=== PATIENT | female | born 1980 | race Caucasian/White ===

== ENCOUNTER 2019-12-10 16:44 | Outpatient (CLI) | payer OTHER, SELFPAY ==
--- NOTE | ~2019-12-10 | CT_ITS ---
EXAMINATION: CT BRAIN W/O DATE: 12/10/2019 18:11 INDICATION: Cerebral infarction. TECHNIQUE: Computed tomography (CT) of the head was performed without and with 100 cc Omnipaque 350 i ntravenous contrast. The dose-length product was 1362.00 mGy-cm. The mA was adjusted according to pat ient size. Iterative reconstruction technique was employed. COMPARISON: No prior studies for comparison. FINDINGS: Normal brain parenchymal volume for age. Normal tomlinson-white differentiation. No acute intrac ranial hemorrhage, infarction, mass or mass effect. No abnormal contrast enhancement. No ventriculomegaly or midline shift. Midline sagittal images demonstrate a normal corpus callosum, c raniovertebral junction and sella turcica. Basilar cisterns are patent. Paranasal sinuses and mastoids are pneumatized. No depressed skull fractures. IMPRESSION: 1. No acute intracranial abnormality. Reviewed, dictated and finalized at location A. ATORY ANIMAL TRAPPER
--- NOTE | ~2019-12-10 | US_ITS ---
EXAMINATION:US venous doppler LE BI INDICATION:Bilateral leg swelling for 3 days TECHNIQUE: Multiple grayscale, color flow and Doppler images of the lower extremity deep venous syste ms were obtained and reviewed. COMPARISON:No prior studies for comparison. FINDINGS: The common femoral, superficial femoral and popliteal veins demonstrate normal respiratory variation, augmentation and compressibility. Color flow is also seen within the posterior tibial, pe roneal, greater saphenous and profunda veins. IMPRESSION: 1: No lower extremity deep venous thrombosis. Reviewed, dictated and finalized at location A. STAGER
--- NOTE | ~2019-12-10 | US_ITS ---
EXAMINATION: US carotid duplex BI DATE: 12/10/2019 17:44 INDICATION: Cerebral infarction TECHNIQUE: Grayscale, color Doppler, and pulsed Doppler images of the cervical carotid arteries were obtained. The degree of vessel stenosis is placed in one of the following categories: normal, <50%, 5 0-69%, >=70% but less than near-occlusion, near-occlusion, or total occlusion. Note that percent sten osis relative to normal distal artery lumen diameter is indirectly measured from velocity measurement s as described by Brody, et al. Radiology 2003; 229:340-346. Notes: Normal: Peak systolic velocity <125 centimeters/sec and no plaque <50%. Peak systolic velocity <125 ( EDV <40; ICA/CCA PSV ratio <2.0; used these factors only a tandem lesions or low cardiac output or co ntralateral disease) 50-69 %: PSV 125-230 (EDV 40-100; ratio 2-4) >= 70% but less than near occlusion: PSV greater than 230 (EDV > 100; ratio> 4.0) Near Occlusion: PSV that is variable; markedly narrowed lumen Occlusion: Absent flow on color/spectral Doppler and no lumen on tomlinson scale. COMPARISON: None. FINDINGS: RIGHT: The right common carotid artery (CCA) peak systolic velocity (PSV) is 77 cm/s. The right internal car otid artery (ICA) PSV is 93 cm/s. The right ICA end-diastolic velocity (EDV) is 30 cm/s. The right IC A/CCA PSV ratio is 1.2. The external carotid artery (ECA) PSV is 79 cm/s. There is antegrade flow in the right vertebral artery. LEFT: The left CCA PSV is 97 cm/s. The left ICA PSV is 70 cm/s. The left ICA EDV is 22 cm/s. The left ICA/C CA PSV ratio is 0.7. The ECA PSV is 58 cm/s. There is antegrade flow in the left vertebral artery. IMPRESSION: 1. Less than 50% stenosis in the right internal carotid artery by sonographic criteria. 2. Less than 50% stenosis in the left internal carotid artery by sonographic criteria. Reviewed, dictated and finalized at location A. Y GUNNER IMPRESSION: 1. Less than 50% stenosis in the right internal carotid artery by sonographic desean polanco. 2. Less than 50% stenosis in the left internal carotid artery by sonographic venus lou.
[2019-12-10 17:57] LABS: Blood Urea Nitrogen 27 mg/dL (8-26); Estimated Glomerular Filt Rate 33
== END 2019-12-10 16:45 | disposition home or self-care (01) ==
PROVIDERS: PCP Family Medicine; Visit Provider Family Medicine
DX: I63.9 Cerebral infarction, unspecified (principal); I65.23 Occlusion and stenosis of bilateral carotid arteries
CPT/HCPCS: 70470; 93880; 93970; Q9967

== ENCOUNTER 2019-12-15 08:29 | Outpatient (CLI) | payer OTHER, SELFPAY ==
--- NOTE | 2019-12-15 | ECHO_ITS ---
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 Summary 1. Left ventricular chamber dimension is mildly enlarged. 2. Left ventricular systolic function is normal, estimated at 55-60%. 3. There is mildly increased left ventricular wall thickness. 4. Left ventricular septal wall motion is normal. 5. The left ventricular diastolic function is normal. 6. Left atrial chamber dimension is mildly enlarged. 7. There is mild to moderate mitral valve regurgitation. 8. There is mild tricuspid valve regurgitation. Left Ventricle Left ventricular chamber dimension is mildly enlarged. Left ventricular systolic function is normal, estimated at 55-60%. There is mildly increased left ventricular wall thickness. Left ventricular septal wall motion is normal. The left ventricular diastolic function is normal. Right Ventricle Right ventricular chamber dimension is normal. Right ventricular systolic function is normal. Left Atria Left atrial chamber dimension is mildly enlarged. Right Atria Right atrial chamber dimension is normal. Atrial Septum Intact interatrial septum visualized by color flow imaging. This is not a definitive study for analysis of shunting. Aortic Valve The aortic valve is probable trileaflet. There is mild aortic valve sclerosis. There is no aortic valve stenosis. There is trace aortic valve regurgitation. Pulmonic Valve The pulmonic valve is normal. There is no pulmonic valve stenosis. There is trace pulmonic regurgitation. Mitral Valve The mitral valve has normal leaflets. There is no mitral valve stenosis. There is mild to moderate mitral valve regurgitation. Tricuspid Valve No pulmonary hypertension, estimated pulmonary arterial systolic pressure is 24 mmHg. The tricuspid valve leaflets are normal. There is no significant tricuspid valve stenosis. There is mild tricuspid valve regurgitation. No tricuspid valve vegetation visualized. Pericardium/Pleural The pericardium appears normal. There is trivial pericardial effusion. Inferior Vena Cava Dilated inferior vena cava with <50% collapse upon inspiration consistent with elevated right atrial pressure, 10 mmHg. Aorta The aortic root size at the sinus of Valsalva is normal. Left Ventricular Outflow Tract Name Value Normal LVOT 2D LVOT Diameter 2.1 cm LVOT Doppler LVOT Peak Gradient 3 mmHg LVOT Mean Gradient
[2019-12-15 09:05] LABS: Basophils Percent Auto 0.4 % (0.2-1.2); Eosinophils Absolute Auto 0.3 K/mm3 (0-0.3); Eosinophils Percent Auto 3.3 % (0-4.4); Hemoglobin 12.2 g/dL (12.0-15.0); Immature Granulocyte Absolute 0.04 K/mm3 (0.00-0.031); Immature Granulocyte Percent A 0.5 % (0-0.5); Lymphocytes Absolute Auto 2.23 K/mm3 (0.9-3.2); Lymphocytes Percent Auto 29.2 % (18.3-44.2); Mean Corpuscular Hemoglobin 33.1 pg (26-34); Mean Corpuscular Volume 100.3 fl (80-100); Mean Platelet Volume 9.5 fl (7.4-10.4); Monocytes Absolute Auto 0.7 K/mm3 (0.1-0.6); Monocytes Percent Auto 8.5 % (2.6-8.5); Neutrophils Absolute Auto 4.4 K/mm3 (1.3-6.7); Neutrophils Percent Auto 58.1 % (45.5-73.1); Platelet Count Result 157 k/mm3 (150-375); Red Blood Count 3.69 M/mm3 (4.2-5.4); Red Cell Distribution Width 12.7 % (11.5-14.5); White Blood Count 7.6 K/mm3 (4.5-10.0)
[2019-12-15 09:18] LABS: Prothrombin Time 13.2 Seconds (11.1-14.7)
[2019-12-15 09:23] LABS: Alanine Aminotransferase 22 U/L (4-35); Albumin Level 4.2 g/dL (3.5-5.1); Alkaline Phosphatase 76 U/L (38-126); Aspartate Amino Transferase 18 U/L (14-36); Bilirubin,Total 0.4 mg/dL (0.2-1.3); Blood Urea Nitrogen 16 mg/dL (7-17); Calcium 8.9 mg/dL (8.4-10.2); Carbon Dioxide 27 mmol/L (22-30); Chloride 102 mmol/L (98-107); Cholesterol 118 mg/dL (0-200); Estimated Glomerular Filt Rate 50; Glucose 153 mg/dL (65-105); HDL Direct 32 mg/dL; Potassium 4.2 mmol/L (3.4-5.0); Sodium 139 mmol/L (137-145); Triglycerides 178 mg/dL (<150)
[2019-12-15 09:34] LABS: LDL Cholesterol Direct 63 mg/dL
[2019-12-15 09:36] LABS: Creatinine Urine 77.7 mg/dL
[2019-12-15 11:29] LABS: MALB Creatinine Ratio < 7.7 mg/g (0-30); Microalbumin Urine Random < 6.0 mg/L (0-16.7)
== END 2019-12-15 08:30 | disposition home or self-care (01) ==
PROVIDERS: PCP Family Medicine; Visit Provider Family Medicine
DX: I63.9 Cerebral infarction, unspecified (principal); E11.649 Type 2 diabetes mellitus with hypoglycemia without coma; I95.1 Orthostatic hypotension
CPT/HCPCS: 36415; 80053; 80061; 82043; 83036; 85025; 85610; 93306

== ENCOUNTER 2020-02-02 15:40 | Emergency (ER) | payer MEDICAID, SELFPAY ==
[2020-02-02 15:57] VITALS: BP 124/92; PULSE 75; RESP 16; TEMP 36.8; O2SAT 98
--- NOTE | 2020-02-02 16:03 | ED.URI ---
HPI - URI/Sore Throat General Chief Complaint: Upper Respiratory Infection Stated Complaint: Fever/cough/Congestion History of Present Illness HPI Narrative: This is a 39-year-old female comes in complaining of cough congestion nasal drainage slight headache some shortness of breath. Patient states she is been having a fever that will not stop she been alternating Tylenol Related Data Home Medications Medication Instructions Recorded Confirmed atorvastatin 10 mg PO DAILY 02/02/20 02/02/20 baclofen 20 mg PO QID 02/02/20 02/02/20 bupropion HCl [Wellbutrin XL] 150 mg PO QAM 02/02/20 02/02/20 clonazepam 1 mg PO DAILY 02/02/20 02/02/20 ertugliflozin [Steglatro] 15 mg PO QAM 02/02/20 02/02/20 fluoxetine 40 mg PO DAILY 02/02/20 02/02/20 furosemide 40 mg PO DAILY 02/02/20 02/02/20 gabapentin 800 mg PO TID 02/02/20 02/02/20 hydrocodone-acetaminophen 10 - 325 tablet PO Q4-6H 02/02/20 02/02/20 insulin glargine [Basaglar KwikPen 20 unit SUBCUT DAILY 02/02/20 02/02/20 U-100 Insulin] levetiracetam 500 mg PO BID 02/02/20 02/02/20 meloxicam 15 mg PO DAILY 02/02/20 02/02/20 metformin 500 mg PO DAILY 02/02/20 02/02/20 polyethylene glycol 3350 [Miralax] 17 g PO BID 02/02/20 02/02/20 ranitidine HCl [Heartburn Relief 150 mg PO DAILY 02/02/20 02/02/20 (ranitidine)] spironolactone 25 mg PO DAILY 02/02/20 02/02/20 trazodone 100 mg PO BID 02/02/20 02/02/20 Allergies Allergy/AdvReac Type Severity Reaction Status Date / Time morphine Allergy Intermediate RASH,FEVER, Verified 04/01/18 13:57 N&V clindamycin Allergy Unknown constipatio Unverified 04/01/18 13:57 n Corticosteroids Allergy Unknown Verified 04/01/18 13:57 (Glucocorticoids) sertraline Allergy Unknown TREMORS Verified 05/22/18 13:57 Review of Systems Review of Systems: Narrative: CONSTITUTIONAL: Reports fever, chills, or sweats. EYES: Denies visual changes, redness, or discharge. ENT: Reports rhinorrhea, congestion, sore throat, or otalgia. CARDIOVASCULAR:Denies chest pain, palpitations, or edema. RESPIRATORY: Reports cough or dyspnea. GASTROINTESTINAL: Denies abdominal pain, nausea, vomiting, or diarrhea. GENITOURINARY: Denies dysuria or hematuria. SKIN:[Denies rash or itching. MUSCULOSKELETAL:Denies back pain, joint pain, or myalgia. NEUROLOGIC: Denies headache, numbness, or weakness. PSYCHIATRIC:Denies anxiety or depression PMFSH Social History Social History Gender identity (if verbalized by the patient): Female Comments At time as signature, I have reviewed and agree with nursing past medical, social, surgical and family history. Please see nursing chart for further information. There is no relevant family history pertinent to the presenting complaint. Exam Narrative: Exam Narrative: GENERAL:Well-appearing, well-nourished, and in no acute distress. Malaise HEAD:Normocephalic, atraumatic. EYES: PERRLA and EOMI. ENT: Nares clear, moderate rhinorrhea or epistaxis. Mucous membranes moist. Slight pharyngeal erythema NECK: Supple. CHEST: Clear to scattered throughout auscultation. No respiratory distress. HEART: Regular rate and rhythm. No murmur heard. Normal peripheral pulses. ABDOMEN: Soft, nontender, nondistended, normal active bowel sounds. EXTREMITIES: Normal range of motion. No edema. SKIN: Warm, dry, no rash. NEURO: No focal deficits. Alert and oriented x3. Course Vital Signs Vital signs: Vital Signs Temperature 98.2 F 02/02/20 15:57 Pulse Rate 75 02/02/20 15:57 Respiratory Rate 16 02/02/20 15:57 Blood Pressure 124/92 H 02/02/20 15:57 Pulse Oximetry 98 02/02/20 15:57 Temperature 98.2 F 02/02/20 15:57 Pulse Rate 75 02/02/20 15:57 Respiratory Rate 16 02/02/20 15:57 Blood Pressure 124/92 H 02/02/20 15:57 Pulse Oximetry 98 02/02/20 15:57 MDM - URI/Sore Throat Differential Diagnosis Differential diagnosis: Likely upper respiratory infection, otitis media, sinusitis, viral infection and pharyngitis L
== END 2020-02-02 16:31 | disposition home or self-care (01) ==
PROVIDERS: Emergency Provider Nurse Practitioner Family; PCP Family Medicine
DX: B34.9 Viral infection, unspecified (principal); J06.9 Acute upper respiratory infection, unspecified; E78.00 Pure hypercholesterolemia, unspecified; I10 Essential (primary) hypertension; J45.909 Unspecified asthma, uncomplicated; K21.9 Gastro-esophageal reflux disease without esophagitis; M41.9 Scoliosis, unspecified; E11.40 Type 2 diabetes mellitus with diabetic neuropathy, unspecified; F41.9 Anxiety disorder, unspecified; F32.9 Major depressive disorder, single episode, unspecified; F43.10 Post-traumatic stress disorder, unspecified
CPT/HCPCS: 87804; 99213; G0463

== ENCOUNTER 2020-04-27 14:38 | Outpatient (CLI) | payer OTHER, SELFPAY ==
--- NOTE | ~2020-04-27 | CT_ITS ---
EXAMINATION: CT abdomen pelvis w con DATE: 04/27/2020 15:38 INDICATION: Hernia. TECHNIQUE: Computed tomography (CT) of the abdomen and pelvis was performed with 100 mL Omnipaque 350 intravenous contrast. Automated exposure control and iterative reconstruction technique were employe d. The dose-length product was 1565.46 mGy-cm. COMPARISON: CT abdomen and pelvis 10/18/2016 FINDINGS: The visualized portions of the lung bases demonstrate minimal atelectasis. No pleural effus ion. The heart size is normal. No pericardial effusion. The liver is normal. There are changes of cho lecystectomy. There is mild splenomegaly, likely secondary to obesity. The pancreas and right adrenal gland are normal. There is a 2.2 cm mass of fat in left adrenal gland, consistent with a myelolipoma . The kidneys are normal. There are no dilated loops of bowel. The appendix is normal. There are no p athologically enlarged lymph nodes. There is no free intraperitoneal fluid. There is mild thoracolumb ar spondylosis. There is mild chronic anterior wedging of multiple thoracic vertebral bodies. IMPRESSION: 1. No hernia identified. Reviewed, dictated and finalized at location A. IMPRESSION: 1. No hernia identified.
[2020-04-27 15:28] LABS: Estimated Glomerular Filt Rate > 60
== END 2020-04-27 14:39 | disposition home or self-care (01) ==
PROVIDERS: PCP Family Medicine
DX: R20.2 Paresthesia of skin (principal); K43.9 Ventral hernia without obstruction or gangrene
CPT/HCPCS: 36415; 74177; Q9967

== ENCOUNTER 2020-05-18 10:32 | Outpatient (CLI) | payer OTHER, SELFPAY ==
--- NOTE | ~2020-05-18 | XR_ITS ---
XR lumbar spine 2-3V DATE: 05/18/2020 10:50 INDICATION: Low back pain TECHNIQUE: AP, lateral, coned lateral lumbosacral views COMPARISON: None FINDINGS: Normal alignment of the lumbar spine. No fracture or dislocation, periosteal reaction or b one destruction. There is mild degenerative spurring of the lumbar spine. The lumbar and lumbosacral interspaces are relatively well preserved. The sacroiliac joints are intact. Surgical clips overlie the right upper quadrant, consistent with cholecystectomy. IMPRESSION: Mild degenerative spurring Reviewed, dictated and finalized at location B. IMPRESSION: Mild degenerative spurring
== END 2020-05-18 10:33 | disposition home or self-care (01) ==
PROVIDERS: PCP Family Medicine; Visit Provider Family Medicine
DX: M54.5 Low back pain (principal)
CPT/HCPCS: 72100

== ENCOUNTER 2020-09-14 09:46 | Outpatient (CLI) | payer OTHER, SELFPAY ==
--- NOTE | ~2020-09-14 | NM_ITS ---
EXAM: NM gastric emptying study DATE: 09/14/2020 14:49 INDICATION: Epigastric pain TECHNIQUE: A gastric emptying study was performed using the methodology of Anjali MARQUEZ, et al. J Nucl Med 2007; 48:568-572. The patient was given a meal consisting of 2 scrambled eggs labeled with 1 mCi Tc-99m sulfur colloid, 2 slices of toast, two packages of jam, and approximately 120 mL of water. Si multaneous anterior and posterior 1-min images of the abdomen were obtained with the patient supine a t multiple time points over a total period of 4 hours. The geometric mean of anterior and posterior v iews was determined, and the percentage retention was calculated for each time point. COMPARISON: None. FINDINGS: Gastric retention of the radiotracer-labeled meal was 48%, 21%, and 7% at the 1-hour, 2-hour, and 4-h our time points, respectively. With this technique, apparent rapid gastric emptying is suggested by < 30% gastric retention at 1 hour. Delayed gastric emptying is defined by gastric retention of >90% at 1 hour, >60% retention at 2 hours, or >10% retention at 4 hours. IMPRESSION: 1. Normal gastric emptying. Reviewed, dictated and finalized at location A. RANCE LOSS CONTROL SURVEYOR IMPRESSION: 1. Normal gastric emptying.
[2020-09-14 11:15] LABS: Hematocrit 44.2 % (37.0-47.0); Hemoglobin 14.2 g/dL (12.0-15.0); Mean Corpuscular HGB Conc 32.1 g/dl (32-36); Mean Corpuscular Hemoglobin 31.3 pg (26-34); Mean Corpuscular Volume 97.4 fl (80-100); Mean Platelet Volume 9.3 fl (7.4-10.4); Platelet Count Result 166 k/mm3 (150-375); Red Blood Count 4.54 M/mm3 (4.2-5.4); Red Cell Distribution Width 13.9 % (11.5-14.5); White Blood Count 8.1 K/mm3 (4.5-10.0)
[2020-09-14 11:19] LABS: Hemoglobin A1C 5.6 % (<5.7)
[2020-09-14 11:26] LABS: Alanine Aminotransferase 27 U/L (4-35); Albumin Level 3.9 g/dL (3.5-5.1); Alkaline Phosphatase 91 U/L (38-126); Anion Gap 4 mmol/L (8-16); Aspartate Amino Transferase 28 U/L (14-36); Bilirubin,Total 0.4 mg/dL (0.2-1.3); Blood Urea Nitrogen 15 mg/dL (7-17); CRP 1.2 mg/dL (<1.0); Calcium 8.9 mg/dL (8.4-10.2); Carbon Dioxide 35 mmol/L (22-30); Chloride 102 mmol/L (98-107); Estimated Glomerular Filt Rate > 60; Glucose 122 mg/dL (65-105); Lipase 105 U/L (23-300); Potassium 4.1 mmol/L (3.4-5.0); Sodium 141 mmol/L (137-145)
[2020-09-14 11:54] LABS: Thyroid Stimulating Hormone 0.022 uIU/mL (0.465-4.680)
[2020-09-14 11:59] LABS: Free T4 Free Thyroxine 0.92 ng/mL (0.78-2.19)
== END 2020-09-14 09:47 | disposition home or self-care (01) ==
PROVIDERS: PCP Family Medicine; Visit Provider Nurse Practitioner
DX: R10.13 Epigastric pain (principal); R11.2 Nausea with vomiting, unspecified
CPT/HCPCS: 36415; 78264; 80048; 80076; 83036; 83690; 84439; 84443; 85027; 86140; A9541

== ENCOUNTER → 2020-10-30 15:48 | Outpatient (CLI) | payer OTHER, SELFPAY ==
--- NOTE | 2020-12-18 17:31 | WPDHOMESLEEP ---
Sleep Study - Home Unattended Date of Study: 11/08/20 Ordering Provider: Kasey Carroll MD Interpreting Physician: Paris Reeves MD Home Sleep Study Type: Apnea Link Air Height: 1.7 m Weight: 124.284 kg Body Mass Index: 42.9 Neck Circumference (inches): 21.75 [place]: 10 Reason for Sleep Study hypersomnia Sleep History Sabina Jara is a 40 year old female who is excessively sleepy during the day, no matter how much sleep she gets at night. This has been going on for years. Dinorah feels exhausted in the day. She can fall asleep sitting up in the bed. She sleep walks. She occasionally snores, never loud enough that others complain. She never wakes at night with heartburn,. belching or coughing. She occasionally has trouble sleeping with a cold. She never gasps for breath during the night. She never has breathing problems at night observed by others. She rarely sweats excessively at night. She never notices her heart pounding or beating irregularly at night. She rarely falls asleep during the day, occasionally involuntarily but never while driving. She never falls asleep during physical effort she does not have loss of muscle tone with strong emotion she occasionally has daytime difficulties due to excessive sleepiness she rarely has vivid dream like scenes upon awakening or falling asleep. She rarely feels afraid to go to sleep. She occasionally has nightmares. She occasionally remembers her dreams. She occasionally has racing thoughts, feelings of sadness depression and anxiety. She frequently has muscular tension. She rarely notices parts of her body jerking. She never kicks during the night. She occasionally has crawling and aching feelings in her legs. She rarely has leg pain during the night, and does not have morning jaw pain. She does not grind her teeth during sleep. She frequently is bothered by pain during the day, occasionally is bothered by pain during the night which awakens her and frequently wakes up feeling stiff in the morning with sore achy muscles and pain in the neck and spine. she has fatigued, panic, memory problems, insomnia, headaches, depression and takes antacids regularly. Normal bedtime is 10:30 p.m.. It takes 15 minutes for her to fall asleep. She typically wakes 3 or 4 times during the night to use the bathroom. She stays awake for 30 minutes each time. She wakes in the morning at 9:00 a.m.. Weekend schedule is the same. He does not take naps during the day. A short nap is not refreshing. She is usually drowsy in the morning for 3 hours or longer. She feels better in the evening compared to other times of day. Habits: Quit tobacco 5 years ago. No mention of caffeine or alcohol. [facility] [place] Past Medical History Medical History (Updated 12/18/20 @ 21:10 by Paris Reeves MD) Anxiety Crohn's disease Depression Diabetes mellitus Heartburn Neuropathy Partial seizures PTSD (post-traumatic stress disorder) Surgical History Surgical History (Updated 12/18/20 @ 21:05 by Paris Reeves MD) H/O section x 2 History of cholecystectomy History of foot surgery History of hysterectomy History of umbilical hernia repair x 2 Social History Social History Gender identity (if verbalized by the patient): Female Medications Home Medications Medication Instructions Recorded Confirmed Type albuterol sulfate 2 puff INHALATION QID PRN #8.5 gm 02/02/20 Rx atorvastatin 10 mg PO DAILY 02/02/20 02/02/20 History baclofen 20 mg PO QID 02/02/20 02/02/20 History benzonatate 100 mg PO TID PRN #20 cap 02/02/20 Rx bupropion HCl [Wellbutrin XL] 150 mg PO QAM 02/02/20 02/02/20 History clonazepam 1 mg PO DAILY 02/02/20 02/02/20 History ertugliflozin [Steglatro] 15 mg PO QAM 02/02/20 02/02/20 History fluoxetine 40 mg PO DAILY 02/02/20 02/02/20 History furosemide 40 mg PO DAILY 02/02/20 02/02/20 History gabapentin 800 mg PO TID 02/02/20 02/02/20 History hydrocodone-acetaminophen 10 - 325
[2020-12-18 21:14] VITALS: BMI 42.9
== END ==
PROVIDERS: PCP Family Medicine; Visit Provider Family Medicine
DX: G47.33 Obstructive sleep apnea (adult) (pediatric) (principal); K50.90 Crohn's disease, unspecified, without complications; E11.9 Type 2 diabetes mellitus without complications; G40.109 Localization-related (focal) (partial) symptomatic epilepsy and epileptic syndromes with simple partial seizures, not intractable, without status epilepticus; F43.10 Post-traumatic stress disorder, unspecified; Z79.4 Long term (current) use of insulin; Z79.899 Other long term (current) drug therapy; E66.9 Obesity, unspecified; Z68.41 Body mass index [BMI] 40.0-44.9, adult
CPT/HCPCS: 95806

== ENCOUNTER 2021-09-11 10:52 | Emergency (ER) | payer OTHER, SELFPAY ==
[2021-09-11 11:19] VITALS: BP 109/71; PULSE 62; RESP 16; TEMP 36.4; O2SAT 97
--- NOTE | 2021-09-11 12:26 | ED.GENADULT ---
HPI - General Adult General Chief complaint: Skin/Abscess/Foreign Body Stated complaint: Infection in Arm History of Present Illness HPI narrative: This is a 41-year-old female that presents to the urgent care complaining of left upper arm pain patient has insulin pump states that so she removed it it was having discharge and drainage and erythema now is warm and hard Related Data Home Medications Medication Instructions Recorded Confirmed atorvastatin 10 mg PO DAILY 02/02/20 09/11/21 baclofen 20 mg PO QID 02/02/20 09/11/21 bupropion HCl [Wellbutrin XL] 150 mg PO QAM 02/02/20 09/11/21 clonazepam 1 mg PO DAILY 02/02/20 09/11/21 ertugliflozin [Steglatro] 15 mg PO QAM 02/02/20 09/11/21 fluoxetine 40 mg PO DAILY 02/02/20 09/11/21 furosemide 40 mg PO DAILY 02/02/20 09/11/21 gabapentin 800 mg PO TID 02/02/20 09/11/21 hydrocodone-acetaminophen 10 - 325 tablet PO Q4-6H 02/02/20 09/11/21 insulin glargine [Basaglar KwikPen 20 unit SUBCUT DAILY 02/02/20 09/11/21 U-100 Insulin] levetiracetam 500 mg PO BID 02/02/20 09/11/21 meloxicam 15 mg PO DAILY 02/02/20 09/11/21 metformin 500 mg PO DAILY 02/02/20 09/11/21 polyethylene glycol 3350 [Miralax] 17 g PO BID 02/02/20 09/11/21 ranitidine HCl [Heartburn Relief 150 mg PO DAILY 02/02/20 09/11/21 (ranitidine)] spironolactone 25 mg PO DAILY 02/02/20 09/11/21 trazodone 100 mg PO BID 02/02/20 09/11/21 Allergies Allergy/AdvReac Type Severity Reaction Status Date / Time morphine Allergy Intermediate RASH,FEVER, Verified 09/11/21 11:26 N&V clindamycin Allergy Unknown constipatio Verified 09/11/21 11:26 n Corticosteroids Allergy Unknown Other Verified 09/11/21 11:26 (Glucocorticoids) sertraline Allergy Unknown TREMORS Verified 09/11/21 11:26 Review of Systems Review of Systems: CONSTITUTIONAL: Denies fever, chills, or sweats. EYES: Denies visual changes, redness, or discharge. ENT: Denies rhinorrhea, congestion, sore throat, or otalgia. CARDIOVASCULAR:Denies chest pain, palpitations, or edema. RESPIRATORY: Denies cough or dyspnea. GASTROINTESTINAL: Denies abdominal pain, nausea, vomiting, or diarrhea. GENITOURINARY: Denies dysuria or hematuria. SKIN:left arm redness and swelling MUSCULOSKELETAL:Denies back pain, joint pain, or myalgia. NEUROLOGIC: Denies headache, numbness, or weakness. PSYCHIATRIC:Denies anxiety or depression [facility] Past Medical History Medical History (Updated 09/11/21 @ 12:37 by Bruno Mckeon NP) Anxiety Crohn's disease Depression Diabetes mellitus Heartburn Neuropathy Partial seizures PTSD (post-traumatic stress disorder) Surgical History Surgical History (Updated 12/18/20 @ 21:05 by Paris Reeves MD) H/O section x 2 History of cholecystectomy History of foot surgery History of hysterectomy History of umbilical hernia repair x 2 Social History Social History Gender identity (if verbalized by the patient): Female Comments At time as signature, I have reviewed and agree with nursing past medical, social, surgical and family history. Please see nursing chart for further information. There is no relevant family history pertinent to the presenting complaint. Exam Narrative: My adult exam GENERAL:Well-appearing, well-nourished, and in no acute distress. HEAD:Normocephalic, EYES: PERRLA and EOMI. ENT: Nares clear, no rhinorrhea or epistaxis. Mucous membranes moist. CHEST: Clear to auscultation. No respiratory distress. HEART: Regular rate and rhythm ABDOMEN: Soft, nontender, nondistended, normal active bowel sounds. EXTREMITIES: Normal range of motion. No edema. SKIN: Warm, dry, no rash. left arm warm swelling with erythema and wram to touch NEURO: No focal deficits. Alert and oriented x3. Course Vital Signs Vital signs: Vital Signs Temperature 97.6 F 09/11/21 11:19 Pulse Rate 62 09/11/21 11:19 Respiratory Rate 16 09/11/21 11:19 Blood Pressure 109/71 09/11/21 11:19 Pulse Oximetry 97
== END 2021-09-11 12:45 | disposition home or self-care (01) ==
PROVIDERS: Emergency Provider Nurse Practitioner Family
DX: L03.114 Cellulitis of left upper limb (principal); K50.90 Crohn's disease, unspecified, without complications; R12 Heartburn; E11.40 Type 2 diabetes mellitus with diabetic neuropathy, unspecified; F41.9 Anxiety disorder, unspecified; F32.A Depression, unspecified; G40.909 Epilepsy, unspecified, not intractable, without status epilepticus
CPT/HCPCS: 99213; G0463

== ENCOUNTER 2023-03-23 17:09 | Emergency (ER) | payer OTHER, SELFPAY ==
--- NOTE | ~2023-03-23 | CT_ITS ---
EXAMINATION: CT lumbar spine wo con DATE: 03/23/2023 19:09 INDICATION: back pain, sciatica . TECHNIQUE: Computed tomography (CT) of the lumbar spine was performed without intravenous contrast. A utomated exposure control and iterative reconstruction technique were employed. The dose-length produ ct was 1184.13 mGy-cm. COMPARISON: None. FINDINGS: 5 nonrib-bearing lumbar-type vertebral bodies. Pedicles intact. Normal vertebral body align ment. Mild anterior wedge deformity at T11 and T12, likely physiologic. Multilevel mild marginal oste ophytosis. Multilevel mild-moderate facet sclerosis and hypertrophy. 5 mm central protrusion superimp osed on a diffuse disc bulge at L4-5. Severe central canal stenosis at L4-5. Congenitally narrow appe aring spinal canal. Left adrenal adenoma and myelolipoma. Mild bilateral SI joint degenerative change . IMPRESSION: No acute fracture or traumatic malalignment in the lumbar spine. Severe central canal stenosis at L4- 5 secondary to degenerative disc and facet changes. Reviewed, dictated and finalized at location K. IMPRESSION: No acute fracture or traumatic malalignment in the lumbar spine. Severe central canal stenosis at L4-5 secondary to degenerative disc and facet changes.
[2023-03-23 17:40] VITALS: BP 143/84; PULSE 72; RESP 18; TEMP 36.6; O2SAT 98
--- NOTE | 2023-03-23 18:21 | ED.BACK ---
HPI - Back Pain/Injury General Chief Complaint: Back Pain/Injury <Tangela Simms PA-C - Last Filed: 03/24/23 02:39> Stated Complaint: back pain <Tangela Simms PA-C - Last Filed: 03/24/23 02:39> Time Seen by Provider: 03/23/23 17:11 <Tangela Simms PA-C - Last Filed: 03/24/23 02:39> History of Present Illness HPI Narrative: 42-year-old female with a history of type 1 diabetes reports for evaluation of lumbar back pain with sharp pain radiating to her right buttocks and down her lateral hip wraps around to the medial aspect of her right thigh x2 months. She reports the pain is a sharp, shooting and fiery pain. Patient has been taking naproxen with mild relief. She is prescribed Lyrica she takes daily as well for her peripheral neuropathy secondary to diabetes. States she has baseline sensory loss in her bilateral feet that has been ongoing prior to the onset of the back pain. She denies recent trauma, saddle anesthesia, bowel or bladder retention or incontinence, weakness to lower extremities, IVDU, history of cancer, use of steroids or immunosuppressants, fever, body aches or chills, rash. She has a PCP with a schedule appointment in 1 month. <Tangela Simms PA-C - Last Filed: 03/24/23 02:39> Related Data Home Medications: Home Medications Medication Instructions Recorded Confirmed atorvastatin 10 mg tablet 10 mg PO DAILY 02/02/20 09/11/21 baclofen 20 mg tablet 20 mg PO QID 02/02/20 09/11/21 bupropion HCl 150 mg 24 hr tablet, 150 mg PO QAM 02/02/20 09/11/21 extended release (Wellbutrin XL) clonazepam 1 mg tablet 1 mg PO DAILY 02/02/20 09/11/21 ertugliflozin 15 mg tablet 15 mg PO QAM 02/02/20 09/11/21 (Steglatro) fluoxetine 40 mg capsule 40 mg PO DAILY 02/02/20 09/11/21 furosemide 40 mg tablet 40 mg PO DAILY 02/02/20 09/11/21 gabapentin 800 mg tablet 800 mg PO TID 02/02/20 09/11/21 hydrocodone 10 mg-acetaminophen 10 - 325 tablet PO Q4-6H 02/02/20 09/11/21 325 mg tablet insulin glargine 100 unit/mL (3 20 unit subcut DAILY 02/02/20 09/11/21 mL) subcutaneous pen (Basaglar KwikPen U-100 Insulin) levetiracetam 500 mg tablet 500 mg PO BID 02/02/20 09/11/21 meloxicam 15 mg tablet 15 mg PO DAILY 02/02/20 09/11/21 metformin 500 mg tablet 500 mg PO DAILY 02/02/20 09/11/21 polyethylene glycol 3350 17 17 g PO BID 02/02/20 09/11/21 gram/dose oral powder (Miralax) ranitidine HCl 150 mg tablet 150 mg PO DAILY 02/02/20 09/11/21 (Heartburn Relief (ranitidine)) spironolactone 25 mg tablet 25 mg PO DAILY 02/02/20 09/11/21 trazodone 100 mg tablet 100 mg PO BID 02/02/20 09/11/21 <Tangela Simms PA-C - Last Filed: 03/24/23 02:39> Allergies/Adverse Reactions: Allergies Allergy/AdvReac Type Severity Reaction Status Date / Time morphine Allergy Intermediate RASH,FEVER, Verified 03/23/23 17:44 N&V clindamycin Allergy Unknown constipatio Verified 03/23/23 17:44 n Corticosteroids Allergy Unknown Other Verified 03/23/23 17:44 (Glucocorticoids) sertraline Allergy Unknown TREMORS Verified 03/23/23 17:44 <Tangela Simms PA-C - Last Filed: 03/24/23 02:39> Review of Systems Review of Systems: CONSTITUTIONAL: Denies fever, chills EYES: Denies visual changes, redness, or discharge. ENT: Denies rhinorrhea, congestion, sore throat, or otalgia. CARDIOVASCULAR: Denies chest pain, palpitations, or edema. RESPIRATORY: Denies cough or dyspnea. GASTROINTESTINAL: Denies abdominal pain, nausea, vomiting, or diarrhea. GENITOURINARY: Denies dysuria or hematuria. SKIN: Denies rash or itching. MUSCULOSKELETAL: See HPI NEUROLOGIC: Denies headache, numbness, dizziness, or weakness. PSYCHIATRIC: Denies anxiety or depression. <Tangela Simms PA-C - Last Filed: 03/24/23 02:39> [facility] Past Medical History Medical History: Medical History Anxiety Crohn's disease Depression Diabetes mellitus Heartburn Neuropa
[2023-03-23] MEDS: IBUPROFEN 600 MG TABLET PO (18:39)
[2023-03-23] MEDS: CYCLOBENZAPRINE HCL 10 MG TABLET PO (18:39)
--- NOTE | 2023-03-23 20:06 | PC.NURSE ---
Pt reports a family emergency and she has to leave. Pt ambulated out of department with steady gait. Pharmacy verified in case provider will send scripts. Tangela SAL[employer] notified.
== END 2023-03-23 20:14 | disposition home or self-care (01) ==
PROVIDERS: Emergency Provider Physician Assistant
DX: M48.061 Spinal stenosis, lumbar region without neurogenic claudication (principal); M54.50 Low back pain, unspecified; Z79.4 Long term (current) use of insulin; E10.9 Type 1 diabetes mellitus without complications
CPT/HCPCS: 72131; 99284; A9270

== ENCOUNTER 2023-10-14 17:19 | Emergency (ER) | payer OTHER, SELFPAY ==
[2023-10-14 17:32] VITALS: BP 119/74; PULSE 64; RESP 18; TEMP 36.3; O2SAT 99
--- NOTE | 2023-10-14 17:48 | ED.LOWEXIN ---
HPI - Extremity Injury (Lower) General Chief Complaint: Extremity Injury, Lower Stated Complaint: Wound Right Foot Big Toe Time Seen by Provider: 10/14/23 17:35 Source: patient Mode of arrival: ambulatory Limitations: no limitations History of Present Illness HPI Narrative: Sabina is a 43-year-old female patient presenting to the clinic today with complaints of a right great toe wound/infection. She reports that she has a infected wound to the right great toe. Has taken a 10 day course of clindamycin and finished the antibiotics yesterday and states that the wound is no better and the redness is getting worse. She reports that she has felt feverish but is afebrile in the clinic today. Related Data Home Medications Medication Instructions Recorded Confirmed atorvastatin 10 mg tablet 10 mg PO DAILY 02/02/20 09/11/21 baclofen 20 mg tablet 20 mg PO QID 02/02/20 09/11/21 bupropion HCl 150 mg 24 hr tablet, 150 mg PO QAM 02/02/20 09/11/21 extended release (Wellbutrin XL) clonazepam 1 mg tablet 1 mg PO DAILY 02/02/20 09/11/21 ertugliflozin 15 mg tablet 15 mg PO QAM 02/02/20 09/11/21 (Steglatro) fluoxetine 40 mg capsule 40 mg PO DAILY 02/02/20 09/11/21 furosemide 40 mg tablet 40 mg PO DAILY 02/02/20 09/11/21 gabapentin 800 mg tablet 800 mg PO TID 02/02/20 09/11/21 hydrocodone 10 mg-acetaminophen 10 - 325 tablet PO Q4-6H 02/02/20 09/11/21 325 mg tablet insulin glargine 100 unit/mL (3 20 unit subcut DAILY 02/02/20 09/11/21 mL) subcutaneous pen (Basaglar KwikPen U-100 Insulin) levetiracetam 500 mg tablet 500 mg PO BID 02/02/20 09/11/21 meloxicam 15 mg tablet 15 mg PO DAILY 02/02/20 09/11/21 metformin 500 mg tablet 500 mg PO DAILY 02/02/20 09/11/21 polyethylene glycol 3350 17 17 g PO BID 02/02/20 09/11/21 gram/dose oral powder (Miralax) ranitidine HCl 150 mg tablet 150 mg PO DAILY 02/02/20 09/11/21 (Heartburn Relief (ranitidine)) spironolactone 25 mg tablet 25 mg PO DAILY 02/02/20 09/11/21 trazodone 100 mg tablet 100 mg PO BID 02/02/20 09/11/21 Allergies Allergy/AdvReac Type Severity Reaction Status Date / Time morphine Allergy Intermediate RASH,FEVER, Verified 03/23/23 17:44 N&V clindamycin Allergy Unknown constipatio Verified 03/23/23 17:44 n Corticosteroids Allergy Unknown Other Verified 03/23/23 17:44 (Glucocorticoids) sertraline Allergy Unknown TREMORS Verified 03/23/23 17:44 Review of Systems Review of Systems: Pertinent positives per HPI. Patient denies any fever, chills, rash, headache, visual changes, dizziness, cough, runny nose, sore throat, shortness of breath, chest pain, palpitations, nausea, vomiting, diarrhea, constipation, abdominal pain, or any urinary issues. [facility] Past Medical History Medical History Anxiety Crohn's disease Depression Diabetes mellitus Heartburn Neuropathy Partial seizures PTSD (post-traumatic stress disorder) Surgical History Surgical History H/O section x 2 History of cholecystectomy History of foot surgery History of hysterectomy History of umbilical hernia repair x 2 Social History Social History Gender identity (if verbalized by the patient): Female Comments At the time of my signature, I reviewed and agree with the nursing past medical, surgical, social, and family history. There is no relevant family history pertinent to the patient complaint. Exam Narrative: General: Well-developed, well nourished, in no apparent distress Head: Normocephalic, atraumatic. Cardio: Regular rate and rhythm, s1 and s2 normal, no murmur appreciated. Resp: Clear to auscultation bilaterally, no rhonchi, rales, wheezing or rubs. Musculoskeletal: No deformity, red and swollen right great toe with tenderness and erythema to palpation, redness is extending down the
== END 2023-10-14 18:02 | disposition short-term general hospital (02) ==
LOC: EXPCOLL 17:23
PROVIDERS: Emergency Provider Nurse Practitioner Family; PCP Family Medicine
DX: L03.031 Cellulitis of right toe (principal); K50.90 Crohn's disease, unspecified, without complications; E11.40 Type 2 diabetes mellitus with diabetic neuropathy, unspecified; F41.9 Anxiety disorder, unspecified; F32.A Depression, unspecified; G40.109 Localization-related (focal) (partial) symptomatic epilepsy and epileptic syndromes with simple partial seizures, not intractable, without status epilepticus; F43.10 Post-traumatic stress disorder, unspecified
CPT/HCPCS: 99212; G0463

== ENCOUNTER 2023-10-14 18:16 | Emergency (ER) | payer OTHER, SELFPAY ==
--- NOTE | 2023-10-14 18:18 | PC.NURSE ---
pt states shes not waiting that long, she can't
== END 2023-10-14 18:18 | disposition left against medical advice (07) ==
PROVIDERS: PCP Family Medicine
DX: Z53.21 Procedure and treatment not carried out due to patient leaving prior to being seen by health care provider (principal)
CPT/HCPCS: 99199

== ENCOUNTER 2024-02-28 13:59 | Emergency (ER) | payer OTHER, SELFPAY ==
--- NOTE | ~2024-02-28 | XR_ITS ---
EXAMINATION: XR foot LT min 3V DATE: 02/28/2024 16:19 INDICATION: Lateral left foot pain. Injury. TECHNIQUE: 2 views of left foot were obtained. COMPARISON: None. FINDINGS: There are changes of resection of the head of the fifth proximal phalanx and head and neck of the fifth metatarsal. No acute fracture. There is mild osteoarthritis of first metatarsophalangeal joint and some of the interphalangeal joints and midfoot joints. There are enthesophytes at the post erior and plantar aspects of calcaneal tuberosity. IMPRESSION: 1. Mild polyarticular osteoarthritis. Reviewed, dictated and finalized at location E.
[2024-02-28 13:59] VITALS: BP 132/74; PULSE 78; RESP 16; TEMP 36.8; O2SAT 100
--- NOTE | 2024-02-28 16:09 | ED.GENADULT ---
HPI - General Adult General Chief complaint: Extremity Injury, Lower Stated complaint: foot pain Time Seen by Provider: 02/28/24 15:15 History of Present Illness HPI narrative: [age] old female presenting to the emergency department for evaluation of left foot pain. Patient states that she does have diabetic neuropathy and often missed steps, yesterday she was walking and felt pain the front of her foot. Patient denies rolling her ankle and denies any ankle pain. Patient states he has had increased pain with weight-bearing throughout the day. Patient denies any other pain or injury. Related Data Home Medications Medication Instructions Recorded Confirmed atorvastatin 10 mg tablet 10 mg PO DAILY 02/02/20 09/11/21 baclofen 20 mg tablet 20 mg PO QID 02/02/20 09/11/21 bupropion HCl 150 mg 24 hr tablet, 150 mg PO QAM 02/02/20 09/11/21 extended release (Wellbutrin XL) clonazepam 1 mg tablet 1 mg PO DAILY 02/02/20 09/11/21 ertugliflozin 15 mg tablet 15 mg PO QAM 02/02/20 09/11/21 (Steglatro) fluoxetine 40 mg capsule 40 mg PO DAILY 02/02/20 09/11/21 furosemide 40 mg tablet 40 mg PO DAILY 02/02/20 09/11/21 gabapentin 800 mg tablet 800 mg PO TID 02/02/20 09/11/21 hydrocodone 10 mg-acetaminophen 10 - 325 tablet PO Q4-6H 02/02/20 09/11/21 325 mg tablet insulin glargine 100 unit/mL (3 20 unit subcut DAILY 02/02/20 09/11/21 mL) subcutaneous pen (Basaglar NatanaelPen U-100 Insulin) levetiracetam 500 mg tablet 500 mg PO BID 02/02/20 09/11/21 meloxicam 15 mg tablet 15 mg PO DAILY 02/02/20 09/11/21 metformin 500 mg tablet 500 mg PO DAILY 02/02/20 09/11/21 polyethylene glycol 3350 17 17 g PO BID 02/02/20 09/11/21 gram/dose oral powder (Miralax) ranitidine HCl 150 mg tablet 150 mg PO DAILY 02/02/20 09/11/21 (Heartburn Relief (ranitidine)) spironolactone 25 mg tablet 25 mg PO DAILY 02/02/20 09/11/21 trazodone 100 mg tablet 100 mg PO BID 02/02/20 09/11/21 Allergies Allergy/AdvReac Type Severity Reaction Status Date / Time morphine Allergy Intermediate RASH,FEVER, Verified 02/28/24 15:05 N&V clindamycin Allergy Unknown constipatio Verified 02/28/24 15:05 n Corticosteroids Allergy Unknown Other Verified 02/28/24 15:05 (Glucocorticoids) sertraline Allergy Unknown TREMORS Verified 02/28/24 15:05 Review of Systems Review of Systems: All systems reviewed & are unremarkable except as noted in HPI and below PMFSH Past Medical History Medical History Anxiety Crohn's disease Depression Diabetes mellitus Heartburn Neuropathy Partial seizures PTSD (post-traumatic stress disorder) Surgical History Surgical History H/O section x 2 History of cholecystectomy History of foot surgery History of hysterectomy History of umbilical hernia repair x 2 Social History Social History Gender identity (if verbalized by the patient): Female Exam Narrative: APPEARANCE: Well appearing, no pain, no distress, well-nourished. HEAD: normocephalic, atraumatic. EYES: PERRLA/EOMI, conjunctivae clear. NOSE: Normal no drainage RESPIRATORY: Airway patent, respirations nonlabored. Clear to auscultation bilaterally, no rales, rhonchi, wheezing. CARDIOVASCULAR: Regular rate and rhythm without murmurs rubs or gallops. ABDOMINAL: Soft, nontender, nondistended, normal bowel sounds MUSCULOSKELETAL: tenderness of left foot NEURO: Alert. Cranial nerves II through XII intact. Grossly intact SKIN: Warm, dry. Normal Color Course Vital Signs Vital signs: Vital Signs Temperature 98.2 F 02/28/24 13:59 Pulse Rate 78 02/28/24 13:59 Respiratory Rate 16 02/28/24 13:59 Blood Pressure 132/74 02/28/24 13:59 Pulse Oximetry 100 02/28/24 13:59 Oxygen Delivery Room Air 02/28/24 13:59 Temperature 97.6 F 02/28/24 16:52 Pulse Rate 74 02/28/24 16:52 Respiratory Rate 14 02/28/24 16:52 Blood Pressure 125/93 H 02/28/24 16:52 Pulse Oximetry 100 02/28/24 16:52 Oxygen Delivery Room Air 02/28/24 13:59 Medical Decision Making MDM Narrative Medical decision making narrative: 43-year-old female presenting to the emergency department for evaluation of left foot pain. X-ray showed no acute fracture dislocation. Patient was provided [place] wrap and crutches for increased support limited weight-bearing. Differential Diagnosis Differential Diagnosis: Foot fracture, foot contusion, foot sprain, ankle fracture, ankle sprain Vital Signs Vital Signs: Vital Signs Temperature 98.2 F 02/28/24 13:59 Pulse Rate 78 02/28/24 13:59 Respiratory Rate 16 02/28/24 13:59 Blood Pressure 132/74 02/28/24 13:59 Pulse Oximetry 100 02/28/24 13:59 Oxygen Delivery Room Air 02/28/24 13:59 Temperature 97.6 F 02/28/24 16:52 Pulse Rate 74 02/28/24 16:52 Respiratory Rate 14 02/28/24 16:52 Blood Pressure 125/93 H 02/28/24 16:52 Pulse Oximetry 100 02/28/24 16:52 Oxygen Delivery Room Air 02/28/24 13:59 Discharge Plan Discharge Clinical Impression: Contusion of foot Patient Disposition: Home, Self-Care Condition: Stable Instructions: Antibiotic Form, Crutch Instructions (ED), Foot Sprain (ED) Additional Instructions: Home medications for pain control. Wilton wrap for comfort, crutches for limited weight-bearing. Have close follow-up with her primary care physician. Prescriptions: No Action cephalexin 500 mg capsule 500 mg PO Q12H 10 Days Qty: 20 0RF fluoxetine 40 mg Capsule 40 mg PO DAILY furosemide 40 mg Tablet 40 mg PO DAILY atorvastatin 10 mg Tablet 10 mg PO DAILY levetiracetam 500 mg Tablet 500 mg PO BID meloxicam 15 mg Tablet 15 mg PO DAILY clonazepam 1 mg Tablet 1 mg PO DAILY spironolactone 25 mg Tablet 25 mg PO DAILY baclofen 20 mg Tablet 20 mg PO QID trazodone 100 mg Tablet 100 mg PO BID polyethylene glycol 3350 [Miralax] 17 gram/dose Powder 17 g PO BID Basagldemetrio Stewart U-100 Insulin 100 unit/mL (3 mL) Insulin Pen 20 unit SUBCUT DAILY Steglatro 15 mg Tablet 15 mg PO QAM metformin 500 mg Tablet 500 mg PO DAILY hydrocodone-acetaminophen 10-325 mg Tablet 10 - 325 tablet PO Q4-6H gabapentin 800 mg Tablet 800 mg PO TID ranitidine HCl [Heartburn Relief (ranitidine)] 150 mg Tablet 150 mg PO DAILY albuterol sulfate 90 mcg/actuation HFA aerosol inhaler 2 puff INHALATION QID PRN (Reason: shortness of breath or wheezing) Qty: 8.5 0RF bupropion HCl [Wellbutrin XL] 150 mg Tablet Extended Release 24 Hr 150 mg PO QAM cyclobenzaprine 15 mg capsule,extended release 24hr 15 mg PO DAILY Qty: 14 0RF ibuprofen 600 mg tablet 600 mg PO Q6H PRN (Reason: pain) Qty: 14 0RF Follow-up/Referrals: Aj,Preet Schwartz MD [Primary Care Provider] -
[2024-02-28 16:52] VITALS: BP 125/93; PULSE 74; RESP 14; TEMP 36.4; O2SAT 100
== END 2024-02-28 16:54 | disposition home or self-care (01) ==
PROVIDERS: Emergency Provider Emergency Medicine; PCP Family Medicine
DX: S90.32XA Contusion of left foot, initial encounter (principal); E11.40 Type 2 diabetes mellitus with diabetic neuropathy, unspecified; K50.90 Crohn's disease, unspecified, without complications; R12 Heartburn; F41.9 Anxiety disorder, unspecified; F32.A Depression, unspecified; F43.10 Post-traumatic stress disorder, unspecified; Z90.49 Acquired absence of other specified parts of digestive tract; Z90.710 Acquired absence of both cervix and uterus; Z79.84 Long term (current) use of oral hypoglycemic drugs; Z79.4 Long term (current) use of insulin; X50.9XXA Other and unspecified overexertion or strenuous movements or postures, initial encounter
CPT/HCPCS: 73630; 99283

== ENCOUNTER 2024-03-08 18:25 | Inpatient (IN) | payer OTHER, SELFPAY ==
[2024-03-08] VITALS (7 sets, daily range): BP systolic 90–133; BP diastolic 60–89; PULSE 79–99; RESP 16–20; TEMP 36.7–36.8; O2SAT 97–100
--- NOTE | ~2024-03-08 | CT_ITS ---
EXAMINATION: CT abdomen pelvis w con DATE: 03/08/2024 20:25 INDICATION: Groin abscess. ren gangrene. TECHNIQUE: Computed tomography (CT) of the abdomen and pelvis was performed with 100 mL Omnipaque 350 intravenous contrast. Automated exposure control and iterative reconstruction technique were employe d. The dose-length product was 1636.20 mGy-cm. COMPARISON: CT abdomen and pelvis 04/27/2020 FINDINGS: Visualized portions of the lung bases show minimal atelectasis. No pleural effusion. The he art size is normal. No pericardial effusion. The liver is normal. There are changes of cholecystectom y. The spleen, pancreas, and right adrenal gland are normal. There is a chronic 1.9 cm mass in left a drenal gland measuring soft tissue attenuation, likely an adenoma. There is a 2.2 cm mass of fat in l eft adrenal gland, consistent with a myelolipoma. The kidneys are normal. There are no dilated loops of bowel. The appendix is normal. There are no pathologically enlarged lymph nodes. There is no free intraperitoneal fluid. There is chronic subcutaneous fat stranding in low anterior abdominal wall con sistent with scarring. There is fat stranding in the left perineum. No soft tissue gas. There is mild thoracic and lumbar spondylosis. There is mild chronic anterior wedging of multiple vertebral bodies . IMPRESSION: 1. Fat stranding in the left perineum, consistent with cellulitis. No soft tissue gas to suggest necr otizing fasciitis. No abscess. Reviewed, dictated and finalized at location E. IMPRESSION: 1. Fat stranding in the left perineum, consistent with cellulitis. No soft tiss ue gas to suggest necrotizing fasciitis. No abscess.
--- NOTE | 2024-03-08 19:08 | ECG_ITS ---
SEE SCANNED COPY FOR CONFIRMED REPORT MTDD
[2024-03-08 19:47] LABS: Basophils Percent Auto 0.4 % (0.2-1.2); Eosinophils Absolute Auto 0.1 K/mm3 (0-0.3); Eosinophils Percent Auto 0.6 % (0-4.4); Hematocrit 39.6 % (37.0-47.0); Hemoglobin 13.4 g/dL (12.0-15.0); Immature Granulocyte Absolute 0.06 K/mm3 (0.00-0.031); Immature Granulocyte Percent A 0.5 % (0-0.5); Lymphocytes Absolute Auto 0.23 K/mm3 (0.9-3.2); Lymphocytes Percent Auto 2.1 % (18.3-44.2); Mean Corpuscular HGB Conc 33.8 g/dl (32-36); Mean Corpuscular Hemoglobin 31.7 pg (26-34); Mean Corpuscular Volume 93.6 fl (80-100); Mean Platelet Volume 10.1 fl (7.4-10.4); Monocytes Absolute Auto 0.6 K/mm3 (0.1-0.6); Monocytes Percent Auto 5.7 % (2.6-8.5); Neutrophils Percent Auto 90.7 % (45.5-73.1); Platelet Count Result 113 k/mm3 (150-375); Red Blood Count 4.23 M/mm3 (4.2-5.4); Red Cell Distribution Width 13.7 % (11.5-14.5); White Blood Count 11.1 K/mm3 (4.5-10.0)
[2024-03-08 19:58] LABS: INR 1.5; Prothrombin Time 18.5 Seconds (11.1-14.7)
[2024-03-08 19:59] LABS: Alanine Aminotransferase 34 U/L (6-35); Alkaline Phosphatase 141 U/L (38-126); Anion Gap 10 mmol/L (4-12); Aspartate Amino Transferase 33 U/L (14-36); Bilirubin,Total 3.6 mg/dL (0.2-1.3); Blood Urea Nitrogen 20 mg/dL (7-17); Calcium 9.1 mg/dL (8.4-10.2); Carbon Dioxide 23 mmol/L (22-30); Chloride 104 mmol/L (98-107); Creatine Kinase 174 U/L (30-135); Estimated CRCL calculation 66 ml/min; Estimated Glomerular Filt Rate 44; Glucose 143 mg/dL (65-110); Magnesium 2.1 mg/dL (1.6-2.3); Partial Thromboplastin Time 30.4 Seconds (22.3-36.8); Potassium 3.5 mmol/L (3.4-5.0); Sodium 137 mmol/L (137-145)
--- NOTE | 2024-03-08 20:06 | ED.GENADULT ---
HPI - General Adult General Chief complaint: Skin/Abscess/Foreign Body Stated complaint: boil to private area Time Seen by Provider: 03/08/24 18:56 History of Present Illness HPI narrative: This is a 43-year-old female with history of diabetes presenting for with a groin abscess. Patient is 2 days ago she developed a boil in her left groin. Since then it has been growing rapidly and she now has pain in her left labia and wrapping around her buttocks. Patient has noted fevers of up to 103 at home. She has been having nausea and vomiting. No chest pain difficulty breathing abdominal pain urinary symptoms or diarrhea. Related Data Home Medications Medication Instructions Recorded Confirmed atorvastatin 10 mg tablet 10 mg PO DAILY 02/02/20 09/11/21 baclofen 20 mg tablet 20 mg PO QID 02/02/20 09/11/21 bupropion HCl 150 mg 24 hr tablet, 150 mg PO QAM 02/02/20 09/11/21 extended release (Wellbutrin XL) clonazepam 1 mg tablet 1 mg PO DAILY 02/02/20 09/11/21 ertugliflozin 15 mg tablet 15 mg PO QAM 02/02/20 09/11/21 (Steglatro) fluoxetine 40 mg capsule 40 mg PO DAILY 02/02/20 09/11/21 furosemide 40 mg tablet 40 mg PO DAILY 02/02/20 09/11/21 gabapentin 800 mg tablet 800 mg PO TID 02/02/20 09/11/21 hydrocodone 10 mg-acetaminophen 10 - 325 tablet PO Q4-6H 02/02/20 09/11/21 325 mg tablet insulin glargine 100 unit/mL (3 20 unit subcut DAILY 02/02/20 09/11/21 mL) subcutaneous pen (Basaglar KwikPen U-100 Insulin) levetiracetam 500 mg tablet 500 mg PO BID 02/02/20 09/11/21 meloxicam 15 mg tablet 15 mg PO DAILY 02/02/20 09/11/21 metformin 500 mg tablet 500 mg PO DAILY 02/02/20 09/11/21 polyethylene glycol 3350 17 17 g PO BID 02/02/20 09/11/21 gram/dose oral powder (Miralax) ranitidine HCl 150 mg tablet 150 mg PO DAILY 02/02/20 09/11/21 (Heartburn Relief (ranitidine)) spironolactone 25 mg tablet 25 mg PO DAILY 02/02/20 09/11/21 trazodone 100 mg tablet 100 mg PO BID 02/02/20 09/11/21 Allergies Allergy/AdvReac Type Severity Reaction Status Date / Time morphine Allergy Intermediate RASH,FEVER, Verified 02/28/24 15:05 N&V clindamycin Allergy Unknown constipatio Verified 02/28/24 15:05 n Corticosteroids Allergy Unknown Other Verified 02/28/24 15:05 (Glucocorticoids) sertraline Allergy Unknown TREMORS Verified 02/28/24 15:05 PMFSH Past Medical History Medical History Anxiety Crohn's disease Depression Diabetes mellitus Heartburn Neuropathy Partial seizures PTSD (post-traumatic stress disorder) Surgical History Surgical History H/O section x 2 History of cholecystectomy History of foot surgery History of hysterectomy History of umbilical hernia repair x 2 Social History Social History Gender identity (if verbalized by the patient): Female Exam Narrative: APPEARANCE: No apparent distress. Head: atraumatic. EYES: EOMI, NOSE: Atraumatic NECK: Trachea midline RESPIRATORY: No increased rate of breathing CARDIOVASCULAR: RRR, ABDOMINAL: Non-distended MUSCULOSKELETAL: No obvious deformities NEURO: Alert. Moving 4/4 extremities SKIN: Examination of the groin revealed a draining area over the left perineum with an area of drainage and bruising discoloration. Significant erythema cellulitis exquisite tenderness to palpation. PSYCHIATRIC: Normal affect Course Vital Signs Vital signs: Vital Signs Temperature 98.2 F 03/08/24 18:26 Pulse Rate 97 03/08/24 18:26 Respiratory Rate 16 03/08/24 18:26 Blood Pressure 133/85 03/08/24 18:26 Pulse Oximetry 99 03/08/24 18:26 Temperature 98.1 F 03/08/24 18:33 Pulse Rate 88 03/08/24 23:31 Respiratory Rate 18 03/08/24 23:31 Blood Pressure 96/66 L 03/08/24 23:31 Pulse Oximetry 98 03/08/24 23:31 Medical Decision Making MDM Narrative Medic
[2024-03-08 20:08] LABS: Lactic Acid Reflex 1.6 mmol/L (0.7-2.0)
[2024-03-08] MEDS: ONDANSETRON INJ 4 MG/2 ML VIAL IV PUSH (20:11)
[2024-03-08] MEDS: SODIUM CHLORIDE 0.9% IV 3,000 ML 999 ML IV CONT (20:13)
[2024-03-08] MEDS: VANCOMYCIN 1,250 MG/NS 250 ML 1,250 MG/250 ML BAG 166.67 MG IVPB ×2 (20:14→22:27)
[2024-03-08 20:17] LABS: Appearance Urine Clear (Clear); Bacteria Urine None Seen /hpf; Bilirubin Urine Negative (Negative); Blood Urine Trace (Negative); Color Urine Dark Yellow (Yellow); Glucose Urine UA Negative (Negative); Ketones Urine Negative (Negative); Leukocyte Esterase Ur Trace LEU/UL (Negative); Need Manual Microscopic Reviewed; Nitrate Urine Negative (Negative); Non Pathogenic Casts >20; Protein Urine Trace mg/dL (Negative); RBC Urine 0-2 /hpf (0-2); Specific Grav Ur 1.013 (1.001-1.035); Squamous Epithelial Cell Urine Moderate /hpf (Few); WBC Urine 0-5 /hpf (0-3); pH Urine 5.5 (5.0-9.0)
[2024-03-08 20:19] LABS: Add Urine Microscopic? YES
--- NOTE | 2024-03-08 21:20 | PM.IMHP ---
H&P: HPI History of Present Illness Date/Time: 03/08/24 21:20 Chief Complaint: Boil to left groin area Narrative: 43-year-old female with a past medical history of morbid obesity, obstructive sleep apnea, insulin-dependent diabetes mellitus, diabetic peripheral neuropathy, anxiety with depression among other comorbidities who presented to the ER from home due to area of pain and infection in her left labia. The patient reports that she had a small area on her left labia 3 days ago that was painful when she would wipe. The next day she began having chills and spiking low-grade temperatures. She also developed some associated nausea and decreased appetite. Then today she developed temperature of a 103.2? and had 3 episodes of actual vomiting. She denies any known injury to the area. She reports that the area of pain did become larger and significantly more painful over the last 24 hours. She is now having pain that is moving more anterior to the front of the labia. She does have a history of multiple skin infections in the past in her groin under arms and an abscess to her right cheek. But her last infection was approximately 10 years ago. She does have insulin-dependent diabetes mellitus but is on an insulin pump. She reports that her glucoses usually range between 120 and 190 her last A1c in November was per report 6.1. Her Dexcom does demonstrate that prior to 3 days ago her glucoses were relatively controlled. However over the last 3 days her sugars have been ranging more in the 230 range despite her decreased appetite. She does report that she has had a small amount of serous sanguinous drainage when she goes to the bathroom. She reports that the pain became so bad that she felt she needed to relieve the pressure so bad that she poked the area today with an insulin needle. Despite poking the area she was not able to express any purulence when she tried to squeeze. She was not going to come to the ER but her youngest son noticed her have a near syncopal episode while she was on the steps. She became so lightheaded that she had to sit down in take a couple of minutes to recover. At that time he convinced her to come into the ER for evaluation. In the ER a CT of the abdomen pelvis was performed which demonstrated fat stranding of the left perineum consistent with cellulitis. No localized abscess was noted. On exam patient did have an open area of ulceration with an area of black discoloration from the 9 o'clock position to the 6 o'clock position. She had a small amount of serous sanguinous drainage. She has chronic mixed stress and urge urinary incontinence. She has not had any dysuria. She denies any chest pain or shortness of breath. She denies any abdominal pain. She had a home sleep study in 2020. This demonstrated evidence of obstructive sleep apnea and concern for central sleep apnea. She was supposed to have a a sleep study in sleep lab but did not do so due to lock down from [email or web address]. She reports that she always has poor sleep. Review of Systems Review of Systems: 12 systems were reviewed with pertinent positives and negatives per HPI. Except as documented in the HPI, all other systems were reviewed and are negative. [facility] Past Medical History Medical History (Updated 03/09/24 @ 06:11 by Elsa Ayala DO) Anxiety Asthma Chronic constipation Crohn's disease Depression Diabetes mellitus With insulin pump and Dexcom. 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 distribution Eosinophilic esophagitis Essential hypertension GERD (gastroesophageal reflux disease) Hyperlipidemia Mixed stress and urge incontinence Partial seizures PTSD (post-traumatic stress disorder) Surgical History Surgical History (Updated 03/09/24 @ 06:21 by Elsa Ayala DO) H/O section x 2 History of cholecystectomy (2010) History of foot surgery Bilateral bunion
[2024-03-08] MEDS: MEROPENEM 1 GM/NS 100 ML 1 GM/100 ML BAG IVPB (22:30)
[2024-03-08] MEDS: CLINDAMYCIN 900 MG/D5W 50 ML 900 MG/50 ML PIGGYBACK 50 MG IVPB (23:05)
[2024-03-09] VITALS (19 sets, daily range): BP systolic 90–116; BP diastolic 57–77; PULSE 69–90; RESP 16–24; TEMP 36.1–37.1; O2SAT 94–100; BMI 42.5
[2024-03-09] MEDS: ONDANSETRON INJ 4 MG/2 ML VIAL IV PUSH (00:17)
--- NOTE | 2024-03-09 01:58 | ADMGEN ---
This patient, Sabina Dash, was admitted to 3 [facility] Surg Room 316-02. Patient/family oriented to hospital policies and general routines including ID bracelet, bed and alarms, visiting hours, pain management, procedures, bathroom and other care routines, personal items, smoking policy, room service/diet, and visiting hours. Information on how to activate the Rapid Response Team has been discussed. Patient/Family are encouraged to report perceived risks to care and to ask questions if they do not understand what they are told or what they should do.
[2024-03-09] MEDS: HYDROmorphone HCL INJ (*CRX) 1 MG/ML SYR 0.5 MG IV PUSH ×2 (03:05→13:50)
[2024-03-09] MEDS: PREGABALIN (*CRX) 75 MG CAPSULE 150 MG PO ×2 (03:08→20:28)
[2024-03-09] MEDS: FLUoxetine HCL 20 MG CAPSULE 60 MG PO ×2 (03:09→20:28)
[2024-03-09] MEDS: traZODone HCL 50 MG TABLET 150 MG PO ×2 (03:10→20:28)
[2024-03-09] MEDS: busPIRone HCL 10 MG TABLET 60 MG PO ×2 (03:10→20:27)
[2024-03-09] MEDS: LACTATED RINGERS 1,000 ML 125 ML IV CONT ×2 (03:39→20:25)
[2024-03-09] MEDS: HYDROcodone/acetaminophen (*CRX) 5-325 MG TABLET 1 TAB PO (06:21)
[2024-03-09 07:04] LABS: Basophils Percent Auto 0.2 % (0.2-1.2); Eosinophils Absolute Auto 0.1 K/mm3 (0-0.3); Eosinophils Percent Auto 0.8 % (0-4.4); Hematocrit 35.2 % (37.0-47.0); Hemoglobin 11.5 g/dL (12.0-15.0); Immature Granulocyte Absolute 0.04 K/mm3 (0.00-0.031); Immature Granulocyte Percent A 0.4 % (0-0.5); Lymphocytes Absolute Auto 0.24 K/mm3 (0.9-3.2); Lymphocytes Percent Auto 2.7 % (18.3-44.2); Mean Corpuscular HGB Conc 32.7 g/dl (32-36); Mean Corpuscular Hemoglobin 31.3 pg (26-34); Mean Corpuscular Volume 95.7 fl (80-100); Mean Platelet Volume 10.3 fl (7.4-10.4); Monocytes Absolute Auto 0.6 K/mm3 (0.1-0.6); Neutrophils Absolute Auto 7.9 K/mm3 (1.3-6.7); Neutrophils Percent Auto 88.9 % (45.5-73.1); Platelet Count Result 106 k/mm3 (150-375); Red Blood Count 3.68 M/mm3 (4.2-5.4); Red Cell Distribution Width 13.4 % (11.5-14.5); White Blood Count 8.9 K/mm3 (4.5-10.0)
[2024-03-09 07:21] LABS: Anion Gap 6 mmol/L (4-12); Blood Urea Nitrogen 18 mg/dL (7-17); Carbon Dioxide 23 mmol/L (22-30); Chloride 110 mmol/L (98-107); Estimated CRCL calculation 79 ml/min; Estimated Glomerular Filt Rate 54; Glucose 88 mg/dL (65-110); Sodium 139 mmol/L (137-145)
[2024-03-09 07:32] LABS: Erythrocyte Sedimentation Rate > 140 mm/hr (0-20)
[2024-03-09 07:50] LABS: Procalcitonin 0.7 ng/mL
--- NOTE | 2024-03-09 07:50 | PM.CNGS ---
Assessment and Plan Assessment and plan (1) Necrotizing soft tissue infection: Code(s): M79.89 - Other specified soft tissue disorders Status: Acute Assessment and Plan: Perineal necrotizing soft tissue infection with extension into the left labia. No abscess noted on CT scan but exam suggestive of fluid under the ulcerated center. Hopefully this is limited to the area of the left perineum and does not extend significantly beyond that. Operating room availability and my own schedule makes it difficult to do excisional debridement until late today. I spoke with my partner, Dr. Tono Díaz, who agrees to operate on the patient for excisional debridement of the necrotic area and an additional necrotic tissue. I discussed the case with Dr. Díaz. I also discussed with the patient that it would be Dr. Díaz walking doing the surgery, not me. She is agreed to this. Plan to proceed with debridement this morning. (2) Insulin dependent diabetes mellitus: Status: Chronic Assessment and Plan: Blood sugars not out of control (3) Morbid obesity with BMI of 40.0-44.9, adult: Code(s): E66.01 - Morbid (severe) obesity due to excess calories; Z68.41 - Body mass index [BMI] 40.0-44.9, adult Status: Chronic History of Present Illness Consult details Consult date: 03/09/24 Reason for consult: other (perineal infection) Requesting physician: Elsa Ayala DO Narrative: Patient is a 43-year-old woman who is diabetic and has morbid obesity with BMI of 42.5. She started noticing a problem with the perineum on 03/06/2024. She got done going to the restroom and noticed a bubble in the left perineum. It was tender. She has had soft tissue infections and abscesses before and says she knew not to mess with it. So she then took a Sitz bath with Epsom salts. After getting out of the bath, she put perforated on the bubble. She went to bed and during the night the bubble burst. It has continued to drain blood-tinged serous fluid. It doubled in size on Saturday and then doubled again on Saturday. It was very painful and tender. She also had, yesterday, fever to 103 ? as well as vomiting. She came to the emergency room. She was noted to have a white blood cell count of 11,100. She had no fever in the emergency room and her blood sugars were relatively normal-143 and this morning 88. She was noted to have an ulcerated area with darkened tissue anterior and posterior to the area. It was described as being extremely tender and extending up into the left labia from the left perineum. CT scan of the abdomen and pelvis was done and showed-- IMPRESSION: 1. Fat stranding in the left perineum, consistent with cellulitis. No soft tissue gas to suggest necrotizing fasciitis. No abscess. I recommended that the patient be transferred to a tertiary care facility. This appeared to be a necrotizing soft tissue infection. At this point, it appears to be localized with no evidence of sepsis. However debridement is likely needed and the extent of the infection is unknown. The emergency room physician did try to transfer the patient 1st a [facility], then to [facility]. In both instances, the physicians would not except. Patient was then admitted and has been started on IV clindamycin, meropenem, and vancomycin. Labs from this morning are pending. She reports that the area feels about the same as it did yesterday. It is still very tender. She is seen now in consultation. Review of Systems Review of Systems: All systems reviewed & are unremarkable except as noted in HPI and below (HPI) [facility] Past Medical History Medical History Anxiety Asthma Chronic constipation Crohn's disease Depression Diabetes mellitus With insulin pump and Dexcom. 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 distribution Eosinop
[2024-03-09 08:04] LABS: MRSA (PCR) NOT DETECTED (NOT DETECTE)
[2024-03-09 08:10] LABS: CRP 33.3 mg/dL (<1.0)
[2024-03-09 08:20] LABS: Glucose Point of Care 90 mg/dl (65-105)
--- NOTE | 2024-03-09 08:20 | PC.NURSE ---
To OR via stretcher.
--- NOTE | 2024-03-09 08:30 | WPDANESEPPF ---
Anes - Initial Pre Proc Eval Procedure: Operation Date: 03/09/24 09:30 Proposed Procedures p Excisional Debridement Necrotic Perineal Tissue - Tono Díaz MD Date/Time: 03/09/24 08:30 Surgeon: Elsa Ayala DO Pre Op Diagnosis: Cellulitis Patient Data Age: 43 Gender: F Height: 1.7 m Weight: 123.2 kg Last Vital Signs Temp 37.0 C 03/09/24 06:00 Pulse 77 03/09/24 06:00 Resp 16 03/09/24 06:00 BP 105/63 03/09/24 06:00 Pulse Ox 96 03/09/24 06:00 O2 Del Method Room Air 03/09/24 04:12 Allergies Allergy/AdvReac Type Severity Reaction Status Date / Time Corticosteroids Allergy Severe Angioedema Verified 03/09/24 05:24 (Glucocorticoids) morphine Allergy Intermediate RASH,FEVER, Verified 03/09/24 04:42 N&V sertraline Allergy Unknown TREMORS Verified 03/09/24 04:42 clindamycin AdvReac Mild constipatio Verified 03/09/24 05:29 n Home Medications Medication Instructions Recorded Confirmed Type albuterol sulfate 90 mcg/actuation 2 puff inhalation QID PRN 02/02/20 03/09/24 Rx aerosol inhaler shortness of breath or wheezing #8.5 grams atorvastatin 10 mg tablet 10 mg PO DAILY 02/02/20 03/09/24 History baclofen 20 mg tablet 20 mg PO QID 02/02/20 03/09/24 History bupropion HCl 150 mg 24 hr tablet, 150 mg PO QAM 02/02/20 03/09/24 History extended release (Wellbutrin XL) furosemide 40 mg tablet 80 mg PO DAILY 02/02/20 03/09/24 History levetiracetam 500 mg tablet 1,000 mg PO DAILY 02/02/20 03/09/24 History metformin 500 mg tablet 500 mg PO DAILY 02/02/20 03/09/24 History buspirone 30 mg tablet 60 mg PO HS 03/09/24 03/09/24 History fluoxetine 60 mg tablet 60 mg PO HS 03/09/24 03/09/24 History ibuprofen 600 mg tablet 800 mg PO Q6H PRN pain 03/09/24 03/09/24 History insulin regular hum U-500 conc 500 See Protocol continuous 03/09/24 03/09/24 History unit/mL subcutaneous soln (Humulin subcutaneous infusion USEASDIRECTD R U-500 (Concentrated) Insulin) PRN Hyperglycemia pregabalin 75 mg capsule 150 mg PO HS 03/09/24 03/09/24 History semaglutide 2 mg/dose (8 mg/3 mL) 2 mg subcut WEEKLY 03/09/24 03/09/24 History subcutaneous pen injector (Ozempic) trazodone 150 mg tablet 150 mg PO HS 03/09/24 03/09/24 History Laboratory Tests 03/08/24 03/08/24 03/09/24 19:37 20:03 06:30 WBC 11.1 H K/mm3 8.9 K/mm3 (4.5-10.0) (4.5-10.0) RBC 4.23 M/mm3 3.68 L M/mm3 (4.2-5.4) (4.2-5.4) Hgb 13.4 g/dL 11.5 L g/dL (12.0-15.0) (12.0-15.0) Hct 39.6 % 35.2 L % (37.0-47.0) (37.0-47.0) MCV 93.6 fl 95.7 fl (80-100) (80-100) MCH 31.7 pg 31.3 pg (26-34) (26-34) MCHC 33.8 g/dl 32.7 g/dl (32-36) (32-36) RDW 13.7 % 13.4 % (11.5-14.5) (11.5-14.5) Plt Count 113 L k/mm3 106 L k/mm3 (150-375) (150-375) MPV 10.1 fl 10.3 fl (7.4-10.4) (7.4-10.4) Immature Gran % (Auto) 0.5 % 0.4 % (0-0.5) (0-0.5) Neut % (Auto) 90.7 H % 88.9 H % (45.5-73.1) (45.5-73.1) Lymph % (Auto) 2.1 L % 2.7 L % (18.3-44.2) (18.3-44.2) [place] % (Auto) 5.7 % 7.0 % (2.6-8.5) (2.6-8.5) Eos % (Auto) 0.6 % 0.8 % (0-4.4) (0-4.4) Baso % (Auto) 0.4 % 0.2 % (0.2-1.2) (0.2-1.2) Lymph # (Auto) 0.23 L K/mm3 0.24 L K/mm3 (0.9-3.2) (0.9-3.2) [place] # (Auto) 0.6 K/mm3 0.6 K/mm3 (0.1-0.6) (0.1-0.6) Eos # (Auto) 0.1 K/mm3 0.1 K/mm3 (0-0.3) (0-0.3) Baso # (Auto) 0.0 K/mm3 0.0 K/mm3 (0.0-0.1) (0.0-0.1) Abs Immat Gran (auto) 0.06 H K/mm3 0.04 H K/mm3 (0.00-0.031) (0.00-0.031) Absolute Neuts (auto) 10.0 H K/mm3 7.9 H K/mm3 (1.3-6.7) (1.3-6.7) Absolute Nucleated RBC 0.000 K/mm3 0.000 K/mm3 (0.0-0.012) (0.0-0.012) Nucleated RBC % 0.0 % 0.0 % (0.0-0.2) (0.0-0.2) ESR > 140 H mm/hr (0-20) PT 18.5 H Seconds (11.1-14.7) INR 1.5 APTT 30.4 Seconds (
[2024-03-09] MEDS: MEROPENEM 1 GM/NS 100 ML 1 GM/100 ML BAG IVPB ×3 (08:37→22:33)
[2024-03-09] MEDS: LACTATED RINGERS 1,000 ML 30 ML IV CONT (08:41)
[2024-03-09] MEDS: CLINDAMYCIN 900 MG/D5W 50 ML 900 MG/50 ML PIGGYBACK 50 MG IVPB ×3 (09:11→22:34)
--- NOTE | 2024-03-09 09:36 | WPDHPUPDATE1 ---
History and Physical Update Update Date/Time: 03/09/24 09:36 History and Physical has been reviewed, including an updated exam of the patient. There are NO changes in the patient's condition. Risks, benefits, and alternatives have been discussed and questions answered. Patient agrees to proceed with procedure.
--- NOTE | 2024-03-09 09:45 | WPDHPUPDATE1 ---
History and Physical Update Update Date/Time: 03/09/24 09:45 History and Physical has been reviewed, including an updated exam of the patient. There are NO changes in the patient's condition. Risks, benefits, and alternatives have been discussed and questions answered. Patient agrees to proceed with procedure.
[2024-03-09] MEDS: LIDOCAINE/EPINEPHRINE 0.5%/1:200,000 50 ML VIAL 20 ML INFILTRATE (10:00)
[2024-03-09] MEDS: BUPivacaine HCL 0.5% 10 ML AMP 20 ML INFILTRATE (10:01)
[2024-03-09] MEDS: KETOROLAC 30 MG/ML VIAL (*BKC) IV PUSH (10:24)
--- NOTE | 2024-03-09 10:34 | W.PM.PROC2 ---
Procedure Note - Detailed Date of Procedure 03/09/24 Pre-op Diagnosis Necrotizing soft tissue infection left perineum and left labia Post-op Diagnosis Same Procedure Performed Complex incision and drainage of left labia and perineum necrotizing soft tissue infection. Surgeon Tono Díaz MD Anesthesia General Indications Patient is a 43-year-old female who is morbidly obese and diabetic. She developed an area of redness and drainage in pain in her left perineal area 2 days ago. This started with a small blister addendum redness and pain became worse. She presents to the emergency room. White blood count 12142 CT scan abdomen pelvis showed extensive stranding in the soft tissues of the left perineum left tibial region. No large abscess was seen. A clinical examination she had some necrotic skin and soft tissue in the area drainage in the left perineal area measuring about 1/2cm diameter. This was consistent clinically with a necrotizing soft tissue infection so she is being brought to the operative now emergently for incision and drainage of this left peroneal and left labial necrotizing soft tissue infection. Findings Patient had a necrotizing soft tissue infection of the left perineum and left labial region. The initial area of skin about 2.5cm. This was overlying a larger area of dusky necrotic appearing subcutaneous tissue extending upwards to towards the left mons region into the left labial region. The resulting defect in the tissue all the necrotic tissue was excised was approximately [id number]. The area of skin resected was about 2.5cm. Only skin and soft tissue was excised without the involvement of any muscle, tendon, or bone. Description of Procedure After informed consent was obtained patient brought to the operating room she was placed under general endotracheal anesthesia and then her legs were placed in the lithotomy position in high stirrups. This exposed the mons, labia, and perineal regions on the left side. A time-out was then performed and the patient was identified and was verified she was on scheduled IV antibiotics. Site marking was noted. I then proceeded to excise sharply with a scalpel the area necrotic skin measuring about 2.5cm in diameter over an area of mild fluctuance. Once the piece of tissue was excised there was dusky appearing subcutaneous tissue underneath with some purulent appearing fluid but no obvious walled off abscess. I then took a deep swab culture for aerobic and anaerobic organisms sent this to microbiology. I then proceeded to explore digitally the subcutaneous tissues and it seemed to track medially towards the left labia and superiorly towards the left mons. I then proceeded to start to fully debride in excisional fashion the necrotic subcutaneous tissue all the way back until I reached what appeared to be good bleeding the appearing subcutaneous tissue. When this was done measured approximately [id number]. I then made a counter incision on the left mons region with a scalpel and then opened the area with a tonsil clamp. A 3/4inch [place] drain was then looped through the counter incision is the main open incision. It was secured this loop configuration a 3-0 nylon suture. There was no tendon, bone, or muscle that needed to be debrided. All the tissue consists of skin and subcutaneous tissue. Irrigated the wound with about 1L of sterile saline solution. No further purulent fluid was noted. All the remaining subcutaneous tissue appeared to be viable. I then packed the wound with half-inch iodoform gauze. A full 5 yd of packing was used. The area was then cleaned and then fluffed 4x4 gauze ABD pads and disposable underwear was used for final dressing. The patient tolerated the procedure well no complications. All sponges, needles, and instrument counts were correct at the end procedure. EBL was _30__cc. The patient was awakened and taken to recovery in stable and satisfactory condition.
[2024-03-09 11:01] LABS: Glucose Point of Care 95 mg/dl (65-105)
--- NOTE | 2024-03-09 11:50 | PC.NURSE ---
Back from OR via stretcher.
[2024-03-09] MEDS: ATORVASTATIN 10 MG TABLET PO (12:03)
[2024-03-09] MEDS: buPROPion HCL XL (24 HR) 150 MG TABCR PO (12:03)
[2024-03-09] MEDS: levETIRAcetam 500 MG TABLET 1000 MG PO (12:04)
[2024-03-09] MEDS: DOCUSATE SODIUM 100 MG CAPSULE PO ×2 (12:04→20:28)
[2024-03-09] MEDS: BACLOFEN 10 MG TABLET 20 MG PO ×3 (12:04→20:27)
[2024-03-09] MEDS: polyethylene glycoL 3350 17 GM POWD.PACK PO ×2 (12:10→17:10)
[2024-03-09 12:20] LABS: Glucose Point of Care 113 mg/dl (65-105)
--- NOTE | 2024-03-09 13:19 | PM.IMPN ---
Progress Note: A&P Assessment and Plan (1) Cellulitis: Qualifiers: Site of cellulitis: other site Qualified Code(s): L03.818 - Cellulitis of other sites Code(s): L03.90 - Cellulitis, unspecified Status: Acute (2) Chronic constipation: Code(s): K59.09 - Other constipation Status: Acute (3) Insulin dependent diabetes mellitus: Status: Chronic Plan DM Patient does have insulin-dependent diabetes but glucoses are well controlled on her insulin pump. She is competent in managing her pump and has a Dexcom in place that correlates with our glucometer. Will continue patient's insulin pump and glucometer. Will continue patient's home Ozempic 0 will hold home metformin. Will provide sliding scale insulin as needed and hypoglycemia protocol. Accu-Cheks a.c. HS necrosing labial infection Patient was started on broad-spectrum antibiotic coverage with clindamycin, vancomycin, and meropenem. As the patient is at high risk for necrotizing fasciitis but CT did not demonstrate evidence of necrotizing fasciitis a Pt went to or for debridement today awaiting wound cultures constipation Patient does have chronic constipation. She states that MiraLax and other stool softeners do not help. She has to take magnesium citrate frequently in usually still takes 12 hours for relief of her constipation. She states that when she does go to the bathroom it is usually soft stools. She will frequently go up to a week without having bowel movements. MiraLax and Dulcolax ordered Subjective Date/time seen: 03/09/24 13:19 Interval history: 43-year-old female with a past medical history of morbid obesity, obstructive sleep apnea, insulin-dependent diabetes mellitus, diabetic peripheral neuropathy, anxiety with depression among other comorbidities who presented to the ER from home due to area of pain and infection in her left labia. Pt is in OR for debridement of the L labia Review of Systems Review of Systems: pt having some pain very tired when she in the room Exam Narrative: GENERAL:middle aged lady tired resting in the room NECK: Supple. CHEST: Clear to scattered throughout auscultation. No respiratory distress. HEART: Regular rate and rhythm. No murmur heard. Normal peripheral pulses. ABDOMEN: Soft, nontender, nondistended, normal active bowel sounds. EXTREMITIES: Normal range of motion. No edema. SKIN: Warm, dry, no rash. NEURO: No focal deficits. Alert and oriented x3. Objective Data Vital Signs Vital Signs: Vital Signs - 24 hr 03/08/24 18:26 03/08/24 18:33 03/08/24 20:07 Temperature 36.8 C 36.7 C Pulse Rate 97 99 79 Respiratory Rate 16 18 20 Blood Pressure 133/85 133/89 104/78 Pulse Oximetry 99 100 99 Oxygen Delivery Oxygen Flow Rate 03/08/24 20:01 03/08/24 21:01 03/08/24 23:01 Temperature Pulse Rate 81 79 Respiratory Rate 16 18 Blood Pressure 104/78 102/73 90/60 L Pulse Oximetry 98 100 97 Oxygen Delivery Oxygen Flow Rate 03/08/24 23:31 03/09/24 01:00 03/09/24 02:10 Temperature 37.1 C Pulse Rate 88 81 90 Respiratory Rate 18 16 Blood Pressure 96/66 L 115/62 Pulse Oximetry 98 100 Oxygen Delivery Oxygen Flow Rate 03/09/24 04:12 03/09/24 04:00 03/09/24 06:00 Temperature 37.0 C Pulse Rate 84 77 Respiratory Rate 16 Blood Pressure 105/63 Pulse Oximetry 96 Oxygen Delivery Room Air Oxygen Flow Rate 03/09/24 08:00 03/09/24 10:44 03/09/24 10:55 Temperature 36.1 C L Pulse Rate 87 81 Respiratory Rate 20 20 Blood Pressure 97/57 L 92/59 L Pulse Oximetry 98 98 Oxygen Delivery Room Air Simple Face Mask Simple Face Mask Oxygen Flow Rate 6 6 03/09/24 11:15 03/09/24 11:30 03/09/24 11:35 Temperature Pulse Rate 90 84 87 Respiratory Rate 24 H 18 18 Blood Pressure 90/68 L 90/58 L 101/77 Pulse Oximetry 99 94 95 Oxygen Delivery Simple Face Mask Nasal Cannula Nasal Cannula Oxyg
[2024-03-09] MEDS: VANCOMYCIN 1,500 MG/NS 500 ML 1,500 MG/500 ML BAG 250 MG IVPB (13:39)
--- NOTE | 2024-03-09 15:22 | PCCDE ---
03/09/24: 2:30 -2:35 pm ??? A1C:? recent A1C N/A Admitted Cellulitis, h/o Crohn?s Neuropathy, partial siezures, PTSD, depression, Insulin Requiring Type 2 DM. + DM Admission Screen (03/09) secondary to daily hypoglycemia, admission due to DM, also brought to my attention due to insulin pump. Pt only recently back from OR, ?trying to sleep? not up for conversation. Now states hypoglycemia ?only once in a blue lang?. Is wearing her Omnipod insulin pump and Dexcom G6 - communicating with each other. Pt verbalizing awareness re: documenting hourly insulin, any boluses administered, treating with RN involvement and insulin pump/CGM agreement. Denies questions. FJ
[2024-03-09 16:38] LABS: Glucose Point of Care 159 mg/dl (65-105)
[2024-03-09] MEDS: POTASSIUM CHLORIDE 20 MEQ ER TABLET PO ×2 (17:07→22:32)
[2024-03-09 20:11] LABS: Glucose Point of Care 287 mg/dl (65-105)
[2024-03-09] MEDS: ENOXAPARIN 40 MG/0.4 ML SYRINGE SUB-Q (20:27)
[2024-03-09] MEDS: SODIUM CHLORIDE 0.9% IV 1,000 ML 999 ML IV CONT (22:33)
--- NOTE | 2024-03-10 00:49 | PHAR ---
RN tubed down Semaglutide [Ozempic] 2 mg/dose (8 mg/3 mL) Pen Injector- BOX ONLY. NO PEN- ONLY LANCETS WERE IN THE BOX. I spoke with RN who said she would contact the patient's son in the morning and attempt to obtain the medication again today for use on Saturday. I updated the order, then placed it on hold when the medication was absent. Take off hold once the medication is sent.
[2024-03-10 03:15] VITALS: BP 114/81; PULSE 75; RESP 18; TEMP 36.3; O2SAT 99
[2024-03-10 07:06] LABS: Basophils Percent Auto 0.4 % (0.2-1.2); Eosinophils Percent Auto 0.3 % (0-4.4); Hematocrit 34.7 % (37.0-47.0); Hemoglobin 11.4 g/dL (12.0-15.0); Immature Granulocyte Absolute 0.06 K/mm3 (0.00-0.031); Immature Granulocyte Percent A 0.8 % (0-0.5); Immature Platelet Fraction Pct 3.4 % (0.9-11.2); Lymphocytes Absolute Auto 0.34 K/mm3 (0.9-3.2); Lymphocytes Percent Auto 4.3 % (18.3-44.2); Mean Corpuscular HGB Conc 32.9 g/dl (32-36); Mean Corpuscular Hemoglobin 31.8 pg (26-34); Mean Corpuscular Volume 96.7 fl (80-100); Mean Platelet Volume 10.3 fl (7.4-10.4); Monocytes Absolute Auto 0.7 K/mm3 (0.1-0.6); Monocytes Percent Auto 8.5 % (2.6-8.5); Neutrophils Absolute Auto 6.8 K/mm3 (1.3-6.7); Neutrophils Percent Auto 85.7 % (45.5-73.1); Platelet Count Result 103 k/mm3 (150-375); Red Blood Count 3.59 M/mm3 (4.2-5.4)
[2024-03-10 07:13] LABS: Anion Gap 5 mmol/L (4-12); Blood Urea Nitrogen 20 mg/dL (7-17); Calcium 8.2 mg/dL (8.4-10.2); Carbon Dioxide 24 mmol/L (22-30); Chloride 114 mmol/L (98-107); Estimated CRCL calculation 95 ml/min; Estimated Glomerular Filt Rate > 60; Glucose 107 mg/dL (65-110); Sodium 143 mmol/L (137-145)
[2024-03-10] MEDS: MEROPENEM 1 GM/NS 100 ML 1 GM/100 ML BAG IVPB ×2 (07:25→15:27)
[2024-03-10] MEDS: LACTATED RINGERS 1,000 ML 125 ML IV CONT (07:27)
[2024-03-10 07:43] LABS: Vancomycin Trough 9.2 ug/mL (10.0-20.0)
[2024-03-10 07:53] LABS: Glucose Point of Care 103 mg/dl (65-105)
[2024-03-10] MEDS: levETIRAcetam 500 MG TABLET 1000 MG PO (08:09)
[2024-03-10] MEDS: POTASSIUM CHLORIDE 20 MEQ ER TABLET PO ×2 (08:09→16:23)
[2024-03-10] MEDS: BACLOFEN 10 MG TABLET 20 MG PO ×4 (08:10→20:11)
[2024-03-10] MEDS: buPROPion HCL XL (24 HR) 150 MG TABCR PO (08:10)
[2024-03-10] MEDS: ATORVASTATIN 10 MG TABLET PO (08:10)
[2024-03-10] MEDS: ENOXAPARIN 40 MG/0.4 ML SYRINGE SUB-Q ×2 (08:13→20:12)
[2024-03-10] MEDS: CLINDAMYCIN 900 MG/D5W 50 ML 900 MG/50 ML PIGGYBACK 50 MG IVPB ×2 (08:16→16:22)
[2024-03-10 08:30] VITALS: BP 127/75; PULSE 78; RESP 16; TEMP 36.2; O2SAT 99
[2024-03-10] MEDS: VANCOMYCIN 1,750 MG/NS 500 ML 1,750 MG/500 ML BAG 250 MG IVPB (09:44)
[2024-03-10 11:29] LABS: Glucose Point of Care 126 mg/dl (65-105)
--- NOTE | 2024-03-10 11:46 | PM.PNGS ---
Progress Note: A&P Assessment and Plan (1) Necrotizing soft tissue infection: Code(s): M79.89 - Other specified soft tissue disorders Status: Acute Assessment and Plan: Postop day 1 complex incision and drainage of left labia and perineum necrotizing soft tissue infection. Heaven drain in place. Will repack today with 1/2 iodoform packing. Continue IV antibiotics for at least another 1-2 days. Increase activity and ambulated in the halls. (2) Insulin dependent diabetes mellitus: Status: Chronic (3) Morbid obesity with BMI of 40.0-44.9, adult: Code(s): E66.01 - Morbid (severe) obesity due to excess calories; Z68.41 - Body mass index [BMI] 40.0-44.9, adult Status: Chronic Plan I have discussed the patient's case and plan of care with Dr. Díaz. Subjective Subjective Date/Time Seen: 03/10/24 11:46 Post Op day: 1 (Complex incision and drainage of left labia and perineum necrotizing soft tissue infection) Patient reports: no new complaints, feels better, pain is less and afebrile Interval history: Patient feeling better today. Denies pain other than when sitting directly on her wound. Feels like the pain and pressure is much better today. No acute events overnight. Exam Const: General: comfortable and no acute distress Orientation/consciousness: patient oriented x3 : Other: Left perineal wound extending to the left labia with heaven drain in place through a more anterior counter incision, all packing removed, there is no purulent drainage. Induration improving. There is a small 1-2 cm purple ischemic-appearing area of skin just posterior to the wound with the overlying skin intact. This area is slightly tender. Objective Data Vital Signs Vital Signs: Vital Signs - 24 hr 03/09/24 14:15 03/09/24 11:55 03/09/24 12:10 Temperature 97.7 F 97.5 F L Pulse Rate 82 79 Respiratory Rate 18 18 Blood Pressure 104/65 108/74 Pulse Oximetry 95 99 99 Oxygen Delivery Room Air 03/09/24 12:40 03/09/24 13:40 03/09/24 17:00 Temperature 97.6 F 98.1 F 97.7 F Pulse Rate 73 73 83 Respiratory Rate 18 18 20 Blood Pressure 100/65 93/62 L 116/73 Pulse Oximetry 97 96 Oxygen Delivery 03/09/24 20:00 03/09/24 20:10 03/09/24 23:23 Temperature 97.6 F 97.4 F L Pulse Rate 76 69 Respiratory Rate 16 16 Blood Pressure 94/74 L 91/60 L Pulse Oximetry 98 97 Oxygen Delivery Room Air 03/10/24 03:15 03/10/24 08:30 03/10/24 08:30 Temperature 97.4 F L 97.2 F L Pulse Rate 75 78 Respiratory Rate 18 16 Blood Pressure 114/81 127/75 Pulse Oximetry 99 99 Oxygen Delivery Room Air Intake/Output Intake/Output: Intake & Output 03/07/24 03/08/24 03/09/24 03/10/24 23:59 23:59 23:59 23:59 Intake Total 350 7552.6 1413.2 Output Total 750 900 Balance 350 6802.6 513.2 Meds/Results Medications: Active Medications Generic Name Dose Route Start Last Admin Trade Name Freq PRN Reason Stop Dose Admin Hydrocodone Bitart/Acetaminophen 1 tab 03/09/24 02:51 03/09/24 06:21 Hydrocodone/Acetaminophen (*Crx) 5-325 Mg Tablet PO 1 tab Q6H PRN Administration Pain Rated 4-6 Albuterol 2 puff 03/09/24 02:48 Albuterol Sulfate (*Sp) Aerosol 1 Puff INHALATION QIDRT PRN shortness of breath or wheezin Atorvastatin Calcium 10 mg 03/09/24 09:00 03/10/24 08:10 Atorvastatin 10 Mg Tablet PO 10 mg DAILY SYDNEY Administration Baclofen 20 mg 03/09/24 09:00 03/10/24 08:10 Baclofen 10 Mg Tablet PO 20 mg QID SYDNEY Administration Bupropion HCl 150 mg 03/09/24 09:00 03/10/24 08:10 Bupropion Hcl Xl (24 Hr) 150 Mg Tabcr PO 150 mg QAM SYDNEY Administration Buspirone HCl 60 mg 03/09/24 02:50 03/09/24 20:27 Buspirone Hcl 10 Mg Tablet PO 60 mg HS SYDNEY Administration Dextrose 12.5 gm 03/09/24 05:50 Dextrose 50% 25 Gm/50 Ml Syringe IV PUSH PRN PRN Hypoglycemia Protocol Docusate Sodium 100 mg 03/09/24 09:00
--- NOTE | 2024-03-10 11:48 | P.CDI_ITS ---
CDI Query Clarification Request Please clarify if there is a cause and effect relationship between Cellulitis and Diabetes Mellitus * There is a cause and effect relationship between cellulitis and diabetes mellitus. * There is not a cause and effect relationship between cellulitis and diabetes mellitus. * Unknown if there is a cause and effect relationship between cellulitis and diabetes mellitus. <Haydee Medley RN - Last Filed: 03/10/24 11:52> Please clarify if there is a cause and effect relationship between Cellulitis and Diabetes Mellitus * * There is not a cause and effect relationship between cellulitis and diabetes mellitus. * Unknown if there is a cause and effect relationship between cellulitis and diabetes mellitus. <Drea Young MD - Last Filed: 03/10/24 16:32> Clarified Diagnosis Clarified Diagnosis: There is a cause and effect relationship between cellulitis and diabetes mellitus. <Drea Young MD - Last Filed: 03/10/24 16:32>
[2024-03-10 12:00] VITALS: BP 109/81; PULSE 68; RESP 18; TEMP 36.4; O2SAT 99
--- NOTE | 2024-03-10 13:17 | PM.IMPN ---
Progress Note: A&P Assessment and Plan (1) Cellulitis: Qualifiers: Site of cellulitis: other site Qualified Code(s): L03.818 - Cellulitis of other sites Code(s): L03.90 - Cellulitis, unspecified Status: Acute (2) Chronic constipation: Code(s): K59.09 - Other constipation Status: Acute (3) Insulin dependent diabetes mellitus: Status: Chronic Plan DM Patient does have insulin-dependent diabetes but glucoses are well controlled on her insulin pump. She is competent in managing her pump and has a Dexcom in place that correlates with our glucometer. Will continue patient's insulin pump and glucometer. Will continue patient's home Ozempic 0 will hold home metformin. Will provide sliding scale insulin as needed and hypoglycemia protocol. Accu-Cheks a.c. HS necrosing labial infection Patient was started on broad-spectrum antibiotic coverage with clindamycin, vancomycin, and meropenem. As the patient is at high risk for necrotizing fasciitis but CT did not demonstrate evidence of necrotizing fasciitis a sp debridement, awaiting wound cultures continue iv abx for another 2-3 days. packing changed out by surgery team constipation Patient does have chronic constipation. She states that MiraLax and other stool softeners do not help. She has to take magnesium citrate frequently in usually still takes 12 hours for relief of her constipation. She states that when she does go to the bathroom it is usually soft stools. She will frequently go up to a week without having bowel movements. MiraLax and Dulcolax ordered Subjective Date/time seen: 03/10/24 13:17 Interval history: 43-year-old female with a past medical history of morbid obesity, obstructive sleep apnea, insulin-dependent diabetes mellitus, diabetic peripheral neuropathy, anxiety with depression among other comorbidities who presented to the ER from home due to area of pain and infection in her left labia. 03/10/2024 Pt is in OR for debridement of the L labia post op day 1 pt doing well had packing changed out today by surgery team plan to continue iv abx Review of Systems Review of Systems: some pain near labia Exam Narrative: GENERAL:middle aged lady,seen in the room NECK: Supple. CHEST: Clear to scattered throughout auscultation. No respiratory distress. HEART: Regular rate and rhythm. No murmur heard. Normal peripheral pulses. ABDOMEN: Soft, nontender, nondistended, normal active bowel sounds. EXTREMITIES: Normal range of motion. No edema. SKIN: Warm, dry, no rash. NEURO: No focal deficits. Alert and oriented x3. Objective Data Vital Signs Vital Signs: Vital Signs - 24 hr 03/09/24 14:15 03/09/24 13:40 03/09/24 17:00 Temperature 36.7 C 36.5 C Pulse Rate 73 83 Respiratory Rate 18 20 Blood Pressure 93/62 L 116/73 Pulse Oximetry 95 96 Oxygen Delivery Room Air 03/09/24 20:00 03/09/24 20:10 03/09/24 23:23 Temperature 36.4 C 36.3 C L Pulse Rate 76 69 Respiratory Rate 16 16 Blood Pressure 94/74 L 91/60 L Pulse Oximetry 98 97 Oxygen Delivery Room Air 03/10/24 03:15 03/10/24 08:30 03/10/24 08:30 Temperature 36.3 C L 36.2 C L Pulse Rate 75 78 Respiratory Rate 18 16 Blood Pressure 114/81 127/75 Pulse Oximetry 99 99 Oxygen Delivery Room Air Intake/Output Intake/Output: Intake & Output 03/07/24 03/08/24 03/09/24 03/10/24 23:59 23:59 23:59 23:59 Intake Total 350 7552.6 1413.2 Output Total 750 900 Balance 350 6802.6 513.2 Meds/Results Medications: Active Medications Generic Name Dose Route Start Last Admin Trade Name Freq PRN Reason Stop Dose Admin Hydrocodone Bitart/Acetaminophen 1 tab 03/09/24 02:51 03/09/24 06:21 Hydrocodone/Acetaminophen (*Crx) 5-325 Mg Tablet PO 1 tab Q6H PRN Administration Pain Rated 4-6 Albuterol 2 puff 03/09/24 02:48 Albuterol Sulfate (*Sp) Aerosol 1 Puff INHALATION QIDRT PRN
[2024-03-10 16:00] VITALS: BP 123/62; PULSE 78; RESP 20; TEMP 36.5; O2SAT 99
[2024-03-10 17:24] LABS: Glucose Point of Care 73 mg/dl (65-105)
[2024-03-10 19:40] LABS: Glucose Point of Care 78 mg/dl (65-105)
[2024-03-10] MEDS: DOCUSATE SODIUM 100 MG CAPSULE PO (20:10)
[2024-03-10] MEDS: IBUPROFEN 400 MG TABLET 800 MG PO (20:10)
[2024-03-10] MEDS: FLUoxetine HCL 20 MG CAPSULE 60 MG PO (20:11)
[2024-03-10] MEDS: traZODone HCL 50 MG TABLET 150 MG PO (20:11)
[2024-03-10] MEDS: PREGABALIN (*CRX) 75 MG CAPSULE 150 MG PO (20:11)
[2024-03-10] MEDS: busPIRone HCL 10 MG TABLET 60 MG PO (20:11)
[2024-03-10] MEDS: VANCOMYCIN 1,750 MG/NS 500 ML 1,750 MG/500 ML BAG 125 MG IVPB (20:12)
[2024-03-10 20:30] VITALS: BP 130/86; PULSE 89; RESP 20; TEMP 35.8; O2SAT 100
[2024-03-11 00:10] VITALS: BP 121/75; PULSE 71; RESP 16; TEMP 35.8; O2SAT 100
[2024-03-11] MEDS: CLINDAMYCIN 900 MG/D5W 50 ML 900 MG/50 ML PIGGYBACK 50 MG IVPB ×2 (00:30→08:21)
[2024-03-11] MEDS: MEROPENEM 1 GM/NS 100 ML 1 GM/100 ML BAG IVPB ×2 (01:30→07:27)
[2024-03-11 04:30] VITALS: BP 122/68; PULSE 61; RESP 18; TEMP 35.7; O2SAT 98
[2024-03-11 05:41] LABS: Hematocrit 31.6 % (37.0-47.0); Hemoglobin 10.2 g/dL (12.0-15.0); Mean Corpuscular HGB Conc 32.3 g/dl (32-36); Mean Corpuscular Hemoglobin 31.3 pg (26-34); Mean Corpuscular Volume 96.9 fl (80-100); Mean Platelet Volume 10.1 fl (7.4-10.4); Platelet Count Result 135 k/mm3 (150-375); Red Blood Count 3.26 M/mm3 (4.2-5.4); Red Cell Distribution Width 13.7 % (11.5-14.5); White Blood Count 6.2 K/mm3 (4.5-10.0)
[2024-03-11 05:52] LABS: Anion Gap 5 mmol/L (4-12); Blood Urea Nitrogen 19 mg/dL (7-17); Calcium 7.8 mg/dL (8.4-10.2); Carbon Dioxide 22 mmol/L (22-30); Chloride 112 mmol/L (98-107); Estimated CRCL calculation 95 ml/min; Estimated Glomerular Filt Rate > 60; Glucose 75 mg/dL (65-110); Potassium 3.3 mmol/L (3.4-5.0); Sodium 139 mmol/L (137-145)
[2024-03-11] MEDS: LACTATED RINGERS 1,000 ML 125 ML IV CONT (06:29)
[2024-03-11 07:51] LABS: Glucose Point of Care 90 mg/dl (65-105)
[2024-03-11 08:00] VITALS: BP 136/79; PULSE 71; RESP 18; TEMP 36.6; O2SAT 98
[2024-03-11] MEDS: POTASSIUM CHLORIDE 20 MEQ ER TABLET PO (08:25)
[2024-03-11] MEDS: levETIRAcetam 500 MG TABLET 1000 MG PO (08:25)
[2024-03-11] MEDS: BACLOFEN 10 MG TABLET 20 MG PO ×2 (08:25→12:13)
[2024-03-11] MEDS: buPROPion HCL XL (24 HR) 150 MG TABCR PO (08:25)
[2024-03-11] MEDS: ATORVASTATIN 10 MG TABLET PO (08:25)
--- NOTE | 2024-03-11 08:39 | PM.PNGS ---
Progress Note: A&P Assessment and Plan (1) Necrotizing soft tissue infection: Code(s): M79.89 - Other specified soft tissue disorders Status: Acute Assessment and Plan: Postop day 2 complex incision and drainage of left labia and perineum necrotizing soft tissue infection. Heaven drain in place. Okay to discharge from a surgical standpoint today on oral antibiotics. Will leave the heaven drain in place, and have her follow-up with Dr. Díaz in 1 week for drain removal. Continue with gauze dressing changes on discharge, this does not need anymore packing. (2) Insulin dependent diabetes mellitus: Status: Chronic (3) Morbid obesity with BMI of 40.0-44.9, adult: Code(s): E66.01 - Morbid (severe) obesity due to excess calories; Z68.41 - Body mass index [BMI] 40.0-44.9, adult Status: Chronic Plan I have discussed the patient's case and plan of care with Dr. Díaz. Subjective Subjective Date/Time Seen: 03/11/24 08:39 Post Op day: 2 (Complex incision and drainage of left labia and perineum necrotizing soft tissue infection) Patient reports: feels better, pain is less and afebrile Interval history: Patient feeling well this morning. Denies pain. She is reporting heartburn this morning, which she deals with chronically. She typically feels nauseous and takes Zofran at home. This is her only complaint today. No acute events or other issues overnight. Exam Const: General: comfortable, no acute distress and obese : Other: Left perineal wound extending to the left labia with heaven drain in place through an anterior counter incision, all packing removed, there is no purulent drainage. Induration and erythema much improved. Visible areas of the wound bed appears has more areas of pink today (80%) with few areas of yellow slough (20%). No purulent drainage or necrotic tissue. The small posterior area of purple colored skin posterior to the wound looks better today, more pink, likely ecchymosis. No skin breakdown, no necrosis, no crepitus. Objective Data Vital Signs Vital Signs: Vital Signs - 24 hr 03/10/24 12:00 03/10/24 16:00 03/10/24 20:30 Temperature 97.6 F 97.7 F 96.5 F L Pulse Rate 68 78 89 Respiratory Rate 18 20 20 Blood Pressure 109/81 123/62 130/86 Pulse Oximetry 99 99 100 03/11/24 00:10 03/11/24 04:30 03/11/24 08:00 Temperature 96.5 F L 96.2 F L 97.9 F Pulse Rate 71 61 71 Respiratory Rate 16 18 18 Blood Pressure 121/75 122/68 136/79 Pulse Oximetry 100 98 98 Intake/Output Intake/Output: Intake & Output 03/08/24 03/09/24 03/10/24 03/11/24 23:59 23:59 23:59 23:59 Intake Total 350 7552.6 5065.2 962 Output Total 750 900 Balance 350 6802.6 4165.2 962 Meds/Results Medications: Active Medications Generic Name Dose Route Start Last Admin Trade Name Freq PRN Reason Stop Dose Admin Hydrocodone Bitart/Acetaminophen 1 tab 03/09/24 02:51 03/09/24 06:21 Hydrocodone/Acetaminophen (*Crx) 5-325 Mg Tablet PO 1 tab Q6H PRN Administration Pain Rated 4-6 Albuterol 2 puff 03/09/24 02:48 Albuterol Sulfate (*Sp) Aerosol 1 Puff INHALATION QIDRT PRN shortness of breath or wheezin Atorvastatin Calcium 10 mg 03/09/24 09:00 03/11/24 08:25 Atorvastatin 10 Mg Tablet PO 10 mg DAILY SYDNEY Administration Baclofen 20 mg 03/09/24 09:00 03/11/24 08:25 Baclofen 10 Mg Tablet PO 20 mg QID SYDNEY Administration Bupropion HCl 150 mg 03/09/24 09:00 03/11/24 08:25 Bupropion Hcl Xl (24 Hr) 150 Mg Tabcr PO 150 mg QAM SYDNEY Administration Buspirone HCl 60 mg 03/09/24 02:50 03/10/24 20:11 Buspirone Hcl 10 Mg Tablet PO 60 mg HS SYDNEY Administration Dextrose 12.5 gm 03/09/24 05:50 Dextrose 50% 25 Gm/50 Ml Syringe IV PUSH PRN PRN Hypoglycemia Protocol Docusate Sodium 100 mg 03/09/24 09:00 03/11/24 08:26 Docusate Sodium 100 Mg Capsule PO Not Given Q12HR SYDNEY Enoxaparin Sodium 40 mg 03/09/24 0
[2024-03-11] MEDS: ONDANSETRON HCL ODT 4 MG TABLET 8 MG PO (08:45)
[2024-03-11] MEDS: IBUPROFEN 400 MG TABLET 800 MG PO (08:46)
[2024-03-11] MEDS: VANCOMYCIN 1,750 MG/NS 500 ML 1,750 MG/500 ML BAG 250 MG IVPB (09:30)
[2024-03-11 11:41] LABS: Glucose Point of Care 81 mg/dl (65-105)
[2024-03-11 11:57] VITALS: BP 110/91; PULSE 71; RESP 18; TEMP 36.1; O2SAT 100
--- NOTE | 2024-03-11 12:45 | PM.DS ---
DS: Admitting Diagnosis Discharge Date Mar 11 2024 Admitting Diagnosis Necrotizing soft tissue infection DS: Discharge Diagnosis Discharge Diagnosis (1) Necrotizing soft tissue infection: Code(s): M79.89 - Other specified soft tissue disorders Status: Acute DS: Summary Hospital Course Hospital Course: This is a pleasant 43-year-old female with multiple comorbidities including insulin-dependent diabetes mellitus. She presented with infection of her left labia. March 09, 2024 she underwent a complex incision and drainage of the left labia and perineum necrotizing soft tissue infection, a 3/4 inch Victorino drain placed. She was treated with meropenem clindamycin and vancomycin. On 03/11/2024 she is stable for discharge to home and home health has been suggested for wound care. Cleaning instructions provided by surgery and she is to follow-up with general surgery in 1 week to have the drain removed. She has also been prescribed 7 days of Bactrim. The wound culture is growing preliminary light growth of Staph aureus. The patient has a mild acute hypokalemia potassium 3.3. She is being started on Bactrim so will avoid exogenous supplementation to avoid hyperkalemia. Repeat BMP magnesium in 1 day. Adverse effects risk and benefits discussed with the patient which she understands and agrees with this plan. She is feeling well enough to go home and reports she can take care of the wound/have her son help her. The patient was full code during her admission. Time Spent with Patient Time attestation: Total time spent providing and/or coordinating discharge services: Exam Const: General: cooperative and no acute distress Other: Wound with Esopus drain. No active drainage. No tenderness to palpation Resp: Effort & Inspection: normal respiratory effort Auscultation: clear to auscultation bilaterally Cardio: Rate: regular rate Rhythm: regular rhythm Heart sounds: S1 normal heart sound present and S2 normal heart sound present GI: GI Palp: No abdominal tenderness Auscultation: normal bowel sounds DS: Data Data Completed and Pending Labs on day of discharge: Labs from last 24 hours 03/11/24 03/11/24 03/11/24 11:30 07:48 05:25 WBC 6.2 RBC 3.26 L Hgb 10.2 L Hct 31.6 L MCV 96.9 MCH 31.3 MCHC 32.3 RDW 13.7 Plt Count 135 L MPV 10.1 Sodium 139 Potassium 3.3 L Chloride 112 H Carbon Dioxide 22 Anion Gap 5 BUN 19 H Creatinine 0.90 Estim Creat Clear Calc 95 Estimated GFR > 60 Glucose 75 POC Capillary Glucose 81 90 Calcium 7.8 L 03/10/24 03/10/24 19:37 16:28 WBC RBC Hgb Hct MCV MCH MCHC RDW Plt Count MPV Sodium Potassium Chloride Carbon Dioxide Anion Gap BUN Creatinine Estim Creat Clear Calc Estimated GFR Glucose POC Capillary Glucose 78 73 Calcium Preliminary micro results at discharge 03/09/24 10:06 Anaerobic Culture - Preliminary Other Aerobic Culture - Preliminary Staphylococcus aureus 03/08/24 19:51 Blood Culture - Preliminary Blood 03/08/24 19:51 Blood Culture - Preliminary Blood Discharge Plan Discharge Attending physician on discharge: Karen Moyer Consulting providers: Jose Luis Barnard Discharging Clinician: Karen Moyer Patient Disposition: Home, Self-Care Activity: may shower Diet: diabetic Wound Care Instructions: change dressing daily Discharge Instructions: Follow-up with Dr. Díaz in 1 week for drain removal. Apply gauze dressings daily and change as needed when soiled after voiding/bowel movements. Wash over incision daily with mild soap and water. May use the handheld shower or spray bottle to rinse around wound. superintendent service and finish all antibiotics prescribed. Call or return to the ER if you develop increased pain or fevers. Patient Instructions: Antibiotic Form, Cellulitis (GEN), Esopus Drain (D
== END 2024-03-11 14:25 | disposition home or self-care (01) | DRG 420 ==
LOC: ANHED 22:08 → ANH3MEDSUR 03-09 00:24
PROVIDERS: Family Medicine; Surgery; Admitting Provider Internal Medicine; Emergency Provider Emergency Medicine; PCP Family Medicine; Visit Provider General Practice
PROC: 0JBB0ZZ Excision of Perineum Subcutaneous Tissue and Fascia, Open Approach (ICD-10-PCS; CPT 46040; principal; 2024-03-09 09:30)
DX: E11.628 Type 2 diabetes mellitus with other skin complications (principal); L03.315 Cellulitis of perineum; N76.4 Abscess of vulva; K50.90 Crohn's disease, unspecified, without complications; E11.9 Type 2 diabetes mellitus without complications; E87.6 Hypokalemia; E11.40 Type 2 diabetes mellitus with diabetic neuropathy, unspecified; E78.5 Hyperlipidemia, unspecified; E66.01 Morbid (severe) obesity due to excess calories; N39.46 Mixed incontinence; K59.09 Other constipation; G47.33 Obstructive sleep apnea (adult) (pediatric); G40.109 Localization-related (focal) (partial) symptomatic epilepsy and epileptic syndromes with simple partial seizures, not intractable, without status epilepticus; F43.10 Post-traumatic stress disorder, unspecified; F32.A Depression, unspecified; F41.9 Anxiety disorder, unspecified; Z68.41 Body mass index [BMI] 40.0-44.9, adult; Z96.41 Presence of insulin pump (external) (internal); Z87.891 Personal history of nicotine dependence; Z79.4 Long term (current) use of insulin
CPT/HCPCS: 36415; 74177; 80048; 80053; 80202; 81001; 82550; 82948; 83605; 83735; 84145; 85025; 85027; 85055; 85610; 85652; 85730; 86140; 87040; 87070; 87075; 87147; 87181; 87205; 87641; 93005; 96365; 96366; 96367; 96374; 96375; 99285; A9270; J0330; J1100; J1170; J1200; J1650; J1885; J2185; J2250; J2405; J2704; J3010; J3370; J7030; J7120; Q9967

== ENCOUNTER 2024-03-26 16:49 | Emergency (ER) | payer MEDICAID, SELFPAY ==
--- NOTE | ~2024-03-26 | CT_ITS ---
EXAMINATION: CT soft tissue neck w con DATE: 03/26/2024 18:08 INDICATION: Right facial pain and swelling. TECHNIQUE: Computed tomography (CT) of the neck was performed with 75 mL Omnipaque-350 intravenous co ntrast. Automated exposure control and iterative reconstruction technique were employed. The dose-annalisa gth product was 657.22 mGy-cm. COMPARISON: None FINDINGS: There are no pathologically enlarged lymph nodes. There is mild plaque in the proximal inte rnal carotid arteries with 0% stenosis relative to normal distal artery lumen diameters. There are ca rious lesions of most of the teeth. There are periapical lucencies involving tooth 22. There are anais apical lucencies involving tooth 29 with breech of the buccal cortex of the alveolar process. There i s a subperiosteal abscess measuring approximately 1.9 x 0.4 cm. There is mild cervical spondylosis. IMPRESSION: 1. Multifocal dental disease with subperiosteal abscess superficial to tooth 29. Reviewed, dictated and finalized at location E. IMPRESSION: 1. Multifocal dental disease with subperiosteal abscess superficial to tooth 29 .
[2024-03-26 16:50] VITALS: BP 126/79; PULSE 70; RESP 18; TEMP 36.7; O2SAT 99
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
[2024-03-26 17:27] LABS: Basophils Percent Auto 0.6 % (0.2-1.2); Eosinophils Absolute Auto 0.2 K/mm3 (0-0.3); Eosinophils Percent Auto 3.5 % (0-4.4); Hematocrit 38.4 % (37.0-47.0); Hemoglobin 12.5 g/dL (12.0-15.0); Immature Granulocyte Absolute 0.02 K/mm3 (0.00-0.031); Immature Granulocyte Percent A 0.3 % (0-0.5); Lymphocytes Absolute Auto 2.28 K/mm3 (0.9-3.2); Lymphocytes Percent Auto 36.2 % (18.3-44.2); Mean Corpuscular HGB Conc 32.6 g/dl (32-36); Mean Corpuscular Hemoglobin 30.9 pg (26-34); Mean Corpuscular Volume 94.8 fl (80-100); Mean Platelet Volume 9.2 fl (7.4-10.4); Monocytes Absolute Auto 0.4 K/mm3 (0.1-0.6); Neutrophils Absolute Auto 3.3 K/mm3 (1.3-6.7); Neutrophils Percent Auto 52.4 % (45.5-73.1); Platelet Count Result 240 k/mm3 (150-375); Red Blood Count 4.05 M/mm3 (4.2-5.4); Red Cell Distribution Width 14.2 % (11.5-14.5); White Blood Count 6.3 K/mm3 (4.5-10.0)
--- NOTE | 2024-03-26 17:32 | PC.NURSE ---
patient states they had total hysterectomy so there is no need for bedside preg test prior to CT
[2024-03-26 17:38] LABS: Alanine Aminotransferase 30 U/L (6-35); Albumin Level 4.2 g/dL (3.5-5.1); Alkaline Phosphatase 101 U/L (38-126); Anion Gap 7 mmol/L (4-12); Aspartate Amino Transferase 40 U/L (14-36); Bilirubin,Total 0.6 mg/dL (0.2-1.3); Blood Urea Nitrogen 13 mg/dL (7-17); Calcium 8.4 mg/dL (8.4-10.2); Carbon Dioxide 25 mmol/L (22-30); Chloride 108 mmol/L (98-107); Estimated CRCL calculation 93 ml/min; Estimated Glomerular Filt Rate > 60; Glucose 108 mg/dL (65-110); Potassium 3.9 mmol/L (3.4-5.0); Sodium 140 mmol/L (137-145)
[2024-03-26] MEDS: BENZOCAINE/TETRACAINE SPRAY (*SP) 56 ML AEROSOL 1 SPRAY MUCOUS MEM (19:01)
[2024-03-26] MEDS: LIDOCAINE HCL 1% LOCAL INJ 10 ML VIAL 5 ML INFILTRATE (19:31)
[2024-03-26] MEDS: ACETAMINOPHEN 500 MG TABLET 1000 MG PO (19:41)
[2024-03-26 19:47] VITALS: BP 142/93; PULSE 70; RESP 16; O2SAT 97
== END 2024-03-26 19:48 | disposition home or self-care (01) ==
PROVIDERS: Emergency Provider Physician Assistant; PCP Family Medicine
DX: K04.7 Periapical abscess without sinus (principal); K02.9 Dental caries, unspecified; J45.909 Unspecified asthma, uncomplicated; I10 Essential (primary) hypertension; E11.42 Type 2 diabetes mellitus with diabetic polyneuropathy; E78.5 Hyperlipidemia, unspecified; N39.46 Mixed incontinence; K21.9 Gastro-esophageal reflux disease without esophagitis; K50.90 Crohn's disease, unspecified, without complications; F43.10 Post-traumatic stress disorder, unspecified; F41.9 Anxiety disorder, unspecified; Z87.891 Personal history of nicotine dependence; Z90.49 Acquired absence of other specified parts of digestive tract; Z90.710 Acquired absence of both cervix and uterus; Z79.84 Long term (current) use of oral hypoglycemic drugs; Z79.85 Long-term (current) use of injectable non-insulin antidiabetic drugs; Z79.4 Long term (current) use of insulin
CPT/HCPCS: 36415; 70491; 80053; 85025; 99284; A9270; Q9967

== ENCOUNTER 2024-05-26 15:17 | Emergency (ER) | payer OTHER, SELFPAY ==
--- NOTE | ~2024-05-26 | CT_ITS ---
EXAMINATION: CT abdomen pelvis w con DATE: 05/26/2024 17:56 INDICATION: rlq pain TECHNIQUE: Computed tomography (CT) of the abdomen and pelvis was performed 100 mL Omnipaque 350 intr avenous contrast. Automated exposure control and iterative reconstruction technique were employed. Th e dose-length product was 1293.02 mGy-cm. COMPARISON: 02/29/2024. FINDINGS: Lower thorax: Unremarkable Liver: Enlarged. Biliary/Gallbladder: Gallbladder is absent. No bile duct dilation. Pancreas: No mass or duct dilation. Spleen: Mildly enlarged. Adrenals: Indeterminate density 1.8 cm left adrenal nodule, likely adenoma. Multiple smaller low-dens ity left adrenal nodules also likely adenomas. Fat density 2.3 cm left adrenal myelolipoma. Normal ri ght adrenal. Kidneys: No suspicious mass, obstructing stone, or hydronephrosis. GI tract: Mild distal esophageal and gastric wall edema. No small or large bowel dilation. Normal cece endix. Mesentery/Peritoneum: No ascites, mass, or free air. Retroperitoneum: No mass. Pelvis: Empty urinary bladder. Status post partial hysterectomy. 3.2 cm right ovarian cyst. Left ovar y not confidently visualized. Soft Tissues: Soft tissues and body wall unremarkable. Bones: No acute osseous finding. IMPRESSION: Mild esophagitis/gastritis. Hepatosplenomegaly. Otherwise, no acute abdominopelvic process detected Reviewed, dictated and finalized at location K.
[2024-05-26 15:18] VITALS: BP 120/108; PULSE 65; RESP 16; TEMP 36.6; O2SAT 99
[2024-05-26 16:13] LABS: Basophils Percent Auto 0.5 % (0.2-1.2); Eosinophils Absolute Auto 0.1 K/mm3 (0-0.3); Eosinophils Percent Auto 1.7 % (0-4.4); Hematocrit 41.7 % (37.0-47.0); Hemoglobin 14.7 g/dL (12.0-15.0); Immature Granulocyte Absolute 0.02 K/mm3 (0.00-0.031); Immature Granulocyte Percent A 0.3 % (0-0.5); Lymphocytes Absolute Auto 1.07 K/mm3 (0.9-3.2); Lymphocytes Percent Auto 16.7 % (18.3-44.2); Mean Corpuscular HGB Conc 35.3 g/dl (32-36); Mean Corpuscular Hemoglobin 32.2 pg (26-34); Mean Corpuscular Volume 91.2 fl (80-100); Mean Platelet Volume 9.1 fl (7.4-10.4); Monocytes Absolute Auto 0.4 K/mm3 (0.1-0.6); Monocytes Percent Auto 5.5 % (2.6-8.5); Neutrophils Absolute Auto 4.8 K/mm3 (1.3-6.7); Neutrophils Percent Auto 75.3 % (45.5-73.1); Platelet Count Result 220 k/mm3 (150-375); Red Blood Count 4.57 M/mm3 (4.2-5.4); Red Cell Distribution Width 13.1 % (11.5-14.5); White Blood Count 6.4 K/mm3 (4.5-10.0)
[2024-05-26 16:23] LABS: Alanine Aminotransferase 24 U/L (6-35); Albumin Level 4.2 g/dL (3.5-5.1); Alkaline Phosphatase 93 U/L (38-126); Anion Gap 9 mmol/L (4-12); Aspartate Amino Transferase 28 U/L (14-36); Bilirubin,Total 1.2 mg/dL (0.2-1.3); Blood Urea Nitrogen 12 mg/dL (7-17); Carbon Dioxide 28 mmol/L (22-30); Chloride 101 mmol/L (98-107); Estimated CRCL calculation 62 ml/min; Estimated Glomerular Filt Rate 44; Glucose 114 mg/dL (65-110); Lipase 52 U/L (23-300); Potassium 3.9 mmol/L (3.4-5.0); Sodium 138 mmol/L (137-145)
[2024-05-26] MEDS: fentaNYL CITRATE INJ (*CRX) 100 MCG/2 ML VIAL 50 MCG IV PUSH (16:57)
[2024-05-26] MEDS: ONDANSETRON INJ 4 MG/2 ML VIAL IV PUSH (16:58)
[2024-05-26 17:59] LABS: Appearance Urine Cloudy (Clear); Bacteria Urine 3+ /hpf; Bilirubin Urine Negative (Negative); Blood Urine Negative (Negative); Color Urine Dark Yellow (Yellow); Glucose Urine UA Negative (Negative); Ketones Urine 1+ mg/dL (Negative); Leukocyte Esterase Ur Trace LEU/UL (Negative); Nitrate Urine Negative (Negative); Non Pathogenic Casts 0-2; Protein Urine Trace mg/dL (Negative); Squamous Epithelial Cell Urine Moderate /hpf (Few); WBC Urine 0-5 /hpf (0-3)
[2024-05-26 18:01] LABS: Add Urine Microscopic? YES
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
== END 2024-05-26 18:56 | disposition home or self-care (01) ==
PROVIDERS: Emergency Medicine; Emergency Provider Family Medicine; PCP Family Medicine
DX: R11.2 Nausea with vomiting, unspecified (principal); F41.9 Anxiety disorder, unspecified; J45.909 Unspecified asthma, uncomplicated; F32.A Depression, unspecified; E11.9 Type 2 diabetes mellitus without complications; Z79.4 Long term (current) use of insulin; I10 Essential (primary) hypertension; K21.9 Gastro-esophageal reflux disease without esophagitis; E78.5 Hyperlipidemia, unspecified
CPT/HCPCS: 36415; 74177; 80053; 81001; 83690; 85025; 96374; 96375; 99284; J2405; J3010; Q9967

== ENCOUNTER 2024-10-07 15:09 | Emergency (ER) | payer OTHER, SELFPAY ==
[2024-10-07 15:10] VITALS: BP 129/79; PULSE 94; RESP 18; TEMP 36.5; O2SAT 99
[2024-10-07 16:43] VITALS: BP 143/92; PULSE 95; RESP 20; TEMP 37.6; O2SAT 98
[2024-10-07] MEDS: KETOROLAC 15 MG/ML VIAL (*BKC) IV PUSH (16:57)
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
[2024-10-07 17:05] LABS: Basophils Percent Auto 0.2 % (0.2-1.2); Eosinophils Percent Auto 0.4 % (0-4.4); Hematocrit 38.8 % (37.0-47.0); Hemoglobin 13.4 g/dL (12.0-15.0); Immature Granulocyte Absolute 0.03 K/mm3 (0.00-0.031); Immature Granulocyte Percent A 0.3 % (0-0.5); Lymphocytes Absolute Auto 0.31 K/mm3 (0.9-3.2); Lymphocytes Percent Auto 2.9 % (18.3-44.2); Mean Corpuscular HGB Conc 34.5 g/dl (32-36); Mean Corpuscular Hemoglobin 31.2 pg (26-34); Mean Corpuscular Volume 90.2 fl (80-100); Mean Platelet Volume 9.1 fl (7.4-10.4); Monocytes Absolute Auto 0.6 K/mm3 (0.1-0.6); Monocytes Percent Auto 5.2 % (2.6-8.5); Neutrophils Absolute Auto 9.7 K/mm3 (1.3-6.7); Platelet Count Result 149 k/mm3 (150-375); Red Cell Distribution Width 13.4 % (11.5-14.5); White Blood Count 10.7 K/mm3 (4.5-10.0)
[2024-10-07] MEDS: CEFEPIME 2 GM/NS 50 ML 2 GM/50 ML BAG IVPB (17:16)
[2024-10-07] MEDS: SODIUM CHLORIDE 0.9% IV 1,000 ML 999 ML IV CONT (17:16)
[2024-10-07 17:20] LABS: Alanine Aminotransferase 18 U/L (6-35); Albumin Level 4.2 g/dL (3.5-5.1); Alkaline Phosphatase 102 U/L (38-126); Anion Gap 6 mmol/L (4-12); Aspartate Amino Transferase 22 U/L (14-36); Bilirubin,Total 1.1 mg/dL (0.2-1.3); Blood Urea Nitrogen 17 mg/dL (7-17); Calcium 8.8 mg/dL (8.4-10.2); Carbon Dioxide 25 mmol/L (22-30); Chloride 103 mmol/L (98-107); Estimated CRCL calculation 89 ml/min; Estimated Glomerular Filt Rate > 60; Glucose 96 mg/dL (65-110); Potassium 3.6 mmol/L (3.4-5.0); Sodium 134 mmol/L (137-145)
[2024-10-07 17:35] LABS: CRP 14.5 mg/dL (<1.0)
[2024-10-07 18:11] VITALS: TEMP 37.7
[2024-10-07 18:14] VITALS: BP 105/60; PULSE 81; RESP 14; TEMP 37.7; O2SAT 99
[2024-10-07] MEDS: ACETAMINOPHEN 500 MG TABLET 1000 MG PO (18:37)
== END 2024-10-07 18:42 | disposition home or self-care (01) ==
PROVIDERS: Emergency Provider Physician Assistant; PCP Family Medicine
DX: L03.311 Cellulitis of abdominal wall (principal); J45.909 Unspecified asthma, uncomplicated; I10 Essential (primary) hypertension; E11.42 Type 2 diabetes mellitus with diabetic polyneuropathy; E78.5 Hyperlipidemia, unspecified; K50.90 Crohn's disease, unspecified, without complications; K21.9 Gastro-esophageal reflux disease without esophagitis; N39.46 Mixed incontinence; F32.A Depression, unspecified; F43.10 Post-traumatic stress disorder, unspecified; F41.9 Anxiety disorder, unspecified; Z96.41 Presence of insulin pump (external) (internal); Z87.891 Personal history of nicotine dependence; Z90.710 Acquired absence of both cervix and uterus; Z90.49 Acquired absence of other specified parts of digestive tract; Z79.4 Long term (current) use of insulin; Z79.899 Other long term (current) drug therapy; Z79.84 Long term (current) use of oral hypoglycemic drugs
CPT/HCPCS: 36415; 80053; 85025; 86140; 96365; 96375; 99284; A9270; J0692; J1885; J7030

== ENCOUNTER 2024-12-23 16:17 | Emergency (ER) | payer OTHER, SELFPAY ==
--- NOTE | ~2024-12-23 | CT_ITS ---
CLINICAL INDICATION: Palpable abnormality within the pannus, to the left of midline. COMPARISON: None. TECHNIQUE: Computed tomography (CT) of the pelvis was performed following the administration of intra venous contrast. The dose-length product was 1005.81 mGy-cm. FINDINGS/OBSERVATIONS: Gastrointestinal tract: Fecal stasis within the rectum. Appendix:The air-filled appendix is of normal caliber (axial series, image 38). Vasculature: Unremarkable Lymph nodes: No pathologically enlarged or morphologically suspicious lymph nodes within the visualiz ed retroperitoneum or pelvis. Pelvic structures:The bladder is minimally distended, and otherwise unremarkable. The uterus is anteverted and anteflexed. Body wall and musculoskeletal: Within the area of clinical concern is a rounded structure of increased attenuation and surrounding i nduration within the soft tissues, extending medially. No extension below the fascia is identified. N o rim-enhancing fluid collection is present IMPRESSION: Findings within the pannus to the left of midline corresponding to the area of clinical concern which remain in the dermis and subcutaneous soft tissues with induration, and without a rim-enhancing flui d collection to suggest abscess. Reviewed, dictated and finalized at location A. TY DIRECTOR IMPRESSION: Findings within the pannus to the left of midline corresponding to the area of clinical concern which remain in the dermis and subcutaneous soft tissues with induration, and without a rim-enhancing fluid collection to suggest abscess.
[2024-12-23 16:19] VITALS: BP 143/77; PULSE 81; RESP 16; TEMP 36.6; O2SAT 95
--- OUTSIDE RECORDS SUMMARY | 2024-12-23 16:20 | XMS_ITS | Referral Summary ---
Author Organization [facility] [address] Address [address] [place] [address] Care Team Providers Care Vacuum Cooker Operator Name Role Phone Cher Hernandez DPM Unavailable [phone] Preet Rocha MD Primary Care Provider Allergies Active Allergy Reactions Criticality Noted Date Comments Corticosteroids (Glucocorticoids) Swelling,Unknown Medium 07/02/2012 Swelling Cortisone Shortness of breath High 03/17/2020 Also edema Ketorolac Tromethamine Headache Low 11/29/2020 MIGRAINES. Morphine Swelling High 07/02/2012 Opioids - Morphine Analogues Swelling Medium Medications baclofen (LIORESAL) 20 mg tablet Take 2 tablets (40 mg total) by mouth 3 (three) times a day 0 Active levETIRAcetam (KEPPRA) 500 mg tablet Take 1 tablet (500 mg total) by mouth 2 (two) times a day 0 Active ondansetron ODT (ZOFRAN-ODT) 4 mg disintegrating tablet DISSOLVE 1 TABLET ON THE TONGUE EVERY 12 HOURS NEEDED 2 Active TRUEplus Pen Needle 31 gauge x 5/16 needle Use once daily for victoza 100 each 3 3 Active spironolactone (ALDACTONE) 50 mg tablet TAKE 1 TABLET(50 MG) BY MOUTH DAILY 90 tablet 1 3 Active blood-glucose meter,continuous (Dexcom G6 Boiler Coverer) miscIndications:Ty pe 2 diabetes mellitus with hyperglycemia, with long-term current use of insulin ([facility]) Inject 1 kit under the skin as directed 1 each 3 Active atorvastatin (LIPITOR) 20 mg tabletIndications: Hyperlipidemia associated with type 2 diabetes mellitus ([facility]) Take 1 tablet (20 mg total) by mouth daily 90 tablet 3 Active FLUoxetine (PROzac) 40 mg capsuleIndications :Recurrent major 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 ([facility]) Take 1 capsule (40 mg total) by mouth daily 90 capsule [address] (PROTONIX) 40 mg EC tabletIndications: Gastroesophageal reflux disease without esophagitis Take 1 tablet (40 mg total) by mouth 2 (two) times a day 180 tablet 1 3 Active traZODone (DESYREL) 100 mg tabletIndications: Psychophysiologica l insomnia Take 1 tablet (100 mg total) by mouth nightly 90 tablet 3 Active insulin U-500 syringe-needle 1/2 mL 31 gauge x 15/64 syringeIndications :Type 2 diabetes mellitus with stage 2 chronic kidney disease, with long-term current use of insulin ([facility]) Use to inject U500 insulin twice daily 200 each 3 3 Active busPIRone (BUSPAR) 15 mg tabletIndications: Recurrent major 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 ([facility]) TAKE 1 TABLET(15 MG) BY MOUTH DAILY 30 tablet 3 Active HYDROcodone-acetam inophen (NORCO) 5-325 mg per tabletIndications: Pain Take 1 tablet by mouth 2 (two) times a day as needed for pain 60 tablet 3 Active Steglatro 15 mg tablet TAKE 1 TABLET BY MOUTH DAILY 30 tablet 3 3 Active buPROPion (WELLBUTRIN) 100 mg tabletIndications: Recurrent major 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 ([facility]) TAKE 1 TABLET(100 MG) BY MOUTH TWICE DAILY 90 tablet 3 Active pregabalin (LYRICA) 75 mg capsule TAKE 1 CAPSULE(75 MG) BY MOUTH TWICE DAILY 60 capsule 3 Active cyclobenzaprine (FLEXERIL) 10 mg tablet Take 1 tablet (10 mg total) by mouth 2 (two) times a day 3 Active ibuprofen (ADVIL,MOTRIN) 600 mg tablet Take by mouth every 6 (six) hours as needed 3 Active lisinopriL (PRINIVIL,ZESTRIL) 2.5 mg tablet Take 1 tablet (2.5 mg total) by mouth daily 3 Active buPROPion SR (WELLBUTRIN SR) 100 mg 12 hr tablet Take 1 tablet (100 mg total) by mouth 2 (two) times a day 3 Active semaglutide 0.25 mg or 0.5 mg (2 mg/3 mL) pen injector injectionIndicatio ns:Type 2 diabetes mellitus with stage 2 chronic kidney disease, with long-term current use of insulin ([facility]) Inject 0.5 mg under the skin every 7 days 3 mL 3 Active insulin regular U-500 (HumuLIN R U-500) 500 unit/mL CONCENTRATED vial for injectionIndicatio ns:Type 2 diabetes mellitus with hyperglycemia, with long-term current use of insulin ([facility]) IF PUMP FAILURE: INJECT 20 UNITS BEFORE BREAKFAST AND DINNER.>150:2 0, 151-200: 25, 201-250:30, 251-300:35,>3 01: 40 UNITS 20 mL 3 3 Active furosemide (LASIX) 40 mg tabletIndications: Hypertension associated with diabetes ([facility]) TAKE 1 TABLET(40 MG) BY MOUTH TWICE DAILY 180 tablet 4 Active blood-glucose sensor (Dexcom G6 Sensor) deviceIndications: Type 2 diabetes mellitus with hyperglycemia, with long-term current use of insulin ([facility]) USE DIRECTED AND CHANGE EVERY 10 DAYS. 9 each 3 4 Active Dexcom G6 Transmitter device USE DIRECTED AND CHANGE EVERY 3 MONTHS 1 each 1 4 Active insulin pump cart,cont inf,BT (Omnipod Dash Pods, Gen 4,) cartridgeIndicatio ns:Type 2 diabetes mellitus with hyperglycemia, with long-term current use of insulin ([facility]CC) Change q 3 days 30 each 6 4 Active metFORMIN (GLUCOPHAGE) 500 mg tabletIndications: Type 2 diabetes mellitus with hyperglycemia, with long-term current use of insulin ([facility]) TAKE 1 TABLET(500 MG) BY MOUTH TWICE DAILY WITH MEALS 180 tablet 4 Active Active Problems Problem Noted Date Diagnosed Date Right elbow pain 06/11/2023 Assessment & Plan (06/11/2023 4:05 PM CDT): New problem. Altaf fell onto R elbow/hip 1.5-2 wks ago. Hip has improved but unable to move R elbow w/o pain. Mild deformity noted distal to elbow on medial forearm. No ecchymosis at this time. Very tender to touch. R elbow XR ordered. Will have done before leaving today. Verified that [facility] uses [facility]. Aware to check results/results letter in [facility]. Will contact by phone if needed. Discussed possible need for ortho pending results. Recurrent major 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 Psychophysiological insomnia 02/04/2023 Gastroesophageal reflux disease without esophagi tis 02/04/2023 Class 3 severe obesity due t o excess calories with serious comorbidity and body mass index (BMI) of 40.0 to 44.9 in adult 11/22/2022 Assessment & Plan (11/22/2022 10:51 AM RAG BOILER): Discussed healthy diet and importance of regular physical activity (20- 30min/day, 150min/wk). Dean's olaftte, right 12/19/2020 Overview (12/19/2020): Added automatically from request for surgery [id number] Dean's olaftte, left 12/19/2020 Overview (12/19/2020): Added automatically from request for surgery [id number] Acquired hammer toe of right foot 12/19/2020 Overview (12/19/2020): Added automatically from request for surgery [id number] Hammer toe of left foot 12/19/2020 Overview (12/19/2020): Added automatically from request for surgery [id number] Insulin pump status 05/30/2020 Assessment & Plan (06/11/2023 4:03 PM CDT): No pump setting changes at this time. Assessment & Plan (11/22/2022 12:17 PM RAG BOILER): Continue current settings on Omnipod Humulin U500: Humulin U500 via Omnipod insulin pump Basals: 12am 0.75, 8am 0.8 IC 25 ISF 75 AIT 6 h TG 100 I will send back up insulin pens in case of pump failure. Humulin U500: 20 units bid aB & aD. SSI: >150 20 units 151-200: 25 units 201-250: 30 units 251-300: 35 units >300: 40 units. Assessment & Plan (03/29/2022 4:02 PM CDT): No pump setting changes. Assessment & Plan (09/21/2021 2:20 PM RAG BOILER): Decrease 8a BR to 0.5. Assessment & Plan (06/09/2020 3:36 PM CDT): Will only lower target to 100 today Assessment & Plan (05/30/2020 2:52 PM CDT): Insulin pump setting calculations as follows: Basal 2.75 Bolus: IC 5, SF 15, T 120 AI 4 Temp basal at 0 until 10 pm then 50 % until 0800. 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 Will recheck steroid production, with 1 mg dexa suppression test Check 24 h urine metanephrines. Hyperlipidemia associated with type 2 diabetes doc randall 04/20/2020 Assessment & Plan (06/11/2023 4:02 PM CDT): Chronic problem. Controlled on current Atorvastatin 20mg. Last lipid panel: 04/09/23 LDL=60, OF=244. Assessment & Plan (11/22/2022 12:12 PM RAG BOILER): Chronic problem, at goal. Currently taking atorvastatin 20mg daily. No changes. Update lipid panel today. Verified that she uses [facility]. Aware to check results/results letter in [facility]. Will contact by phone if needed. Assessment & Plan (09/17/2022 11:33 AM RAG BOILER): Checking fast lipid profile today, adjust medicine thereafter. Diet reviewed Assessment & Plan (03/29/2022 2:43 PM CDT): Chronic problem. On statin therapy, no changes. Assessment & Plan (09/21/2021 2:36 PM RAG BOILER): Chronic problem. On statin therapy, no changes. Assessment & Plan (02/14/2021 3:43 PM CDT): Goal of treatment , LDL cholesterol less than 100 ( less than 70 in patients with history of heart attacks and / or strokes ) NonHDL cholesterol ( total cholesterol minus HDL cholesterol ) goal less than 130 ( less than 100 in patients with history of heart attacks and / or strokes ) Low cholesterol, low fat diet was discussed and advised. Daily exercise On statin therapy with Atorvastatin Assessment & Plan (10/04/2020 4:03 PM RAG BOILER): Goal of treatment , LDL cholesterol less than 100 ( less than 70 in patients with history of heart attacks and / or strokes ) NonHDL cholesterol ( total cholesterol minus HDL cholesterol ) goal less than 130 ( less than 100 in patients with history of heart attacks and / or strokes ) Low cholesterol, low fat diet was discussed and advised. Daily exercise On statin therapy with Lipitor 20 mg daily Assessment & Plan (06/16/2020 4:36 PM CDT): Goal of treatment , LDL cholesterol less than 100 ( less than 70 in patients with history of heart attacks and / or strokes ) NonHDL cholesterol ( total cholesterol minus HDL cholesterol ) goal less than 130 ( less than 100 in patients with history of heart attacks and / or strokes ) Low cholesterol, low fat diet was discussed and advised. Daily exercise On statin therapy with Lipitor Hypertension associated with diabetes 04/20/2020 Assessment & Plan (06/11/2023 4:03 PM CDT): Chronic problem, controlled on current lisinopril 2.5mg daily, lasix 40mg daily, spironolactone 50mg daily. No changes at this time. Assessment & Plan (11/21/2022 4:02 PM RAG BOILER): Chronic problem, well controlled on current regimen. No changes at this time. Assessment & Plan (09/17/2022 11:33 AM RAG BOILER): Blood pressure control adequate no change in medication, checking CMP Assessment & Plan (03/29/2022 2:43 PM CDT): Controlled on current medications, no changes. Assessment & Plan (02/14/2021 3:42 PM CDT): Goal blood pressure is less than 140/85 Low salt diet was discussed andd recommended The importance of daily aerobic exercise was also emphasized. Continue current meds, Check micro albumin Assessment & Plan (06/16/2020 4:37 PM CDT): Goal blood pressure is less than 140/85 Low salt diet was discussed andd recommended The importance of daily aerobic exercise was also emphasized. Hypersomnolence 04/20/2020 Type 2 diabetes mellitus wit h stage 2 chronic kidney disease, with long-term current use of insulin 03/17/2020 Assessment & Plan (06/11/2023 3:59 PM CDT): Chronic problem. At goal, no hypoglycemia but variable readings showing upper range of normal/high. Will trial Ozempic in place of daily victoza to see if able to help w/weight/diet. Aware that we may need to decrease medications. Will closely monitor BS readings. Will stop victoza & start Ozempic 0.25mg weekly x 4 weeks. Will then increase to 0.5mg weekly. Current medications: Ozempic 0.25mg weekly x 4 wks then increase to 0.5mg weekly Steglatro 15 mg Metformin 1 gm BID Humulin U500 via Omnipod Dash insulin pump Basals: 12am 0.8 CR 25 CF 75 AIT 6 h TG 100 Strive for regular exercise (30min most days) and diet (get at least 4-5 servings of fruit and veggies daily, avoid processed foods, increase lean protein intake and decrease carb portions as well as fruit juices, regular soda & desserts). Watch carbs and simple sugars. Check the feet daily for skin breakdown and infection. Assessment & Plan (11/22/2022 12:13 PM RAG BOILER): Chronic problem, well controlled at this time. Please have labs drawn today before leaving. Verified that she uses [facility]. Aware to check results/results letter in [facility]. Will contact by phone if needed. I will send back up insulin pens in case of pump failure. Humulin U500: 20 units bid aB & aD. SSI: >150 20 units 151-200: 25 units 201-250: 30 units 251-300: 35 units >300: 40 units. Continue current medications: Current medications: Victoza 1.8 mg--stop to switch to mounjaro 2.5mg weekly (to help with weight loss) Steglatro 15 mg Metformin 1 gm BID Humulin U500 via Omnipod insulin pump Basals: 12am 0.75, 8am 0.8 IC 25 ISF 75 AIT 6 h TG 100 Assessment & Plan (09/17/2022 11:06 AM RAG BOILER): Overdue for multiple tests including hemoglobin A1c BMP microalbumin obtaining today. Last hemoglobin A1c reportedly good at 6, definitely needs re-evaluation medications after labs Assessment & Plan (03/29/2022 4:01 PM CDT): Chronic problem, overall stable. I gave her pod samples we had today that should get her through to her next refill. I also sent in rx for U500 syringes to use if she needs to come off the pump. Start at 25 units TID aC (current TDD 16 units in pump, x5 = about 84 units). No pump setting changes today. Assessment & Plan (09/21/2021 2:37 PM RAG BOILER): Chronic problem, trending low normal during the day even with being off of victoza due to prescription issue. Resume victoza 1.8 mg daily. Decrease BR during the day to 0.5. Encouragement given for her lifestyle changes. Assessment & Plan (06/27/2021 3:55 PM CDT): Hba1c was Lab Results Component Value Date HGBA1C 5.3 06/27/2021 today, indicating adequate dm control with hypoglycemia Goal blood sugars in the 120-150 range , with Hb1c under 7.0 % was explained 1800 calorie, consistent carb diet recommended. No more than 30-45 grams of carbs per meal recommended, as well as avoiding high concentrated sweet drinks . 25-45 min daily exercise, combining both aerobic and resistance exercise recommended. Continue blood glucose monitoring with Dexcom CGM Prevention and treatment of hyypoglcyemia discussed. Pump settings adjusted as follows: Basal rates decreased 12:00 a.m. to 0.4 and 8:00 a.m. to 0.6 Increase Victoza to 1.8 mg nightly Assessment & Plan (02/14/2021 3:42 PM CDT): Hba1c was Lab Results Component Value Date HGBA1C 5.9 02/14/2021 today, indicating Adequate DM control Goal blood sugars in the 120-150 range , with Hb1c under 7.0 % was explained 1800 calorie, consistent carb diet recommended. No more than 30-45 grams of carbs per meal recommended, as well as avoiding high concentrated sweet drinks . 25-45 min daily exercise, combining both aerobic and resistance exercise recommended. The need to monitor blood glucose before meals and bedtime was discussed. Prevention and treatment of hyypoglcyemia discussed. Continue pump at current settings Continue Victoza and metformin Assessment & Plan (10/04/2020 4:03 PM RAG BOILER): Hba1c was Lab Results Component Value Date HGBA1C 5.8 10/04/2020 today, indicating adequate DM control Goal blood sugars in the 120-150 range , with Hb1c under 7.0 % was explained 1800 calorie, consistent carb diet recommended. No more than 30-45 grams of carbs per meal recommended, as well as avoiding high concentrated sweet drinks . 25-45 min daily exercise, combining both aerobic and resistance exercise recommended. The need to monitor blood glucose before meals and bedtime was discussed. Prevention and treatment of hyypoglcyemia discussed. Continue OmniPod insulin pump at current settings with U 500 insulin Continue Victoza and Steglatro, as well as metformin Assessment & Plan (06/16/2020 4:37 PM CDT): Hba1c was Lab Results Component Value Date HGBA1C 5.8 06/16/2020 today, indicating adequate DM control 1800 calorie, consistent carb diet recommended. No more than 30-45 grams of carbs per meal recommended, as well as avoiding high concentrated sweet drinks . 25-45 min daily exercise, combining both aerobic and resistance exercise recommended. The need to monitor blood glucose before meals and bedtime was discussed. Prevention and treatment of hyypoglcyemia discussed. Insulin dose: Continue pump at current settings Will try to put her on U500 Assessment & Plan (06/09/2020 3:39 PM CDT): Have reviewed troubleshooting with insulin pump and sensor. Could be pod/sensor, insulin, site or user related. Cannot determine clear cause. I have asked her to try to continue to wear pump until follow up appt in one week. Will have pump rep available at appt to review technique and trouble shooting. If she take off pod, she will go back to previous MDI plan: Lantus 30 am 70 hs Humalog 25 tid ac > 160 30 > 200 35. I have asked her to continue to wear sensor since she has only had this for 2 days. Information will be valuable to review next week. She agrees to plan. Assessment & Plan (05/30/2020 3:40 PM CDT): Demonstrates appropriate ability to fill and insert infusion set. Understands concepts of basal vs. Bolus and is able to enter BG and carbs into pump. Has been provided with contact information for insulin pump patient care representative and how to reach our office after hours if any issues arise with BG. Has injectable basal insulin at home and understands to contact office in the event of pump failure so that appropriate basal dose can be determined. Advised follow up appt in office in one to two weeks so settings can be evaluated and adjusted as indicated. Total face to face time = 60 minutes Greater than 50% of visit was spent counseling pt. Counseling consisted of filling of infusion set, entering carbs and BG levels, troubleshooting hyperglycemia, importance of follow up appointment in 2 weeks. Instructed to contact [facility]'s specialty pharmacy to have them send Dexcom. Assessment & Plan (04/05/2020 2:15 PM CDT): Hba1c was Lab Results Component Value Date HGBA1C 7.4 03/17/2020 today, indicating ... DM control 1800 calorie, consistent carb diet recommended. No more than 30-45 grams of carbs per meal recommended, as well as avoiding high concentrated sweet drinks . 25-45 min daily exercise, combining both aerobic and resistance exercise recommended. The need to monitor blood glucose before meals and bedtime was discussed. Prevention and treatment of hyypoglcyemia discussed. Insulin dose: Lantus, take 70 units at bedtime and 30 units in the mornings Humalog, take 20 units with each meal For sugars over 200, take 25 For sugars over 250, take 30 For sugars over 300, take 35 Stop Victoza Start Trulicity Increase metformin , 1000 mg twice a day with meals. Will request insulin pump and DEXCOM continuous glucose monitor. Assessment & Plan (03/17/2020 4:15 PM CDT): Hba1c was Lab Results Component Value Date HGBA1C 7.4 03/17/2020 today, indicating suboptimal, worsening DM control 1800 calorie, consistent carb diet recommended. No more than 30-45 grams of carbs per meal recommended, as well as avoiding high concentrated sweet drinks . 25-45 min daily exercise, combining both aerobic and resistance exercise recommended. The need to monitor blood glucose before meals and bedtime was discussed. Prevention and treatment of hyypoglcyemia discussed. Take Lantus, 30 units am and bedtime Take Novolog, 6 units with meals. For sugars over 150, + 2 units Over 200, + 4 units Over 250, + 6 units Over 300, + 8 units. Start Trulicity , once a week Stay on Metfomrin and Steglatro Weight gain, abnormal 03/17/2020 Assessment & Plan (03/17/2020 4:15 PM CDT): Will work up to rule out Malcolm's Diabetic polyneuropathy asso ciated with diabetes mellitus due to underlying condition ([facility]) 03/17/2020 Assessment & Plan (06/11/2023 4:00 PM CDT): Chronic problem. Currently taking lyrica 75mg bid. Aware to check feet nightly & not go barefoot. Assessment & Plan (09/17/2022 12:23 PM RAG BOILER): Hands worse, Refilling lyrica, reviewed need for tight control of diabetes. She has no clinical findings that suggest carpal tunnel although her symptoms seem somewhat compatible, consider reimaging neck a and/or getting EMG nerve conduction velocity after labs back Assessment & Plan (06/27/2021 3:56 PM CDT): Foot care discussed Continue gabapentin. A prescription sent Assessment & Plan (10/04/2020 4:02 PM RAG BOILER): Foot care discussed Continue gabapentin Assessment & Plan (04/05/2020 2:16 PM CDT): Could not tolerate Lyrica Continue Gabapentin Foot care discussed Name for time study technologist recommended. Assessment & Plan (03/17/2020 4:16 PM CDT): Worsening Start Lyrica, twice a day Stop Neurontin, since it is not helping Foot care discussed Generalized arthritis 03/17/2020 Assessment & Plan (03/17/2020 4:30 PM CDT): Would recommend rheumatology consultation Anal fissure 05/19/2012 Resolved Problems Problem Noted Date Diagnosed Date Resolved Date Morbid (severe) obesity due to excess calories 03/29/2022 11/21/2022 Assessment & Plan (03/29/2022 4:02 PM CDT): Has maintained her weight loss, and states on home scale she has continued to lose. Continue good lifestyle changes. Body mass index 40.0-44.9, adult ([facility]) 03/29/2022 11/21/2022 Morbid obesity with BMI of 4 5.0-49.9, adult ([facility]) 04/20/2020 11/21/2022 Assessment & Plan (09/17/2022 11:06 AM RAG BOILER): Reviewed weight loss including diet exercise. Hold on any medication intervention Syncope and collapse 04/20/2020 023 Immunizations Name Administration Dates Next Due Influenza, Quadrivalent, Spl it, Preservative Free, Intramuscular 09/17/2022,10/04/2021,09/16/2020,10/22 Pneumococcal Polysaccharide PPV23 12/17/2017 Pneumococcal, Unspecified 11/11/2018 Social History Tobacco Use Types Packs/Day Years Used Date Smoking Tobacco: Former Cigarettes Q uit: 2014 Vaping Smokeless Tobacco: Never Alcohol Use Standard Drinks/Week Comments Never 0 (1 standard drink = 0.6 oz pur e alcohol) AUDIT-C Answer Date Recorded Frequency of Alcohol Consumption Not on file 09/17/2022 Q2: How many drinks containi ng alcohol do you have on a typical day when you are drinking? Patient does not drink Frequency of Binge Drinking Not on file 05/2022 PHQ-2 Answer Date Recorded PHQ-2 Total Score (If total score is 3 or more points, staff should administer the PHQ-9) 4 05/30/2022 Personal Safety Answer Date Recorded Have you ever been in or are you currently in a harmful physical or emotional relationship or is someone making you feel afraid or unsafe? Denies 05/30/2024 Comments No Sex and Gender Information Value Date Recorded Sex Assigned at Not on file Legal Sex Female 10:15 PM RAG BOILER Gender Identity Female 07/13/2021 7:15 AM CDT Sexual Orientation Straight 07/13/2021 7: 15 AM CDT Last Filed Vital Signs Vital Sign Reading Time Taken Comments Blood Pressure 109/77 05/30/2024 9:41 PM CDT Pulse 77 05/30/2024 9:41 PM CDT Temperature 36.8 C (98.2 F) 05/30/2024 4:35 PM CDT Respiratory Rate 16 05/30/2024 9:41 PM CDT Oxygen Saturation 98% 05/30/2024 9:41 PM CDT Inhaled Oxygen Concentration - - Weight 114 kg (251 lb 5.2 oz) 05/30/2024 4:35 PM CDT Height 170.2 cm (5' 7.01 ) 06/11/2023 2:56 PM CD T Body Mass Index 39.35 06/11/2023 2:56 PM CDT Plan of Treatment Not on file Procedures Procedure Name Priority Date/Time Associated Diagnosis Comments EGFR STAT 05/30/2024 4:54 PM CDT POCT HEMOGLOBIN A1C Routine 06/11/2023 3 :00 PM CDT Type 2 diabetes mellitus with stage 2 chronic kidney disease, with long-term current use of insulin ([facility]) (HCC) LIPID PANEL Routine 04/09/2023 3:52 PM CDT Abdominal pain, chronic, epigastric Hyperlipidemia associated with type 2 diabetes mellitus (HCC) ALBUMIN CREATININE RATIO, URINE Routine 11/22/2022 11:25 AM RAG BOILER Type 2 diabetes mellitus with stage 2 chronic kidney disease, with long-term current use of insulin ([facility]) (HCC) DIABETIC EYE EXAM Routine 09/03/2022 from Last 3 Months or Most Recently Relevant to Health Maintenance Results * eGFR (05/30/2024 4:54 PM CDT) eGFR 63 >=60 mL/min/1. 73 m2 Comment: Interpretive Data Reference Interval Normal >/= 90 mL/min/1.73m2 Mildly decreased* 60 - 89 mL/min/1.73m2 Mildly to moderately decreased 45 - 59 mL/min/1.73m2 Moderately to severely decreased 30 - 44 mL/min/1.73m2 Severely decreased 15 - 29 mL/min/1.73m2 Kidney Failure < 15 mL/min/1.73m2 *Relative to young adult level Estimated glomerular filtration rate is determined by the 2020 CKD-EPI equation recommended by the National Kidney Foundation (A Unifying Approach to GFR Estimation: Recommendations of the NKF-ASK Task Force on Reassessing the Inclusion of Race in Diagnosing Kidney Disease, JASN 202). The CKD-EPI equation should not be used for patients with unstable renal function and has not been validated in children and those over 70. Current interpretive data was last reviewed 2021. Testing performed by: [facility], [address] [place] [address], [place]., [address] Blood 05/30/2024 4:54 PM CDT 05/30/2024 5:15 PM CDT us Deng Pop DO LAB BLOOD ORDERABLES Final Result ANGEL [address] [facility] Department [place] [address] * (ABNORMAL) POCT hemoglobin A1c (06/11/2023 3:00 PM CDT) Hemoglobin A1C, POC 6.1 % Blood 06/11/2023 3:00 PM CDT us Cathy Talavera NP POINT OF CARE TEST ORDERA BLES Final Result * (ABNORMAL) Lipid panel (04/09/2023 3:52 PM CDT) Cholesterol 131 30 - 199 mg/dL ANGEL Comment: Interpretive Data Ages < or = 19 years Acceptable: <170 mg/dL Borderline high: 170-199 mg/dL High: >or= 200 mg/dL Ages > or = 20 years Desirable: <200 mg/dL Borderline high: 200-239 mg/dL High: >or= 240 mg/dL Literature References: 1. Expert Panel on Integrated Guidelines for Cardiovascular Health and Risk Reduction in Children and Adolescents. Pediatrics 2011;128:S213 2. NCEP Expert Panel. Circulation 2004;110:227 Current Interpretive Data was last revised on 2018. Triglycerides 163(H) <=149 mg/dL ANGEL Comment: Interpretive Data Ages < or = 9 years Acceptable: <75 mg/dL Borderline high: 75-99 mg/dL High: >or= 100 mg/dL Ages 10 to 20 years Acceptable: <90 mg/dL Borderline high: 90-129 mg/dL High: >or= 130 mg/dL Ages > or = 20 years Desirable: <150 mg/dL Borderline high: 150-199 mg/dL High: 200-499 mg/dL Very high: >or= 499 mg/dL Literature References: 1. Expert Panel on Integrated Guidelines for Cardiovascular Health and Risk Reduction in Children and Adolescents. Pediatrics 2011;128:S213 2. NCEP Expert Panel. Circulation 2004;110:227 Current Interpretive Data was last revised on 2018. HDL 38(L) >=40 mg/dL ANGEL MIKE Comment: Interpretive Data Ages < or = 19 years Acceptable: >45 mg/dL Borderline low: 40-45 mg/dL Low: <40 mg/dL Ages > or = 20 years Desirable: >or= 60 mg/dL Low: <40 mg/dL Literature References: 1. Expert Panel on Integrated Guidelines for Cardiovascular Health and Risk Reduction in Children and Adolescents. Pediatrics 2011;128:S213 2. NCEP Expert Panel. Circulation 2004;110:227 Current Interpretive Data was last revised on 2018. LDL, calculated 60 <=129 mg/dL ANGEL MIKE Comment: Interpretive Data Ages < or = 19 years Acceptable: <110 mg/dL Borderline high: 110-129 mg/dL High: >or= 130 mg/dL Ages > or = 20 years Optimal: <100 mg/dL Near optimal: 100-129 mg/dL Borderline high: 130-159 mg/dL High: >160 mg/dL Literature References: 1. Expert Panel on Integrated Guidelines for Cardiovascular Health and Risk Reduction in Children and Adolescents. Pediatrics 2011;128:S213 2. NCEP Expert Panel. Circulation 2004;110:227 Current Interpretive Data was last revised on 2018. Non-HDL Cholesterol 93 mg/dL ANGEL MIKE Comment: Interpretive Data Ages < or = 19 years Acceptable: <120 mg/dL Borderline high: 120-144 mg/dL High: >145 mg/dL Ages > or = 20 years When triglycerides are >200 mg/dL, Non-HDL cholesterol is a secondary target of therapy with treatment goals that are 30 mg/dL greater than the LDL cholesterol target. Literature References: 1. Expert Panel on Integrated Guidelines for Cardiovascular Health and Risk Reduction in Children and Adolescents. Pediatrics 2011;128:S213 2. NCEP Expert Panel. Circulation 2004;110:227 Current Interpretive Data was last revised on 2018. Chol/HDL ratio 3 ANGEL MIKE Blood 04/09/2023 3:52 PM CDT 04/09/2023 5:17 PM CDT Salvador Lacey MD LAB BLOOD ORDERABLES Final Re sult ANGEL [address] [facility] Department [place] [address] * Albumin Creatinine Ratio, Urine (11/22/2022 11:25 AM RAG BOILER) Albumin Ur <12.0 mg/L ANGEL VARGAS Comment: Interpretive Data No reference range established. Current interpretive data was last revised 2019. Creatinine Ur 91.7 mg/dL ANGEL VARGAS Comment: Interpretive Data No reference range established. Current interpretive data was last revised 2019. Albumin Creatinine Ratio, Ur <13 1 - 29 mg/g ANGEL Urine 11/22/2022 11:2 5 AM RAG BOILER 11/22/2022 2:21 PM RAG BOILER Cathy Talavera MIXING SUPERVISOR LAB URINE ORDERABLES Ioana l Result Performing Organization Address [facility]/ZIP Co de Phone Number ANGEL [address] [address] Department of Laboratories [place], [place] [phone] * Diabetic Eye Exam (09/03/2022) Historical Provider HEALTH MAINTENANCE Edited Result - Final from Last 3 Months or Most Recently Relevant to Health Maintenance [facility] Advance Directives For more information, please contact: [phone] * Full Code (Latest Code Status on File) Date Activated Date Inactivated Comments 01/13/2021 1:19 PM 01/13/2021 7:07 PM Care Teams Vacuum Cooker Operator Relationship Specialty Start Date End Date Preet Rocha MD [address] [place] [id number] PCP - General Family Medicine 05/30/24 Cher Hernandez DPM [address] [place] [id number] Consulting Physician Foot and Ankle Surg 01/13/21
--- OUTSIDE RECORDS SUMMARY | 2024-12-23 16:20 | XMS_ITS | Clinical Summary ---
Author Organization [facility] Address [address] [place] [address] Care Team Providers Care Healthcare Recruiter Name Role Phone Hakeem Green MD Primary Care Provider Marcy lable Allergies Active Allergy Reactions Criticality Noted Date Comments Corticosteroids Unknown 07/02/2012 Morphine Swelling High 07/02/2012 Medications Insulin Pen Needle (BD PEN NEEDLE ASHLEY U/F) 32G X 4 MM MiscIndications :Diabetes ([facility]) USE DIRECTED 200 each 04/07/2019 Active Encounters Date Type Department Care Team Description 12/22/2024 8:08 PM RN CARE MANAGER - 12/22/2024 8:20 PM RN CARE MANAGER Emergency [facility] [place] [address] Abscess Discharge Disposition: Left Against Medical Advice 12/22/2024 Travel from Last 3 Months Social History Tobacco Use Types Packs/Day Years Used Date Smoking Tobacco: Every Day Electronic Cigarettes Smokeless Tobacco: Never Alcohol Use Standard Drinks/Week Comments Never 0 (1 standard drink = 0.6 oz pur e alcohol) AUDIT-C Answer Date Recorded Q1: How often do you have a drink containing alc ohol? Never 07/20/2020 Average Number of Drinks Not on file 020 Frequency of Binge Drinking Not on file 07/2020 Comments No Sex and Gender Information Value Date Recorded Sex Assigned at Female 12/22/2024 6:50 PM RN CARE MANAGER Legal Sex Female 7:20 PM CDT Gender Identity Not on file Sexual Orientation Not on file Last Filed Vital Signs Vital Sign Reading Time Taken Comments Blood Pressure 124/83 12/22/2024 6:23 PM RN CARE MANAGER Pulse 79 12/22/2024 6:23 PM RN CARE MANAGER Temperature 36.7 C (98 F) 12/22/2024 6:23 PM RN CARE MANAGER Respiratory Rate 18 12/22/2024 6:23 PM RN CARE MANAGER Oxygen Saturation 100% 12/22/2024 6:23 PM RN CARE MANAGER Inhaled Oxygen Concentration - - Weight 113.4 kg (250 lb) 12/22/2024 6:23 PM RN CARE MANAGER Height 167.6 cm (5' 6 ) 12/22/2024 6:23 PM RN CARE MANAGER Body Mass Index 40.35 12/22/2024 6:23 PM RN CARE MANAGER Plan of Treatment Health Maintenance Due Date Last Done Comments Colorectal Cancer Screening Colonoscopy (10 Years) 1979 Annual Physical 1982 Hepatitis C 1997 DTaP, Tdap and Td Vaccines (1 - Tdap) 1998 Hepatitis B Vaccines (1 of 3 - 19+ 3-dose series) 1998 Mammogram Screening 2019 Pneumococcal Vaccine: Pediatrics (0 to 5 Years) and At-Risk Patients (6 to 64 Years) (2 of 2 - PCV) 11/11/2019 11/11/2018, 12/17/2017 COVID-19 Vaccine ( - 2023- season) 2024 10/04/2021, 01/27/2021, 01/06/2021 Influenza Adult (#1) 2024 09/17/2022, 10/04/2021, 09/16/2020, Additional history exists HPV Vaccines Aged Out No longer eligi ble based on patient's age to complete this topic Meningococcal B Vaccine Aged Out No l onger eligible based on patient's age to complete this topic Meningococcal Vaccine Aged Out No gabriela dipesh eligible based on patient's age to complete this topic RSV Immunizations Under 20 Months Aged Out No longer eligible based on patient's age to complete this topic Insurance [phone] [id number] (Work) [address] [place] [address] Care Teams Healthcare Recruiter Relationship Specialty Start Date End Date Hakeem Green MD PCP - General 09/27/16
--- OUTSIDE RECORDS SUMMARY | 2024-12-23 16:20 | XMS_ITS | Patient Health Summary ---
Author Organization [facility] Address [address] [place] [address] Care Team Providers Care Business Leader Name Role Phone Preet Rocha MD Primary Care Provider [phone] Note from [facility],non-owned Affiliates and Associated Physician Practices is amultiple site organization consisting of ambulatory clinics and hospital sitesin [place], [place], [place] and [place]. This disclosure is being madepursuant to the Care Everywhere program and may not contain all information available regarding this patient. Last updated 18.[facility] Social History Tobacco Use Types Packs/Day Years Used Date Smoking Tobacco: Never Assessed Sex and Gender Information Value Date Recorded Sex Assigned at Not on file Gender Identity Not on file Sexual Orientation Not on file Care Teams Business Leader Relationship Specialty Start Date End Date Preet Rocha MD [address] [place] [phone] PCP - General Family Medicine 08/27/24
--- OUTSIDE RECORDS SUMMARY | 2024-12-23 16:20 | XMS_ITS | Encounter Summary ---
Author Organization [facility] Address [address] [place] [address] Care Team Providers Care Pompom Maker Name Role Phone Hakeem Green MD Primary Care Provider Marcy ventura Encounter Details Date Type Department Care Team (Latest Contact Info) Description 12/22/2024 Travel Social History Tobacco Use Types Packs/Day Years [...] Sex Assigned at Female 12/22/2024 6:50 PM GUIDANCE SERVICES COORDINATOR Legal Sex Female 7:20 PM CDT Gender Identity Not on file Sexual Orientation Not on file documented as of this encounter Plan of Treatment Not on file documented as of this encounter Visit Diagnoses Not on filedocumented in this encounter Care Teams Pompom Maker Relationship Specialty Start Date End Date Hakeem Green MD PCP - General 09/27/16 documented as of this encounter
--- OUTSIDE RECORDS SUMMARY | 2024-12-23 16:20 | XMS_ITS | Encounter Summary ---
Author Organization [facility] Address [address] [place] [address] Care Team Providers Care Liquid Sugar Melter Name Role Phone Hakeem Green MD Primary Care Provider Marcy ventura Reason for Visit * Reason Comments Abscess Encounter Details Date Type Department Care Team (Late st Contact Info) Description 12/22/2024 8:08 PM ORDNANCE OFFICER - 12/22/2024 8:20 PM ORDNANCE OFFICER Emergency [facility] [place] [address] Abscess Discharge Disposition: Left Against Medical Advice Social History Tobacco Use Types Packs/Day Years [...] Sex Assigned at Female 12/22/2024 6:50 PM ORDNANCE OFFICER Legal Sex Female 7:20 PM CDT Gender Identity Not on file Sexual Orientation Not on file documented as of this encounter Last Filed Vital Signs Vital Sign Reading Time Taken Comments Blood Pressure 124/83 12/22/2024 6:23 PM ORDNANCE OFFICER Pulse 79 12/22/2024 6:23 PM ORDNANCE OFFICER Temperature 36.7 C (98 F) 12/22/2024 6:23 PM ORDNANCE OFFICER Respiratory Rate 18 12/22/2024 6:23 PM ORDNANCE OFFICER Oxygen Saturation 100% 12/22/2024 6:23 PM ORDNANCE OFFICER Inhaled Oxygen Concentration - - Weight 113.4 kg (250 lb) 12/22/2024 6:23 PM ORDNANCE OFFICER Height 167.6 cm (5' 6 ) 12/22/2024 6:23 PM ORDNANCE OFFICER Body Mass Index 40.35 12/22/2024 6:23 PM ORDNANCE OFFICER documented in this encounter Medications at Time of Discharge Insulin Pen Needle (BD PEN NEEDLE ASHLEY U/F) 32G X 4 MM MiscIndications:D iabetes ([facility]) USE DIRECTED 200 each 04/07/2019 documented as of this encounter ED Notes * Kristy Calles RN - 12/22/2024 8:06 PM CST Patient to agent spa desk stating she needs to leave because her ride is leaving. Discussed with patient risks of leaving vs benefits of staying. Patient verbalizes understanding. Signed AMA form. Ambulatory out of ED. ANCE OFFICER ANCE OFFICER * George Espinoza RN - 12/22/2024 6:25 PM CST Patient ambulatory to ED with accountant certified public cyst that began a few days ago. Patient reports drainage from site. ANCE OFFICER * MÓNICA Pineda - 12/22/2024 6:25 PM CST [place], [place] EMERGENCY DEPARTMENT ENCOUNTER Medical Screening Examination 12/22/24 8:01 PM Chief Complaint : Abscess HPI : Sabina Dash is a 44-year-old female who presents with abscess to groin that started a few days ago. H/o similar which required surgery. Reports draining Vital Signs: Filed Vitals: 12/22/24 1823 BP: 124/83 Pulse: 79 Resp: 18 Temp: 98 ??F (36.7 ??C) TempSrc: Oral SpO2: 100% Weight: 113.4 kg (250 lb) Height: 1.676 m (5' 6 ) Physical exam: A limited physical exam was completed due facility construction in triage area and to facilitate/expedite patient care. Uncomfortable, limited evaluation give privacy issues in triage Plan: Necessary labs/imaging/medications ordered to initiate pt care. MÓNICA Pineda 12/22/242001 Cosigned by Maxim Miller DO at 12/23/2024 12:45 AM ORDNANCE OFFICER ANCE OFFICER ANCE OFFICER documented in this encounter Plan of Treatment Not on file documented as of this encounter Visit Diagnoses Diagnosis Abscess- Primary Cellulitis and abscess of unspecified site documented in this encounter Active and Recently Administered Medications Times are shown in ORDNANCE OFFICER. Scheduled Medication Order 12/20/2024 12/21/2024 12/22/2024 HYDROcodone-acetaminophen (NORCO) 5-325 MG tablet 1 tablet 1 tablet, Oral, Once, 1 dose, On Sat12/22/24 at 1830, Maximum dose of acetaminophen is 4000 mg from all sources in 24 hours. 1830 (Canceled Entry - Provider: Automatic Discharge Provider - Comment: Automatically canceled at discontinue of medication order) documented in this encounter Care Teams Liquid Sugar Melter Relationship Specialty Start Date End Date Hakeem Green MD PCP - General 09/27/16 documented as of this encounter
--- OUTSIDE RECORDS SUMMARY | 2024-12-23 16:20 | XMS_ITS | Referral Summary ---
Author Organization [facility] Address [address] [place] [address] Care Team Providers Care Business Operations Manager Name Role Phone Preet Rocha MD Primary Care Provider [phone] Source Comments [facility],non-[facility] Affiliates and Associated Physician Practices is amultiple site organization consisting of ambulatory clinics and hospital sitesin [place], [place] and [place]. This disclosure is being madepursuant to the Care Everywhere program and may not contain all information available regarding this patient. Last updated 18.[facility] Social History Tobacco Use Types Packs/Day Years Used Date Smoking Tobacco: Never Assessed Sex and Gender Information Value Date Recorded Sex Assigned at Not on file Gender Identity Not on file Sexual Orientation Not on file Plan of Treatment Not on file Care Teams Business Operations Manager Relationship Specialty Start Date End Date Preet Rocha MD [address] [place] [phone] PCP - General Family Medicine 08/27/24
--- OUTSIDE RECORDS SUMMARY | 2024-12-23 16:20 | XMS_ITS | Encounter Summary ---
Author Organization [facility] Address [address] [place] [address] Care Team Providers Care Real Estate Paralegal Name Role Phone Hakeem Green MD Primary Care Provider Marcy ventura Encounter Details Date Type Department Care Team (Late st Contact Info) Description 07/22/2020 Prep for Procedure [facility] [place], [place] [phone] Victorino Valenzuela MD [address] [facility] [address] [place], [place] [id number] Social History Tobacco Use Types Packs/Day Years [...] Binge Drinking Not on file 07/2020 Comments Unknown Sex and Gender Information Value Date Recorded Sex Assigned at Female 12/22/2024 6:50 PM TUBULAR SPLITTING MACHINE TENDER Legal Sex Female 7:20 PM CDT Gender Identity Not on file Sexual Orientation Not on file COVID-19 Exposure Response Date Recorded In the last month, have you been in contact with someone who was confirmed or suspected to have Coronavirus / COVID-19? No / Unsure 07/20/2020 2:42 PM CDT documented as of this encounter Plan of Treatment Not on file documented as of this encounter Visit Diagnoses Diagnosis Dysphagia- Primary Dysphagia, unspecified documented in this encounter Care Teams Real Estate Paralegal Relationship Specialty Start Date End Date Hakeem Green MD PCP - General 09/27/16 documented as of this encounter
--- OUTSIDE RECORDS SUMMARY | 2024-12-23 16:20 | XMS_ITS | Clinical Summary ---
Author Organization [facility] [place] [address] Address [address] [place] [address] Care Team Providers Care Director Of Epidemiology Name Role Phone Cher Hernandez DPM Unavailable [phone] Preet Rocha MD Primary Care Provider [phone] Allergies Active Allergy Reactions Criticality Noted Date [...] 1 3 Active blood-glucose meter,continuous (Dexcom G6 Marine Electrician Helper) miscIndications:Ty pe 2 diabetes mellitus with hyperglycemia, with long-term current use of insulin ([facility]) Inject 1 kit under the skin as directed 1 each 3 Active atorvastatin (LIPITOR) 20 mg tabletIndications: Hyperlipidemia associated with type 2 diabetes mellitus ([facility]) Take 1 tablet (20 mg total) by mouth daily 90 tablet 3 Active FLUoxetine (PROzac) 40 mg capsuleIndications :Recurrent major 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 ([facility]) Take 1 capsule (40 mg total) by [...] disease, with long-term current use of insulin ([facility]) Use to inject U500 insulin twice daily 200 each 3 3 Active busPIRone (BUSPAR) 15 mg tabletIndications: Recurrent major 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 ([facility]) TAKE 1 TABLET(15 MG) BY MOUTH DAILY 30 tablet 3 Active HYDROcodone-acetam inophen (NORCO) 5-325 mg per tabletIndications: Pain Take 1 tablet by mouth 2 (two) times a day as needed for pain 60 tablet 3 Active Steglatro 15 mg tablet TAKE 1 TABLET BY MOUTH DAILY 30 tablet 3 3 Active buPROPion (WELLBUTRIN) 100 mg tabletIndications: Recurrent major 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 ([facility]) TAKE 1 TABLET(100 MG) BY MOUTH TWICE [...] before leaving today. Verified that she uses [facility]. Aware to check results/results letter in [place]. Will contact by phone if needed. Discussed possible need for ortho pending results. Recurrent major 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 Psychophysiological insomnia 02/04/2023 Gastroesophageal reflux disease without esophagi tis 02/04/2023 Class 3 severe obesity due t o excess calories with serious comorbidity and body mass index (BMI) of 40.0 to 44.9 in adult 11/22/2022 Assessment & Plan (11/22/2022 10:51 AM NETWORK RELATIONS CONSULTANT): Discussed healthy diet and importance of regular physical activity (20- 30min/day, 150min/wk). Dean's olaftte, right 12/19/2020 Overview (12/19/2020): Added automatically from request for surgery [id number] Dean's olaftte, left 12/19/2020 Overview (12/19/2020): Added automatically from request for surgery [id number] Acquired hammer toe of right foot 12/19/2020 Overview (12/19/2020): Added automatically from request for surgery [id number] Hammer toe of left foot 12/19/2020 Overview (12/19/2020): Added automatically from request for surgery [id number] Insulin pump status 05/30/2020 Assessment & Plan (06/11/2023 4:03 PM CDT): No pump setting changes at this time. Assessment & Plan (11/22/2022 12:17 PM NETWORK RELATIONS CONSULTANT): Continue current settings on Omnipod Humulin U500: [...] changes. Assessment & Plan (09/21/2021 2:20 PM NETWORK RELATIONS CONSULTANT): Decrease 8a BR to 0.5. Assessment & [...] Atorvastatin 20mg. Last lipid panel: 04/09/23 LDL=60, LL=270. Assessment & Plan (11/22/2022 12:12 PM NETWORK RELATIONS CONSULTANT): Chronic problem, at goal. Currently taking atorvastatin 20mg daily. No changes. Update lipid panel today. Verified that she uses [employer]. Aware to check results/results letter in [employer]. Will contact by phone if needed. Assessment & Plan (09/17/2022 11:33 AM NETWORK RELATIONS CONSULTANT): Checking fast lipid profile today, adjust medicine thereafter. Diet reviewed Assessment & Plan (03/29/2022 2:43 PM CDT): Chronic problem. On statin therapy, no changes. Assessment & Plan (09/21/2021 2:36 PM NETWORK RELATIONS CONSULTANT): Chronic problem. On statin therapy, no changes. [...] Atorvastatin Assessment & Plan (10/04/2020 4:03 PM NETWORK RELATIONS CONSULTANT): Goal of treatment , LDL cholesterol less [...] time. Assessment & Plan (11/21/2022 4:02 PM NETWORK RELATIONS CONSULTANT): Chronic problem, well controlled on current regimen. No changes at this time. Assessment & Plan (09/17/2022 11:33 AM NETWORK RELATIONS CONSULTANT): Blood pressure control adequate no change in [...] infection. Assessment & Plan (11/22/2022 12:13 PM NETWORK RELATIONS CONSULTANT): Chronic problem, well controlled at this time. Please have labs drawn today before leaving. Verified that she uses [facility]. Aware to check results/results letter in [place]. Will contact by phone if needed. I [...] 100 Assessment & Plan (09/17/2022 11:06 AM NETWORK RELATIONS CONSULTANT): Overdue for multiple tests including hemoglobin A1c [...] today. Assessment & Plan (09/21/2021 2:37 PM NETWORK RELATIONS CONSULTANT): Chronic problem, trending low normal during the [...] metformin Assessment & Plan (10/04/2020 4:03 PM NETWORK RELATIONS CONSULTANT): Hba1c was Lab Results Component Value Date [...] provided with contact information for insulin pump agricultural sales representative and how to reach our office [...] appointment in 2 weeks. Instructed to contact [facility]'s specialty pharmacy to have them send Dexcom. [...] with diabetes mellitus due to underlying condition ([facility]) 03/17/2020 Assessment & Plan (06/11/2023 4:00 PM CDT): Chronic problem. Currently taking lyrica 75mg bid. Aware to check feet nightly & not go barefoot. Assessment & Plan (09/17/2022 12:23 PM NETWORK RELATIONS CONSULTANT): Hands worse, Refilling lyrica, reviewed need for tight control of diabetes. She has no clinical findings that suggest carpal tunnel although her symptoms seem somewhat compatible, consider reimaging neck a and/or getting EMG nerve conduction velocity after labs back Assessment & Plan (06/27/2021 3:56 PM CDT): Foot care discussed Continue gabapentin. A prescription sent Assessment & Plan (10/04/2020 4:02 PM NETWORK RELATIONS CONSULTANT): Foot care discussed Continue gabapentin Assessment & Plan (04/05/2020 2:16 PM CDT): Could not tolerate Lyrica Continue Gabapentin Foot care discussed Name for set up machinist recommended. Assessment & Plan (03/17/2020 4:16 PM [...] lifestyle changes. Body mass index 40.0-44.9, adult ([facility]) 03/29/2022 11/21/2022 Morbid obesity with BMI of 4 5.0-49.9, adult ([facility]) 04/20/2020 11/21/2022 Assessment & Plan (09/17/2022 11:06 AM NETWORK RELATIONS CONSULTANT): Reviewed weight loss including diet exercise. Hold on any medication intervention Syncope and collapse 04/20/2020 023 Immunizations Name Administration Dates Next Due Influenza, Quadrivalent, Spl it, Preservative Free, Intramuscular 09/17/2022,10/04/2021,09/16/2020,10/22 Pneumococcal Polysaccharide PPV23 12/17/2017 Pneumococcal, Unspecified 11/11/2018 Surgical History Surgery Date Site/Laterality Comments SECTION HYSTERECTOMY HERNIA REPAIR CHOLECYSTECTOMY FOOT SURGERY Bilateral Medical History Medical History Date Comments Type 2 diabetes mellitus (HCC) Depression Anxiety Limb pain Mood swing Numbness and tingling Weight gain Urinary incontinence PONV (postoperative nausea and vomiting) Hyperlipidemia GERD (gastroesophageal reflux disease) Family History Medical History Relation Name Comments Heart attack Brother 1 Hypertension Brother 1 Diabetes Father Hypertension Father Dementia Mother Stroke Mother No Known Problems Son 2 No Known Problems Son 3 Relation Name Status Comments Brother 1 Alive Brother 2 Father Mother Alive Sister Alive Son 1 Son 2 Alive Son 3 Alive Social History Tobacco Use Types Packs/Day Years [...] on file Legal Sex Female 10:15 PM NETWORK RELATIONS CONSULTANT Gender Identity Female 07/13/2021 7:15 AM CDT Sexual Orientation Straight 07/13/2021 7: 15 AM CDT Obstetrics History Last Filed Vital Signs Vital Sign Reading [...] 06/11/2023 2:56 PM CDT Plan of Treatment Health Maintenance Due Date Last Done Comments Breast Cancer Screening-Mammogram 1979 Colon Cancer Screening-Colonoscopy 1979 Hepatitis C Screening 1979 DTaP/Tdap/Td Vaccine (1 - Tdap) 1990 Hepatitis B Screening 1997 Pneumococcal vaccine <65 (2 of 2 - PCV) 11/11/2019 11/11/2018, 12/17/2017 Depression Screening 05/30/2023 05/30/2022, 05/30/2022, 02/14/2021, Additional history exists Dilated Eye Exam 09/03/2023 09/03/2022, 04/28/2020 Albumin Creatinine Ratio, Urine 11/22/2023 11/22/2022, 07/07/2021 Foot Exam 11/22/2023 11/22/2022, 06/11, 04/05/2020 Hemoglobin A1C 12/12/2023 06/11/2023, 03/13, 11/22/2022, Additional history exists Regular Well Visit/Exam 18-64 02/05/2024 02/04/2023 Lipid Panel 04/09/2024 04/09/2023, 11/11, 07/07/2021, Additional history exists Covid-19 Vaccine ( season) 2024 10/04/2021, 01/27/2021, 01/06/2021 Influenza Vaccine (#1) 2024 , 10/04/2021, 09/16/2020, Additional history exists eGFR 05/30/2025 05/30/2024, 03/13, 11/22/2022, Additional history exists HPV Vaccines Aged Out No longer eligi ble based on patient's age to complete this topic Procedures Procedure Name Priority Date/Time Associated Diagnosis Comments EGFR STAT 05/30/2024 4:54 PM CDT POCT HEMOGLOBIN A1C Routine 06/11/2023 3 :00 PM CDT Type 2 diabetes mellitus with stage 2 chronic kidney disease, with long-term current use of insulin ([facility]) (HCC) LIPID PANEL Routine 04/09/2023 3:52 PM CDT Abdominal pain, chronic, epigastric Hyperlipidemia associated with type 2 diabetes mellitus (HCC) ALBUMIN CREATININE RATIO, URINE Routine 11/22/2022 11:25 AM NETWORK RELATIONS CONSULTANT Type 2 diabetes mellitus with stage 2 chronic kidney disease, with long-term current use of insulin ([facility]) (HCC) DIABETIC EYE EXAM Routine 09/03/2022 from [...] of Race in Diagnosing Kidney Disease, JASN 2020). The CKD-EPI equation should not be used for patients with unstable renal function and has not been validated in children and those over 70. Current interpretive data was last reviewed 2021. Testing performed by: [facility], [address] [place]., [address] Blood 05/30/2024 4:54 PM CDT 05/30/2024 5:15 PM CDT Deng Pop DO LAB BLOOD ORDERABLES Final Result [facility] [address] [facility] [place] [address] * (ABNORMAL) POCT hemoglobin A1c (06/11/2023 3:00 PM CDT) Hemoglobin A1C, POC 6.1 % Blood 06/11/2023 3:00 PM CDT Cathy Talavera NP POINT OF CARE TEST [...] MD LAB BLOOD ORDERABLES Final Re sult Performing Organization Address City/[facility]/ZIP Co de Phone Number [facility] [address] [facility] [place] [address] * Albumin Creatinine Ratio, Urine (11/22/2022 11:25 AM NETWORK RELATIONS CONSULTANT) Albumin Ur <12.0 mg/L [facility] Comment: Interpretive Data No reference range established. Current interpretive data was last revised 2019. Creatinine Ur 91.7 mg/dL [facility] Comment: Interpretive Data No reference range established. Current interpretive data was last revised 2019. Albumin Creatinine Ratio, Ur <13 1 - 29 mg/g [facility] Urine 11/22/2022 11:2 5 AM NETWORK RELATIONS CONSULTANT 11/22/2022 2:21 PM NETWORK RELATIONS CONSULTANT Cathy Talavera NP LAB URINE ORDERABLES Ioana l Result Performing Organization Address City/[facility]/ZIP Co de Phone Number [facility] [address] Department [place] [address] * Diabetic Eye Exam (09/03/2022) Historical Provider HEALTH MAINTENANCE Edited Result - Final from Last 3 Months or Most Recently Relevant to Health Maintenance Insurance [facility] Advance Directives For more information, please contact: [phone] * Full Code (Latest Code Status on File) Date Activated Date Inactivated Comments 01/13/2021 1:19 PM 01/13/2021 7:07 PM Care Teams Director Of Epidemiology Relationship Specialty Start Date End Date Preet Rocha MD [address] [place] [id number] PCP - General Family Medicine 05/30/24 Cher Hernandez D[place] [address] Consulting Physician Foot and Ankle Surg 01/13/21
--- OUTSIDE RECORDS SUMMARY | 2024-12-23 16:20 | XMS_ITS | Clinical Summary ---
Author Organization [facility] Address [address] [place] [address] Care Team Providers Care Dietetics Teacher Name Role Phone Preet Rocha MD Primary Care Provider [phone] Source Comments [facility],non-owned Affiliates and Associated Physician Practices is amultiple site organization consisting of ambulatory clinics and hospital sitesin [place], [place], [place] and [place]. This disclosure is being madepursuant to the Care Everywhere program and may not contain all information available regarding this patient. Last updated 18.[facility] Social History Tobacco Use Types Packs/Day Years Used Date Smoking Tobacco: Never Assessed Sex and Gender Information Value Date Recorded Sex Assigned at Not on file Gender Identity Not on file Sexual Orientation Not on file Plan of Treatment Health Maintenance Due Date Last Done Comments COLOGUARD (AGES 45-75) - COLON CA SCREENING 1979 COLON MONITORING 1979 COLONOSCOPY - COLON CA SCREENING 1979 CT COLONOGRAPHY - COLON CA SCREENING 1979 Colorectal Cancer Screening 1979 FIT - COLON CA SCREENING 1979 FLEX SIG - COLON CA SCREENING 1979 LIPID TESTING 1979 MAMMOGRAM 1979 PAP SMEAR 1979 HIV SCREENING 1994 HEPATITIS C SCREENING 05/21/1997 DTAP/TDAP/TD VACCINES (1 - Tdap) 1998 HEPATITIS B VACCINE (1 of 3 - 19+ 3-dose series) 1998 COVID-19 VACCINE ( - 2023- season) 2024 INFLUENZA VACCINE (#1) 2024 2, 10/04/2021, 09/16/2020, Additional history exists DEPRESSION SCREENING 11/11/2024 ZOSTER VACCINE (1 of 2) 2029 HIB VACCINE Aged Out No longer eligi ble based on patient's age to complete this topic HPV VACCINE Aged Out No longer eligi ble based on patient's age to complete this topic MENINGOCOCCAL (Group B) VACCINE Aged Out No longer eligible based on patient's age to complete this topic MENINGOCOCCAL VACCINE Aged Out No gabriela dipesh eligible based on patient's age to complete this topic PNEUMOCOCCAL VACCINE Aged Out No long er eligible based on patient's age to complete this topic Care Teams Dietetics Teacher Relationship Specialty Start Date End Date Preet Rocha MD [address] [place] [address] [address] [place] [address] PCP - General Family Medicine 08/27/24
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
[2024-12-23 17:54] LABS: Basophils Percent Auto 0.2 % (0.2-1.2); Eosinophils Absolute Auto 0.1 K/mm3 (0-0.3); Hemoglobin 12.9 g/dL (12.0-15.0); Immature Granulocyte Absolute 0.04 K/mm3 (0.00-0.031); Immature Granulocyte Percent A 0.4 % (0-0.5); Lymphocytes Absolute Auto 1.25 K/mm3 (0.9-3.2); Lymphocytes Percent Auto 11.2 % (18.3-44.2); Mean Corpuscular HGB Conc 33.1 g/dl (32-36); Mean Corpuscular Hemoglobin 30.2 pg (26-34); Mean Corpuscular Volume 91.3 fl (80-100); Mean Platelet Volume 9.8 fl (7.4-10.4); Monocytes Absolute Auto 0.7 K/mm3 (0.1-0.6); Monocytes Percent Auto 6.5 % (2.6-8.5); Neutrophils Percent Auto 80.7 % (45.5-73.1); Platelet Count Result 176 k/mm3 (150-375); Red Blood Count 4.27 M/mm3 (4.2-5.4); Red Cell Distribution Width 14.1 % (11.5-14.5); White Blood Count 11.2 K/mm3 (4.5-10.0)
[2024-12-23 18:03] LABS: Lactic Acid Reflex 1.6 mmol/L (0.7-2.0)
[2024-12-23 18:04] LABS: Anion Gap 9 mmol/L (4-12); Blood Urea Nitrogen 14 mg/dL (7-17); CRP 8.9 mg/dL (<1.0); Calcium 8.8 mg/dL (8.4-10.2); Carbon Dioxide 28 mmol/L (22-30); Chloride 101 mmol/L (98-107); Estimated CRCL calculation 90 ml/min; Estimated Glomerular Filt Rate > 60; Glucose 162 mg/dL (65-110); Potassium 3.7 mmol/L (3.4-5.0); Sodium 138 mmol/L (137-145)
--- OUTSIDE RECORDS SUMMARY | 2024-12-23 18:59 | XMS_ITS | Referral Summary ---
Author Organization [facility] Address [address] [place] [address] Care Team Providers Care Clock Repair Technician Name Role Phone Preet Rocha MD Primary Care Provider [phone] Source Comments [facility],non-[facility] Affiliates and Associated Physician Practices is amultiple site organization consisting of ambulatory clinics and hospital sitesin [place], [place], [place] and [place]. This disclosure is being madepursuant to the Care Everywhere program and may not contain all information available regarding this patient. Last updated 18.[facility] Social History Tobacco Use Types Packs/Day Years Used Date Smoking Tobacco: Never Assessed Sex and Gender Information Value Date Recorded Sex Assigned at Not on file Gender Identity Not on file Sexual Orientation Not on file Plan of Treatment Not on file Care Teams Clock Repair Technician Relationship Specialty Start Date End Date Preet Rocha MD [address] [place] [phone] PCP - General Family Medicine 08/27/24
--- OUTSIDE RECORDS SUMMARY | 2024-12-23 18:59 | XMS_ITS | Encounter Summary ---
Author Organization [facility] Address [address] [place] [address] Care Team Providers Care Glass Polisher Name Role Phone Hakeem Green MD Primary Care Provider Marcy ventura Reason for Visit * Reason Comments Abscess Encounter Details Date Type Department Care Team (Late st Contact Info) Description 12/22/2024 8:08 PM TUTORING MANAGER - 12/22/2024 8:20 PM TUTORING MANAGER Emergency [facility] [place] [address] Abscess Discharge Disposition: Left Against Medical Advice [...] Sex Assigned at Female 12/22/2024 6:50 PM TUTORING MANAGER Legal Sex Female 7:20 PM CDT Gender Identity Not on file Sexual Orientation Not on file documented as of this encounter Last Filed Vital Signs Vital Sign Reading Time Taken Comments Blood Pressure 124/83 12/22/2024 6:23 PM TUTORING MANAGER Pulse 79 12/22/2024 6:23 PM TUTORING MANAGER Temperature 36.7 C (98 F) 12/22/2024 6:23 PM TUTORING MANAGER Respiratory Rate 18 12/22/2024 6:23 PM TUTORING MANAGER Oxygen Saturation 100% 12/22/2024 6:23 PM TUTORING MANAGER Inhaled Oxygen Concentration - - Weight 113.4 kg (250 lb) 12/22/2024 6:23 PM TUTORING MANAGER Height 167.6 cm (5' 6 ) 12/22/2024 6:23 PM TUTORING MANAGER Body Mass Index 40.35 12/22/2024 6:23 PM TUTORING MANAGER documented in this encounter Medications at Time of Discharge Insulin Pen Needle (BD PEN NEEDLE ASHLEY U/F) 32G X 4 MM MiscIndications:D iabetes ([facility]) USE DIRECTED 200 each 04/07/2019 documented as of this encounter ED Notes * Kristy Calles RN - 12/22/2024 8:06 PM CST Patient to front office administrator stating she needs to leave because her ride is leaving. Discussed with patient risks of leaving vs benefits of staying. Patient verbalizes understanding. Signed AMA form. Ambulatory out of ED. RING MANAGER RING MANAGER * George Espinoza RN - 12/22/2024 6:25 PM CST Patient ambulatory to ED with investment accounting clerk cyst that began a few days ago. Patient reports drainage from site. RING MANAGER * MÓNICA Pineda - 12/22/2024 6:25 PM CST [place], [place] EMERGENCY DEPARTMENT ENCOUNTER Medical Screening Examination [...] Maxim Miller DO at 12/23/2024 12:45 AM TUTORING MANAGER RING MANAGER RING MANAGER documented in this encounter Plan of Treatment Not on file documented as of this encounter Visit Diagnoses Diagnosis Abscess- Primary Cellulitis and abscess of unspecified site documented in this encounter Active and Recently Administered Medications Times are shown in TUTORING MANAGER. Scheduled Medication Order 12/20/2024 12/21/2024 12/22/2024 HYDROcodone-acetaminophen (NORCO) 5-325 MG tablet 1 tablet 1 tablet, Oral, Once, 1 dose, On Sat12/22/24 at 1830, Maximum dose of acetaminophen is 4000 mg from all sources in 24 hours. 1830 (Canceled Entry - Provider: Automatic Discharge Provider - Comment: Automatically canceled at discontinue of medication order) documented in this encounter Care Teams Glass Polisher Relationship Specialty Start Date End Date Hakeem Green MD PCP - General 09/27/16 documented as of this encounter
--- OUTSIDE RECORDS SUMMARY | 2024-12-23 18:59 | XMS_ITS | Encounter Summary ---
Author Organization [facility] Address [address] [place] [address] Care Team Providers Care Carpentry Specialist Name Role Phone Hakeem Green MD Primary [...] Sex Assigned at Female 12/22/2024 6:50 PM TICKET BROKER Legal Sex Female 7:20 PM CDT Gender Identity Not on file Sexual Orientation Not on file documented as of this encounter Plan of Treatment Not on file documented as of this encounter Visit Diagnoses Not on filedocumented in this encounter Care Teams Carpentry Specialist Relationship Specialty Start Date End Date Hakeem Green MD PCP - General 09/27/16 documented as of this encounter
--- OUTSIDE RECORDS SUMMARY | 2024-12-23 18:59 | XMS_ITS | Patient Health Summary ---
Author Organization [facility] Address [address] [address] Care Team Providers Care Candy Butcher Name Role Phone Preet Rocha MD Primary Care Provider [phone] [facility],non-owned Affiliates and Associated Physician Practices is amultiple site organization consisting of ambulatory clinics and hospital sitesin [place], [place], [place] and [place]. This disclosure is being madepursuant to the Care Everywhere program and may not contain all information available regarding this patient. Last updated 18.[facility] Social History Tobacco Use Types Packs/Day Years Used Date Smoking Tobacco: Never Assessed Sex and Gender Information Value Date Recorded Sex Assigned at Not on file Gender Identity Not on file Sexual Orientation Not on file Care Teams Candy Butcher Relationship Specialty Start Date End Date Preet Rocha MD [address] [place] [phone] PCP - General Family Medicine 08/27/24
--- OUTSIDE RECORDS SUMMARY | 2024-12-23 18:59 | XMS_ITS | Clinical Summary ---
Author Organization [facility] Address [address] [place] [address] Care Team Providers Care Order Expediter Name Role Phone Preet Rocha MD Primary Care Provider [phone] Source Comments [facility],non-owned Affiliates and Associated Physician Practices is amultiple site organization consisting of ambulatory clinics and hospital sitesin [place], [place], [place] and [place]. This disclosure is being madepursuant to the Care Everywhere program and may not contain all information available regarding this patient. Last updated 18.[facility] [place] Social History Tobacco Use Types Packs/Day Years [...] age to complete this topic Care Teams Order Expediter Relationship Specialty Start Date End Date Preet Rocha MD [address] [place] [address] [address] [place] [phone] PCP - General Family Medicine 08/27/24
--- OUTSIDE RECORDS SUMMARY | 2024-12-23 18:59 | XMS_ITS | Clinical Summary ---
Author Organization [facility] [address] Address [address] [place] [address] Care Team Providers Care Anesthesiology Fellow Name Role Phone Cher Hernandez DPM Unavailable [phone] Preet Rocha MD Primary Care Provider [phone] Allergies Active Allergy Reactions Criticality Noted Date [...] 1 3 Active blood-glucose meter,continuous (Dexcom G6 Emergency Medicine Specialist) miscIndications:Ty pe 2 diabetes mellitus with hyperglycemia, with long-term current use of insulin ([facility]) Inject 1 kit under the skin as directed 1 each 3 Active atorvastatin (LIPITOR) 20 mg tabletIndications: Hyperlipidemia associated with type 2 diabetes mellitus ([facility]) Take 1 tablet (20 mg total) by mouth daily 90 tablet 3 Active FLUoxetine (PROzac) 40 mg capsuleIndications :Recurrent major 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 ([facility]) Take 1 capsule (40 mg total) by [...] long-term current use of insulin ([facility]) Use to inject U500 insulin twice daily 200 each 3 3 Active busPIRone (BUSPAR) 15 mg tabletIndications: Recurrent major 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 ([facility]) TAKE 1 TABLET(15 MG) BY MOUTH DAILY [...] major 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 ([facility]) TAKE 1 TABLET(100 MG) BY MOUTH TWICE [...] before leaving today. Verified that she uses [facility]. Aware to check results/results letter in [facility]. Will contact by phone if needed. Discussed possible need for ortho pending results. Recurrent major 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 Psychophysiological insomnia 02/04/2023 Gastroesophageal reflux disease without esophagi tis 02/04/2023 Class 3 severe obesity due t o excess calories with serious comorbidity and body mass index (BMI) of 40.0 to 44.9 in adult 11/22/2022 Assessment & Plan (11/22/2022 10:51 AM ENERGY TRADING ANALYST): Discussed healthy diet and importance of regular physical activity (20- 30min/day, 150min/wk). Dean's olaftte, right 12/19/2020 Overview (12/19/2020): Added automatically from request for surgery [id number] Dean's olaftte, left 12/19/2020 Overview (12/19/2020): Added automatically from request for surgery [id number] Acquired hammer toe of right foot 12/19/2020 Overview (12/19/2020): Added automatically from request for surgery [id number] Hammer toe of left foot 12/19/2020 Overview (12/19/2020): Added automatically from request for surgery [id number] Insulin pump status 05/30/2020 Assessment & Plan (06/11/2023 4:03 PM CDT): No pump setting changes at this time. Assessment & Plan (11/22/2022 12:17 PM ENERGY TRADING ANALYST): Continue current settings on Omnipod Humulin U500: [...] changes. Assessment & Plan (09/21/2021 2:20 PM ENERGY TRADING ANALYST): Decrease 8a BR to 0.5. Assessment & [...] Atorvastatin 20mg. Last lipid panel: 04/09/23 LDL=60, YJ=469. Assessment & Plan (11/22/2022 12:12 PM ENERGY TRADING ANALYST): Chronic problem, at goal. Currently taking atorvastatin 20mg daily. No changes. Update lipid panel today. Verified that she uses [facility]. Aware to check results/results letter in [facility]. Will contact by phone if needed. Assessment & Plan (09/17/2022 11:33 AM ENERGY TRADING ANALYST): Checking fast lipid profile today, adjust medicine thereafter. Diet reviewed Assessment & Plan (03/29/2022 2:43 PM CDT): Chronic problem. On statin therapy, no changes. Assessment & Plan (09/21/2021 2:36 PM ENERGY TRADING ANALYST): Chronic problem. On statin therapy, no changes. [...] Atorvastatin Assessment & Plan (10/04/2020 4:03 PM ENERGY TRADING ANALYST): Goal of treatment , LDL cholesterol less [...] time. Assessment & Plan (11/21/2022 4:02 PM ENERGY TRADING ANALYST): Chronic problem, well controlled on current regimen. No changes at this time. Assessment & Plan (09/17/2022 11:33 AM ENERGY TRADING ANALYST): Blood pressure control adequate no change in [...] infection. Assessment & Plan (11/22/2022 12:13 PM ENERGY TRADING ANALYST): Chronic problem, well controlled at this time. Please have labs drawn today before leaving. Verified that she uses [facility]. Aware to check results/results letter in [facility]et. Will contact by phone if needed. I [...] 100 Assessment & Plan (09/17/2022 11:06 AM ENERGY TRADING ANALYST): Overdue for multiple tests including hemoglobin A1c [...] today. Assessment & Plan (09/21/2021 2:37 PM ENERGY TRADING ANALYST): Chronic problem, trending low normal during the [...] metformin Assessment & Plan (10/04/2020 4:03 PM ENERGY TRADING ANALYST): Hba1c was Lab Results Component Value Date [...] provided with contact information for insulin pump pharmaceutical specialty representative and how to reach our office [...] appointment in 2 weeks. Instructed to contact [facility]'s specialty pharmacy to have them send Dexcom. [...] with diabetes mellitus due to underlying condition ([facility]) 03/17/2020 Assessment & Plan (06/11/2023 4:00 PM CDT): Chronic problem. Currently taking lyrica 75mg bid. Aware to check feet nightly & not go barefoot. Assessment & Plan (09/17/2022 12:23 PM ENERGY TRADING ANALYST): Hands worse, Refilling lyrica, reviewed need for tight control of diabetes. She has no clinical findings that suggest carpal tunnel although her symptoms seem somewhat compatible, consider reimaging neck a and/or getting EMG nerve conduction velocity after labs back Assessment & Plan (06/27/2021 3:56 PM CDT): Foot care discussed Continue gabapentin. A prescription sent Assessment & Plan (10/04/2020 4:02 PM ENERGY TRADING ANALYST): Foot care discussed Continue gabapentin Assessment & Plan (04/05/2020 2:16 PM CDT): Could not tolerate Lyrica Continue Gabapentin Foot care discussed Name for food expeditor recommended. Assessment & Plan (03/17/2020 4:16 PM [...] lifestyle changes. Body mass index 40.0-44.9, adult ([facility]) 03/29/2022 11/21/2022 Morbid obesity with BMI of 4 5.0-49.9, adult ([facility]) 04/20/2020 11/21/2022 Assessment & Plan (09/17/2022 11:06 AM ENERGY TRADING ANALYST): Reviewed weight loss including diet exercise. Hold [...] on file Legal Sex Female 10:15 PM ENERGY TRADING ANALYST Gender Identity Female 07/13/2021 7:15 AM CDT [...] disease, with long-term current use of insulin ([facility]) (HCC) LIPID PANEL Routine 04/09/2023 3:52 PM CDT Abdominal pain, chronic, epigastric Hyperlipidemia associated with type 2 diabetes mellitus (HCC) ALBUMIN CREATININE RATIO, URINE Routine 11/22/2022 11:25 AM ENERGY TRADING ANALYST Type 2 diabetes mellitus with stage 2 chronic kidney disease, with long-term current use of insulin ([facility]) (HCC) DIABETIC EYE EXAM Routine 09/03/2022 from [...] last reviewed 2021. Testing performed by: [facility], [address] [place]., [address] Blood 05/30/2024 4:54 PM CDT 05/30/2024 5:15 PM CDT Deng Pop DO LAB BLOOD ORDERABLES Final Result ANGEL [address] [facility] [place] [address] * (ABNORMAL) POCT hemoglobin A1c [...] ORDERABLES Final Re sult Performing Organization Address City/[facility]/ZIP Co de Phone Number ANGEL [address] [facility] [place] [address] * Albumin Creatinine Ratio, Urine (11/22/2022 11:25 AM ENERGY TRADING ANALYST) Albumin Ur <12.0 mg/L ANGEL Comment: Interpretive Data No reference range established. Current interpretive data was last revised 2019. Creatinine Ur 91.7 mg/dL ANGEL Comment: Interpretive Data No reference range established. Current interpretive data was last revised 2019. Albumin Creatinine Ratio, Ur <13 1 - 29 mg/g ANGEL Urine 11/22/2022 11:2 5 AM ENERGY TRADING ANALYST 11/22/2022 2:21 PM ENERGY TRADING ANALYST Cathy Talavera NP LAB URINE ORDERABLES Ioana l Result Performing Organization Address City/[facility]/ZIP Co de Phone Number ANGEL [address] Department [place] [address] * Diabetic Eye Exam (09/03/2022) Historical Provider HEALTH MAINTENANCE Edited Result - Final from Last 3 Months or Most Recently Relevant to Health Maintenance Insurance [facility] Advance Directives For more information, please contact: [phone] * Full Code (Latest Code Status on File) Date Activated Date Inactivated Comments 01/13/2021 1:19 PM 01/13/2021 7:07 PM Care Teams Anesthesiology Fellow Relationship Specialty Start Date End Date Preet Rocha MD [address] [place] [id number] PCP - General Family Medicine 05/30/24 Cher Hernandez DPM [place] [address] Consulting Physician Foot and Ankle Surg 01/13/21
--- OUTSIDE RECORDS SUMMARY | 2024-12-23 18:59 | XMS_ITS | Referral Summary ---
Author Organization [facility] [place] [address] Address [address] [place] [address] Care Team Providers Care Accounting Lecturer Name Role Phone Cher Hernandez DPM Unavailable [phone] Preet Rocha MD Primary Care Provider [phone] Allergies Active Allergy Reactions Criticality Noted Date [...] 1 3 Active blood-glucose meter,continuous (Dexcom G6 Hydraulic Oil Tool Operator) miscIndications:Ty pe 2 diabetes mellitus with hyperglycemia, with long-term current use of insulin ([facility]) Inject 1 kit under the skin as directed 1 each 3 Active atorvastatin (LIPITOR) 20 mg tabletIndications: Hyperlipidemia associated with type 2 diabetes mellitus ([facility]) Take 1 tablet (20 mg total) by mouth daily 90 tablet 3 Active FLUoxetine (PROzac) 40 mg capsuleIndications :Recurrent major 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 ([facility]) Take 1 capsule (40 mg total) by [...] disease, with long-term current use of insulin ([facility]) Use to inject U500 insulin twice daily 200 each 3 3 Active busPIRone (BUSPAR) 15 mg tabletIndications: Recurrent major 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 ([facility]) TAKE 1 TABLET(15 MG) BY MOUTH DAILY 30 tablet 3 Active HYDROcodone-acetam inophen (NORCO) 5-325 mg per tabletIndications: Pain Take 1 tablet by mouth 2 (two) times a day as needed for pain 60 tablet 3 Active Steglatro 15 mg tablet TAKE 1 TABLET BY MOUTH DAILY 30 tablet 3 3 Active buPROPion (WELLBUTRIN) 100 mg tabletIndications: Recurrent major 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 ([facility]) TAKE 1 TABLET(100 MG) BY MOUTH TWICE [...] before leaving today. Verified that she uses [facility]. Aware to check results/results letter in [facility]. Will contact by phone if needed. Discussed possible need for ortho pending results. Recurrent major 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 Psychophysiological insomnia 02/04/2023 Gastroesophageal reflux disease without esophagi tis 02/04/2023 Class 3 severe obesity due t o excess calories with serious comorbidity and body mass index (BMI) of 40.0 to 44.9 in adult 11/22/2022 Assessment & Plan (11/22/2022 10:[address] SWEEPER OPERATOR): Discussed healthy diet and importance of regular physical activity (20- 30min/day, 150min/wk). Dean's olaftte, right 12/19/2020 Overview (12/19/2020): Added automatically from request for surgery [id number] Dean's olaftte, left 12/19/2020 Overview (12/19/2020): Added automatically from request for surgery [id number] Acquired hammer toe of right foot 12/19/2020 Overview (12/19/2020): Added automatically from request for surgery [id number] Hammer toe of left foot 12/19/2020 Overview (12/19/2020): Added automatically from request for surgery [id number] Insulin pump status 05/30/2020 Assessment & Plan (06/11/2023 4:03 PM CDT): No pump setting changes at this time. Assessment & Plan (11/22/2022 12:[address] SWEEPER OPERATOR): Continue current settings on Omnipod Humulin U500: [...] changes. Assessment & Plan (09/21/2021 2:[address] SWEEPER OPERATOR): Decrease 8a BR to 0.5. Assessment & [...] Atorvastatin 20mg. Last lipid panel: 04/09/23 LDL=60, SH=409. Assessment & Plan (11/22/2022 12:[address] SWEEPER OPERATOR): Chronic problem, at goal. Currently taking atorvastatin 20mg daily. No changes. Update lipid panel today. Verified that she uses [facility]. Aware to check results/results letter in [facility]. Will contact by phone if needed. Assessment & Plan (09/17/2022 11:[address] SWEEPER OPERATOR): Checking fast lipid profile today, adjust medicine thereafter. Diet reviewed Assessment & Plan (03/29/2022 2:43 PM CDT): Chronic problem. On statin therapy, no changes. Assessment & Plan (09/21/2021 2:[address] SWEEPER OPERATOR): Chronic problem. On statin therapy, no changes. [...] Atorvastatin Assessment & Plan (10/04/2020 4:[address] SWEEPER OPERATOR): Goal of treatment , LDL cholesterol less [...] time. Assessment & Plan (11/21/2022 4:[address] SWEEPER OPERATOR): Chronic problem, well controlled on current regimen. No changes at this time. Assessment & Plan (09/17/2022 11:[address] SWEEPER OPERATOR): Blood pressure control adequate no change in [...] infection. Assessment & Plan (11/22/2022 12:[address] SWEEPER OPERATOR): Chronic problem, well controlled at this time. Please have labs drawn today before leaving. Verified that she uses [facility]. Aware to check results/results letter in [facility]. Will contact by phone if needed. I [...] 100 Assessment & Plan (09/17/2022 11:[address] SWEEPER OPERATOR): Overdue for multiple tests including hemoglobin A1c [...] today. Assessment & Plan (09/21/2021 2:[address] SWEEPER OPERATOR): Chronic problem, trending low normal during the [...] metformin Assessment & Plan (10/04/2020 4:[address] SWEEPER OPERATOR): Hba1c was Lab Results Component Value Date [...] with contact information for insulin pump pharmaceutical representative and how to reach our office [...] appointment in 2 weeks. Instructed to contact [facility]'s specialty pharmacy to have them send [...] with diabetes mellitus due to underlying condition ([facility]) 03/17/2020 Assessment & Plan (06/11/2023 4:00 PM CDT): Chronic problem. Currently taking lyrica 75mg bid. Aware to check feet nightly & not go barefoot. Assessment & Plan (09/17/2022 12:[address] SWEEPER OPERATOR): Hands worse, Refilling lyrica, reviewed need for tight control of diabetes. She has no clinical findings that suggest carpal tunnel although her symptoms seem somewhat compatible, consider reimaging neck a and/or getting EMG nerve conduction velocity after labs back Assessment & Plan (06/27/2021 3:56 PM CDT): Foot care discussed Continue gabapentin. A prescription sent Assessment & Plan (10/04/2020 4:[address] SWEEPER OPERATOR): Foot care discussed Continue gabapentin Assessment & Plan (04/05/2020 2:16 PM CDT): Could not tolerate Lyrica Continue Gabapentin Foot care discussed Name for rn postpartum recommended. Assessment & Plan (03/17/2020 4:16 PM [...] lifestyle changes. Body mass index 40.0-44.9, adult ([facility]) 03/29/2022 11/21/2022 Morbid obesity with BMI of 4 5.0-49.9, adult ([facility]) 04/20/2020 11/21/2022 Assessment & Plan (09/17/2022 11:[address] SWEEPER OPERATOR): Reviewed weight loss including diet exercise. Hold [...] on file Legal Sex Female 10:[address] SWEEPER OPERATOR Gender Identity Female 07/13/2021 7:15 AM CDT [...] disease, with long-term current use of insulin ([facility]) (HCC) LIPID PANEL Routine 04/09/2023 3:52 PM CDT Abdominal pain, chronic, epigastric Hyperlipidemia associated with type 2 diabetes mellitus (HCC) ALBUMIN CREATININE RATIO, URINE Routine 11/22/2022 11:[address] SWEEPER OPERATOR Type 2 diabetes mellitus with stage 2 chronic kidney disease, with long-term current use of insulin ([facility]) (HCC) DIABETIC EYE EXAM Routine 09/03/2022 from [...] last reviewed 2021. Testing performed by: [facility], [address] [place] [address], [place]., [address] Blood 05/30/2024 4:54 PM CDT 05/30/2024 5:15 PM CDT us Deng Pop DO LAB BLOOD ORDERABLES Final Result [facility]EL [address] [facility] Department [place] [address] * (ABNORMAL) POCT hemoglobin A1c (06/11/2023 3:00 [...] BLOOD ORDERABLES Final Re sult ANGEL [address] [facility] Department [place] [address] * Albumin Creatinine Ratio, Urine (11/22/2022 11:[address] SWEEPER OPERATOR) Albumin Ur <12.0 mg/L ANGEL VARGAS Comment: Interpretive Data No reference range established. Current interpretive data was last revised 2019. Creatinine Ur 91.7 mg/dL ANGEL VARGAS Comment: Interpretive Data No reference range established. Current interpretive data was last revised 2019. Albumin Creatinine Ratio, Ur <13 1 - 29 mg/g ANGEL Urine 11/22/2022 11:[address] SWEEPER OPERATOR 11/22/2022 2:[address] SWEEPER OPERATOR Cathy Talavera DUAL RATE SUPERVISOR LAB URINE ORDERABLES Ioana l Result Performing Organization Address [facility]/ZIP Co de Phone Number ANGEL [address] Department of Laboratories [place], [place] [id number] * Diabetic Eye Exam (09/03/2022) Historical Provider HEALTH MAINTENANCE Edited Result - Final from Last 3 Months or Most Recently Relevant to Health Maintenance Insurance [facility] Advance Directives For more information, please contact: [phone] * Full Code (Latest Code Status on File) Date Activated Date Inactivated Comments 01/13/2021 1:19 PM 01/13/2021 7:07 PM Care Teams Accounting Lecturer Relationship Specialty Start Date End Date Preet Rocha MD [address] [place] [id number] PCP - General Family Medicine 05/30/24 Cher Hernandez DPM [address] [place] [address] Consulting Physician Foot and Ankle Surg 01/13/21
--- OUTSIDE RECORDS SUMMARY | 2024-12-23 18:59 | XMS_ITS | Encounter Summary ---
Author Organization [facility] Address [address] [place] [address] Care Team Providers Care Home Lending Officer Name Role Phone Hakeem Green MD Primary Care Provider Marcy ventura Encounter Details Date Type Department Care Team (Late st Contact Info) Description 07/22/2020 Prep for Procedure [facility] [place], [place] [id number] Victorino Valenzuela MD [address] [facility] [address] [place], [place] [id number] Social History Tobacco Use Types Packs/Day Years [...] Sex Assigned at Female 12/22/2024 6:50 PM INTERLOCKING AND SIGNAL MECHANIC Legal Sex Female 7:20 PM CDT Gender [...] unspecified documented in this encounter Care Teams Home Lending Officer Relationship Specialty Start Date End Date Hakeem Green MD PCP - General 09/27/16 documented as of this encounter
--- OUTSIDE RECORDS SUMMARY | 2024-12-23 18:59 | XMS_ITS | Clinical Summary ---
Author Organization [facility] Address [address] [place] [address] Care Team Providers Care Rhic Systems Safety Engineer Name Role Phone Hakeem Green MD Primary Care Provider Marcy lable Allergies Active Allergy Reactions Criticality Noted Date Comments Corticosteroids Unknown 07/02/2012 Morphine Swelling High 07/02/2012 Medications Insulin Pen Needle (BD PEN NEEDLE ASHLEY U/F) 32G X 4 MM MiscIndications :Diabetes ([facility]) USE DIRECTED 200 each 04/07/2019 Active Encounters Date Type Department Care Team Description 12/22/2024 8:08 PM COBBLER MCKAY - 12/22/2024 8:20 PM [facility]ER [facility]AY Emergency [facility] [place] [address] Abscess Discharge Disposition: Left Against Medical Advice [...] Sex Assigned at Female 12/22/2024 6:50 PM COBBLER MCKAY Legal Sex Female 7:20 PM CDT Gender Identity Not on file Sexual Orientation Not on file Last Filed Vital Signs Vital Sign Reading Time Taken Comments Blood Pressure 124/83 12/22/2024 6:23 PM [facility]BBLER [facility]CKAY Pulse 79 12/22/2024 6:23 PM [facility] Temperature 36.7 C (98 F) 12/22/2024 6:23 PM [facility]BBLER MCKAY Respiratory Rate 18 12/22/2024 6:23 PM [facility]AY Oxygen Saturation 100% 12/22/2024 6:23 PM COBBLER MCKAY Inhaled Oxygen Concentration - - Weight 113.4 kg (250 lb) 12/22/2024 6:23 PM [facility]BBLER MCKAY Height 167.6 cm (5' 6 ) 12/22/2024 6:23 PM COBBLER MCKAY Body Mass Index 40.35 12/22/2024 6:23 PM COBBLER MCKAY Plan of Treatment Health Maintenance Due Date [...] patient's age to complete this topic Insurance [phone] [id number] (Work) [address] [place] [address] Care Teams Rhic Systems Safety Engineer Relationship Specialty Start Date End Date Hakeem Green MD PCP - General 09/27/16
[2024-12-23 20:36] VITALS: BP 115/74; PULSE 82; RESP 17; O2SAT 99
[2024-12-23] MEDS: CEFEPIME 2 GM/NS 50 ML 2 GM/50 ML BAG IVPB (20:40)
[2024-12-23] MEDS: metroNIDAZOLE 500 MG/ISO 100ML 500 MG/100 ML BAG 100 MG IVPB (21:11)
[2024-12-23] MEDS: ONDANSETRON INJ 4 MG/2 ML VIAL IV PUSH (21:39)
[2024-12-23] MEDS: KETOROLAC 15 MG/ML VIAL (*BKC) IV PUSH (21:39)
[2024-12-23 21:42] VITALS: BP 132/75; PULSE 82; RESP 16; O2SAT 99
[2024-12-23 21:48] VITALS: BP 132/75; PULSE 80; RESP 17; O2SAT 98
[2024-12-23] MEDS: VANCOMYCIN 1,000 MG/NS 250 ML 1,000 MG/250 ML BAG 250 MG IVPB (22:16)
== END 2024-12-23 23:40 | disposition left against medical advice (07) ==
PROVIDERS: Physician Assistant; Emergency Provider Physician Assistant; PCP Family Medicine
DX: L03.311 Cellulitis of abdominal wall (principal); J45.909 Unspecified asthma, uncomplicated; I10 Essential (primary) hypertension; E11.42 Type 2 diabetes mellitus with diabetic polyneuropathy; E78.5 Hyperlipidemia, unspecified; K20.0 Eosinophilic esophagitis; K50.90 Crohn's disease, unspecified, without complications; K21.9 Gastro-esophageal reflux disease without esophagitis; N39.46 Mixed incontinence; F41.9 Anxiety disorder, unspecified; F32.A Depression, unspecified; F43.10 Post-traumatic stress disorder, unspecified; Z87.891 Personal history of nicotine dependence; Z90.710 Acquired absence of both cervix and uterus; Z90.49 Acquired absence of other specified parts of digestive tract; Z79.85 Long-term (current) use of injectable non-insulin antidiabetic drugs; Z79.4 Long term (current) use of insulin; Z79.84 Long term (current) use of oral hypoglycemic drugs; Z79.899 Other long term (current) drug therapy
CPT/HCPCS: 36415; 72193; 80048; 83605; 85025; 86140; 87040; 87070; 87075; 87181; 87205; 96365; 96367; 96368; 96375; 99284; J0692; J1836; J1885; J2405; J3370; Q9967

== ENCOUNTER 2024-12-24 15:44 | Inpatient (IN) | payer OTHER, SELFPAY ==
[2024-12-24] VITALS (13 sets, daily range): BP systolic 105–117; BP diastolic 64–86; PULSE 80; RESP 16; TEMP 36.8; O2SAT 97–100
--- OUTSIDE RECORDS SUMMARY | 2024-12-24 15:49 | XMS_ITS | Clinical Summary ---
Author Organization [facility] Address [address] [place] [address] Care Team Providers Care Blacksmith Helper Name Role Phone Preet Rocha MD Primary Care Provider [phone] Source Comments [facility],non-owned Affiliates and Associated Physician Practices is amultiple site organization consisting of ambulatory clinics and hospital sitesin [place], [place], [place] and [place]. This disclosure is being madepursuant to the Care Everywhere program and may not contain all information available regarding this patient. Last updated 18.[facility] Social History Tobacco Use Types Packs/Day Years [...] age to complete this topic Care Teams Blacksmith Helper Relationship Specialty Start Date End Date Preet Rocha MD [address] [place] [address] [address] [place] [address] PCP - General Family Medicine 08/27/24
--- OUTSIDE RECORDS SUMMARY | 2024-12-24 15:49 | XMS_ITS | Encounter Summary ---
Author Organization [facility] Address [address] [place] [id number] Care Team Providers Care Strategic Account Executive Name Role Phone Hakeem Green MD Primary Care Provider Marcy vnetura Reason for Visit * Reason Comments Abscess Encounter Details Date Type Department Care Team (Late st Contact Info) Description 12/22/2024 8:[address] COMMISSIONER - 12/22/2024 8:[address] COMMISSIONER Emergency [facility] [place] [address] Abscess Discharge Disposition: Left Against Medical Advice [...] Sex Assigned at Female 12/22/2024 6:[address] COMMISSIONER Legal Sex Female 7:20 PM CDT Gender Identity Not on file Sexual Orientation Not on file documented as of this encounter Last Filed Vital Signs Vital Sign Reading Time Taken Comments Blood Pressure 124/83 12/22/2024 6:[address] COMMISSIONER Pulse 79 12/22/2024 6:[address] COMMISSIONER Temperature 36.7 C (98 F) 12/22/2024 6:[address] COMMISSIONER Respiratory Rate 18 12/22/2024 6:[address] COMMISSIONER Oxygen Saturation 100% 12/22/2024 6:[address] COMMISSIONER Inhaled Oxygen Concentration - - Weight 113.4 kg (250 lb) 12/22/2024 6:[address] COMMISSIONER Height 167.6 cm (5' 6 ) 12/22/2024 6:[address] COMMISSIONER Body Mass Index 40.35 12/22/2024 6:[address] COMMISSIONER documented in this encounter Medications at Time of Discharge Insulin Pen Needle (BD PEN NEEDLE ASHLEY U/F) 32G X 4 MM MiscIndications:D iabetes ([facility]) USE DIRECTED 200 each 04/07/2019 documented as of this encounter ED Notes * Kristy Calles RN - 12/22/2024 8:06 PM CST Patient to front end ui developer stating she needs to leave because her ride is leaving. Discussed with patient risks of leaving vs benefits of staying. Patient verbalizes understanding. Signed AMA form. Ambulatory out of ED. COMMISSIONER COMMISSIONER * George Espinoza RN - 12/22/2024 6:25 PM CST Patient ambulatory to ED with piccoloist cyst that began a few days ago. Patient reports drainage from site. COMMISSIONER * MÓNICA Pineda - 12/22/2024 6:25 PM CST [place], [place] EMERGENCY DEPARTMENT ENCOUNTER Medical Screening Examination [...] Maxim Miller DO at 12/23/2024 12:[address] COMMISSIONER COMMISSIONER COMMISSIONER documented in this encounter Plan of Treatment Not on file documented as of this encounter Visit Diagnoses Diagnosis Abscess- Primary Cellulitis and abscess of unspecified site documented in this encounter Active and Recently Administered Medications Times are shown in ROAD COMMISSIONER. Scheduled Medication Order 12/20/2024 12/21/2024 12/22/2024 HYDROcodone-acetaminophen (NORCO) 5-325 MG tablet 1 tablet 1 tablet, Oral, Once, 1 dose, On Sat12/22/24 at 1830, Maximum dose of acetaminophen is 4000 mg from all sources in 24 hours. 1830 (Canceled Entry - Provider: Automatic Discharge Provider - Comment: Automatically canceled at discontinue of medication order) documented in this encounter Care Teams Strategic Account Executive Relationship Specialty Start Date End Date Hakeem Green MD PCP - General 09/27/16 documented as of this encounter
--- OUTSIDE RECORDS SUMMARY | 2024-12-24 15:49 | XMS_ITS | Referral Summary ---
Author Organization [facility] Address [address] [place] [address] Care Team Providers Care Atg Architect Name Role Phone Preet Rocha MD Primary Care Provider Source Comments [facility] Affiliates and Associated Physician Practices is amultiple site organization consisting of ambulatory clinics and hospital sitesin [place], [place], [place] and [place]. This disclosure is being madepursuant to the Care Everywhere program and may not contain all information available regarding this patient. Last updated 18.[facility] Social History Tobacco Use Types Packs/Day Years Used Date Smoking Tobacco: Never Assessed Sex and Gender Information Value Date Recorded Sex Assigned at Not on file Gender Identity Not on file Sexual Orientation Not on file Plan of Treatment Not on file Care Teams Atg Architect Relationship Specialty Start Date End Date Preet Rocha MD [address] [place] [phone] PCP - General Family Medicine 08/27/24
--- OUTSIDE RECORDS SUMMARY | 2024-12-24 15:49 | XMS_ITS | Clinical Summary ---
Author Organization [facility] [address] Address [address] [place] [address] Care Team Providers Care Electrician Second Name Role Phone Cher Hernandez DPM Unavailable [phone] Preet Rocha MD Primary Care Provider [phone] Allergies Active Allergy Reactions Criticality Noted Date [...] 1 3 Active blood-glucose meter,continuous ([employer] G6 Forestry Technician) miscIndications:Ty pe 2 diabetes mellitus with hyperglycemia, with long-term current use of insulin ([facility]) Inject 1 kit under the skin as directed 1 each 3 Active atorvastatin (LIPITOR) 20 mg tabletIndications: Hyperlipidemia associated with type 2 diabetes mellitus ([facility]) Take 1 tablet (20 mg total) by mouth daily 90 tablet 3 Active FLUoxetine (PROzac) 40 mg capsuleIndications :Recurrent major 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 ([facility]) Take 1 capsule (40 mg total) by [...] disease, with long-term current use of insulin ([facility]) Use to inject U500 insulin twice daily 200 each 3 3 Active busPIRone (BUSPAR) 15 mg tabletIndications: Recurrent major 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 ([facility]) TAKE 1 TABLET(15 MG) BY MOUTH DAILY 30 tablet 3 Active HYDROcodone-acetam inophen (NORCO) 5-325 mg per tabletIndications: Pain Take 1 tablet by mouth 2 (two) times a day as needed for pain 60 tablet 3 Active Steglatro 15 mg tablet TAKE 1 TABLET BY MOUTH DAILY 30 tablet 3 3 Active buPROPion (WELLBUTRIN) 100 mg tabletIndications: Recurrent major 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 ([facility]) TAKE 1 TABLET(100 MG) BY MOUTH TWICE [...] before leaving today. Verified that she uses [employer]. Aware to check results/results letter in [employer]. Will contact by phone if needed. Discussed possible need for ortho pending results. Recurrent major 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 Psychophysiological insomnia 02/04/2023 Gastroesophageal reflux disease without esophagi tis 02/04/2023 Class 3 severe obesity due t o excess calories with serious comorbidity and body mass index (BMI) of 40.0 to 44.9 in adult 11/22/2022 Assessment & Plan (11/22/2022 10:51 AM SENIOR SUPPORT ENGINEER): Discussed healthy diet and importance of regular physical activity (20- 30min/day, 150min/wk). Dean's olaftte, right 12/19/2020 Overview (12/19/2020): Added automatically from request for surgery [id number] Dean's olaftte, left 12/19/2020 Overview (12/19/2020): Added automatically from request for surgery [id number] Acquired hammer toe of right foot 12/19/2020 Overview (12/19/2020): Added automatically from request for surgery [id number] Hammer toe of left foot 12/19/2020 Overview (12/19/2020): Added automatically from request for surgery [id number] Insulin pump status 05/30/2020 Assessment & Plan (06/11/2023 4:03 PM CDT): No pump setting changes at this time. Assessment & Plan (11/22/2022 12:17 PM SENIOR SUPPORT ENGINEER): Continue current settings on Omnipod Humulin U500: [...] changes. Assessment & Plan (09/21/2021 2:20 PM SENIOR SUPPORT ENGINEER): Decrease 8a BR to 0.5. Assessment & [...] Atorvastatin 20mg. Last lipid panel: 04/09/23 LDL=60, PL=748. Assessment & Plan (11/22/2022 12:12 PM SENIOR SUPPORT ENGINEER): Chronic problem, at goal. Currently taking atorvastatin 20mg daily. No changes. Update lipid panel today. Verified that she uses Clerk. Aware to check results/results letter in Clerk. Will contact by phone if needed. Assessment & Plan (09/17/2022 11:33 AM SENIOR SUPPORT ENGINEER): Checking fast lipid profile today, adjust medicine thereafter. Diet reviewed Assessment & Plan (03/29/2022 2:43 PM CDT): Chronic problem. On statin therapy, no changes. Assessment & Plan (09/21/2021 2:36 PM SENIOR SUPPORT ENGINEER): Chronic problem. On statin therapy, no changes. [...] Atorvastatin Assessment & Plan (10/04/2020 4:03 PM SENIOR SUPPORT ENGINEER): Goal of treatment , LDL cholesterol less [...] time. Assessment & Plan (11/21/2022 4:02 PM SENIOR SUPPORT ENGINEER): Chronic problem, well controlled on current regimen. No changes at this time. Assessment & Plan (09/17/2022 11:33 AM SENIOR SUPPORT ENGINEER): Blood pressure control adequate no change in [...] infection. Assessment & Plan (11/22/2022 12:13 PM SENIOR SUPPORT ENGINEER): Chronic problem, well controlled at this time. Please have labs drawn today before leaving. Verified that she uses mychart. Aware to check results/results letter in [employer]. Will contact by phone if needed. I [...] 100 Assessment & Plan (09/17/2022 11:06 AM SENIOR SUPPORT ENGINEER): Overdue for multiple tests including hemoglobin A1c [...] today. Assessment & Plan (09/21/2021 2:37 PM SENIOR SUPPORT ENGINEER): Chronic problem, trending low normal during the [...] metformin Assessment & Plan (10/04/2020 4:03 PM SENIOR SUPPORT ENGINEER): Hba1c was Lab Results Component Value Date [...] provided with contact information for insulin pump in store marketing representative and how to reach our office [...] appointment in 2 weeks. Instructed to contact [facility]'s specialty pharmacy to have them send [...] with diabetes mellitus due to underlying condition ([facility]) 03/17/2020 Assessment & Plan (06/11/2023 4:00 PM CDT): Chronic problem. Currently taking lyrica 75mg bid. Aware to check feet nightly & not go barefoot. Assessment & Plan (09/17/2022 12:23 PM SENIOR SUPPORT ENGINEER): Hands worse, Refilling lyrica, reviewed need for tight control of diabetes. She has no clinical findings that suggest carpal tunnel although her symptoms seem somewhat compatible, consider reimaging neck a and/or getting EMG nerve conduction velocity after labs back Assessment & Plan (06/27/2021 3:56 PM CDT): Foot care discussed Continue gabapentin. A prescription sent Assessment & Plan (10/04/2020 4:02 PM SENIOR SUPPORT ENGINEER): Foot care discussed Continue gabapentin Assessment & Plan (04/05/2020 2:16 PM CDT): Could not tolerate Lyrica Continue Gabapentin Foot care discussed Name for forensic audit expert recommended. Assessment & Plan (03/17/2020 4:16 PM [...] lifestyle changes. Body mass index 40.0-44.9, adult ([facility]) 03/29/2022 11/21/2022 Morbid obesity with BMI of 4 5.0-49.9, adult ([facility]) 04/20/2020 11/21/2022 Assessment & Plan (09/17/2022 11:06 AM SENIOR SUPPORT ENGINEER): Reviewed weight loss including diet exercise. Hold [...] on file Legal Sex Female 10:15 PM SENIOR SUPPORT ENGINEER Gender Identity Female 07/13/2021 7:15 AM CDT [...] disease, with long-term current use of insulin ([facility]) (HCC) LIPID PANEL Routine 04/09/2023 3:52 PM CDT Abdominal pain, chronic, epigastric Hyperlipidemia associated with type 2 diabetes mellitus (HCC) ALBUMIN CREATININE RATIO, URINE Routine 11/22/2022 11:25 AM SENIOR SUPPORT ENGINEER Type 2 diabetes mellitus with stage 2 chronic kidney disease, with long-term current use of insulin ([facility]) (HCC) DIABETIC EYE EXAM Routine 09/03/2022 from [...] reviewed 2021. Testing performed by: [facility], [address] [place]., [address] Blood 05/30/2024 4:54 PM CDT 05/30/2024 5:15 PM CDT Deng Pop DO LAB BLOOD ORDERABLES Final Result [facility] [address] [facility] [place] [address] * (ABNORMAL) POCT hemoglobin A1c [...] ORDERABLES Final Re sult Performing Organization Address City/[facility]/ZIP Co de Phone Number ANG[facility] [address] [facility] [place] [address] * Albumin Creatinine Ratio, Urine (11/22/2022 11:25 AM SENIOR SUPPORT ENGINEER) Albumin Ur <12.0 mg/L [facility]GEL Comment: Interpretive Data No reference range established. Current interpretive data was last revised 2019. Creatinine Ur 91.7 mg/dL [facility]GEL Comment: Interpretive Data No reference range established. Current interpretive data was last revised 2019. Albumin Creatinine Ratio, Ur <13 1 - 29 mg/g [facility] Urine 11/22/2022 11:2 5 AM SENIOR SUPPORT ENGINEER 11/22/2022 2:21 PM SENIOR SUPPORT ENGINEER Cathy Talavera NP LAB URINE ORDERABLES Ioana l Result Performing Organization Address City/[facility]/ZIP Co de Phone Number [facility] [address] [place] [address] * Diabetic Eye Exam (09/03/2022) Historical Provider HEALTH MAINTENANCE Edited Result - Final from Last 3 Months or Most Recently Relevant to Health Maintenance Insurance [facility] Advance Directives For more information, please contact: [phone] * Full Code (Latest Code Status on File) Date Activated Date Inactivated Comments 01/13/2021 1:19 PM 01/13/2021 7:07 PM Care Teams Electrician Second Relationship Specialty Start Date End Date Preet Rocha MD [address] [place] [phone] PCP - General Family Medicine 05/30/24 Cher Hernandez DPM [facility] [address] Consulting Physician Foot and Ankle Surg 01/13/21
--- OUTSIDE RECORDS SUMMARY | 2024-12-24 15:49 | XMS_ITS | Encounter Summary ---
Author Organization [facility] Address [address] [place] [address] Care Team Providers Care Foundry Worker Name Role Phone Hakeem Green MD Primary Care Provider Marcy ventura Encounter Details Date Type Department Care Team (Late st Contact Info) Description 07/22/2020 Prep for Procedure [facility] [place], [place] [phone] Victorino Valenzuela MD [address] [facility] [address] [place], [place] [phone] Social History Tobacco Use Types Packs/Day Years [...] Sex Assigned at Female 12/22/2024 6:50 PM FACILITY SPECIALIST Legal Sex Female 7:20 PM CDT Gender [...] unspecified documented in this encounter Care Teams Foundry Worker Relationship Specialty Start Date End Date Hakeem Green MD PCP - General 09/27/16 documented as of this encounter
--- OUTSIDE RECORDS SUMMARY | 2024-12-24 15:49 | XMS_ITS | Patient Health Summary ---
Author Organization [facility] Address [address] [place] [address] Care Team Providers Care Manager Printing Name Role Phone Preet Rocha MD Primary Care Provider [phone] Note from [facility],non-owned Affiliates and Associated Physician Practices is amultiple site organization consisting of ambulatory clinics and hospital sitesin [place], [place], [place] and [place]. This disclosure is being madepursuant to the Care Everywhere program and may not contain all information available regarding this patient. Last updated 18.[facility] Social History Tobacco Use Types Packs/Day Years Used Date Smoking Tobacco: Never Assessed Sex and Gender Information Value Date Recorded Sex Assigned at Not on file Gender Identity Not on file Sexual Orientation Not on file Care Teams Manager Printing Relationship Specialty Start Date End Date Preet Rocha MD [address] [place] [phone] PCP - General Family Medicine 08/27/24
--- OUTSIDE RECORDS SUMMARY | 2024-12-24 15:50 | XMS_ITS | Clinical Summary ---
Author Organization [facility] Address [address] [place] [address] Care Team Providers Care Clearing Tub Worker Name Role Phone Hakeem Green MD Primary Care Provider Marcy lable Allergies Active Allergy Reactions Criticality Noted Date Comments Corticosteroids Unknown 07/02/2012 Morphine Swelling High 07/02/2012 Medications Insulin Pen Needle (BD PEN NEEDLE ASHLEY U/F) 32G X 4 MM MiscIndications :Diabetes ([facility]) USE DIRECTED 200 each 04/07/2019 Active Encounters Date Type Department Care Team Description 12/22/2024 8:08 PM CARE TRANSITION MANAGER - 12/22/2024 8:20 PM CARE TRANSITION MANAGER Emergency [facility] [place] [address] Abscess Discharge Disposition: Left Against Medical Advice [...] Sex Assigned at Female 12/22/2024 6:50 PM CARE TRANSITION MANAGER Legal Sex Female 7:20 PM CDT Gender Identity Not on file Sexual Orientation Not on file Last Filed Vital Signs Vital Sign Reading Time Taken Comments Blood Pressure 124/83 12/22/2024 6:23 PM CARE TRANSITION MANAGER Pulse 79 12/22/2024 6:23 PM CARE TRANSITION MANAGER Temperature 36.7 C (98 F) 12/22/2024 6:23 PM CARE TRANSITION MANAGER Respiratory Rate 18 12/22/2024 6:23 PM CARE TRANSITION MANAGER Oxygen Saturation 100% 12/22/2024 6:23 PM CARE TRANSITION MANAGER Inhaled Oxygen Concentration - - Weight 113.4 kg (250 lb) 12/22/2024 6:23 PM CARE TRANSITION MANAGER Height 167.6 cm (5' 6 ) 12/22/2024 6:23 PM CARE TRANSITION MANAGER Body Mass Index 40.35 12/22/2024 6:23 PM CARE TRANSITION MANAGER Plan of Treatment Health Maintenance Due [...] patient's age to complete this topic Insurance [phone] [id number] (Work) [address] [place] [address] Care Teams Clearing Tub Worker Relationship Specialty Start Date End Date Hakeem Green MD PCP - General 09/27/16
--- OUTSIDE RECORDS SUMMARY | 2024-12-24 15:50 | XMS_ITS | Referral Summary ---
Author Organization [facility] [address] Address [address] [place] [address] Care Team Providers Care Rn Visiting Name Role Phone Cher Hernandez DPM Unavailable [phone] Preet Rocha MD Primary Care Provider [phone] Allergies Active Allergy Reactions Criticality Noted Date [...] 1 3 Active blood-glucose meter,continuous ([employer] G6 [employer] Writer) miscIndications:Ty pe 2 diabetes mellitus with hyperglycemia, with long-term current use of insulin ([facility]) Inject 1 kit under the skin as directed 1 each 3 Active atorvastatin (LIPITOR) 20 mg tabletIndications: Hyperlipidemia associated with type 2 diabetes mellitus ([facility]) Take 1 tablet (20 mg total) by mouth daily 90 tablet 3 Active FLUoxetine (PROzac) 40 mg capsuleIndications :Recurrent major 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 ([facility]) Take 1 capsule (40 mg total) [...] disease, with long-term current use of insulin ([facility]) Use to inject U500 insulin twice daily 200 each 3 3 Active busPIRone (BUSPAR) 15 mg tabletIndications: Recurrent major 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 ([facility]) TAKE 1 TABLET(15 MG) BY MOUTH [...] tabletIndications: Recurrent major 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 ([facility]) TAKE 1 TABLET(100 MG) BY MOUTH [...] before leaving today. Verified that she uses [employer]. Aware to check results/results letter in [facility]. Will contact by phone if needed. Discussed possible need for ortho pending results. Recurrent major 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 Psychophysiological insomnia 02/04/2023 Gastroesophageal reflux disease without esophagi tis 02/04/2023 Class 3 severe obesity due t o excess calories with serious comorbidity and body mass index (BMI) of 40.0 to 44.9 in adult 11/22/2022 Assessment & Plan (11/22/2022 10:51 AM CONDUIT HELPER): Discussed healthy diet and importance of regular physical activity (20- 30min/day, 150min/wk). Dean's olaftte, right 12/19/2020 Overview (12/19/2020): Added automatically from request for surgery [id number] Dean's olaftte, left 12/19/2020 Overview (12/19/2020): Added automatically from request for surgery [id number] Acquired hammer toe of right foot 12/19/2020 Overview (12/19/2020): Added automatically from request for surgery [id number] Hammer toe of left foot 12/19/2020 Overview (12/19/2020): Added automatically from request for surgery [id number] Insulin pump status 05/30/2020 Assessment & Plan (06/11/2023 4:03 PM CDT): No pump setting changes at this time. Assessment & Plan (11/22/2022 12:17 PM CONDUIT HELPER): Continue current settings on Omnipod Humulin U500: [...] changes. Assessment & Plan (09/21/2021 2:20 PM CONDUIT HELPER): Decrease 8a BR to 0.5. Assessment & [...] Atorvastatin 20mg. Last lipid panel: 04/09/23 LDL=60, FS=966. Assessment & Plan (11/22/2022 12:12 PM CONDUIT HELPER): Chronic problem, at goal. Currently taking atorvastatin 20mg daily. No changes. Update lipid panel today. Verified that she uses [employer]. Aware to check results/results letter in [employer]. Will contact by phone if needed. Assessment & Plan (09/17/2022 11:33 AM CONDUIT HELPER): Checking fast lipid profile today, adjust medicine thereafter. Diet reviewed Assessment & Plan (03/29/2022 2:43 PM CDT): Chronic problem. On statin therapy, no changes. Assessment & Plan (09/21/2021 2:36 PM CONDUIT HELPER): Chronic problem. On statin therapy, no changes. [...] Atorvastatin Assessment & Plan (10/04/2020 4:03 PM CONDUIT HELPER): Goal of treatment , LDL cholesterol less [...] time. Assessment & Plan (11/21/2022 4:02 PM CONDUIT HELPER): Chronic problem, well controlled on current regimen. No changes at this time. Assessment & Plan (09/17/2022 11:33 AM CONDUIT HELPER): Blood pressure control adequate no change in [...] infection. Assessment & Plan (11/22/2022 12:13 PM CONDUIT HELPER): Chronic problem, well controlled at this time. Please have labs drawn today before leaving. Verified that she uses [facility]. Aware to check results/results letter in [facility]. Will contact by phone if needed. I [...] 100 Assessment & Plan (09/17/2022 11:06 AM CONDUIT HELPER): Overdue for multiple tests including hemoglobin A1c [...] today. Assessment & Plan (09/21/2021 2:37 PM CONDUIT HELPER): Chronic problem, trending low normal during the [...] metformin Assessment & Plan (10/04/2020 4:03 PM CONDUIT HELPER): Hba1c was Lab Results Component Value Date [...] provided with contact information for insulin pump sales representatives and how to reach our office after [...] appointment in 2 weeks. Instructed to contact [facility]'s specialty pharmacy to have them send [...] with diabetes mellitus due to underlying condition ([facility]) 03/17/2020 Assessment & Plan (06/11/2023 4:00 PM CDT): Chronic problem. Currently taking lyrica 75mg bid. Aware to check feet nightly & not go barefoot. Assessment & Plan (09/17/2022 12:23 PM CONDUIT HELPER): Hands worse, Refilling lyrica, reviewed need for tight control of diabetes. She has no clinical findings that suggest carpal tunnel although her symptoms seem somewhat compatible, consider reimaging neck a and/or getting EMG nerve conduction velocity after labs back Assessment & Plan (06/27/2021 3:56 PM CDT): Foot care discussed Continue gabapentin. A prescription sent Assessment & Plan (10/04/2020 4:02 PM CONDUIT HELPER): Foot care discussed Continue gabapentin Assessment & Plan (04/05/2020 2:16 PM CDT): Could not tolerate Lyrica Continue Gabapentin Foot care discussed Name for home care attendant recommended. Assessment & Plan (03/17/2020 4:16 PM [...] lifestyle changes. Body mass index 40.0-44.9, adult ([facility]) 03/29/2022 11/21/2022 Morbid obesity with BMI of 4 5.0-49.9, adult ([facility]) 04/20/2020 11/21/2022 Assessment & Plan (09/17/2022 11:06 AM CONDUIT HELPER): Reviewed weight loss including diet exercise. Hold [...] on file Legal Sex Female 10:15 PM CONDUIT HELPER Gender Identity Female 07/13/2021 7:15 AM CDT [...] disease, with long-term current use of insulin ([facility]) (HCC) LIPID PANEL Routine 04/09/2023 3:52 PM CDT Abdominal pain, chronic, epigastric Hyperlipidemia associated with type 2 diabetes mellitus (HCC) ALBUMIN CREATININE RATIO, URINE Routine 11/22/2022 11:25 AM CONDUIT HELPER Type 2 diabetes mellitus with stage 2 chronic kidney disease, with long-term current use of insulin ([facility]) (HCC) DIABETIC EYE EXAM Routine 09/03/2022 [...] was last reviewed 2021. Testing performed by: [facility], [address] [place] [address], [place]., [address] Blood 05/30/2024 4:54 PM CDT 05/30/2024 5:15 PM CDT us Deng Pop DO LAB BLOOD ORDERABLES Final Result [facility] [address] [facility] Department [place] [address] * (ABNORMAL) POCT hemoglobin A1c (06/11/2023 3:00 [...] BLOOD ORDERABLES Final Re sult [facility] [address] [facility] Department [place] [address] * Albumin Creatinine Ratio, Urine (11/22/2022 11:25 AM CONDUIT HELPER) Albumin Ur <12.0 mg/L [facility]ARGAS Comment: Interpretive Data No reference range established. Current interpretive data was last revised 2019. Creatinine Ur 91.7 mg/dL [facility] VARGAS Comment: Interpretive Data No reference range established. Current interpretive data was last revised 2019. Albumin Creatinine Ratio, Ur <13 1 - 29 mg/g [facility]EL Urine 11/22/2022 11:2 5 AM CONDUIT HELPER 11/22/2022 2:21 PM CONDUIT HELPER Cathy Talavera SAFETY AND SECURITY MANAGER LAB URINE ORDERABLES Ioana l Result Performing Organization Address [facility]/ZIP Co de Phone Number [facility] [id number] Department of Laboratories [place], [place] [phone] * Diabetic Eye Exam (09/03/2022) Historical Provider HEALTH MAINTENANCE Edited Result - Final from Last 3 Months or Most Recently Relevant to Health Maintenance Insurance [facility] Advance Directives For more information, please contact: [phone] * Full Code (Latest Code Status on File) Date Activated Date Inactivated Comments 01/13/2021 1:19 PM 01/13/2021 7:07 PM Care Teams Rn Visiting Relationship Specialty Start Date End Date Preet Rocha MD [address] [place] [id number] PCP - General Family Medicine 05/30/24 Cher Hernandez DPM [address] [place] [id number] Consulting Physician Foot and Ankle Surg 01/13/21
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
[2024-12-24 21:42] LABS: Basophils Percent Auto 0.3 % (0.2-1.2); Eosinophils Absolute Auto 0.1 K/mm3 (0-0.3); Eosinophils Percent Auto 1.4 % (0-4.4); Hematocrit 37.6 % (37.0-47.0); Hemoglobin 12.8 g/dL (12.0-15.0); Immature Granulocyte Absolute 0.03 K/mm3 (0.00-0.031); Immature Granulocyte Percent A 0.3 % (0-0.5); Lymphocytes Absolute Auto 1.13 K/mm3 (0.9-3.2); Lymphocytes Percent Auto 11.2 % (18.3-44.2); Mean Corpuscular Hemoglobin 30.8 pg (26-34); Mean Corpuscular Volume 90.6 fl (80-100); Mean Platelet Volume 9.2 fl (7.4-10.4); Monocytes Absolute Auto 0.8 K/mm3 (0.1-0.6); Monocytes Percent Auto 7.6 % (2.6-8.5); Neutrophils Percent Auto 79.2 % (45.5-73.1); Platelet Count Result 190 k/mm3 (150-375); Red Blood Count 4.15 M/mm3 (4.2-5.4); White Blood Count 10.1 K/mm3 (4.5-10.0)
[2024-12-24 21:50] LABS: Lactic Acid Reflex 0.8 mmol/L (0.7-2.0)
[2024-12-24 21:52] LABS: Alanine Aminotransferase 20 U/L (6-35); Albumin Level 3.9 g/dL (3.5-5.1); Alkaline Phosphatase 114 U/L (38-126); Anion Gap 7 mmol/L (4-12); Aspartate Amino Transferase 21 U/L (14-36); Blood Urea Nitrogen 16 mg/dL (7-17); Calcium 8.6 mg/dL (8.4-10.2); Carbon Dioxide 30 mmol/L (22-30); Chloride 101 mmol/L (98-107); Estimated CRCL calculation 80 ml/min; Estimated Glomerular Filt Rate > 60; Glucose 89 mg/dL (65-110); Potassium 3.4 mmol/L (3.4-5.0); Sodium 138 mmol/L (137-145)
--- OUTSIDE RECORDS SUMMARY | 2024-12-24 21:58 | XMS_ITS | Clinical Summary ---
Author Organization [facility] Address [address] [place] [address] Care Team Providers Care Linoleum Mechanic Name Role Phone Preet Rocha MD Primary Care Provider [phone] Source Comments [facility],non-owned Affiliates and Associated Physician Practices is amultiple site organization consisting of ambulatory clinics and hospital sitesin [place], [place], [place] and [place]. This disclosure is being madepursuant to the Care Everywhere program and may not contain all information available regarding this patient. Last updated 18.[facility] Code[employer] Social History Tobacco Use Types Packs/Day Years [...] age to complete this topic Care Teams Linoleum Mechanic Relationship Specialty Start Date End Date Preet Rocha MD [address] [place] [address] [address] [place] [phone] PCP - General Family Medicine 08/27/24
--- OUTSIDE RECORDS SUMMARY | 2024-12-24 21:58 | XMS_ITS | Referral Summary ---
Author Organization [facility] Address [address] [place] [address] Care Team Providers Care Threading Machine Operator Name Role Phone Preet Rocha MD Primary Care Provider [phone] Source Comments [facility],non-[facility] Affiliates and Associated Physician Practices is amultiple site organization consisting of ambulatory clinics and hospital sitesin [place], [place], [place] and [place]. This disclosure is being madepursuant to the Care Everywhere program and may not contain all information available regarding this patient. Last updated 18.[facility] Social History Tobacco Use Types Packs/Day Years Used Date Smoking Tobacco: Never Assessed Sex and Gender Information Value Date Recorded Sex Assigned at Not on file Gender Identity Not on file Sexual Orientation Not on file Plan of Treatment Not on file Care Teams Threading Machine Operator Relationship Specialty Start Date End Date Preet Rocha MD [address] [place] [phone] PCP - General Family Medicine 08/27/24
--- OUTSIDE RECORDS SUMMARY | 2024-12-24 21:58 | XMS_ITS | Patient Health Summary ---
Author Organization [facility] Address [address] [place] [address] Care Team Providers Care Truss Builder Name Role Phone Preet Rocha MD Primary Care Provider [phone] Note from [facility],non-owned Affiliates and Associated Physician Practices is amultiple site organization consisting of ambulatory clinics and hospital sitesin [place], [place], [place] and [place]. This disclosure is being madepursuant to the Care Everywhere program and may not contain all information available regarding this patient. Last updated 18.[facility] Social History Tobacco Use Types Packs/Day Years Used Date Smoking Tobacco: Never Assessed Sex and Gender Information Value Date Recorded Sex Assigned at Not on file Gender Identity Not on file Sexual Orientation Not on file Care Teams Truss Builder Relationship Specialty Start Date End Date Preet Rocha MD [address] [place] [phone] PCP - General Family Medicine 08/27/24
--- OUTSIDE RECORDS SUMMARY | 2024-12-24 21:58 | XMS_ITS | Encounter Summary ---
Author Organization [facility] Address [address] [place] [id number] Care Team Providers Care Precision Farming Specialist Name Role Phone Hakeem Green MD Primary Care Provider Marcy ventura Encounter Details Date Type Department Care Team (Late st Contact Info) Description 07/22/2020 Prep for Procedure [facility] [place], [place] [id number] Victorino Valenzuela MD [address] [facility] [address] [place], [place] [id number] Social History Tobacco Use Types Packs/Day Years [...] Sex Assigned at Female 12/22/2024 6:50 PM INTERACTIVE PRODUCER Legal Sex Female 7:20 PM CDT Gender [...] unspecified documented in this encounter Care Teams Precision Farming Specialist Relationship Specialty Start Date End Date Hakeem Green MD PCP - General 09/27/16 documented as of this encounter
--- OUTSIDE RECORDS SUMMARY | 2024-12-24 21:58 | XMS_ITS | Clinical Summary ---
Author Organization [facility] Address [address] [place] [address] Care Team Providers Care Guitar Instructor Name Role Phone Hakeem Green MD Primary Care Provider Marcy lable Allergies Active Allergy Reactions Criticality Noted Date Comments Corticosteroids Unknown 07/02/2012 Morphine Swelling High 07/02/2012 Medications Insulin Pen Needle (BD PEN NEEDLE ASHLEY U/F) 32G X 4 MM MiscIndications :Diabetes ([facility]) USE DIRECTED 200 each 04/07/2019 Active Encounters Date Type Department Care Team Description 12/22/2024 8:08 PM CORRECTIVE THERAPY AIDE TEACHER - 12/22/2024 8:20 PM CORRECTIVE THERAPY AIDE TEACHER Emergency [facility] [place] [address] Abscess Discharge Disposition: Left Against Medical Advice [...] Sex Assigned at Female 12/22/2024 6:50 PM CORRECTIVE THERAPY AIDE TEACHER Legal Sex Female 7:20 PM CDT Gender Identity Not on file Sexual Orientation Not on file Last Filed Vital Signs Vital Sign Reading Time Taken Comments Blood Pressure 124/83 12/22/2024 6:23 PM CORRECTIVE THERAPY AIDE TEACHER Pulse 79 12/22/2024 6:23 PM CORRECTIVE THERAPY AIDE TEACHER Temperature 36.7 C (98 F) 12/22/2024 6:23 PM CORRECTIVE THERAPY AIDE TEACHER Respiratory Rate 18 12/22/2024 6:23 PM CORRECTIVE THERAPY AIDE TEACHER Oxygen Saturation 100% 12/22/2024 6:23 PM CORRECTIVE THERAPY AIDE TEACHER Inhaled Oxygen Concentration - - Weight 113.4 kg (250 lb) 12/22/2024 6:23 PM CORRECTIVE THERAPY AIDE TEACHER Height 167.6 cm (5' 6 ) 12/22/2024 6:23 PM CORRECTIVE THERAPY AIDE TEACHER Body Mass Index 40.35 12/22/2024 6:23 PM CORRECTIVE THERAPY AIDE TEACHER Plan of Treatment Health Maintenance Due Date [...] patient's age to complete this topic Insurance [phone] [id number] (Work) [address] [place] [address] Care Teams Guitar Instructor Relationship Specialty Start Date End Date Hakeem Green MD PCP - General 09/27/16
--- OUTSIDE RECORDS SUMMARY | 2024-12-24 21:58 | XMS_ITS | Clinical Summary ---
Author Organization [facility] [address] Address [address] [place] [address] Care Team Providers Care Game Engineer Name Role Phone Cher Hernandez DPM Unavailable [phone] Preet Rocha MD Primary Care Provider [phone] Allergies Active Allergy Reactions Criticality Noted Date [...] 1 3 Active blood-glucose meter,continuous (Dexcom G6 Campaign Advisor) miscIndications:Ty pe 2 diabetes mellitus with hyperglycemia, with long-term current use of insulin ([facility]) Inject 1 kit under the skin as directed 1 each 3 Active atorvastatin (LIPITOR) 20 mg tabletIndications: Hyperlipidemia associated with type 2 diabetes mellitus ([facility]) Take 1 tablet (20 mg total) by mouth daily 90 tablet 3 Active FLUoxetine (PROzac) 40 mg capsuleIndications :Recurrent major 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 ([facility]) Take 1 capsule (40 mg total) [...] disease, with long-term current use of insulin ([facility]) Use to inject U500 insulin twice daily 200 each 3 3 Active busPIRone (BUSPAR) 15 mg tabletIndications: Recurrent major 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 ([facility]) TAKE 1 TABLET(15 MG) BY MOUTH [...] tabletIndications: Recurrent major 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 ([facility]) TAKE 1 TABLET(100 MG) BY MOUTH [...] before leaving today. Verified that she uses [employer]. Aware to check results/results letter in [employer]. Will contact by phone if needed. Discussed possible need for ortho pending results. Recurrent major 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 Psychophysiological insomnia 02/04/2023 Gastroesophageal reflux disease without esophagi tis 02/04/2023 Class 3 severe obesity due t o excess calories with serious comorbidity and body mass index (BMI) of 40.0 to 44.9 in adult 11/22/2022 Assessment & Plan (11/22/2022 10:51 AM GENERAL SERVICE OFFICER): Discussed healthy diet and importance of regular physical activity (20- 30min/day, 150min/wk). Dean's olaftte, right 12/19/2020 Overview (12/19/2020): Added automatically from request for surgery [id number] Dean's olaftte, left 12/19/2020 Overview (12/19/2020): Added automatically from request for surgery [id number] Acquired hammer toe of right foot 12/19/2020 Overview (12/19/2020): Added automatically from request for surgery [id number] Hammer toe of left foot 12/19/2020 Overview (12/19/2020): Added automatically from request for surgery [id number] Insulin pump status 05/30/2020 Assessment & Plan (06/11/2023 4:03 PM CDT): No pump setting changes at this time. Assessment & Plan (11/22/2022 12:17 PM GENERAL SERVICE OFFICER): Continue current settings on Omnipod Humulin U500: [...] changes. Assessment & Plan (09/21/2021 2:20 PM GENERAL SERVICE OFFICER): Decrease 8a BR to 0.5. Assessment & [...] Atorvastatin 20mg. Last lipid panel: 04/09/23 LDL=60, ZZ=522. Assessment & Plan (11/22/2022 12:12 PM GENERAL SERVICE OFFICER): Chronic problem, at goal. Currently taking atorvastatin 20mg daily. No changes. Update lipid panel today. Verified that she uses [employer]. Aware to check results/results letter in [employer]. Will contact by phone if needed. Assessment & Plan (09/17/2022 11:33 AM GENERAL SERVICE OFFICER): Checking fast lipid profile today, adjust medicine thereafter. Diet reviewed Assessment & Plan (03/29/2022 2:43 PM CDT): Chronic problem. On statin therapy, no changes. Assessment & Plan (09/21/2021 2:36 PM GENERAL SERVICE OFFICER): Chronic problem. On statin therapy, no changes. [...] Atorvastatin Assessment & Plan (10/04/2020 4:03 PM GENERAL SERVICE OFFICER): Goal of treatment , LDL cholesterol less [...] time. Assessment & Plan (11/21/2022 4:02 PM GENERAL SERVICE OFFICER): Chronic problem, well controlled on current regimen. No changes at this time. Assessment & Plan (09/17/2022 11:33 AM GENERAL SERVICE OFFICER): Blood pressure control adequate no change in [...] infection. Assessment & Plan (11/22/2022 12:13 PM GENERAL SERVICE OFFICER): Chronic problem, well controlled at this time. Please have labs drawn today before leaving. Verified that she uses [facility]. Aware to check results/results letter in [employer]. Will contact by phone if needed. I [...] 100 Assessment & Plan (09/17/2022 11:06 AM GENERAL SERVICE OFFICER): Overdue for multiple tests including hemoglobin A1c [...] today. Assessment & Plan (09/21/2021 2:37 PM GENERAL SERVICE OFFICER): Chronic problem, trending low normal during the [...] metformin Assessment & Plan (10/04/2020 4:03 PM GENERAL SERVICE OFFICER): Hba1c was Lab Results Component Value Date [...] provided with contact information for insulin pump traffic representative and how to reach our office [...] appointment in 2 weeks. Instructed to contact [facility]'s specialty pharmacy to have them send [...] with diabetes mellitus due to underlying condition ([facility]) 03/17/2020 Assessment & Plan (06/11/2023 4:00 PM CDT): Chronic problem. Currently taking lyrica 75mg bid. Aware to check feet nightly & not go barefoot. Assessment & Plan (09/17/2022 12:23 PM GENERAL SERVICE OFFICER): Hands worse, Refilling lyrica, reviewed need for tight control of diabetes. She has no clinical findings that suggest carpal tunnel although her symptoms seem somewhat compatible, consider reimaging neck a and/or getting EMG nerve conduction velocity after labs back Assessment & Plan (06/27/2021 3:56 PM CDT): Foot care discussed Continue gabapentin. A prescription sent Assessment & Plan (10/04/2020 4:02 PM GENERAL SERVICE OFFICER): Foot care discussed Continue gabapentin Assessment & Plan (04/05/2020 2:16 PM CDT): Could not tolerate Lyrica Continue Gabapentin Foot care discussed Name for packaging specialist recommended. Assessment & Plan (03/17/2020 4:16 PM [...] lifestyle changes. Body mass index 40.0-44.9, adult ([facility]) 03/29/2022 11/21/2022 Morbid obesity with BMI of 4 5.0-49.9, adult ([facility]) 04/20/2020 11/21/2022 Assessment & Plan (09/17/2022 11:06 AM GENERAL SERVICE OFFICER): Reviewed weight loss including diet exercise. Hold [...] on file Legal Sex Female 10:15 PM GENERAL SERVICE OFFICER Gender Identity Female 07/13/2021 7:15 AM CDT [...] disease, with long-term current use of insulin ([facility]) (HCC) LIPID PANEL Routine 04/09/2023 3:52 PM CDT Abdominal pain, chronic, epigastric Hyperlipidemia associated with type 2 diabetes mellitus (HCC) ALBUMIN CREATININE RATIO, URINE Routine 11/22/2022 11:25 AM GENERAL SERVICE OFFICER Type 2 diabetes mellitus with stage 2 chronic kidney disease, with long-term current use of insulin ([facility]) (HCC) DIABETIC EYE EXAM Routine 09/03/2022 [...] last reviewed 2021. Testing performed by: [facility], [address] [place]., [address] Blood 05/30/2024 4:54 PM CDT 05/30/2024 5:15 PM CDT Deng Pop DO LAB BLOOD ORDERABLES Final Result ANGEL [address] [facility] Department [place] [address] * (ABNORMAL) POCT hemoglobin A1c [...] ORDERABLES Final Re sult Performing Organization Address City/[facility]/ZIP Co de Phone Number ANGEL [address] [facility] [place] [address] * Albumin Creatinine Ratio, Urine (11/22/2022 11:25 AM GENERAL SERVICE OFFICER) Albumin Ur <12.0 mg/L ANGEL Comment: Interpretive Data No reference range established. Current interpretive data was last revised 2019. Creatinine Ur 91.7 mg/dL ANGEL Comment: Interpretive Data No reference range established. Current interpretive data was last revised 2019. Albumin Creatinine Ratio, Ur <13 1 - 29 mg/g ANGEL Urine 11/22/2022 11:2 5 AM GENERAL SERVICE OFFICER 11/22/2022 2:21 PM GENERAL SERVICE OFFICER Cathy Talavera NP LAB URINE ORDERABLES Ioana l Result Performing Organization Address City/[facility]/ZIP Co de Phone Number ANGEL [address] Department [place] [address] * Diabetic Eye Exam (09/03/2022) Historical Provider HEALTH MAINTENANCE Edited Result - Final from Last 3 Months or Most Recently Relevant to Health Maintenance Insurance [facility] Advance Directives For more information, please contact: [phone] * Full Code (Latest Code Status on File) Date Activated Date Inactivated Comments 01/13/2021 1:19 PM 01/13/2021 7:07 PM Care Teams Game Engineer Relationship Specialty Start Date End Date Preet Rocha MD [address] [place] [address] PCP - General Family Medicine 05/30/24 Cher Hernandez DPM [facility] [place] [address] Consulting Physician Foot and Ankle Surg 01/13/21
--- OUTSIDE RECORDS SUMMARY | 2024-12-24 21:58 | XMS_ITS | Encounter Summary ---
Author Organization [facility] Address [address] [place] [address] Care Team Providers Care Carriage Setter Name Role Phone Hakeem Green MD Primary Care Provider Marcy ventura Reason for Visit * Reason Comments Abscess Encounter Details Date Type Department Care Team (Late st Contact Info) Description 12/22/2024 8:08 PM BUNCH TRIMMER MOLD - 12/22/2024 8:20 PM BUNCH TRIMMER MOLD Emergency [facility] [place] [address] Abscess Discharge Disposition: Left Against Medical Advice [...] Sex Assigned at Female 12/22/2024 6:50 PM BUNCH TRIMMER MOLD Legal Sex Female 7:20 PM CDT Gender Identity Not on file Sexual Orientation Not on file documented as of this encounter Last Filed Vital Signs Vital Sign Reading Time Taken Comments Blood Pressure 124/83 12/22/2024 6:23 PM BUNCH TRIMMER MOLD Pulse 79 12/22/2024 6:23 PM BUNCH TRIMMER MOLD Temperature 36.7 C (98 F) 12/22/2024 6:23 PM BUNCH TRIMMER MOLD Respiratory Rate 18 12/22/2024 6:23 PM BUNCH TRIMMER MOLD Oxygen Saturation 100% 12/22/2024 6:23 PM BUNCH TRIMMER MOLD Inhaled Oxygen Concentration - - Weight 113.4 kg (250 lb) 12/22/2024 6:23 PM BUNCH TRIMMER MOLD Height 167.6 cm (5' 6 ) 12/22/2024 6:23 PM BUNCH TRIMMER MOLD Body Mass Index 40.35 12/22/2024 6:23 PM BUNCH TRIMMER MOLD documented in this encounter Medications at Time of Discharge Insulin Pen Needle (BD PEN NEEDLE ASHLEY U/F) 32G X 4 MM MiscIndications:D iabetes ([facility]) USE DIRECTED 200 each 04/07/2019 documented as of this encounter ED Notes * Kristy Calles RN - 12/22/2024 8:06 PM CST Patient to front line supervisor stating she needs to leave because her ride is leaving. Discussed with patient risks of leaving vs benefits of staying. Patient verbalizes understanding. Signed AMA form. Ambulatory out of ED. H TRIMMER MOLD H TRIMMER MOLD * George Espinoza RN - 12/22/2024 6:25 PM CST Patient ambulatory to ED with accounting manager cpa cyst that began a few days ago. Patient reports drainage from site. H TRIMMER MOLD * MÓNICA Pineda - 12/22/2024 6:25 PM CST [place], [place] EMERGENCY DEPARTMENT ENCOUNTER Medical Screening Examination [...] Maxim Miller DO at 12/23/2024 12:45 AM BUNCH TRIMMER MOLD H TRIMMER MOLD H TRIMMER MOLD documented in this encounter Plan of Treatment Not on file documented as of this encounter Visit Diagnoses Diagnosis Abscess- Primary Cellulitis and abscess of unspecified site documented in this encounter Active and Recently Administered Medications Times are shown in BUNCH TRIMMER MOLD. Scheduled Medication Order 12/20/2024 12/21/2024 12/22/2024 HYDROcodone-acetaminophen (NORCO) 5-325 MG tablet 1 tablet 1 tablet, Oral, Once, 1 dose, On Sat12/22/24 at 1830, Maximum dose of acetaminophen is 4000 mg from all sources in 24 hours. 1830 (Canceled Entry - Provider: Automatic Discharge Provider - Comment: Automatically canceled at discontinue of medication order) documented in this encounter Care Teams Carriage Setter Relationship Specialty Start Date End Date Hakeem Green MD PCP - General 09/27/16 documented as of this encounter
--- OUTSIDE RECORDS SUMMARY | 2024-12-24 21:58 | XMS_ITS | Referral Summary ---
Author Organization [facility] [address] Address [address] [place] [address] Care Team Providers Care Metal Lather Name Role Phone Cher Hernandez DPM Unavailable [phone] Preet Rocha MD Primary Care Provider Allergies [...] 1 3 Active blood-glucose meter,continuous (Dexcom G6 Room Service Runner) miscIndications:Ty pe 2 diabetes mellitus with hyperglycemia, with long-term current use of insulin ([facility]) Inject 1 kit under the skin as directed 1 each 3 Active atorvastatin (LIPITOR) 20 mg tabletIndications: Hyperlipidemia associated with type 2 diabetes mellitus ([facility]) Take 1 tablet (20 mg total) by mouth daily 90 tablet 3 Active FLUoxetine (PROzac) 40 mg capsuleIndications :Recurrent major 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 ([facility]) Take 1 capsule (40 mg [...] disease, with long-term current use of insulin ([facility]) Use to inject U500 insulin twice daily 200 each 3 3 Active busPIRone (BUSPAR) 15 mg tabletIndications: Recurrent major 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 ([facility]) TAKE 1 TABLET(15 MG) BY [...] tabletIndications: Recurrent major 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 ([facility]) TAKE 1 TABLET(100 MG) BY [...] before leaving today. Verified that she uses [employer]. Aware to check results/results letter in [employer]. Will contact by phone if needed. Discussed possible need for ortho pending results. Recurrent major 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 Psychophysiological insomnia 02/04/2023 Gastroesophageal reflux disease without esophagi tis 02/04/2023 Class 3 severe obesity due t o excess calories with serious comorbidity and body mass index (BMI) of 40.0 to 44.9 in adult 11/22/2022 Assessment & Plan (11/22/2022 10:51 AM PANTOGRAPHER): Discussed healthy diet and importance of regular physical activity (20- 30min/day, 150min/wk). Dean's olaftte, right 12/19/2020 Overview (12/19/2020): Added automatically from request for surgery [id number] Dean's olaftte, left 12/19/2020 Overview (12/19/2020): Added automatically from request for surgery [id number] Acquired hammer toe of right foot 12/19/2020 Overview (12/19/2020): Added automatically from request for surgery [id number] Hammer toe of left foot 12/19/2020 Overview (12/19/2020): Added automatically from request for surgery [id number] Insulin pump status 05/30/2020 Assessment & Plan (06/11/2023 4:03 PM CDT): No pump setting changes at this time. Assessment & Plan (11/22/2022 12:17 PM PANTOGRAPHER): Continue current settings on Omnipod Humulin U500: [...] changes. Assessment & Plan (09/21/2021 2:20 PM PANTOGRAPHER): Decrease 8a BR to 0.5. Assessment & [...] Atorvastatin 20mg. Last lipid panel: 04/09/23 LDL=60, ZX=438. Assessment & Plan (11/22/2022 12:12 PM PANTOGRAPHER): Chronic problem, at goal. Currently taking atorvastatin 20mg daily. No changes. Update lipid panel today. Verified that she uses [employer]. Aware to check results/results letter in [employer]. Will contact by phone if needed. Assessment & Plan (09/17/2022 11:33 AM PANTOGRAPHER): Checking fast lipid profile today, adjust medicine thereafter. Diet reviewed Assessment & Plan (03/29/2022 2:43 PM CDT): Chronic problem. On statin therapy, no changes. Assessment & Plan (09/21/2021 2:36 PM PANTOGRAPHER): Chronic problem. On statin therapy, no changes. [...] Atorvastatin Assessment & Plan (10/04/2020 4:03 PM PANTOGRAPHER): Goal of treatment , LDL cholesterol less [...] time. Assessment & Plan (11/21/2022 4:02 PM PANTOGRAPHER): Chronic problem, well controlled on current regimen. No changes at this time. Assessment & Plan (09/17/2022 11:33 AM PANTOGRAPHER): Blood pressure control adequate no change in [...] infection. Assessment & Plan (11/22/2022 12:13 PM PANTOGRAPHER): Chronic problem, well controlled at this time. Please have labs drawn today before leaving. Verified that she uses [facility]. Aware to check results/results letter in [employer]. Will contact by phone if needed. I [...] 100 Assessment & Plan (09/17/2022 11:06 AM PANTOGRAPHER): Overdue for multiple tests including hemoglobin A1c [...] today. Assessment & Plan (09/21/2021 2:37 PM PANTOGRAPHER): Chronic problem, trending low normal during the [...] metformin Assessment & Plan (10/04/2020 4:03 PM PANTOGRAPHER): Hba1c was Lab Results Component Value Date [...] provided with contact information for insulin pump hospital sales representative and how to reach our [...] appointment in 2 weeks. Instructed to contact [facility]'s specialty pharmacy to have them send [...] with diabetes mellitus due to underlying condition ([facility]) 03/17/2020 Assessment & Plan (06/11/2023 4:00 PM CDT): Chronic problem. Currently taking lyrica 75mg bid. Aware to check feet nightly & not go barefoot. Assessment & Plan (09/17/2022 12:23 PM PANTOGRAPHER): Hands worse, Refilling lyrica, reviewed need for tight control of diabetes. She has no clinical findings that suggest carpal tunnel although her symptoms seem somewhat compatible, consider reimaging neck a and/or getting EMG nerve conduction velocity after labs back Assessment & Plan (06/27/2021 3:56 PM CDT): Foot care discussed Continue gabapentin. A prescription sent Assessment & Plan (10/04/2020 4:02 PM PANTOGRAPHER): Foot care discussed Continue gabapentin Assessment & Plan (04/05/2020 2:16 PM CDT): Could not tolerate Lyrica Continue Gabapentin Foot care discussed Name for client manager large law recommended. Assessment & Plan (03/17/2020 4:16 PM [...] lifestyle changes. Body mass index 40.0-44.9, adult ([facility]) 03/29/2022 11/21/2022 Morbid obesity with BMI of 4 5.0-49.9, adult ([facility]) 04/20/2020 11/21/2022 Assessment & Plan (09/17/2022 11:06 AM PANTOGRAPHER): Reviewed weight loss including diet exercise. Hold [...] on file Legal Sex Female 10:15 PM PANTOGRAPHER Gender Identity Female 07/13/2021 7:15 AM CDT [...] disease, with long-term current use of insulin ([facility]) (HCC) LIPID PANEL Routine 04/09/2023 3:52 PM CDT Abdominal pain, chronic, epigastric Hyperlipidemia associated with type 2 diabetes mellitus (HCC) ALBUMIN CREATININE RATIO, URINE Routine 11/22/2022 11:25 AM PANTOGRAPHER Type 2 diabetes mellitus with stage 2 chronic kidney disease, with long-term current use of insulin ([facility]) (HCC) DIABETIC EYE EXAM Routine [...] was last reviewed 2021. Testing performed by: [facility], [address] [place] [address], [place]., [address] Blood 05/30/2024 4:54 PM CDT 05/30/2024 5:15 PM CDT us Deng Pop DO LAB BLOOD ORDERABLES Final Result ANGEL [address] [facility] Department [place] [address] * (ABNORMAL) POCT hemoglobin A1c (06/11/2023 3:00 [...] BLOOD ORDERABLES Final Re sult ANGEL [address] [facility] Department [place] [address] * Albumin Creatinine Ratio, Urine (11/22/2022 11:25 AM PANTOGRAPHER) Albumin Ur <12.0 mg/L ANGEL VARGAS Comment: Interpretive Data No reference range established. Current interpretive data was last revised 2019. Creatinine Ur 91.7 mg/dL ANGEL VARGAS Comment: Interpretive Data No reference range established. Current interpretive data was last revised 2019. Albumin Creatinine Ratio, Ur <13 1 - 29 mg/g ANGEL Urine 11/22/2022 11:2 5 AM PANTOGRAPHER 11/22/2022 2:21 PM PANTOGRAPHER Cathy Talavera [employer] ARCHITECT LAB URINE ORDERABLES Ioana l Result Performing Organization Address [facility]/ZIP Co de Phone Number ANGEL [address] Department of Laboratories [place], [place] [id number] * Diabetic Eye Exam (09/03/2022) Historical Provider HEALTH MAINTENANCE Edited Result - Final from Last 3 Months or Most Recently Relevant to Health Maintenance Insurance [facility] Advance Directives For more information, please contact: [phone] * Full Code (Latest Code Status on File) Date Activated Date Inactivated Comments 01/13/2021 1:19 PM 01/13/2021 7:07 PM Care Teams Metal Lather Relationship Specialty Start Date End Date Preet Rocha MD [address] [place] [address] PCP - General Family Medicine 05/30/24 Cher Hernandez DPM [address] [place] [address] Consulting Physician Foot and Ankle Surg 01/13/21
[2024-12-24] MEDS: KETOROLAC 30 MG/ML VIAL (*BKC) IV PUSH (22:10)
[2024-12-24] MEDS: SODIUM CHLORIDE 0.9% IV 1,000 ML 999 ML IV CONT (22:11)
[2024-12-24] MEDS: ONDANSETRON INJ 4 MG/2 ML VIAL IV PUSH (22:11)
[2024-12-24] MEDS: VANCOMYCIN 1,500 MG/NS 500 ML 1,500 MG/500 ML BAG 250 MG IVPB (23:01)
[2024-12-25] VITALS (12 sets, daily range): BP systolic 95–116; BP diastolic 59–79; PULSE 57–81; RESP 13–20; TEMP 35.6–36.7; O2SAT 95–100; BMI 40.3
[2024-12-25] MEDS: CEFEPIME 2 GM/NS 50 ML 2 GM/50 ML BAG IVPB ×2 (00:46→10:37)
--- NOTE | 2024-12-25 00:55 | ADMGEN ---
This patient, Sabina Dash, was admitted to 3 [facility] Surg Room 301-01. Patient/family oriented to hospital policies and general routines including ID bracelet, bed and alarms, visiting hours, pain management, procedures, bathroom and other care routines, personal items, smoking policy, room service/diet, and visiting hours. Information on how to activate the Rapid Response Team has been discussed. Patient/Family are encouraged to report perceived risks to care and to ask questions if they do not understand what they are told or what they should do.
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
[2024-12-25] MEDS: PREGABALIN (*CRX) 75 MG CAPSULE 150 MG PO ×2 (03:46→23:06)
[2024-12-25] MEDS: traZODone HCL 50 MG TABLET 150 MG PO ×2 (03:47→20:43)
[2024-12-25] MEDS: busPIRone HCL 10 MG TABLET 30 MG PO ×2 (03:47→20:43)
[2024-12-25] MEDS: BACLOFEN 10 MG TABLET 40 MG PO ×2 (03:48→20:44)
[2024-12-25 05:32] LABS: Glucose Point of Care 103 mg/dl (65-105)
[2024-12-25 06:31] LABS: Estimated CRCL calculation 73 ml/min; Estimated Glomerular Filt Rate 54
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
--- NOTE | 2024-12-25 11:53 | PC.NURSE ---
Pt off the floor
[2024-12-25] MEDS: VANCOMYCIN 1,500 MG/NS 500 ML 1,500 MG/500 ML BAG 250 MG IVPB ×2 (12:15→23:05)
[2024-12-25 12:17] LABS: Glucose Point of Care 100 mg/dl (65-105)
--- NOTE | 2024-12-25 12:29 | WPDHPUPDATE1 ---
History and Physical Update Update Date/Time: 12/25/24 12:29 History and Physical has been reviewed, including an updated exam of the patient. There are NO changes in the patient's condition. Risks, benefits, and alternatives have been discussed and questions answered. Patient agrees to proceed with procedure.
--- NOTE | 2024-12-25 13:03 | PM.IMPN ---
Progress Note: A&P Assessment and Plan (1) Insulin dependent diabetes mellitus: Status: Chronic Assessment and Plan: Continue current treatment monitor closely. (2) Morbid obesity with BMI of 40.0-44.9, adult: Code(s): E66.01 - Morbid (severe) obesity due to excess calories; Z68.41 - Body mass index [BMI] 40.0-44.9, adult Status: Chronic Assessment and Plan: diet and exercise explained to patient. (3) Cellulitis of left abdominal wall: Code(s): L03.311 - Cellulitis of abdominal wall Status: Acute Assessment and Plan: Continue IV antibiotics. Scheduled for surgery today. Plan This is a 44-year-old female with a history of morbid obesity, hypertension, hyperlipidemia, insulin-dependent diabetes mellitus with an insulin pump in diabetic peripheral neuropathy, GERD, anxiety depression and PTSD among other comorbidities who presents with infection of her left lower abdominal pannus. This started about 12 days prior. She arrived to [facility] ER the day before left AMA from the ER after receiving antibiotics. She was prescribed doxycycline but never picked it up reporting she did not have a car. She returns today on 10/23/2025 reporting the pain and swelling and erythema are worse. General surgery consulted from the ER. Given cefepime and vancomycin. ----- White count of 10.1. This is near normal, continue to trend. No sepsis. CT of the pelvis with IV contrast performed on the ER visit on the day prior which demonstrates induration at the left lower pannus. Continue cefepime and vancomycin Accu-Cheks q.6 hours with sliding scale moderate. ---- SCD. Full code. Home medications restarted as appropriate. Holding furosemide, potassium, spironolactone. Subjective Date/time seen: 12/25/24 13:03 Interval history: Patient was seen during the morning rounds today. No new joint complaints. Patient is scheduled for surgery today. No shortness of breath or chest pain. Review of Systems Review of Systems: All systems reviewed & are unremarkable except as noted in HPI and below (HPI) Exam Const: General: comfortable and no acute distress Eyes: Pupils: Equal, round and reactive pupils present Neck: Neck: supple Resp: Effort & Inspection: normal respiratory effort Auscultation: clear to auscultation bilaterally Cardio: Rate: regular rate Rhythm: regular rhythm : General: Yes bladder normal to palpation Bimanual exam- vagina & uterus: bladder normal to palpation Skin: Other: Large abdominal pannus and on the left lower fold there is induration and erythema with tenderness to palpation actively expressing dark brown purulent material. Neuro: Cranial nerves: Yes Equal, round and reactive pupils present Extrem: General: no edema Objective Data Vital Signs Vital Signs: Vital Signs - 24 hr 12/24/24 16:04 12/24/24 21:10 12/24/24 21:15 Temperature 36.8 C Pulse Rate 80 Respiratory Rate 16 Blood Pressure 117/86 Pulse Oximetry 98 98 99 Oxygen Delivery Room Air 12/24/24 21:30 12/24/24 21:48 12/24/24 22:00 Temperature Pulse Rate Respiratory Rate Blood Pressure Pulse Oximetry 99 99 99 Oxygen Delivery 12/24/24 22:16 12/24/24 22:19 12/24/24 22:30 Temperature Pulse Rate Respiratory Rate Blood Pressure 112/75 Pulse Oximetry 97 99 98 Oxygen Delivery 12/24/24 22:31 12/24/24 23:00 12/24/24 23:15 Temperature Pulse Rate Respiratory Rate Blood Pressure 108/71 Pulse Oximetry 98 98 100 Oxygen Delivery 12/24/24 23:16 12/25/24 01:25 12/25/24 05:37 Temperature 36.1 C L 36.2 C L Pulse Rate 68 62 Respiratory Rate 13 14 Blood Pressure 105/64 111/70 100/62 Pulse Oximetry 99 100 98 Oxygen Delivery 12/25/24 08:00 12/25/24 11:39 Temperature 36.2 C L Pulse Rate 64 Respiratory Rate 18 Blood Pressure 110/69 Pulse Oximetry 100 Oxygen Delivery Room Air Room Air Intake/Output Intake/Output: Intake & Output 12/22/24 12/23/24 12/24/24 12/25/24 23:59 23:59 23:59 23:59 Intake Total 1500 Balance 1500 Meds/Results Medications: Active Medications Generic Name Dose Route Start Last Admin Trade Name Freq PRN Reason Stop Dose Admin Acetaminophen 650 mg 12/24/24 23:11 Acetaminophen 325 Mg Tablet PO Q4H PRN Mild Pain (1-3) or Fever Albuterol 2 puff 12/25/24 02:29 Albuterol Sulfate (*Sp) Aerosol 1 Puff INHALATION QIDRT PRN shortness of breath or wheezing Baclofen 40 mg 12/25/24 21:00 Baclofen 10 Mg Tablet PO HS [facility] Buspirone HCl 30 mg 12/25/24 21:00 Buspirone Hcl 10 Mg Tablet PO HS [facility] Dextrose 12.5 gm 12/24/24 23:11 Dextrose 50% 25 Gm/50 Ml Syringe IV PUSH PRN PRN Hypoglycemia Protocol Enoxaparin Sodium 40 mg 12/26/24 09:00 Enoxaparin 40 Mg/0.4 Ml Syringe SUB-Q DAILY [facility] Fluoxetine HCl 60 mg 12/25/24 23:00 Fluoxetine Hcl 20 Mg Capsule PO DAILY@2300 [facility] Glucagon 1 mg 12/24/24 23:11 Glucagon For Inj 1 Mg Vial IM PRN PRN Hypoglycemia Protocol Glucose 15 gm 12/24/24 23:11 Glucose Oral Gel 15 Gm Of Glucse In 37.5 Gm Tube PO PRN PRN Hypoglycemia Protocol Vancomycin HCl 1,500 mg in 500 mls @ 250 mls/hr 12/25/24 11:00 12/25/24 12:15 Vancomycin 1,500 Mg/Ns 500 Ml IVPB 250 mls/hr Q12H [facility] Administration Cefepime HCl 2 gm in 50 mls @ 100 mls/hr 12/24/24 08:00 12/25/24 12:43 Maxipime 2 Gm/Ns 50 Ml IVPB Not Given Q8H [facility] Dextrose 1,000 mls @ 100 mls/hr 12/24/24 23:11 Dextrose 5% 1,000 Ml IVPB PRN PRN Hypoglycemia Protocol Lactated Ringer's 1,000 mls @ 150 mls/hr 12/25/24 08:50 Lr - Lactated Ringers Iv IV CONT .Q6H40M [facility] Insulin Aspart 3 - 6 units 12/25/24 06:00 12/25/24 05:59 Insulin Aspart (*Bkc) 100 Units/Ml SUB-Q Not Given Q6HR [facility] Protocol Ondansetron HCl 4 mg 12/24/24 23:11 Ondansetron Inj 4 Mg/2 Ml Vial IV PUSH Q4H PRN Nausea Pantoprazole Sodium 40 mg 12/25/24 09:00 Pantoprazole 40 Mg Tablet PO QAM [facility] Pregabalin 150 mg 12/25/24 23:00 Pregabalin (*Crx) 75 Mg Capsule PO DAILY@2300 [facility] Trazodone HCl 150 mg 12/25/24 21:00 Trazodone Hcl 50 Mg Tablet PO [facility] Labs Labs: Laboratory Results - last 24 hr 12/24/24 12/25/24 12/25/24 21:35 05:28 05:29 WBC 10.1 H RBC 4.15 L Hgb 12.8 Hct 37.6 MCV 90.6 MCH 30.8 MCHC 34.0 RDW 14.0 Plt Count 190 MPV 9.2 Immature Gran % (Auto) 0.3 Neut % (Auto) 79.2 H Lymph % (Auto) 11.2 L Dare % (Auto) 7.6 Eos % (Auto) 1.4 Baso % (Auto) 0.3 Lymph # (Auto) 1.13 Dare # (Auto) 0.8 H Eos # (Auto) 0.1 Baso # (Auto) 0.0 Abs Immat Gran (auto) 0.03 Absolute Neuts (auto) 8.0 H Absolute Nucleated RBC 0.000 Nucleated RBC % 0.0 Sodium 138 Potassium 3.4 Chloride 101 Carbon Dioxide 30 Anion Gap 7 BUN 16 Creatinine 0.99 1.10 H Estim Creat Clear Calc 80 73 Estimated GFR > 60 54 L Glucose 89 POC Capillary Glucose 103 Lactic Acid 0.8 Calcium 8.6 Total Bilirubin 1.0 AST 21 ALT 20 Alkaline Phosphatase 114 Total Protein 8.0 Albumin 3.9 12/25/24 12:13 WBC RBC Hgb Hct MCV MCH MCHC RDW Plt Count MPV Immature Gran % (Auto) Neut % (Auto) Lymph % (Auto) Dare % (Auto) Eos % (Auto) Baso % (Auto) Lymph # (Auto) Dare # (Auto) Eos # (Auto) Baso # (Auto) Abs Immat Gran (auto) Absolute Neuts (auto) Absolute Nucleated RBC Nucleated RBC % Sodium Potassium Chloride Carbon Dioxide Anion Gap BUN Creatinine Estim Creat Clear Calc Estimated GFR Glucose POC Capillary Glucose 100 Lactic Acid Calcium Total Bilirubin AST ALT Alkaline Phosphatase Total Protein Albumin
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
[2024-12-25] MEDS: BUPIVACAINE/EPINEPHRINE 0.5% 50 ML VIAL 10 ML INFILTRATE (13:42)
--- NOTE | 2024-12-25 13:47 | SUR.OPER ---
Culture of abdominal wall abscess collected at 1340, PCT Emily delivered to [facility] and handed culture to Kia at 1347.
[2024-12-25] MEDS: LACTATED RINGERS 1,000 ML 30 ML IV CONT (13:53)
--- NOTE | 2024-12-25 14:03 | W.PM.PROC2 ---
Procedure Note - Detailed Date of Procedure 12/25/24 Pre-op Diagnosis Abdominal wall abscess Post-op Diagnosis Same Procedure Performed Incision and drainage of complex abdominal wall abscess Surgeon Gene Hernandez, DO Anesthesia General (LMA) and Local (0.5% bupivacaine with epinephrine) Indications This is a 44-year-old woman who presented to the emergency department with swelling and redness on an area of her left lower abdominal wall. She noticed this as a pimple several days ago but it has enlarged and become very red and tender. She was found to have evidence of cellulitis and an abscess in the left lower abdominal wall in the emergency department and was admitted for further treatment. She is diabetic and has had multiple infections like this in the past. Discussions were made with the patient about treatment options and decision was made to proceed with incision and drainage of abdominal wall abscess. Findings Incision and drainage of abdominal wall abscess was performed. The patient was found have a complex abdominal wall abscess with multiple loculations. This was starting in the left lower quadrant and extending slightly medial towards the suprapubic region. Culture was taken for aerobic and anaerobic culture and sensitivity. After all the loculations were opened up, I then irrigated the abscess cavity and then packed it with 1 in iodoform gauze. Description of Procedure Procedure as well as risks, benefits, and alternatives were discussed with the patient. Written consent was obtained and placed in chart prior to procedure. Patient was brought back to surgical suite. She was placed supine on operating table. Time-out was done to confirm patient and procedure. She was then intubated by the anesthesia department. Her abdomen was prepped and draped in sterile fashion using Betadine prep. 0.5% bupivacaine with epinephrine was infiltrated locally around the abscess. The abscess was located in the left lower abdomen. An incision was made over the area of fluctuance using a 15 blade scalpel. Purulence drainage was evacuated. A culture swab was used to obtain aerobic and anaerobic culture and sensitivities. A curved hemostat was then used to break up loculations. The incision then had to be extended medially for about 5 cm. Further loculations were broken up using finger dissection. Once all the loculations were opened up, I then irrigated the cavity with sterile saline. Hemostasis was then achieved with electrocautery. No other loculations were identified. The wound was then packed with 1 in iodoform gauze. 4 x 4 gauze, ABD pad, and tape were then applied. The patient was then awakened from anesthesia, extubated, and transferred to recovery. Estimated Blood Loss 5 Packing Yes (1 in iodoform gauze) Complications No immediate complications Condition Stable Disposition Floor [facility] Billing Surgery - Charge Forward: Surgery Billing
[2024-12-25 14:04] LABS: Glucose Point of Care 99 mg/dl (65-105)
[2024-12-25] MEDS: ONDANSETRON INJ 4 MG/2 ML VIAL IV PUSH (14:39)
[2024-12-25] MEDS: fentaNYL CITRATE INJ (*CRX) 100 MCG/2 ML VIAL 25 MCG IV PUSH ×2 (14:42→14:52)
--- NOTE | 2024-12-25 15:15 | PC.NURSE ---
Returned from OR at 1515. Report received from Danielle
[2024-12-25] MEDS: LACTATED RINGERS 1,000 ML 100 ML IV CONT (17:44)
[2024-12-25] MEDS: PANTOPRAZOLE 40 MG TABLET PO (17:45)
[2024-12-25 18:12] LABS: Glucose Point of Care 235 mg/dl (65-105)
[2024-12-25] MEDS: INSULIN ASPART (*BKC) 100 UNITS/ML SUB-Q (18:51)
[2024-12-25] MEDS: HYDROcodone/acetaminophen (*CRX) 10-325 MG TABLET 1 TAB PO (20:46)
[2024-12-25] MEDS: FLUoxetine HCL 20 MG CAPSULE 60 MG PO (23:06)
[2024-12-26] VITALS (7 sets, daily range): BP systolic 103–135; BP diastolic 64–93; PULSE 51–64; RESP 14–18; TEMP 36.3–36.4; O2SAT 98–100
[2024-12-26 01:17] LABS: Glucose Point of Care 210 mg/dl (65-105)
[2024-12-26 08:34] LABS: Glucose Point of Care 151 mg/dl (65-105)
[2024-12-26] MEDS: HYDROcodone/acetaminophen (*CRX) 5-325 MG TABLET 1 TAB PO ×2 (10:09→15:20)
[2024-12-26] MEDS: ENOXAPARIN 40 MG/0.4 ML SYRINGE SUB-Q (10:10)
[2024-12-26] MEDS: PANTOPRAZOLE 40 MG TABLET PO (10:10)
[2024-12-26 10:17] LABS: Hematocrit 35.1 % (37.0-47.0); Hemoglobin 11.7 g/dL (12.0-15.0); Mean Corpuscular HGB Conc 33.3 g/dl (32-36); Mean Corpuscular Hemoglobin 30.5 pg (26-34); Mean Corpuscular Volume 91.6 fl (80-100); Mean Platelet Volume 9.2 fl (7.4-10.4); Platelet Count Result 180 k/mm3 (150-375); Red Blood Count 3.83 M/mm3 (4.2-5.4); Red Cell Distribution Width 13.7 % (11.5-14.5); White Blood Count 7.5 K/mm3 (4.5-10.0)
--- NOTE | 2024-12-26 10:22 | P.PNIM_ITS ---
Progress Note: A&P Assessment and Plan (1) Insulin dependent diabetes mellitus: Status: Chronic Assessment and Plan: Continue current treatment monitor closely. (2) Morbid obesity with BMI of 40.0-44.9, adult: Code(s): E66.01 - Morbid (severe) obesity due to excess calories; Z68.41 - Body mass index [BMI] 40.0-44.9, adult Status: Chronic Assessment and Plan: diet and exercise explained to patient. (3) Cellulitis of left abdominal wall: Code(s): L03.311 - Cellulitis of abdominal wall Status: Acute Assessment and Plan: Continue IV antibiotics. S/P I&D. Pain controlled Plan This is a 44-year-old female with a history of morbid obesity, hypertension, hyperlipidemia, insulin-dependent diabetes mellitus with an insulin pump in diabetic peripheral neuropathy, GERD, anxiety depression and PTSD among other comorbidities who presents with infection of her left lower abdominal pannus. This started about 12 days prior. She arrived to [place] ER the day before left AMA from the ER after receiving antibiotics. She was prescribed doxycycline but never picked it up reporting she did not have a car. She returns today on 10/23/2025 reporting the pain and swelling and erythema are worse. General surgery consulted from the ER. Given cefepime and vancomycin. ----- White count of 10.1. This is near normal, continue to trend. No sepsis. CT of the pelvis with IV contrast performed on the ER visit on the day prior which demonstrates induration at the left lower pannus. Continue antibiotics Accu-Cheks q.6 hours with sliding scale moderate. ---- SCD. Full code. Home medications restarted as appropriate. Holding furosemide, potassium, spironolactone. Subjective Date/time seen: 12/26/24 10:22 Interval history: Patient was seen during the morning rounds today. No new overnight complaints. Patient is s/p I&D, pain controlled No shortness of breath or chest pain. Review of Systems Review of Systems: All systems reviewed & are unremarkable except as noted in HPI and below (HPI) Exam Const: General: comfortable and no acute distress Eyes: Pupils: Equal, round and reactive pupils present Neck: Neck: supple Resp: Effort & Inspection: normal respiratory effort Auscultation: clear to auscultation bilaterally Cardio: Rate: regular rate Rhythm: regular rhythm GI: Other: S/P I&D : General: Yes bladder normal to palpation Bimanual exam- vagina & uteru s: bladder normal to palpation Skin: Other: Large abdominal pannus and on the left lower fold there is induration and er ythema with tenderness to palpation actively expressing dark brown purulent material. Neuro: Cranial nerves: Yes Equal, round and reactive pupils present Extrem: General: no edema Objective Data Vital Signs Vital Signs: Vital Signs - 24 hr 12/25/24 11:39 12/25/24 13:53 12/25/24 14:05 Temperature 36.2 C L 36.2 C L Pulse Rate 64 63 64 Respiratory Rate 18 18 18 Blood Pressure 110/69 99/64 L 95/65 L Pulse Oximetry 100 96 97 Oxygen Delivery Room Air Simple Face Mask Simple Face Mask Oxygen Flow Rate 6 6 12/25/24 14:20 12/25/24 14:30 12/25/24 14:35 Temperature Pulse Rate 81 75 Respiratory Rate 18 18 Blood Pressure 98/67 L 106/73 Pulse Oximetry 98 97 Oxygen Delivery Simple Face Mask Room Air Room Air Oxygen Flow Rate 6 12/25/24 14:50 12/25/24 15:00 12/25/24 15:25 Temperature 35.6 C L Pulse Rate 63 59 L 57 L Respiratory Rate 18 20 18 Blood Pressure 113/72 116/78 116/76 Pulse Oximetry 95 95 97 Oxygen Delivery Room Air Room Air Oxygen Flow Rate 12/25/24 15:25 12/25/24 15:58 12/25/24 20:58 Temperature 36.1 C L 36.7 C Pulse Rate 61 65 Respiratory Rate 16 16 Blood Pressure 102/59 L 112/79 Pulse Oximetry 97 97 100 Oxygen Delivery Room Air Oxygen Flow Rate 12/26/24 00:58 12/26/24 04:58 12/26/24 08:58 Temperature 36.3 C L 36.4 C 36.4 C L Pulse Rate 51 L 58 L 61 Respiratory Rate 16 14 16 Blood Pressure 116/78 129/73 119/78 Pulse Oximetry 98 100 98 Oxygen Delivery Oxygen Flow Rate Intake/Output Intake/Output: Intake & Output 12/23/24 12/24/24 12/25/24 12/26/24 23:59 23:59 23:59 23:59 Intake Total 2100 480 Balance 2100 480 Meds/Results Medications: Active Medications Generic Name Dose Route Start Last Admin Trade Name Freq PRN Reason Stop Dose Admin Acetaminophen 650 mg 12/24/24 23:11 Acetaminophen 325 Mg Tablet PO Q4H PRN Mild Pain (1-3) or Fever Hydrocodone Bitart/Acetaminophen 1 tab 12/25/24 15:13 12/26/24 10:09 Hydrocodone/Acetaminophen (*Crx) 5-325 Mg Tablet PO 1 tab Q4H PRN Administration Pain Rated 4-6 Hydrocodone Bitart/Acetaminophen 1 tab 12/25/24 15:13 12/25/24 20:46 Hydrocodone/Acetaminophen (*Crx) 10-325 Mg Tablet PO 1 tab Q4H PRN Administration Pain Rated 7-10 Albuterol 2 puff 12/25/24 02:29 Albuterol Sulfate (*Sp) Aerosol 1 Puff INHALATION QIDRT PRN shortness of breath or wheezing Baclofen 40 mg 12/25/24 21:00 12/25/24 20:44 Baclofen 10 Mg Tablet PO 40 mg HS [facility] Administration Buspirone HCl 30 mg 12/25/24 21:00 12/25/24 20:43 Buspirone Hcl 10 Mg Tablet PO 30 mg HS [facility] Administration Dextrose 12.5 gm 12/24/24 23:11 Dextrose 50% 25 Gm/50 Ml Syringe IV PUSH PRN PRN Hypoglycemia Protocol Enoxaparin Sodium 40 mg 12/26/24 09:00 12/26/24 10:10 Enoxaparin 40 Mg/0.4 Ml Syringe SUB-Q 40 mg DAILY [facility] Administration Fluoxetine HCl 60 mg 12/25/24 23:00 12/25/24 23:06 Fluoxetine Hcl 20 Mg Capsule PO 60 mg DAILY@2300 [facility] Administration Glucagon 1 mg 12/24/24 23:11 Glucagon For Inj 1 Mg Vial IM PRN PRN Hypoglycemia Protocol Glucose 15 gm 12/24/24 23:11 Glucose Oral Gel 15 Gm Of Glucse In 37.5 Gm Tube PO PRN PRN Hypoglycemia Protocol Hydromorphone HCl 1 mg 12/25/24 15:13 Hydromorphone Hcl Inj (*Crx) 1 Mg/Ml Syr IV PUSH Q2H PRN Breakthrough Pain Rated 7-10 or NPO Hydromorphone HCl 0.5 mg 12/25/24 15:13 Hydromorphone Hcl Inj (*Crx) 1 Mg/Ml Syr IV PUSH Q2H PRN Breakthrough Pain Rated 4-6 or NPO Vancomycin HCl 1,500 mg in 500 mls @ 250 mls/hr 12/25/24 11:00 12/25/24 23:05 Vancomycin 1,500 Mg/Ns 500 Ml IVPB 250 mls/hr Q12H [facility] Administration Dextrose 1,000 mls @ 100 mls/hr 12/24/24 23:11 Dextrose 5% 1,000 Ml IVPB PRN PRN Hypoglycemia Protocol Insulin Aspart 3 - 6 units 12/26/24 08:00 12/26/24 10:01 Insulin Aspart (*Bkc) 100 Units/Ml SUB-Q Not Given ACHS [facility] Protocol Naloxone HCl 0.1 mg 12/25/24 15:13 Naloxone Hcl 0.4 Mg/Ml Vial IV PUSH Q2M PRN Opiate Reversal Ondansetron HCl 4 mg 12/24/24 23:11 Ondansetron Inj 4 Mg/2 Ml Vial IV PUSH Q4H PRN Nausea Pantoprazole Sodium 40 mg 12/25/24 09:00 12/26/24 10:10 Pantoprazole 40 Mg Tablet PO 40 mg QAM [facility] Administration Pregabalin 150 mg 12/25/24 23:00 12/25/24 23:06 Pregabalin (*Crx) 75 Mg Capsule PO 150 mg DAILY@2300 [facility] Administration Trazodone HCl 150 mg 12/25/24 21:00 12/25/24 20:43 Trazodone Hcl 50 Mg Tablet PO 150 mg HS [facility] Administration Labs Labs: Laboratory Results - last 24 hr 12/25/24 12/25/24 12/25/24 12:13 14:01 18:09 POC Capillary Glucose 100 99 235 H 12/25/24 12/26/24 23:09 07:54 POC Capillary Glucose 210 H 151 H
[2024-12-26 10:28] LABS: Glucose Point of Care 257 mg/dl (65-105)
[2024-12-26 10:28] LABS: Glucose Point of Care 251 mg/dl (65-105)
[2024-12-26 10:37] LABS: Alanine Aminotransferase 17 U/L (6-35); Albumin Level 3.3 g/dL (3.5-5.1); Alkaline Phosphatase 90 U/L (38-126); Anion Gap 9 mmol/L (4-12); Aspartate Amino Transferase 16 U/L (14-36); Bilirubin,Total 0.5 mg/dL (0.2-1.3); Blood Urea Nitrogen 16 mg/dL (7-17); Calcium 8.4 mg/dL (8.4-10.2); Carbon Dioxide 25 mmol/L (22-30); Chloride 106 mmol/L (98-107); Estimated CRCL calculation 100 ml/min; Estimated Glomerular Filt Rate > 60; Glucose 249 mg/dL (65-110); Potassium 4.1 mmol/L (3.4-5.0); Sodium 140 mmol/L (137-145)
[2024-12-26 10:43] LABS: Vancomycin Trough 15.4 ug/mL (10.0-20.0)
--- NOTE | 2024-12-26 12:31 | P.PNGS_ITS ---
Progress Note: A&P Assessment and Plan (1) Abscess of abdominal wall: Code(s): L02.211 - Cutaneous abscess of abdominal wall Status: Acute Assessment and Plan: * Continue broad spectrum IV antibiotics and daily packing changes. Cultures growing gram + cocci in clusters. * Home in next 1-2 days if continuing to improve. (2) Insulin dependent diabetes mellitus: Status: Chronic (3) Morbid obesity with BMI of 40.0-44.9, adult: Code(s): E66.01 - Morbid (severe) obesity due to excess calories; Z68.41 - Body mass i ndex [BMI] 40.0-44.9, adult Status: Chronic (4) Obstructive sleep apnea: Onset Date: ~10/2020 Code(s): G47.33 - Obstructive sleep apnea (adult) (pediatric) Status: Acute Subjective Subjective Date/Time Seen: 12/26/24 12:31 Interval history: Doing well on POD#1. Pain controlled. No fevers. Exam GI: Other: Erythema slightly improved. Dressing with minimal serosanguinous output. Objective Data Vital Signs Vital Signs: Vital Signs - 24 hr 12/25/24 13:53 12/25/24 14:05 12/25/24 14:20 Temperature 97.1 F L Pulse Rate 63 64 81 Respiratory Rate 18 18 18 Blood Pressure 99/64 L 95/65 L 98/67 L Pulse Oximetry 96 97 98 Oxygen Delivery Simple Face Mask Simple Face Mask Simple Face Mask Oxygen Flow Rate 6 6 6 12/25/24 14:30 12/25/24 14:35 12/25/24 14:50 Temperature Pulse Rate 75 63 Respiratory Rate 18 18 Blood Pressure 106/73 113/72 Pulse Oximetry 97 95 Oxygen Delivery Room Air Room Air Room Air Oxygen Flow Rate 12/25/24 15:00 12/25/24 15:25 12/25/24 15:25 Temperature 96.1 F L Pulse Rate 59 L 57 L Respiratory Rate 20 18 Blood Pressure 116/78 116/76 Pulse Oximetry 95 97 97 Oxygen Delivery Room Air Room Air Oxygen Flow Rate 12/25/24 15:58 12/25/24 20:58 12/26/24 00:58 Temperature 97.0 F L 98.1 F 97.3 F L Pulse Rate 61 65 51 L Respiratory Rate 16 16 16 Blood Pressure 102/59 L 112/79 116/78 Pulse Oximetry 97 100 98 Oxygen Delivery Oxygen Flow Rate 12/26/24 04:58 12/26/24 08:58 Temperature 97.6 F 97.5 F L Pulse Rate 58 L 61 Respiratory Rate 14 16 Blood Pressure 129/73 119/78 Pulse Oximetry 100 98 Oxygen Delivery Oxygen Flow Rate Intake/Output Intake/Output: Intake & Output 12/23/24 12/24/24 12/25/24 12/26/24 23:59 23:59 23:59 23:59 Intake Total 2100 660 Balance 2100 660 Meds/Results Medications: Active Medications Generic Name Dose Route Start Last Admin Trade Name Freq PRN Reason Stop Dose Admin Acetaminophen 650 mg 12/24/24 23:11 Acetaminophen 325 Mg Tablet PO Q4H PRN Mild Pain (1-3) or Fever Hydrocodone Bitart/Acetaminophen 1 tab 12/25/24 15:13 12/26/24 10:09 Hydrocodone/Acetaminophen (*Crx) 5-325 Mg Tablet PO 1 tab Q4H PRN Administration Pain Rated 4-6 Hydrocodone Bitart/Acetaminophen 1 tab 12/25/24 15:13 12/25/24 20:46 Hydrocodone/Acetaminophen (*Crx) 10-325 Mg Tablet PO 1 tab Q4H PRN Administration Pain Rated 7-10 Albuterol 2 puff 12/25/24 02:29 Albuterol Sulfate (*Sp) Aerosol 1 Puff INHALATION QIDRT PRN shortness of breath or wheezing Baclofen 40 mg 12/25/24 21:00 12/25/24 20:44 Baclofen 10 Mg Tablet PO 40 mg HS [facility] Administration Buspirone HCl 30 mg 12/25/24 21:00 12/25/24 20:43 Buspirone Hcl 10 Mg Tablet PO 30 mg HS [facility] Administration Dextrose 12.5 gm 12/24/24 23:11 Dextrose 50% 25 Gm/50 Ml Syringe IV PUSH PRN PRN Hypoglycemia Protocol Enoxaparin Sodium 40 mg 12/26/24 09:00 12/26/24 10:10 Enoxaparin 40 Mg/0.4 Ml Syringe SUB-Q 40 mg DAILY [facility] Administration Fluoxetine HCl 60 mg 12/25/24 23:00 12/25/24 23:06 Fluoxetine Hcl 20 Mg Capsule PO 60 mg DAILY@2300 [facility] Administration Glucagon 1 mg 12/24/24 23:11 Glucagon For Inj 1 Mg Vial IM PRN PRN Hypoglycemia Protocol Glucose 15 gm 12/24/24 23:11 Glucose Oral Gel 15 Gm Of Glucse In 37.5 Gm Tube PO PRN PRN Hypoglycemia Protocol Hydromorphone HCl 1 mg 12/25/24 15:13 Hydromorphone Hcl Inj (*Crx) 1 Mg/Ml Syr IV PUSH Q2H PRN Breakthrough Pain Rated 7-10 or NPO Hydromorphone HCl 0.5 mg 12/25/24 15:13 Hydromorphone Hcl Inj (*Crx) 1 Mg/Ml Syr IV PUSH Q2H PRN Breakthrough Pain Rated 4-6 or NPO Dextrose 1,000 mls @ 100 mls/hr 12/24/24 23:11 Dextrose 5% 1,000 Ml IVPB PRN PRN Hypoglycemia Protocol Vancomycin HCl 1,250 mg in 250 mls @ 166.667 mls/hr 12/26/24 15:00 Vancomycin 1,250 Mg/Ns 250 Ml IVPB Q12H [facility] Insulin Aspart 3 - 6 units 12/26/24 08:00 12/26/24 10:01 Insulin Aspart (*Bkc) 100 Units/Ml SUB-Q Not Given ACHS [facility] Protocol Naloxone HCl 0.1 mg 12/25/24 15:13 Naloxone Hcl 0.4 Mg/Ml Vial IV PUSH Q2M PRN Opiate Reversal Ondansetron HCl 4 mg 12/24/24 23:11 Ondansetron Inj 4 Mg/2 Ml Vial IV PUSH Q4H PRN Nausea Pantoprazole Sodium 40 mg 12/25/24 09:00 12/26/24 10:10 Pantoprazole 40 Mg Tablet PO 40 mg QAM [facility] Administration Pregabalin 150 mg 12/25/24 23:00 12/25/24 23:06 Pregabalin (*Crx) 75 Mg Capsule PO 150 mg DAILY@2300 [facility] Administration Trazodone HCl 150 mg 12/25/24 21:00 12/25/24 20:43 Trazodone Hcl 50 Mg Tablet PO 150 mg HS [facility] Administration Labs Labs: Laboratory Results - last 24 hr 12/25/24 12/25/24 12/25/24 14:01 18:09 23:09 WBC RBC Hgb Hct MCV MCH MCHC RDW Plt Count MPV Sodium Potassium Chloride Carbon Dioxide Anion Gap BUN Creatinine Estim Creat Clear Calc Estimated GFR Glucose POC Capillary Glucose 99 235 H 210 H Calcium Total Bilirubin AST ALT Alkaline Phosphatase Total Protein Albumin Vancomycin Trough 12/26/24 12/26/24 12/26/24 07:54 10:10 10:22 WBC 7.5 RBC 3.83 L Hgb 11.7 L Hct 35.1 L MCV 91.6 MCH 30.5 MCHC 33.3 RDW 13.7 Plt Count 180 MPV 9.2 Sodium 140 Potassium 4.1 Chloride 106 Carbon Dioxide 25 Anion Gap 9 BUN 16 Creatinine 0.79 Estim Creat Clear Calc 100 Estimated GFR > 60 Glucose 249 H POC Capillary Glucose 151 H 257 H Calcium 8.4 Total Bilirubin 0.5 AST 16 ALT 17 Alkaline Phosphatase 90 Total Protein 7.0 Albumin 3.3 L Vancomycin Trough 15.4 12/26/24 10:24 WBC RBC Hgb Hct MCV MCH MCHC RDW Plt Count MPV Sodium Potassium Chloride Carbon Dioxide Anion Gap BUN Creatinine Estim Creat Clear Calc Estimated GFR Glucose POC Capillary Glucose 251 H Calcium Total Bilirubin AST ALT Alkaline Phosphatase Total Protein Albumin Vancomycin Trough
[2024-12-26 12:34] LABS: Glucose Point of Care 190 mg/dl (65-105)
[2024-12-26] MEDS: FUROSEMIDE 40 MG TABLET 80 MG PO (16:40)
[2024-12-26] MEDS: SPIRONOLACTONE 50 MG TABLET PO (16:40)
[2024-12-26] MEDS: POTASSIUM CHLORIDE 10 MEQ ER TABLET PO (16:41)
[2024-12-26] MEDS: VANCOMYCIN 1,250 MG/NS 250 ML 1,250 MG/250 ML BAG 166.67 MG IVPB ×2 (16:43→18:40)
[2024-12-26 18:10] LABS: Glucose Point of Care 130 mg/dl (65-105)
[2024-12-26] MEDS: ACETAMINOPHEN 325 MG TABLET 650 MG PO (18:37)
[2024-12-26] MEDS: HYDROmorphone HCL INJ (*CRX) 1 MG/ML SYR 0.5 MG IV PUSH (18:49)
--- NOTE | 2024-12-26 20:18 | PHAR ---
Active Ingredients Liraglutide - 6 MG/ML Excipients Phenol??1.83 MG/ML Propylene Glycol??4.67 MG/ML Sodium Phosphate, Dibasic (Dihydrate)??0.47 MG/ML Water, Sterile? [facility] [id number] ([facility])
[2024-12-26 21:07] LABS: Glucose Point of Care 164 mg/dl (65-105)
[2024-12-26] MEDS: traZODone HCL 50 MG TABLET 150 MG PO (21:53)
[2024-12-26] MEDS: LIRAGLUTIDE 1.8 EACH SUB-Q (21:54)
[2024-12-26] MEDS: FLUoxetine HCL 20 MG CAPSULE 60 MG PO (23:31)
[2024-12-26] MEDS: PREGABALIN (*CRX) 75 MG CAPSULE 150 MG PO (23:32)
[2024-12-26] MEDS: BACLOFEN 10 MG TABLET 40 MG PO (23:33)
[2024-12-26] MEDS: busPIRone HCL 10 MG TABLET 30 MG PO (23:33)
[2024-12-26] MEDS: HYDROcodone/acetaminophen (*CRX) 10-325 MG TABLET 1 TAB PO (23:36)
[2024-12-27 05:50] VITALS: BP 111/59; PULSE 53; RESP 14; TEMP 36.6; O2SAT 100
[2024-12-27] MEDS: VANCOMYCIN 1,250 MG/NS 250 ML 1,250 MG/250 ML BAG 166.67 MG IVPB (05:58)
[2024-12-27] MEDS: HYDROcodone/acetaminophen (*CRX) 10-325 MG TABLET 1 TAB PO (06:03)
[2024-12-27 07:45] LABS: Estimated CRCL calculation 91 ml/min; Estimated Glomerular Filt Rate > 60; Potassium 3.4 mmol/L (3.4-5.0)
[2024-12-27 08:20] LABS: Glucose Point of Care 78 mg/dl (65-105)
[2024-12-27] MEDS: HYDROmorphone HCL INJ (*CRX) 1 MG/ML SYR IV PUSH (08:59)
[2024-12-27] MEDS: POTASSIUM CHLORIDE 10 MEQ ER TABLET PO (09:01)
[2024-12-27] MEDS: PANTOPRAZOLE 40 MG TABLET PO (09:01)
[2024-12-27] MEDS: FUROSEMIDE 40 MG TABLET 80 MG PO (09:01)
[2024-12-27] MEDS: SPIRONOLACTONE 50 MG TABLET PO (09:01)
--- NOTE | 2024-12-27 09:15 | PM.IMPN ---
Progress Note: A&P Assessment and Plan (1) Insulin dependent diabetes mellitus: Status: Chronic Assessment and Plan: Continue current treatment monitor closely. (2) Morbid obesity with BMI of 40.0-44.9, adult: Code(s): E66.01 - Morbid (severe) obesity due to excess calories; Z68.41 - Body mass index [BMI] 40.0-44.9, adult Status: Chronic Assessment and Plan: diet and exercise explained to patient. (3) Cellulitis of left abdominal wall: Code(s): L03.311 - Cellulitis of abdominal wall Status: Acute Assessment and Plan: Continue IV antibiotics. S/P I&D. Pain controlled Possible discharge in the morning. Plan This is a 44-year-old female with a history of morbid obesity, hypertension, hyperlipidemia, insulin-dependent diabetes mellitus with an insulin pump in diabetic peripheral neuropathy, GERD, anxiety depression and PTSD among other comorbidities who presents with infection of her left lower abdominal pannus. This started about 12 days prior. She arrived to [place] ER the day before left AMA from the ER after receiving antibiotics. She was prescribed doxycycline but never picked it up reporting she did not have a car. She returns today on 10/23/2025 reporting the pain and swelling and erythema are worse. General surgery consulted from the ER. Given cefepime and vancomycin. ----- White count of 10.1. This is near normal, continue to trend. No sepsis. CT of the pelvis with IV contrast performed on the ER visit on the day prior which demonstrates induration at the left lower pannus. Continue antibiotics Accu-Cheks q.6 hours with sliding scale moderate. ---- SCD. Full code. Home medications restarted as appropriate. Holding furosemide, potassium, spironolactone. Subjective Date/time seen: 12/27/24 09:15 Interval history: Patient was seen during the morning rounds today. Patient is s/p I&D, pain controlled No shortness of breath or chest pain. Pain under control. No new overnight complaints. Review of Systems Review of Systems: All systems reviewed & are unremarkable except as noted in HPI and below (HPI) Exam Const: General: comfortable and no acute distress Eyes: Pupils: Equal, round and reactive pupils present Neck: Neck: supple Resp: Effort & Inspection: normal respiratory effort Auscultation: clear to auscultation bilaterally Cardio: Rate: regular rate Rhythm: regular rhythm GI: Other: S/P I&D : General: Yes bladder normal to palpation Bimanual exam- vagina & uterus: bladder normal to palpation Skin: Other: Large abdominal pannus and on the left lower fold there is induration and erythema with tenderness to palpation actively expressing dark brown purulent material. Neuro: Cranial nerves: Yes Equal, round and reactive pupils present Extrem: General: no edema Objective Data Vital Signs Vital Signs: Vital Signs - 24 hr 12/26/24 12:58 12/26/24 14:00 12/26/24 16:58 Temperature 36.4 C L 36.3 C L 36.4 C L Pulse Rate 59 L 63 63 Respiratory Rate 16 16 16 Blood Pressure 103/64 135/93 H 135/93 H Pulse Oximetry 100 100 100 12/26/24 21:53 12/27/24 05:50 Temperature 36.4 C 36.6 C Pulse Rate 64 53 L Respiratory Rate 18 14 Blood Pressure 131/76 111/59 L Pulse Oximetry 100 100 Intake/Output Intake/Output: Intake & Output 12/24/24 12/25/24 12/26/24 12/27/24 23:59 23:59 23:59 23:59 Intake Total 2100 1375.6 1250 Balance 2100 1375.6 1250 Meds/Results Medications: Active Medications Generic Name Dose Route Start Last Admin Trade Name Freq PRN Reason Stop Dose Admin Acetaminophen 650 mg 12/24/24 23:11 12/26/24 18:37 Acetaminophen 325 Mg Tablet PO 650 mg Q4H PRN Administration Mild Pain (1-3) or Fever Hydrocodone Bitart/Acetaminophen 1 tab 12/25/24 15:13 12/26/24 15:20 Hydrocodone/Acetaminophen (*Crx) 5-325 Mg Tablet PO 1 tab Q4H PRN Administration Pain Rated 4-6 Hydrocodone Bitart/Acetaminophen 1 tab 12/25/24 15:13 12/27/24 06:03 Hydrocodone/Acetaminophen (*Crx) 10-325 Mg Tablet PO 1 tab Q4H PRN Administration Pain Rated 7-10 Albuterol 2 puff 12/25/24 02:29 Albuterol Sulfate (*Sp) Aerosol 1 Puff INHALATION QIDRT PRN shortness of breath or wheezing Baclofen 40 mg 12/25/24 21:00 12/26/24 23:33 Baclofen 10 Mg Tablet PO 40 mg HS [facility] Administration Buspirone HCl 30 mg 12/25/24 21:00 12/26/24 23:33 Buspirone Hcl 10 Mg Tablet PO 30 mg HS [facility] Administration Dextrose 12.5 gm 12/24/24 23:11 Dextrose 50% 25 Gm/50 Ml Syringe IV PUSH PRN PRN Hypoglycemia Protocol Enoxaparin Sodium 40 mg 12/26/24 09:00 12/26/24 10:10 Enoxaparin 40 Mg/0.4 Ml Syringe SUB-Q 40 mg DAILY [facility] Administration Fluoxetine HCl 60 mg 12/25/24 23:00 12/26/24 23:31 Fluoxetine Hcl 20 Mg Capsule PO 60 mg DAILY@2300 [facility] Administration Furosemide 80 mg 12/27/24 09:00 12/27/24 09:01 Furosemide 40 Mg Tablet PO 80 mg DAILY [facility] Administration Glucagon 1 mg 12/24/24 23:11 Glucagon For Inj 1 Mg Vial IM PRN PRN Hypoglycemia Protocol Glucose 15 gm 12/24/24 23:11 Glucose Oral Gel 15 Gm Of Glucse In 37.5 Gm Tube PO PRN PRN Hypoglycemia Protocol Hydromorphone HCl 1 mg 12/25/24 15:13 12/27/24 08:59 Hydromorphone Hcl Inj (*Crx) 1 Mg/Ml Syr IV PUSH 1 mg Q2H PRN Administration Breakthrough Pain Rated 7-10 or NPO Hydromorphone HCl 0.5 mg 12/25/24 15:13 12/26/24 18:49 Hydromorphone Hcl Inj (*Crx) 1 Mg/Ml Syr IV PUSH 0.5 mg Q2H PRN Administration Breakthrough Pain Rated 4-6 or NPO Dextrose 1,000 mls @ 100 mls/hr 12/24/24 23:11 Dextrose 5% 1,000 Ml IVPB PRN PRN Hypoglycemia Protocol Vancomycin HCl 1,250 mg in 250 mls @ 166.667 mls/hr 12/26/24 18:00 12/27/24 08:35 Vancomycin 1,250 Mg/Ns 250 Ml IVPB Infused Q12H [facility] Infusion Insulin Aspart 3 - 6 units 12/26/24 17:00 12/27/24 09:00 Insulin Aspart (*Bkc) 100 Units/Ml SUB-Q Not Given [facility] Protocol Miscellaneous Information 0 each 12/26/24 00:01 Naproxen - 1000 Mg Dose Only For Naprelan - Please Clarify Dose/Directions/Product XX 01/25/25 00:00 CLARIFY [facility] Miscellaneous Information 0 each 12/26/24 00:01 Insulin U-500 - Please Clarify Dose/Directions/Order XX 01/25/25 00:00 CLARIFY [facility] Naloxone HCl 0.1 mg 12/25/24 15:13 Naloxone Hcl 0.4 Mg/Ml Vial IV PUSH Q2M PRN Opiate Reversal Naproxen 1,000 mg 12/27/24 09:00 Naproxen 500 Mg Tablet PO DAILY [facility] Non-Formulary Medication see protocol unit 12/26/24 14:26 Insulin Regular Hum U-500 Conc [Humulin R U-500 (Conc) Insulin] SUB-Q INFU USEASDIRECTD PRN Hyperglycemia (Liraglutide [ 1.8 mg 12/26/24 21:00 12/26/24 21:54 Victoza 3-[place]] 0.6 SUB-Q 01/25/25 20:59 1.8 mg Mg/0.1 Ml (18 Mg/3 HS [facility] Administration Ml) Pen Injector) Ondansetron HCl 4 mg 12/24/24 23:11 Ondansetron Inj 4 Mg/2 Ml Vial IV PUSH Q4H PRN Nausea Pantoprazole Sodium 40 mg 12/25/24 09:00 12/27/24 09:01 Pantoprazole 40 Mg Tablet PO 40 mg QAM [facility] Administration Potassium Chloride 10 meq 12/27/24 09:00 12/27/24 09:01 Potassium Chloride 10 Meq Er Tablet PO 10 meq DAILY [facility] Administration Pregabalin 150 mg 12/25/24 23:00 12/26/24 23:32 Pregabalin (*Crx) 75 Mg Capsule PO 150 mg DAILY@2300 [facility] Administration Spironolactone 50 mg 12/27/24 09:00 12/27/24 09:01 Spironolactone 50 Mg Tablet PO 50 mg DAILY [facility] Administration Trazodone HCl 150 mg 12/25/24 21:00 12/26/24 21:53 Trazodone Hcl 50 Mg Tablet PO 150 mg HS [facility] Administration Labs Labs: Laboratory Results - last 24 hr 12/26/24 12/26/24 12/26/24 10:10 10:22 10:24 WBC 7.5 RBC 3.83 L Hgb 11.7 L Hct 35.1 L MCV 91.6 MCH 30.5 MCHC 33.3 RDW 13.7 Plt Count 180 MPV 9.2 Sodium 140 Potassium 4.1 Chloride 106 Carbon Dioxide 25 Anion Gap 9 BUN 16 Creatinine 0.79 Estim Creat Clear Calc 100 Estimated GFR > 60 Glucose 249 H POC Capillary Glucose 257 H 251 H Calcium 8.4 Total Bilirubin 0.5 AST 16 ALT 17 Alkaline Phosphatase 90 Total Protein 7.0 Albumin 3.3 L Vancomycin Trough 15.4 12/26/24 12/26/24 12/26/24 11:59 17:00 20:56 WBC RBC Hgb Hct MCV MCH MCHC RDW Plt Count MPV Sodium Potassium Chloride Carbon Dioxide Anion Gap BUN Creatinine Estim Creat Clear Calc Estimated GFR Glucose POC Capillary Glucose 190 H 130 H 164 H Calcium Total Bilirubin AST ALT Alkaline Phosphatase Total Protein Albumin Vancomycin Trough 12/27/24 12/27/24 06:37 08:03 WBC RBC Hgb Hct MCV MCH MCHC RDW Plt Count MPV Sodium Potassium 3.4 Chloride Carbon Dioxide Anion Gap BUN Creatinine 0.87 Estim Creat Clear Calc 91 Estimated GFR > 60 Glucose POC Capillary Glucose 78 Calcium Total Bilirubin AST ALT Alkaline Phosphatase Total Protein Albumin Vancomycin Trough
[2024-12-27 12:42] LABS: Glucose Point of Care 106 mg/dl (65-105)
[2024-12-27 14:00] VITALS: BP 122/84; PULSE 57; RESP 16; TEMP 36.4; O2SAT 98
--- NOTE | 2024-12-27 15:05 | PM.PNGS ---
Progress Note: A&P Assessment and Plan (1) Abscess of abdominal wall: Code(s): L02.211 - Cutaneous abscess of abdominal wall Status: Acute Assessment and Plan: Will switch to Percocet prn pain. Continue daily packing changes. Surgically stable for discharge. F/u in office in 2 weeks. (2) Insulin dependent diabetes mellitus: Status: Chronic (3) Morbid obesity with BMI of 40.0-44.9, adult: Code(s): E66.01 - Morbid (severe) obesity due to excess calories; Z68.41 - Body mass index [BMI] 40.0-44.9, adult Status: Chronic (4) Obstructive sleep apnea: Onset Date: ~10/2020 Code(s): G47.33 - Obstructive sleep apnea (adult) (pediatric) Status: Acute Subjective Subjective Date/Time Seen: 12/27/24 15:05 Interval history: Doing well. Packing changes painful. Hydrocodone not much help. No fevers. Exam GI: Other: Erythema resolved. Dressing dry. Objective Data Vital Signs Vital Signs: Vital Signs - 24 hr 12/26/24 16:58 12/26/24 21:53 12/27/24 05:50 Temperature 97.5 F L 97.6 F 97.8 F Pulse Rate 63 64 53 L Respiratory Rate 16 18 14 Blood Pressure 135/93 H 131/76 111/59 L Pulse Oximetry 100 100 100 12/27/24 14:00 Temperature 97.5 F L Pulse Rate 57 L Respiratory Rate 16 Blood Pressure 122/84 Pulse Oximetry 98 Intake/Output Intake/Output: Intake & Output 12/24/24 12/25/24 12/26/24 12/27/24 23:59 23:59 23:59 23:59 Intake Total 2100 1375.6 1810 Balance 2100 1375.6 1810 Meds/Results Medications: Active Medications Generic Name Dose Route Start Last Admin Trade Name Freq PRN Reason Stop Dose Admin Acetaminophen 650 mg 12/24/24 23:11 12/26/24 18:37 Acetaminophen 325 Mg Tablet PO 650 mg Q4H PRN Administration Mild Pain (1-3) or Fever Albuterol 2 puff 12/25/24 02:29 Albuterol Sulfate (*Sp) Aerosol 1 Puff INHALATION QIDRT PRN shortness of breath or wheezing Baclofen 40 mg 12/25/24 21:00 12/26/24 23:33 Baclofen 10 Mg Tablet PO 40 mg HS [place] Administration Buspirone HCl 30 mg 12/25/24 21:00 12/26/24 23:33 Buspirone Hcl 10 Mg Tablet PO 30 mg HS [place] Administration Dextrose 12.5 gm 12/24/24 23:11 Dextrose 50% 25 Gm/50 Ml Syringe IV PUSH PRN PRN Hypoglycemia Protocol Enoxaparin Sodium 40 mg 12/26/24 09:00 12/26/24 10:10 Enoxaparin 40 Mg/0.4 Ml Syringe SUB-Q 40 mg DAILY [place] Administration Fluoxetine HCl 60 mg 12/25/24 23:00 12/26/24 23:31 Fluoxetine Hcl 20 Mg Capsule PO 60 mg DAILY@2300 [facility] Administration Furosemide 80 mg 12/27/24 09:00 12/27/24 09:01 Furosemide 40 Mg Tablet PO 80 mg DAILY [place] Administration Glucagon 1 mg 12/24/24 23:11 Glucagon For Inj 1 Mg Vial IM PRN PRN Hypoglycemia Protocol Glucose 15 gm 12/24/24 23:11 Glucose Oral Gel 15 Gm Of Glucse In 37.5 Gm Tube PO PRN PRN Hypoglycemia Protocol Hydromorphone HCl 1 mg 12/25/24 15:13 12/27/24 08:59 Hydromorphone Hcl Inj (*Crx) 1 Mg/Ml Syr IV PUSH 1 mg Q2H PRN Administration Breakthrough Pain Rated 7-10 or NPO Hydromorphone HCl 0.5 mg 12/25/24 15:13 12/26/24 18:49 Hydromorphone Hcl Inj (*Crx) 1 Mg/Ml Syr IV PUSH 0.5 mg Q2H PRN Administration Breakthrough Pain Rated 4-6 or NPO Dextrose 1,000 mls @ 100 mls/hr 12/24/24 23:11 Dextrose 5% 1,000 Ml IVPB PRN PRN Hypoglycemia Protocol Vancomycin HCl 1,250 mg in 250 mls @ 166.667 mls/hr 12/26/24 18:00 12/27/24 08:35 Vancomycin 1,250 Mg/Ns 250 Ml IVPB Infused Q12H [facility] Infusion Insulin Aspart 3 - 6 units 12/26/24 17:00 12/27/24 12:42 Insulin Aspart (*Bkc) 100 Units/Ml SUB-Q Not Given [facility] Protocol Miscellaneous Information 0 each 12/26/24 00:01 Naproxen - 1000 Mg Dose Only For Naprelan - Please Clarify Dose/Directions/Product XX 01/25/25 00:00 CLARIFY [facility] Miscellaneous Information 0 each 12/26/24 00:01 Insulin U-500 - Please Clarify Dose/Directions/Order XX 01/25/25 00:00 CLARIFY [facility] Naloxone HCl 0.1 mg 12/25/24 15:13 Naloxone Hcl 0.4 Mg/Ml Vial IV PUSH Q2M PRN Opiate Reversal Naproxen 1,000 mg 12/27/24 09:00 Naproxen 500 Mg Tablet PO DAILY [place] (Liraglutide [ 1.8 mg 12/26/24 21:00 12/26/24 21:54 Victoza 3-[place]] 0.6 SUB-Q 01/25/25 20:59 1.8 mg Mg/0.1 Ml (18 Mg/3 HS [place] Administration Ml) Pen Injector) Non-Formulary Medication 0 unit 12/27/24 12:41 Insulin Regular Hum U-500 Conc [Humulin R U-500 (Conc) Insulin] SUB-Q INFU USEASDIRECTD PRN Hyperglycemia Ondansetron HCl 4 mg 12/24/24 23:11 Ondansetron Inj 4 Mg/2 Ml Vial IV PUSH Q4H PRN Nausea Oxycodone/Acetaminophen 1 tablet 12/27/24 15:04 Oxycodone/Acetaminophen (*Crx) 5-325 Mg Tablet PO Q4H PRN Pain Rated 4-6 Oxycodone/Acetaminophen 1 tab 12/27/24 15:04 Oxycodone/Acetaminophen (*Crx) 10-325 Mg Tablet PO Q4H PRN Pain Rated 7-10 Pantoprazole Sodium 40 mg 12/25/24 09:00 12/27/24 09:01 Pantoprazole 40 Mg Tablet PO 40 mg QAM [facility] Administration Potassium Chloride 10 meq 12/27/24 09:00 12/27/24 09:01 Potassium Chloride 10 Meq Er Tablet PO 10 meq DAILY [place] Administration Pregabalin 150 mg 12/25/24 23:00 12/26/24 23:32 Pregabalin (*Crx) 75 Mg Capsule PO 150 mg DAILY@2300 [facility] Administration Spironolactone 50 mg 12/27/24 09:00 12/27/24 09:01 Spironolactone 50 Mg Tablet PO 50 mg DAILY [place] Administration Trazodone HCl 150 mg 12/25/24 21:00 12/26/24 21:53 Trazodone Hcl 50 Mg Tablet PO 150 mg HS [place] Administration Labs Labs: Laboratory Results - last 24 hr 12/26/24 12/26/24 12/27/24 17:00 20:56 06:37 Potassium 3.4 Creatinine 0.87 Estim Creat Clear Calc 91 Estimated GFR > 60 POC Capillary Glucose 130 H 164 H 12/27/24 12/27/24 08:03 12:08 Potassium Creatinine Estim Creat Clear Calc Estimated GFR POC Capillary Glucose 78 106 H
[2024-12-27 17:06] LABS: Glucose Point of Care 128 mg/dl (65-105)
[2024-12-27] MEDS: DOCUSATE SODIUM 100 MG CAPSULE PO (18:15)
[2024-12-27] MEDS: oxyCODONE/ACETAMINOPHEN (*CRX) 5-325 MG TABLET 1 TABLET PO (18:15)
[2024-12-27] MEDS: VANCOMYCIN 1,250 MG/NS 250 ML 1,250 MG/250 ML BAG 166 MG IVPB (18:18)
[2024-12-27] MEDS: ENOXAPARIN 40 MG/0.4 ML SYRINGE SUB-Q (18:23)
[2024-12-27] MEDS: BACLOFEN 10 MG TABLET 40 MG PO (20:13)
[2024-12-27] MEDS: busPIRone HCL 10 MG TABLET 30 MG PO (20:13)
[2024-12-27] MEDS: traZODone HCL 50 MG TABLET 150 MG PO (20:14)
[2024-12-27 21:38] LABS: Glucose Point of Care 143 mg/dl (65-105)
[2024-12-27 22:00] VITALS: BP 129/83; PULSE 66; RESP 18; TEMP 36.7; O2SAT 98
[2024-12-27] MEDS: oxyCODONE/ACETAMINOPHEN (*CRX) 10-325 MG TABLET 1 TAB PO (23:22)
[2024-12-27] MEDS: FLUoxetine HCL 20 MG CAPSULE 60 MG PO (23:22)
[2024-12-27] MEDS: PREGABALIN (*CRX) 75 MG CAPSULE 150 MG PO (23:22)
[2024-12-28 05:41] LABS: Estimated CRCL calculation 90 ml/min; Estimated Glomerular Filt Rate > 60
[2024-12-28 06:00] VITALS: BP 109/57; PULSE 74; RESP 16; TEMP 36.7; O2SAT 99
[2024-12-28 06:09] LABS: Vancomycin Trough 18.6 ug/mL (10.0-20.0)
[2024-12-28] MEDS: HYDROmorphone HCL INJ (*CRX) 1 MG/ML SYR 0.5 MG IV PUSH (06:14)
[2024-12-28 08:05] LABS: Glucose Point of Care 129 mg/dl (65-105)
[2024-12-28] MEDS: ENOXAPARIN 40 MG/0.4 ML SYRINGE SUB-Q (09:05)
[2024-12-28] MEDS: POTASSIUM CHLORIDE 10 MEQ ER TABLET PO (09:05)
[2024-12-28] MEDS: PANTOPRAZOLE 40 MG TABLET PO (09:05)
[2024-12-28] MEDS: SPIRONOLACTONE 50 MG TABLET PO (09:06)
[2024-12-28] MEDS: FUROSEMIDE 40 MG TABLET 80 MG PO (09:06)
--- NOTE | 2024-12-28 09:06 | PM.IMPN ---
Progress Note: A&P Assessment and Plan (1) Insulin dependent diabetes mellitus: Status: Chronic Assessment and Plan: Continue current treatment monitor closely. (2) Morbid obesity with BMI of 40.0-44.9, adult: Code(s): E66.01 - Morbid (severe) obesity due to excess calories; Z68.41 - Body mass index [BMI] 40.0-44.9, adult Status: Chronic Assessment and Plan: diet and exercise explained to patient. (3) Cellulitis of left abdominal wall: Code(s): L03.311 - Cellulitis of abdominal wall Status: Acute Assessment and Plan: Continue IV antibiotics. S/P I&D. Pain controlled Possible discharge in the morning. Plan This is a 44-year-old female with a history of morbid obesity, hypertension, hyperlipidemia, insulin-dependent diabetes mellitus with an insulin pump in diabetic peripheral neuropathy, GERD, anxiety depression and PTSD among other comorbidities who presents with infection of her left lower abdominal pannus. This started about 12 days prior. She arrived to [place] ER the day before left AMA from the ER after receiving antibiotics. She was prescribed doxycycline but never picked it up reporting she did not have a car. She returns today on 10/23/2025 reporting the pain and swelling and erythema are worse. General surgery consulted from the ER. Given cefepime and vancomycin. ----- White count of 10.1. This is near normal, continue to trend. No sepsis. CT of the pelvis with IV contrast performed on the ER visit on the day prior which demonstrates induration at the left lower pannus. trend daily labs Continue antibiotics Accu-Cheks q.6 hours with sliding scale moderate. Reviewed- couple elevated-but overall stable ---- SCD. Full code. Home medications restarted as appropriate. Holding furosemide, potassium, spironolactone. Time Spent With Patient Time with patient: 25 - 35 minutes Subjective Date/time seen: 12/28/24 09:06 Interval history: This is a 44-year-old female with a history of morbid obesity, hypertension, hyperlipidemia, insulin-dependent diabetes mellitus with an insulin pump in diabetic peripheral neuropathy, GERD, anxiety depression and PTSD among other comorbidities who presents with infection of her left lower abdominal pannus. This started about 12 days prior. She arrived to [place] ER the day before left AMA from the ER after receiving antibiotics. She was prescribed doxycycline but never picked it up reporting she did not have a car. She returns today on 10/23/2025 reporting the pain and swelling and erythema are worse. General surgery consulted from the ER. Given cefepime and vancomycin. 12/28 - assuming care. Patient is seen and examined. Surgery is following Patient is s/p I&D, pain controlled No shortness of breath or chest pain, no n/v/d. Pain is controlled. Review of Systems Review of Systems: All systems reviewed & are unremarkable except as noted in HPI and below (HPI) Exam Const: General: comfortable and no acute distress Eyes: Pupils: Equal, round and reactive pupils present Neck: Neck: supple Resp: Effort & Inspection: normal respiratory effort Auscultation: clear to auscultation bilaterally Cardio: Rate: regular rate Rhythm: regular rhythm GI: Other: S/P I&D : General: Yes bladder normal to palpation Bimanual exam- vagina & uterus: bladder normal to palpation Skin: Other: Large abdominal pannus and on the left lower fold there is induration and erythema with tenderness Neuro: Cranial nerves: Yes Equal, round and reactive pupils present Extrem: General: no edema Objective Data Vital Signs Vital Signs: Vital Signs - 24 hr 12/27/24 14:00 12/27/24 22:00 12/28/24 06:00 Temperature 97.5 F L 98.0 F 98.0 F Pulse Rate 57 L 66 74 Respiratory Rate 16 18 16 Blood Pressure 122/84 129/83 109/57 L Pulse Oximetry 98 98 99 Intake/Output Intake/Output: Intake & Output 12/25/24 12/26/24 12/27/24 12/28/24 23:59 23:59 23:59 23:59 Intake Total 2100 1375.6 2180 200 Balance 2100 1375.6 2180 200 Meds/Results Medications: Active Medications Generic Name Dose Route Start Last Admin Trade Name Freq PRN Reason Stop Dose Admin Acetaminophen 650 mg 12/24/24 23:11 12/26/24 18:37 Acetaminophen 325 Mg Tablet PO 650 mg Q4H PRN Administration Mild Pain (1-3) or Fever Albuterol 2 puff 12/25/24 02:29 Albuterol Sulfate (*Sp) Aerosol 1 Puff INHALATION QIDRT PRN shortness of breath or wheezing Baclofen 40 mg 12/25/24 21:00 12/27/24 20:13 Baclofen 10 Mg Tablet PO 40 mg HS [place] Administration Buspirone HCl 30 mg 12/25/24 21:00 12/27/24 20:13 Buspirone Hcl 10 Mg Tablet PO 30 mg HS [place] Administration Dextrose 12.5 gm 12/24/24 23:11 Dextrose 50% 25 Gm/50 Ml Syringe IV PUSH PRN PRN Hypoglycemia Protocol Docusate Sodium 100 mg 12/27/24 18:05 12/27/24 18:15 Docusate Sodium 100 Mg Capsule PO 100 mg Q12H PRN Administration Constipation Enoxaparin Sodium 40 mg 12/26/24 09:00 12/27/24 18:23 Enoxaparin 40 Mg/0.4 Ml Syringe SUB-Q 40 mg DAILY [place] Administration Fluoxetine HCl 60 mg 12/25/24 23:00 12/27/24 23:22 Fluoxetine Hcl 20 Mg Capsule PO 60 mg DAILY@2300 [facility] Administration Furosemide 80 mg 12/27/24 09:00 12/27/24 09:01 Furosemide 40 Mg Tablet PO 80 mg DAILY [place] Administration Glucagon 1 mg 12/24/24 23:11 Glucagon For Inj 1 Mg Vial IM PRN PRN Hypoglycemia Protocol Glucose 15 gm 12/24/24 23:11 Glucose Oral Gel 15 Gm Of Glucse In 37.5 Gm Tube PO PRN PRN Hypoglycemia Protocol Hydromorphone HCl 1 mg 12/25/24 15:13 12/27/24 08:59 Hydromorphone Hcl Inj (*Crx) 1 Mg/Ml Syr IV PUSH 1 mg Q2H PRN Administration Breakthrough Pain Rated 7-10 or NPO Hydromorphone HCl 0.5 mg 12/25/24 15:13 12/28/24 06:14 Hydromorphone Hcl Inj (*Crx) 1 Mg/Ml Syr IV PUSH 0.5 mg Q2H PRN Administration Breakthrough Pain Rated 4-6 or NPO Dextrose 1,000 mls @ 100 mls/hr 12/24/24 23:11 Dextrose 5% 1,000 Ml IVPB PRN PRN Hypoglycemia Protocol Vancomycin HCl 1,000 mg in 250 mls @ 250 mls/hr 12/28/24 12:00 Vancomycin 1,000 Mg/Ns 250 Ml IVPB Q12H [facility] Insulin Aspart 3 - 6 units 12/26/24 17:00 12/27/24 21:00 Insulin Aspart (*Bkc) 100 Units/Ml SUB-Q Not Given [facility] Protocol Miscellaneous Information 0 each 12/26/24 00:01 Naproxen - 1000 Mg Dose Only For Naprelan - Please Clarify Dose/Directions/Product XX 01/25/25 00:00 CLARIFY [facility] Miscellaneous Information 0 each 12/26/24 00:01 Insulin U-500 - Please Clarify Dose/Directions/Order XX 01/25/25 00:00 CLARIFY [facility] Naloxone HCl 0.1 mg 12/25/24 15:13 Naloxone Hcl 0.4 Mg/Ml Vial IV PUSH Q2M PRN Opiate Reversal Naproxen 1,000 mg 12/27/24 09:00 Naproxen 500 Mg Tablet PO DAILY [place] (Liraglutide [ 1.8 mg 12/26/24 21:00 12/28/24 06:32 Victoza 3-[place]] 0.6 SUB-Q 01/25/25 20:59 Not Given Mg/0.1 Ml (18 Mg/3 HS [place] Ml) Pen Injector) Non-Formulary Medication 0 unit 12/27/24 12:41 Insulin Regular Hum U-500 Conc [Humulin R U-500 (Conc) Insulin] SUB-Q INFU USEASDIRECTD PRN Hyperglycemia Ondansetron HCl 4 mg 12/24/24 23:11 Ondansetron Inj 4 Mg/2 Ml Vial IV PUSH Q4H PRN Nausea Oxycodone/Acetaminophen 1 tablet 12/27/24 15:04 12/27/24 18:15 Oxycodone/Acetaminophen (*Crx) 5-325 Mg Tablet PO 1 tablet Q4H PRN Administration Pain Rated 4-6 Oxycodone/Acetaminophen 1 tab 12/27/24 15:04 12/27/24 23:22 Oxycodone/Acetaminophen (*Crx) 10-325 Mg Tablet PO 1 tab Q4H PRN Administration Pain Rated 7-10 Pantoprazole Sodium 40 mg 12/25/24 09:00 12/27/24 09:01 Pantoprazole 40 Mg Tablet PO 40 mg QAM [facility] Administration Potassium Chloride 10 meq 12/27/24 09:00 12/27/24 09:01 Potassium Chloride 10 Meq Er Tablet PO 10 meq DAILY [place] Administration Pregabalin 150 mg 12/25/24 23:00 12/27/24 23:22 Pregabalin (*Crx) 75 Mg Capsule PO 150 mg DAILY@2300 [facility] Administration Spironolactone 50 mg 12/27/24 09:00 12/27/24 09:01 Spironolactone 50 Mg Tablet PO 50 mg DAILY [place] Administration Trazodone HCl 150 mg 12/25/24 21:00 12/27/24 20:14 Trazodone Hcl 50 Mg Tablet PO 150 mg HS [place] Administration Labs Labs: Laboratory Results - last 24 hr 12/27/24 12/27/24 12/27/24 12:08 16:35 21:08 Creatinine Estim Creat Clear Calc Estimated GFR POC Capillary Glucose 106 H 128 H 143 H Vancomycin Trough 12/28/24 12/28/24 05:20 07:52 Creatinine 0.88 Estim Creat Clear Calc 90 Estimated GFR > 60 POC Capillary Glucose 129 H Vancomycin Trough 18.6
[2024-12-28] MEDS: oxyCODONE/ACETAMINOPHEN (*CRX) 10-325 MG TABLET 1 TAB PO (09:10)
--- NOTE | 2024-12-28 09:26 | P.CDI_ITS ---
CDI Query Clarification Request Please clarify the deepest layer incised on the incision and drainage for the abscesses on the abdominal wall on 12/25/24. * skin * subcutaneous tissue * soft tissue * muscle * bone The medical record reflects the following: Risk factors: Pt admitted with Cellulitis/abscess to left lower abdominal wall. Hx of DM, morbid obesity. Taken to surgery on 12/25 for I&D of abcesses. Clinical findings: Incision and drainage of abdominal wall abscess was perfo rmed. The patient was found have a complex abdominal wall abscess with multiple loculations. This was starting in the left lower quadrant and extending slightly medial towards the suprapubic region. Culture was taken for aerobic and anaerobic culture and sensitivity. After all the loculations were opened up, I then irrigated the abscess cavity and then packed it with 1 in iodoform gauze. Treatment: I&D, IV abx
[2024-12-28 09:31] LABS: Hematocrit 35.7 % (37.0-47.0); Hemoglobin 11.6 g/dL (12.0-15.0); Mean Corpuscular HGB Conc 32.5 g/dl (32-36); Mean Corpuscular Hemoglobin 30.7 pg (26-34); Mean Corpuscular Volume 94.4 fl (80-100); Mean Platelet Volume 9.6 fl (7.4-10.4); Platelet Count Result 186 k/mm3 (150-375); Red Blood Count 3.78 M/mm3 (4.2-5.4); Red Cell Distribution Width 13.9 % (11.5-14.5)
[2024-12-28 09:55] LABS: Anion Gap 7 mmol/L (4-12); Blood Urea Nitrogen 13 mg/dL (7-17); Calcium 8.6 mg/dL (8.4-10.2); Carbon Dioxide 28 mmol/L (22-30); Chloride 107 mmol/L (98-107); Estimated CRCL calculation 90 ml/min; Estimated Glomerular Filt Rate > 60; Glucose 105 mg/dL (65-110); Potassium 3.6 mmol/L (3.4-5.0); Sodium 142 mmol/L (137-145)
[2024-12-28] MEDS: VANCOMYCIN 1,000 MG/NS 250 ML 1,000 MG/250 ML BAG 250 MG IVPB (11:00)
[2024-12-28 11:32] LABS: Glucose Point of Care 155 mg/dl (65-105)
[2024-12-28 11:39] LABS: Strep Group A RT-PCR NOT DETECTED (Negative)
[2024-12-28 11:50] LABS: Influenza A QL RT-PCR Positive (Negative); Influenza B QL RT-PCR Negative (Negative); RSV RNA, RT-PCR Negative (Negative); SARS-CoV-2 RNA PCR Negative (Negative)
--- NOTE | 2024-12-28 11:54 | P.PNGS_ITS ---
Progress Note: A&P Assessment and Plan (1) Abscess of abdominal wall: Code(s): L02.211 - Cutaneous abscess of abdominal wall Status: Acute Assessment and Plan: * Doing well and planning to have her son help with dressing changes. Continue packing daily. Requesting home health for the first week at home, I spoke with CC about HH options. * Surgically stable for discharge. F/u in office in 2 weeks. (2) Insulin dependent diabetes mellitus: Status: Chronic (3) Morbid obesity with BMI of 40.0-44.9, adult: Code(s): E66.01 - Morbid (severe) obesity due to excess calories; Z68.41 - Body mass index [BMI] 40.0-44.9, adult Status: Chronic (4) Obstructive sleep apnea: Onset Date: ~10/2020 Code(s): G47.33 - Obstructive sleep apnea (adult) (pediatric) Status: Acute Plan I have discussed the patient's case and plan of care with Dr. Hernandez. Subjective Subjective Date/Time Seen: 12/28/24 11:54 Patient reports: feels better, pain is less and afebrile Interval history: No new complaints. Tolerating dressing changes. Feels comfortable going home with Percocet for pain control for dressing changes. Requesting home health for 1 week on discharge. Her son has been educated on dressing changes Exam Narrative: LLQ abdominal wound packed with erythema and induration resolving, much improved since last seen, no purulent drainage Objective Data Vital Signs Vital Signs: Vital Signs - 24 hr 12/27/24 14:00 12/27/24 22:00 12/28/24 06:00 Temperature 97.5 F L 98.0 F 98.0 F Pulse Rate 57 L 66 74 Respiratory Rate 16 18 16 Blood Pressure 122/84 129/83 109/57 L Pulse Oximetry 98 98 99 Intake/Output Intake/Output: Intake & Output 12/25/24 12/26/24 12/27/24 12/28/24 23:59 23:59 23:59 23:59 Intake Total 2100 1375.6 2180 1440 Balance 2100 1375.6 2180 1440 Meds/Results Medications: Active Medications Generic Name Dose Route Start Last Admin Trade Name Freq PRN Reason Stop Dose Admin Acetaminophen 650 mg 12/24/24 23:11 12/26/24 18:37 Acetaminophen 325 Mg Tablet PO 650 mg Q4H PRN Administration Mild Pain (1-3) or Fever Albuterol 2 puff 12/25/24 02:29 Albuterol Sulfate (*Sp) Aerosol 1 Puff INHALATION QIDRT PRN shortness of breath or wheezing Baclofen 40 mg 12/25/24 21:00 12/27/24 20:13 Baclofen 10 Mg Tablet PO 40 mg HS [place] Administration Buspirone HCl 30 mg 12/25/24 21:00 12/27/24 20:13 Buspirone Hcl 10 Mg Tablet PO 30 mg HS [place] Administration Dextrose 12.5 gm 12/24/24 23:11 Dextrose 50% 25 Gm/50 Ml Syringe IV PUSH PRN PRN Hypoglycemia Protocol Docusate Sodium 100 mg 12/27/24 18:05 12/27/24 18:15 Docusate Sodium 100 Mg Capsule PO 100 mg Q12H PRN Administration Constipation Enoxaparin Sodium 40 mg 12/26/24 09:00 12/28/24 09:05 Enoxaparin 40 Mg/0.4 Ml Syringe SUB-Q 40 mg DAILY [facility] Administration Fluoxetine HCl 60 mg 12/25/24 23:00 12/27/24 23:22 Fluoxetine Hcl 20 Mg Capsule PO 60 mg DAILY@2300 [facility] Administration Furosemide 80 mg 12/27/24 09:00 12/28/24 09:06 Furosemide 40 Mg Tablet PO 80 mg DAILY [place] Administration Glucagon 1 mg 12/24/24 23:11 Glucagon For Inj 1 Mg Vial IM PRN PRN Hypoglycemia Protocol Glucose 15 gm 12/24/24 23:11 Glucose Oral Gel 15 Gm Of Glucse In 37.5 Gm Tube PO PRN PRN Hypoglycemia Protocol Hydromorphone HCl 1 mg 12/25/24 15:13 12/27/24 08:59 Hydromorphone Hcl Inj (*Crx) 1 Mg/Ml Syr IV PUSH 1 mg Q2H PRN Administration Breakthrough Pain Rated 7-10 or NPO Hydromorphone HCl 0.5 mg 12/25/24 15:13 12/28/24 06:14 Hydromorphone Hcl Inj (*Crx) 1 Mg/Ml Syr IV PUSH 0.5 mg Q2H PRN Administration Breakthrough Pain Rated 4-6 or NPO Dextrose 1,000 mls @ 100 mls/hr 12/24/24 23:11 Dextrose 5% 1,000 Ml IVPB PRN PRN Hypoglycemia Protocol Vancomycin HCl 1,000 mg in 250 mls @ 250 mls/hr 12/28/24 12:00 12/28/24 11:00 Vancomycin 1,000 Mg/Ns 250 Ml IVPB 250 mls/hr Q12H [facility] Administration Insulin Aspart 3 - 6 units 12/26/24 17:00 12/28/24 11:49 Insulin Aspart (*Bkc) 100 Units/Ml SUB-Q Not Given [facility] Protocol Miscellaneous Information 0 each 12/26/24 00:01 Naproxen - 1000 Mg Dose Only For Naprelan - Please Clarify Dose/Directions/Product XX 01/25/25 00:00 CLARIFY [facility] Miscellaneous Information 0 each 12/26/24 00:01 Insulin U-500 - Please Clarify Dose/Directions/Order XX 01/25/25 00:00 CLARIFY [facility] Naloxone HCl 0.1 mg 12/25/24 15:13 Naloxone Hcl 0.4 Mg/Ml Vial IV PUSH Q2M PRN Opiate Reversal Naproxen 1,000 mg 12/27/24 09:00 Naproxen 500 Mg Tablet PO DAILY [facility] (Liraglutide [ 1.8 mg 12/26/24 21:00 12/28/24 06:32 Victoza 3-[place]] 0.6 SUB-Q 01/25/25 20:59 Not Given Mg/0.1 Ml (18 Mg/3 HS [place] Ml) Pen Injector) Non-Formulary Medication 0 unit 12/27/24 12:41 Insulin Regular Hum U-500 Conc [Humulin R U-500 (Conc) Insulin] SUB-Q INFU USEASDIRECTD PRN Hyperglycemia Ondansetron HCl 4 mg 12/24/24 23:11 Ondansetron Inj 4 Mg/2 Ml Vial IV PUSH Q4H PRN Nausea Oxycodone/Acetaminophen 1 tablet 12/27/24 15:04 12/27/24 18:15 Oxycodone/Acetaminophen (*Crx) 5-325 Mg Tablet PO 1 tablet Q4H PRN Administration Pain Rated 4-6 Oxycodone/Acetaminophen 1 tab 12/27/24 15:04 12/28/24 09:10 Oxycodone/Acetaminophen (*Crx) 10-325 Mg Tablet PO 1 tab Q4H PRN Administration Pain Rated 7-10 Pantoprazole Sodium 40 mg 12/25/24 09:00 12/28/24 09:05 Pantoprazole 40 Mg Tablet PO 40 mg QAM [facility] Administration Potassium Chloride 10 meq 12/27/24 09:00 12/28/24 09:05 Potassium Chloride 10 Meq Er Tablet PO 10 meq DAILY [facility] Administration Pregabalin 150 mg 12/25/24 23:00 12/27/24 23:22 Pregabalin (*Crx) 75 Mg Capsule PO 150 mg DAILY@2300 [facility] Administration Spironolactone 50 mg 12/27/24 09:00 12/28/24 09:06 Spironolactone 50 Mg Tablet PO 50 mg DAILY [place] Administration Trazodone HCl 150 mg 12/25/24 21:00 12/27/24 20:14 Trazodone Hcl 50 Mg Tablet PO 150 mg HS [place] Administration Labs Labs: Laboratory Results - last 24 hr 12/27/24 12/27/24 12/27/24 12:08 16:35 21:08 WBC RBC Hgb Hct MCV MCH MCHC RDW Plt Count MPV Sodium Potassium Chloride Carbon Dioxide Anion Gap BUN Creatinine Estim Creat Clear Calc Estimated GFR Glucose POC Capillary Glucose 106 H 128 H 143 H Calcium Vancomycin Trough Influenza A (RT-PCR) Influenza B (RT-PCR) RSV (RT-PCR) SARS-CoV-2 RNA (RT-PCR) Group A Strep (PCR) 12/28/24 12/28/24 12/28/24 05:17 05:20 07:52 WBC 5.0 RBC 3.78 L Hgb 11.6 L Hct 35.7 L MCV 94.4 MCH 30.7 MCHC 32.5 RDW 13.9 Plt Count 186 MPV 9.6 Sodium 142 Potassium 3.6 Chloride 107 Carbon Dioxide 28 Anion Gap 7 BUN 13 Creatinine 0.88 0.88 Estim Creat Clear Calc 90 90 Estimated GFR > 60 > 60 Glucose 105 POC Capillary Glucose 129 H Calcium 8.6 Vancomycin Trough 18.6 Influenza A (RT-PCR) Influenza B (RT-PCR) RSV (RT-PCR) SARS-CoV-2 RNA (RT-PCR) Group A Strep (PCR) 12/28/24 12/28/24 12/28/24 10:47 10:48 11:20 WBC RBC Hgb Hct MCV MCH MCHC RDW Plt Count MPV Sodium Potassium Chloride Carbon Dioxide Anion Gap BUN Creatinine Estim Creat Clear Calc Estimated GFR Glucose POC Capillary Glucose 155 H Calcium Vancomycin Trough Influenza A (RT-PCR) Positive A Influenza B (RT-PCR) Negative RSV (RT-PCR) Negative SARS-CoV-2 RNA (RT-PCR) Negative Group A Strep (PCR) Not detected
--- NOTE | 2024-12-28 13:54 | P.DS_ITS ---
DS: Admitting Diagnosis Discharge Date 11/27 Admitting Diagnosis abscess DS: Discharge Diagnosis Discharge Diagnosis (1) Insulin dependent diabetes mellitus: Status: Chronic Assessment and Plan: (2) Morbid obesity with BMI of 40.0-44.9, adult: Code(s): E66.01 - Morbid (severe) obesity due to excess calories; Z68.41 - Body mass index [BMI] 40.0-44.9, adult Status: Chronic Assessment and Plan: (3) Cellulitis of left abdominal wall: Code(s): L03.311 - Cellulitis of abdominal wall Status: Acute DS: Summary Hospital Course Hospital Course: This is a 44-year-old female with a history of morbid obesity, hypertension, hyperlipidemia, insulin-dependent diabetes mellitus with an insulin pump in diabetic peripheral neuropathy, GERD, anxiety depression and PTSD among other comorbidities who presents with infection of her left lower abdominal pannus. This started about 12 days prior. She arrived to [place] [facility] the day before left AMA from the ER after receiving antibiotics. She was prescribed doxycycline but never picked it up reporting she did not have a car. She returns today on 10/23/2025 reporting the pain and swelling and erythema are worse. General surgery consulted from the ER. Given cefepime and vancomycin. Surgery was consulted. I/D with Dr Hernandez on 12/25. Doing well. pain meds with dressing packing/changes. Home health is set up to continue packing daily. Son can help with other days when HH is not available. Surgically stable for discharge. F/u in office in 2 weeks. HOme with keflex- discussed with pharm ID. last day 01/07. Time Spent with Patient Time attestation: Total time spent providing and/or coordinating discharge services: Exam Const: General: comfortable and no acute distress Eyes: Pupils: Equal, round and reactive pupils present Neck: Neck: supple Resp: Effort & Inspection: normal respiratory effort Auscultation: clear to auscultation bilaterally Cardio: Rate: regular rate Rhythm: regular rhythm GI: Other: S/P I&D : General: Yes bladder normal to palpation Bimanual exam- vagina & uterus: bladder normal to palpation Skin: Other: Large abdominal pannus and on the left lower fold there is induration and erythema with tenderness Neuro: Cranial nerves: Yes Equal, round and reactive pupils present Extrem: General: no edema DS: Data Data Completed and Pending Labs on day of discharge: Labs from last 24 hours 12/28/24 12/28/24 12/28/24 11:20 10:48 10:47 WBC RBC Hgb Hct MCV MCH MCHC RDW Plt Count MPV Sodium Potassium Chloride Carbon Dioxide Anion Gap BUN Creatinine Estim Creat Clear Calc Estimated GFR Glucose POC Capillary Glucose 155 H Calcium Vancomycin Trough Influenza A (RT-PCR) Positive A Influenza B (RT-PCR) Negative RSV (RT-PCR) Negative SARS-CoV-2 RNA (RT-PCR) Negative Group A Strep (PCR) Not detected 12/28/24 12/28/24 12/28/24 07:52 05:20 05:17 WBC 5.0 RBC 3.78 L Hgb 11.6 L Hct 35.7 L MCV 94.4 MCH 30.7 MCHC 32.5 RDW 13.9 Plt Count 186 MPV 9.6 Sodium 142 Potassium 3.6 Chloride 107 Carbon Dioxide 28 Anion Gap 7 BUN 13 Creatinine 0.88 0.88 Estim Creat Clear Calc 90 90 Estimated GFR > 60 > 60 Glucose 105 POC Capillary Glucose 129 H Calcium 8.6 Vancomycin Trough 18.6 Influenza A (RT-PCR) Influenza B (RT-PCR) RSV (RT-PCR) SARS-CoV-2 RNA (RT-PCR) Group A Strep (PCR) 12/27/24 12/27/24 21:08 16:35 WBC RBC Hgb Hct MCV MCH MCHC RDW Plt Count MPV Sodium Potassium Chloride Carbon Dioxide Anion Gap BUN Creatinine Estim Creat Clear Calc Estimated GFR Glucose POC Capillary Glucose 143 H 128 H Calcium Vancomycin Trough Influenza A (RT-PCR) Influenza B (RT-PCR) RSV (RT-PCR) SARS-CoV-2 RNA (RT-PCR) Group A Strep (PCR) Preliminary micro results at discharge 12/25/24 13:38 Anaerobic Culture - Preliminary Abscess 12/24/24 22:13 Anaerobic Culture - Preliminary Abscess Discharge Plan Discharge Attending physician on discharge: Oh Abreu Consulting providers: Gene Hernandez Discharging Clinician: Jenelle Angeles Patient Disposition: Home Health Service Activity: march shower Diet: diabetic Wound Care Instructions: other - see discharge instructions Discharge Instructions: * OK to shower, no bathing/soaking under water until incision completely healed * Change packing daily with 1 iodoform gauze. Apply 4x4 gauze and tape. * Follow-up with Dr. Hernandez in 2 weeks Care Coordination: Patient to have [facility] to provide wound care management. They will contact you to schedule their first visit; their phone number is [phone] if you have any questions. Patient Instructions: Antibiotic Form Patient Language: Wallisian Stand Alone Forms: General Discharge Information, Work/School Release IP Follow-up/Referrals: Gene Hernandez DO [Physician] - 2 Weeks Discharge Medications: New cephalexin 500 mg Capsule 500 mg PO Q6HR Qty: 41 0RF Rx Instructions: last day 01/07 oxycodone-acetaminophen 5-325 mg Tablet 1 tablet PO Q4H PRN (Reason: Pain Rated 4-6) Qty: 30 0RF Continued furosemide 40 mg Tablet 80 mg PO DAILY baclofen 20 mg Tablet 40 mg PO HS albuterol sulfate 90 mcg/actuation HFA aerosol inhaler 2 puff INHALATION QID PRN (Reason: shortness of breath or wheezing) Qty: 8.5 0RF trazodone 150 mg Tablet 150 mg PO HS pregabalin 75 mg Capsule 150 mg PO HS Rx Instructions: takes at 11pm fluoxetine 60 mg Tablet 60 mg PO HS Rx Instructions: takes at 11pm buspirone 30 mg tablet 30 mg PO HS Humulin R U-500 (Conc) Insulin 500 unit/mL solution See Protocol continuous subcutaneous infusion USEASDIRECTD PRN (Reason: Hyperglycemia) Protocol: Insulin Corrective Low-Dose Condition: glucose < 70 mg/dl Dose/Route: Follow Hypoglycemia Order Condition: glucose 70-200 mg/dl Dose/Route: No additional insulin Condition: glucose 201-250 mg/dl Dose/Route: 2 units sub-Q Condition: glucose 251-300 mg/dl Dose/Route: 3 units sub-Q Condition: glucose 301-350 mg/dl Dose/Route: 4 units sub-Q Condition: glucose 351-400 mg/dl Dose/Route: 5 units sub-Q Condition: glucose > 400 mg/dl Dose/Route: Call MD Protocol Text: *No Correction Dose at Bedtime* Rx Instructions: omni pod dash,per protocal potassium chloride 10 mEq tablet extended release 10 meq PO DAILY omeprazole 20 mg capsule,delayed release(DR/EC) 20 mg PO DAILY naproxen 500 mg tablet 1,000 mg PO DAILY spironolactone 50 mg tablet 50 mg PO DAILY liraglutide [Victoza 3-Rome] 0.6 mg/0.1 mL (18 mg/3 mL) pen injector 1.8 mg subcut HS Date of admission: 12/26/24 13:55 Primary Care Provider: Aj,Preet Schwartz Admitting Provider: Karen Moyer Attending physician on admission: Karen Moyer Condition: Stable Hospitalist MIPS Heart Failure (Exclusion) Patient has history of Heart Transplant or Left Ventricular Assistive Device?: No IF YES, STOP HERE Heart Failure (Qualifier) Patient has current or prior documentation of LVEF less than or equal to 40%, or mod/servere depressed LVSF?: No IF NO, STOP HERE
[2024-12-28 14:00] VITALS: BP 136/93; PULSE 81; RESP 16; TEMP 35.5; O2SAT 99
[2024-12-28] MEDS: OSELTAMIVIR PHOSPHATE 75 MG CAPSULE PO (14:00)
[2024-12-28] MEDS: CEPHALEXIN 500 MG CAPSULE PO (14:00)
[2024-12-28] MEDS: oxyCODONE/ACETAMINOPHEN (*CRX) 5-325 MG TABLET 1 TABLET PO (14:05)
== END 2024-12-28 17:10 | disposition home health service (06) | DRG 364 ==
LOC: ANHED 23:17 → ANH3MEDSUR 12-25 00:23
PROVIDERS: Internal Medicine; Nurse Practitioner Family; Surgery; Admitting Provider General Practice; Emergency Provider Physician Assistant; PCP Family Medicine; Visit Provider Nurse Practitioner
PROC: 0W9F0ZZ Drainage of Abdominal Wall, Open Approach (ICD-10-PCS; principal; 2024-12-25 14:00)
DX: L02.211 Cutaneous abscess of abdominal wall (principal); L03.311 Cellulitis of abdominal wall; J11.1 Influenza due to unidentified influenza virus with other respiratory manifestations; B95.61 Methicillin susceptible Staphylococcus aureus infection as the cause of diseases classified elsewhere; E66.01 Morbid (severe) obesity due to excess calories; E78.5 Hyperlipidemia, unspecified; E11.42 Type 2 diabetes mellitus with diabetic polyneuropathy; F41.9 Anxiety disorder, unspecified; F43.10 Post-traumatic stress disorder, unspecified; G47.33 Obstructive sleep apnea (adult) (pediatric); I10 Essential (primary) hypertension; K21.9 Gastro-esophageal reflux disease without esophagitis; K59.09 Other constipation; K50.90 Crohn's disease, unspecified, without complications; Z68.41 Body mass index [BMI] 40.0-44.9, adult; Z90.49 Acquired absence of other specified parts of digestive tract; Z96.41 Presence of insulin pump (external) (internal); Z87.891 Personal history of nicotine dependence; Z20.822 Contact with and (suspected) exposure to COVID-19; Z79.85 Long-term (current) use of injectable non-insulin antidiabetic drugs
CPT/HCPCS: 36415; 72193; 80048; 80053; 80202; 82565; 82948; 83605; 84132; 85025; 85027; 86140; 87040; 87070; 87075; 87181; 87205; 87637; 87651; 96361; 96365; 96366; 96367; 96375; 99212; 99285; A9270; G0378; G0379; G0463; J0692; J1100; J1171; J1650; J1815; J1836; J1885; J2003; J2250; J2405; J2704; J3010; J3370; J7030; J7120; Q9967

== ENCOUNTER 2025-03-23 15:36 | Inpatient (IN) | payer OTHER, SELFPAY ==
--- NOTE | ~2025-03-23 | CT_ITS ---
EXAMINATION: CT abdomen pelvis w con DATE: 03/23/2025 19:02 INDICATION: left gluteal abscess TECHNIQUE: Computed tomography (CT) of the abdomen and pelvis was performed with 100 mL Omnipaque-350 intravenous contrast. Automated exposure control and iterative reconstruction technique were employe d. The dose-length product was 1524.20 mGy-cm. COMPARISON: 05/26/2024 03/08/2024; CT pelvis 12/13/2024. FINDINGS: Lower thorax: Cardiomegaly. Liver: Enlarged. Biliary/Gallbladder: Gallbladder is absent. No bile duct dilation. Pancreas: No mass or duct dilation. Spleen: Enlarged. Adrenals: Bilateral adrenal nodularity. 2.1 cm left adrenal myelolipoma. Stable indeterminate density left adrenal lesion, likely adenoma. Kidneys: No suspicious mass, obstructing stone, or hydronephrosis. GI tract: No small or large bowel dilation. Normal appendix. Diverticulosis without diverticulitis. Mesentery/Peritoneum: No ascites, mass, or free air. Retroperitoneum: No mass. Atherosclerotic calcifications of intra-abdominal arterial vessels. Pelvis: Status post partial hysterectomy. Normal bladder and right ovary. Left ovary is not confident ly identified. Soft Tissues: 1.4 cm fluid density collection with significant rim enhancement at the dermal/subderma l junction of the left medial gluteal soft tissues, with surrounding fat stranding. Small fat-contain ing umbilical and suprapubic umbilical hernias with surrounding induration, may represent scar. Scarr ing in the lower pannus. Bones: No acute osseous finding. IMPRESSION: Hepatosplenomegaly. 1.4 cm phlegmon versus early abscess in the left medial gluteal soft tissues. Reviewed, dictated and finalized at location K.
--- OUTSIDE RECORDS SUMMARY | 2025-03-23 15:40 | XMS_ITS | Clinical Summary ---
Author Organization [facility] [address] Address [address] [place] [address] Care Team Providers Care Alley Tender Name Role Phone Cher Hernandez DPM Unavailable [phone] Preet Rocha MD Primary Care Provider Allergies [...] 1 3 Active blood-glucose meter,continuous (Dexcom G6 Supervisor Shipping Room) miscIndications:Ty pe 2 diabetes mellitus with hyperglycemia, with long-term current use of insulin ([facility]) Inject 1 kit under the skin as directed 1 each 3 Active atorvastatin (LIPITOR) 20 mg tabletIndications: Hyperlipidemia associated with type 2 diabetes mellitus ([facility]) Take 1 tablet (20 mg total) by mouth daily 90 tablet 3 Active FLUoxetine (PROzac) 40 mg capsuleIndications :Recurrent major 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 Take 1 capsule (40 mg total) by [...] disease, with long-term current use of insulin ([facility]) Use to inject U500 insulin twice daily 200 each 3 3 Active busPIRone (BUSPAR) 15 mg tabletIndications: Recurrent major 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 TAKE 1 TABLET(15 MG) BY MOUTH DAILY 30 tablet 3 Active HYDROcodone-acetam inophen (NORCO) 5-325 mg per tabletIndications: Pain Take 1 tablet by mouth 2 (two) times a day as needed for pain 60 tablet 3 Active Steglatro 15 mg tablet TAKE 1 TABLET BY MOUTH DAILY 30 tablet 3 3 Active buPROPion (WELLBUTRIN) 100 mg tabletIndications: Recurrent major 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 TAKE 1 TABLET(100 MG) BY MOUTH TWICE [...] before leaving today. Verified that she uses mychart. Aware to check results/results letter in [employer]. Will contact by phone if needed. Discussed possible need for ortho pending results. Recurrent major 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 Psychophysiological insomnia 02/04/2023 Gastroesophageal reflux disease without esophagi tis 02/04/2023 Class 3 severe obesity due t o excess calories with serious comorbidity and body mass index (BMI) of 40.0 to 44.9 in adult 11/22/2022 Assessment & Plan (11/22/2022 10:51 AM ELEVATOR REPAIRER APPRENTICE): Discussed healthy diet and importance of regular physical activity (20- 30min/day, 150min/wk). Karin lewis, right 12/19/2020 Overview (12/19/2020): Added automatically from request for surgery [id number] Karin caballeroe, left 12/19/2020 Overview (12/19/2020): Added automatically from request for surgery [id number] Acquired hammer toe of right foot 12/19/2020 Overview (12/19/2020): Added automatically from request for surgery [id number] Hammer toe of left foot 12/19/2020 Overview (12/19/2020): Added automatically from request for surgery [id number] Insulin pump status 05/30/2020 Assessment & Plan (06/11/2023 4:03 PM CDT): No pump setting changes at this time. Assessment & Plan (11/22/2022 12:17 PM ELEVATOR REPAIRER APPRENTICE): Continue current settings on Omnipod Humulin U500: [...] changes. Assessment & Plan (09/21/2021 2:20 PM ELEVATOR REPAIRER APPRENTICE): Decrease 8a BR to 0.5. Assessment & [...] Atorvastatin 20mg. Last lipid panel: 04/09/23 LDL=60, IX=784. Assessment & Plan (11/22/2022 12:12 PM ELEVATOR REPAIRER APPRENTICE): Chronic problem, at goal. Currently taking atorvastatin 20mg daily. No changes. Update lipid panel today. Verified that she uses [employer]. Aware to check results/results letter in [employer]. Will contact by phone if needed. Assessment & Plan (09/17/2022 11:33 AM ELEVATOR REPAIRER APPRENTICE): Checking fast lipid profile today, adjust medicine thereafter. Diet reviewed Assessment & Plan (03/29/2022 2:43 PM CDT): Chronic problem. On statin therapy, no changes. Assessment & Plan (09/21/2021 2:36 PM ELEVATOR REPAIRER APPRENTICE): Chronic problem. On statin therapy, no changes. [...] Atorvastatin Assessment & Plan (10/04/2020 4:03 PM ELEVATOR REPAIRER APPRENTICE): Goal of treatment , LDL cholesterol less [...] time. Assessment & Plan (11/21/2022 4:02 PM ELEVATOR REPAIRER APPRENTICE): Chronic problem, well controlled on current regimen. No changes at this time. Assessment & Plan (09/17/2022 11:33 AM ELEVATOR REPAIRER APPRENTICE): Blood pressure control adequate no change in [...] infection. Assessment & Plan (11/22/2022 12:13 PM ELEVATOR REPAIRER APPRENTICE): Chronic problem, well controlled at this time. Please have labs drawn today before leaving. Verified that she uses mychart. Aware to check results/results letter in [employer]. Will contact by phone if needed. I [...] 100 Assessment & Plan (09/17/2022 11:06 AM ELEVATOR REPAIRER APPRENTICE): Overdue for multiple tests including hemoglobin A1c [...] today. Assessment & Plan (09/21/2021 2:37 PM ELEVATOR REPAIRER APPRENTICE): Chronic problem, trending low normal during the [...] metformin Assessment & Plan (10/04/2020 4:03 PM ELEVATOR REPAIRER APPRENTICE): Hba1c was Lab Results Component Value Date [...] provided with contact information for insulin pump personal financial representative and how to reach our office [...] appointment in 2 weeks. Instructed to contact [facility] to have them send Dexcom. [...] CDT): Will work up to rule out Whiting's Diabetic polyneuropathy asso ciated with diabetes mellitus due to underlying condition 03/17/2020 Assessment & Plan (06/11/2023 4:00 PM CDT): Chronic problem. Currently taking lyrica 75mg bid. Aware to check feet nightly & not go barefoot. Assessment & Plan (09/17/2022 12:23 PM ELEVATOR REPAIRER APPRENTICE): Hands worse, Refilling lyrica, reviewed need for tight control of diabetes. She has no clinical findings that suggest carpal tunnel although her symptoms seem somewhat compatible, consider reimaging neck a and/or getting EMG nerve conduction velocity after labs back Assessment & Plan (06/27/2021 3:56 PM CDT): Foot care discussed Continue gabapentin. A prescription sent Assessment & Plan (10/04/2020 4:02 PM ELEVATOR REPAIRER APPRENTICE): Foot care discussed Continue gabapentin Assessment & Plan (04/05/2020 2:16 PM CDT): Could not tolerate Lyrica Continue Gabapentin Foot care discussed Name for plate corrector recommended. Assessment & Plan (03/17/2020 4:16 PM [...] lifestyle changes. Body mass index 40.0-44.9, adult ([facility]) 03/29/2022 11/21/2022 Morbid obesity with BMI of 4 5.0-49.9, adult ([facility]) 04/20/2020 11/21/2022 Assessment & Plan (09/17/2022 11:06 AM ELEVATOR REPAIRER APPRENTICE): Reviewed weight loss including diet exercise. Hold on any medication intervention Syncope and collapse 04/20/2020 023 Encounters Date Type Department Care Team Description 01/25/2025 Telephone [facility] [id number] [place] [address] [address] [address] Qasim Nelson MD from Last 3 Months Immunizations Immunization Administration Dates Next Due Influenza, Quadrivalent, Spl [...] Date Smoking Tobacco: Former Cigarettes Q uit: 2015 Vaping Smokeless Tobacco: Never Alcohol Use Standard [...] on file Legal Sex Female 10:15 PM ELEVATOR REPAIRER APPRENTICE Gender Identity Female 07/13/2021 7:15 AM CDT [...] 05/30/2023 05/30/2022, 05/30/2022, 02/14/2021, Additional history exists Albumin Creatinine Ratio, Urine 11/22/2023 11/22/2022, 07/07/2021 Foot Exam 11/22/2023 11/22/2022, 06/11, 04/05/2020 Hemoglobin A1C 12/12/2023 06/11/2023, 03/13, 11/22/2022, Additional history exists Regular Well Visit/Exam 18-64 02/05/2024 02/04/2023 Lipid Panel 04/09/2024 04/09/2023, 11/11, 07/07/2021, Additional history exists Covid-19 Vaccine ( season) 2024 10/04/2021, 01/27/2021, 01/06/2021 Influenza Vaccine (#1) 2024 , 10/04/2021, 09/16/2020, Additional history exists Dilated Eye Exam 09/03/2024 09/03/2022, 04/28/2020 eGFR 05/30/2025 05/30/2024, 05, 11/22/2022, Additional history exists HPV Vaccines Aged Out No longer eligi ble based on patient's age to complete this topic Procedures Procedure Name Priority Date/Time Associated Diagnosis Comments EGFR STAT 05/30/2024 4:54 PM CDT POCT HEMOGLOBIN A1C Routine 06/11/2023 3 :00 PM CDT Type 2 diabetes mellitus with stage 2 chronic kidney disease, with long-term current use of insulin (HCC) LIPID PANEL Routine 04/09/2023 3:52 PM CDT Abdominal pain, chronic, epigastric Hyperlipidemia associated with type 2 diabetes mellitus (HCC) ALBUMIN CREATININE RATIO, URINE Routine 11/22/2022 11:25 AM ELEVATOR REPAIRER APPRENTICE Type 2 diabetes mellitus with stage 2 chronic kidney disease, with long-term current use of insulin (HCC) DIABETIC EYE EXAM Routine 09/03/2022 from [...] was last reviewed 2021. Testing performed by: [facility], [address] [place] [address], [place]., [address] Blood 05/30/2024 4:54 PM CDT 05/30/2024 5:15 PM CDT Deng Pop DO LAB BLOOD ORDERABLES Final Result ANGEL MIKE [address] [facility] Department [place] [address] * (ABNORMAL) POCT hemoglobin A1c (06/11/2023 3:00 PM CDT) Hemoglobin A1C, POC 6.1 % Blood 06/11/2023 3:00 PM CDT Cathy Talavera CASTING AND CURING OPERATOR POINT OF CARE TEST ORDERA BLES Final Result * (ABNORMAL) Lipid panel (04/09/2023 3:52 PM CDT) Cholesterol 131 30 - 199 mg/dL ANGEL MIKE Comment: Interpretive Data Ages [...] on 2018. Triglycerides 163(H) <=149 mg/dL ANGEL MKIE Comment: Interpretive Data Ages < or = [...] on 2018. HDL 38(L) >=40 mg/dL ANGEL Comment: Interpretive Data Ages < [...] 2018. LDL, calculated 60 <=129 mg/dL ANGEL Comment: Interpretive Data Ages < [...] on 2018. Non-HDL Cholesterol 93 mg/dL ANGEL Comment: Interpretive Data Ages < [...] revised on 2018. Chol/HDL ratio 3 ANGEL Blood 04/09/2023 3:52 PM CDT 04/09/2023 5:17 PM CDT us Salvador Lacey MD LAB BLOOD ORDERABLES Final Re sult Performing Organization Address [facility] Co de Phone Number ANGEL [address] [facility] [place] [address] * Albumin Creatinine Ratio, Urine (11/22/2022 11:25 AM ELEVATOR REPAIRER APPRENTICE) Albumin Ur <12.0 mg/L ANGEL Comment: Interpretive Data No reference range established. Current interpretive data was last revised 2019. Creatinine Ur 91.7 mg/dL ANGEL Comment: Interpretive Data No reference range established. Current interpretive data was last revised 2019. Albumin Creatinine Ratio, Ur <13 1 - 29 mg/g ANGEL Urine 11/22/2022 11:2 5 AM ELEVATOR REPAIRER APPRENTICE 11/22/2022 2:21 PM ELEVATOR REPAIRER APPRENTICE us Cathy Talavera NP LAB URINE ORDERABLES Ioana l Result Performing Organization Address [facility] Co de Phone Number ANGEL [phone] Department [place] [address] * Diabetic Eye Exam (09/03/2022) Historical Provider HEALTH MAINTENANCE Edited Result - Final from Last 3 Months or Most Recently Relevant to Health Maintenance Insurance [facility] Advance Directives For more information, please contact: [phone] * Full Code (Latest Code Status on File) Date Activated Date Inactivated Comments 01/13/2021 1:19 PM 01/13/2021 7:07 PM Care Teams Alley Tender Relationship Specialty Start Date End Date Preet Rocha MD [address] [place] [address] PCP - General Family Medicine 05/30/24 Cher Hernadnez DPM [address] [place] [address] Consulting Physician Foot and Ankle Surg 01/13/21
--- OUTSIDE RECORDS SUMMARY | 2025-03-23 15:40 | XMS_ITS | Clinical Summary ---
Author Organization [facility] Address [address] [place] [address] Care Team Providers Care Combiner Name Role Phone Hakeem Green MD Primary Care Provider Unavai lable Allergies Active Allergy Reactions Criticality Noted Date Comments Corticosteroids Unknown 07/02/2012 Morphine Swelling High 07/02/2012 Medications Insulin Pen Needle (BD PEN NEEDLE ASHLEY U/F) 32G X 4 MM MiscIndications :Diabetes ([facility]) USE DIRECTED 200 each 04/07/2019 Active Social History Tobacco Use Types Packs/Day Years [...] Sex Assigned at Female 12/22/2024 6:50 PM UNIT DIRECTOR Legal Sex Female 7:20 PM CDT Gender Identity Not on file Sexual Orientation Not on file Last Filed Vital Signs Vital Sign Reading Time Taken Comments Blood Pressure 124/83 12/22/2024 6:23 PM UNIT DIRECTOR Pulse 79 12/22/2024 6:23 PM UNIT DIRECTOR Temperature 36.7 C (98 F) 12/22/2024 6:23 PM UNIT DIRECTOR Respiratory Rate 18 12/22/2024 6:23 PM UNIT DIRECTOR Oxygen Saturation 100% 12/22/2024 6:23 PM UNIT DIRECTOR Inhaled Oxygen Concentration - - Weight 113.4 kg (250 lb) 12/22/2024 6:23 PM UNIT DIRECTOR Height 167.6 cm (5' 6 ) 12/22/2024 6:23 PM UNIT DIRECTOR Body Mass Index 40.35 12/22/2024 6:23 PM UNIT DIRECTOR Plan of Treatment Health Maintenance Due Date Last Done Comments Colorectal Cancer Screening Colonoscopy (10 Years) 1979 Annual Physical 1982 Hepatitis C 1997 DTaP, Tdap and Td Vaccines ( 1 - Tdap) 1998 Hepatitis B Vaccines (1 of 3 - 19+ 3-dose series) 1998 Mammogram Screening 2019 Pneumococcal Vaccine: Pediatrics (0 to 5 Years) and At-Risk Patients (6 to 49 Years) (2 of 2 - PCV) 11/11/2019 11/11/2018, 12/17/2017 COVID-19 Vaccine (4 - 2023-2 5 season) 2024 10/04/2021, 01/27/2021, 01/06/2021 HPV Vaccines Aged Out No longer eligi ble based on patient's age to complete this topic Meningococcal B Vaccine Aged Out No l onger eligible based on patient's age to complete this topic Meningococcal Vaccine Aged Out No gabriela dipesh eligible based on patient's age to complete this topic RSV Immunizations Under 20 Months Aged Out No longer eligible b ased on patient's age to complete this topic Insurance [phone] [id number] (Work) [address] [place] [phone] [place] [address] Care Teams Combiner Relationship Specialty Start Date End Date Hakeem Green MD PCP - General 09/27/16
--- OUTSIDE RECORDS SUMMARY | 2025-03-23 15:40 | XMS_ITS | Clinical Summary ---
Author Organization [facility] Address [address] [facility] [place] [address] Care Team Providers Care Draw String Knotter Name Role Phone Preet Rocha MD Primary Care Provider [phone] Source Comments [facility],non-owned Affiliates and Associated Physician Practices is amultiple site organization consisting of ambulatory clinics and hospital sitesin [place], [place], [place] and [place]. This disclosure is being madepursuant to the Care Everywhere program and may not contain all information available regarding this patient. Last updated 18.[facility] Health Encounters Date Type Department Care Team Description 03/02/2025 Travel from Last 3 Months Social History Tobacco Use Types Packs/Day Years Used Date Smoking Tobacco: Never Assessed Comments Unknown Sex and Gender Information Value Date Recorded Sex Assigned at Not on file Legal Sex Female 5:33 AM TOW MATE Gender Identity Not on file Sexual Orientation Not on file Plan of Treatment Upcoming Encounters Date Type Department Care Team (Late st Contact Info) Description 05/20/2025 1:20 PM CDT Office Visit [facility] Dermatology [address] [place] [address], [facility] [place] [id number] Sulaiman Ramachandran MD [address] [place] [address] DEPT OF DERMATOLOGY [address] [place] [phone] Health Maintenance Due Date Last Done Comments COLOGUARD (AGES 45-75) - COLON CA SCREENING 1979 COLON MONITORING 1979 COLONOSCOPY - COLON CA SCREENING 1979 CT COLONOGRAPHY - COLON CA SCREENING 1979 Colorectal Cancer Screening 1979 FIT - COLON CA SCREENING 1979 FLEX SIG - COLON CA SCREENING 1979 MAMMOGRAM 1979 PAP SMEAR 1979 HIV SCREENING 1994 HEPATITIS C SCREENING 05/21/1997 DTAP/TDAP/TD VACCINES (1 - Tdap) 1998 HEPATITIS B VACCINE (1 of 3 - 19+ 3-dose series) 1998 COVID-19 VACCINE (1 - 2023- season) 2024 DEPRESSION SCREENING 11/11/2024 INFLUENZA VACCINE (Season Ended) 2025 09/17/2022, 10/04/2021, 09/16/2020, Additional history exists LIPID TESTING 04/09/2028 04/09/2023 ZOSTER VACCINE (1 of 2) 2029 HIB VACCINE Aged Out No longer eligi ble based on patient's age to complete this topic HPV VACCINE Aged Out No longer eligi ble based on patient's age to complete this topic MENINGOCOCCAL (Group B) VACCINE SHARED DECISION-MAKING Aged Out No longer eligible based on patient's age to complete this topic MENINGOCOCCAL GROUPS A/C/Y/W VACCINE Aged Out No longer eligible based on patient's age to complete this topic PNEUMOCOCCAL VACCINE Aged Out No long er eligible based on patient's age to complete this topic Insurance [facility] [facility] Care Teams Draw String Knotter Relationship Specialty Start Date End Date Preet Rocha MD [address] [place] [phone] PCP - General Family Medicine 08/27/24
--- OUTSIDE RECORDS SUMMARY | 2025-03-23 15:40 | XMS_ITS | Referral Summary ---
Author Organization [facility] [address] Address [address] [place] [address] Care Team Providers Care Manager Transportation Planning Name Role Phone Cher Hernandez DPM Unavailable [phone] Preet Rocha MD Primary Care Provider [phone] Encounters Date Type Department Care Team Description 01/25/[address] [address] Qasim Nelson MD from Last 3 Months Allergies Active Allergy Reactions Criticality Noted Date [...] 1 3 Active blood-glucose meter,continuous (Dexcom G6 Fitness Floor Attendant) miscIndications:Ty pe 2 diabetes mellitus with hyperglycemia, with long-term current use of insulin ([facility]) Inject 1 kit under the skin as directed 1 each 3 Active atorvastatin (LIPITOR) 20 mg tabletIndications: Hyperlipidemia associated with type 2 diabetes mellitus ([facility]) Take 1 tablet (20 mg total) by [...] disease, with long-term current use of insulin ([facility]) Use to inject U500 insulin twice daily [...] mychart. Aware to check results/results letter in Build[employer]. Will contact by phone if needed. Discussed possible need for ortho pending results. Recurrent major 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 Psychophysiological insomnia 02/04/2023 Gastroesophageal reflux disease without esophagi tis 02/04/2023 Class 3 severe obesity due t o excess calories with serious comorbidity and body mass index (BMI) of 40.0 to 44.9 in adult 11/22/2022 Assessment & Plan (11/22/2022 10:51 AM SECURITY CONTROLS ASSESSOR): Discussed healthy diet and importance of regular physical activity (20- 30min/day, 150min/wk). Karin lewis, right 12/19/2020 Overview (12/19/2020): Added automatically from request for surgery [id number] Karin babintte, left 12/19/2020 Overview (12/19/2020): Added automatically from request for surgery [id number] Acquired hammer toe of right foot 12/19/2020 Overview (12/19/2020): Added automatically from request for surgery [id number] Hammer toe of left foot 12/19/2020 Overview (12/19/2020): Added automatically from request for surgery [id number] Insulin pump status 05/30/2020 Assessment & Plan (06/11/2023 4:03 PM CDT): No pump setting changes at this time. Assessment & Plan (11/22/2022 12:17 PM SECURITY CONTROLS ASSESSOR): Continue current settings on Omnipod Humulin U500: [...] changes. Assessment & Plan (09/21/2021 2:20 PM SECURITY CONTROLS ASSESSOR): Decrease 8a BR to 0.5. Assessment & [...] metanephrines. Hyperlipidemia associated with type 2 diabetes m prakash 04/20/2020 Assessment & Plan (06/11/2023 4:02 PM CDT): Chronic problem. Controlled on current Atorvastatin 20mg. Last lipid panel: 04/09/23 LDL=60, ZZ=425. Assessment & Plan (11/22/2022 12:12 PM SECURITY CONTROLS ASSESSOR): Chronic problem, at goal. Currently taking atorvastatin 20mg daily. No changes. Update lipid panel today. Verified that she uses [employer]. Aware to check results/results letter in [employer]. Will contact by phone if needed. Assessment & Plan (09/17/2022 11:33 AM SECURITY CONTROLS ASSESSOR): Checking fast lipid profile today, adjust medicine thereafter. Diet reviewed Assessment & Plan (03/29/2022 2:43 PM CDT): Chronic problem. On statin therapy, no changes. Assessment & Plan (09/21/2021 2:36 PM SECURITY CONTROLS ASSESSOR): Chronic problem. On statin therapy, no changes. [...] Atorvastatin Assessment & Plan (10/04/2020 4:03 PM SECURITY CONTROLS ASSESSOR): Goal of treatment , LDL cholesterol less [...] time. Assessment & Plan (11/21/2022 4:02 PM SECURITY CONTROLS ASSESSOR): Chronic problem, well controlled on current regimen. No changes at this time. Assessment & Plan (09/17/2022 11:33 AM SECURITY CONTROLS ASSESSOR): Blood pressure control adequate no change in [...] infection. Assessment & Plan (11/22/2022 12:13 PM SECURITY CONTROLS ASSESSOR): Chronic problem, well controlled at this time. Please have labs drawn today before leaving. Verified that she uses mychart. Aware to check results/results letter in [employer]Direct. Will contact by phone if needed. I [...] 100 Assessment & Plan (09/17/2022 11:06 AM SECURITY CONTROLS ASSESSOR): Overdue for multiple tests including hemoglobin A1c [...] today. Assessment & Plan (09/21/2021 2:37 PM SECURITY CONTROLS ASSESSOR): Chronic problem, trending low normal during the [...] metformin Assessment & Plan (10/04/2020 4:03 PM SECURITY CONTROLS ASSESSOR): Hba1c was Lab Results Component Value Date [...] with contact information for insulin pump sales representative publications and how to reach our office after [...] appointment in 2 weeks. Instructed to contact [facility]'s specialty pharmacy to have them send [...] CDT): Will work up to rule out [place]'s Diabetic polyneuropathy asso ciated with diabetes mellitus due to underlying condition 03/17/2020 Assessment & Plan (06/11/2023 4:00 PM CDT): Chronic problem. Currently taking lyrica 75mg bid. Aware to check feet nightly & not go barefoot. Assessment & Plan (09/17/2022 12:23 PM SECURITY CONTROLS ASSESSOR): Hands worse, Refilling lyrica, reviewed need for tight control of diabetes. She has no clinical findings that suggest carpal tunnel although her symptoms seem somewhat compatible, consider reimaging neck a and/or getting EMG nerve conduction velocity after labs back Assessment & Plan (06/27/2021 3:56 PM CDT): Foot care discussed Continue gabapentin. A prescription sent Assessment & Plan (10/04/2020 4:02 PM SECURITY CONTROLS ASSESSOR): Foot care discussed Continue gabapentin Assessment & Plan (04/05/2020 2:16 PM CDT): Could not tolerate Lyrica Continue Gabapentin Foot care discussed Name for farm products shipper recommended. Assessment & Plan (03/17/2020 4:16 PM [...] lifestyle changes. Body mass index 40.0-44.9, adult ([facility]) 03/29/2022 11/21/2022 Morbid obesity with BMI of 4 5.0-49.9, adult ([facility]) 04/20/2020 11/21/2022 Assessment & Plan (09/17/2022 11:06 AM SECURITY CONTROLS ASSESSOR): Reviewed weight loss including diet exercise. Hold on any medication intervention Syncope and collapse 04/20/2020 023 Immunizations Immunization Administration Dates Next Due Influenza, [...] on file Legal Sex Female 10:15 PM SECURITY CONTROLS ASSESSOR Gender Identity Female 07/13/2021 7:15 AM CDT [...] CREATININE RATIO, URINE Routine 11/22/2022 11:25 AM SECURITY CONTROLS ASSESSOR Type 2 diabetes mellitus with stage 2 [...] 2021. Testing performed by: [facility], [address] [place] [address]., [id number] Blood 05/30/2024 4:54 PM CDT 05/30/2024 5:15 PM CDT Deng Pop DO LAB BLOOD ORDERABLES Final Result [facility] [address] [facility] Department [place] [address] * (ABNORMAL) POCT hemoglobin A1c [...] ORDERABLES Final Re sult Performing Organization Address City/[facility]/ZIP Co de Phone Number ANGEL [address] [facility] Department [place] [address] * Albumin Creatinine Ratio, Urine (11/22/2022 11:25 AM SECURITY CONTROLS ASSESSOR) Albumin Ur <12.0 mg/L ANGEL Comment: Interpretive Data No reference range established. Current interpretive data was last revised 2019. Creatinine Ur 91.7 mg/dL ANGEL Comment: Interpretive Data No reference range established. Current interpretive data was last revised 2019. Albumin Creatinine Ratio, Ur <13 1 - 29 mg/g [facility] Urine 11/22/2022 11:2 5 AM SECURITY CONTROLS ASSESSOR 11/22/2022 2:21 PM SECURITY CONTROLS ASSESSOR Cathy Talavera NP LAB URINE ORDERABLES Ioana l Result Performing Organization Address [facility]/ZIP Co de Phone Number ANGEL [address] Department of Laboratories [place], [place] [id number] * Diabetic Eye Exam (09/03/2022) Historical Provider HEALTH MAINTENANCE Edited Result - Final from Last 3 Months or Most Recently Relevant to Health Maintenance Insurance [facility] Advance Directives For more information, please contact: [phone] * Full Code (Latest Code Status on File) Date Activated Date Inactivated Comments 01/13/2021 1:19 PM 01/13/2021 7:07 PM Care Teams Manager Transportation Planning Relationship Specialty Start Date End Date Preet Rocha MD [address] [place] [id number] PCP - General Family Medicine 05/30/24 Cher Hernandez DPM Formerly [facility] [place] [address] Consulting Physician Foot and Ankle Surg 01/13/21
--- OUTSIDE RECORDS SUMMARY | 2025-03-23 15:40 | XMS_ITS | Encounter Summary ---
Author Organization [facility] Address [address] [place] [address] Care Team Providers Care Administrative Secretary Name Role Phone Hakeem Green MD Primary Care Provider Marcy ventura Encounter Details Date Type Department Care Team (Late st Contact Info) Description 07/22/2020 Prep for Procedure [facility] [place], [place] [id number] Victorino Valenzuela MD [address] [facility] [address] [place], [place] [id number] Social History Tobacco Use Types Packs/Day Years [...] Sex Assigned at Female 12/22/2024 6:50 PM LOOM OPERATOR Legal Sex Female 7:20 PM CDT Gender [...] unspecified documented in this encounter Care Teams Administrative Secretary Relationship Specialty Start Date End Date Hakeem Green MD PCP - General 09/27/16 documented as of this encounter
[2025-03-23 15:58] VITALS: BP 131/75; PULSE 79; RESP 20; TEMP 36.6; O2SAT 98
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
[2025-03-23 17:28] LABS: Basophils Percent Auto 0.2 % (0.2-1.2); Eosinophils Absolute Auto 0.1 K/mm3 (0-0.3); Eosinophils Percent Auto 0.4 % (0-4.4); Hematocrit 39.2 % (37.0-47.0); Hemoglobin 13.3 g/dL (12.0-15.0); Immature Granulocyte Absolute 0.04 K/mm3 (0.00-0.031); Immature Granulocyte Percent A 0.4 % (0-0.5); Lymphocytes Absolute Auto 0.34 K/mm3 (0.9-3.2); Mean Corpuscular HGB Conc 33.9 g/dl (32-36); Mean Corpuscular Hemoglobin 30.6 pg (26-34); Mean Corpuscular Volume 90.1 fl (80-100); Mean Platelet Volume 9.8 fl (7.4-10.4); Monocytes Absolute Auto 0.4 K/mm3 (0.1-0.6); Monocytes Percent Auto 3.8 % (2.6-8.5); Neutrophils Absolute Auto 10.3 K/mm3 (1.3-6.7); Neutrophils Percent Auto 92.2 % (45.5-73.1); Platelet Count Result 134 k/mm3 (150-375); Red Blood Count 4.35 M/mm3 (4.2-5.4); Red Cell Distribution Width 14.6 % (11.5-14.5); White Blood Count 11.2 K/mm3 (4.5-10.0)
[2025-03-23 17:30] LABS: Add Urine Microscopic? YES; Appearance Urine Clear (Clear); Bacteria Urine None Seen /hpf; Bilirubin Urine Negative (Negative); Blood Urine Negative (Negative); Color Urine Yellow (Yellow); Glucose Urine UA 3+ mg/dL (Negative); Ketones Urine 2+ mg/dL (Negative); Leukocyte Esterase Ur Negative LEU/UL (Negative); Nitrate Urine Negative (Negative); Non Pathogenic Casts 0-2; Protein Urine 2+ mg/dL (Negative); RBC Urine 0-2 /hpf (0-2); Specific Grav Ur 1.035 (1.001-1.035); Squamous Epithelial Cell Urine Occasional /hpf (Few); WBC Urine 0-5 /hpf (0-3)
[2025-03-23 17:36] LABS: Lactic Acid Reflex 1.6 mmol/L (0.7-2.0)
[2025-03-23 17:59] LABS: Alanine Aminotransferase 34 U/L (6-35); Albumin Level 4.1 g/dL (3.5-5.1); Alkaline Phosphatase 110 U/L (38-126); Anion Gap 8 mmol/L (4-12); Aspartate Amino Transferase 28 U/L (14-36); Blood Urea Nitrogen 10 mg/dL (7-17); CRP 16.6 mg/dL (<1.0); Calcium 8.9 mg/dL (8.4-10.2); Carbon Dioxide 25 mmol/L (22-30); Chloride 103 mmol/L (98-107); Estimated CRCL calculation 103 ml/min; Estimated Glomerular Filt Rate > 60; Glucose 267 mg/dL (65-110); Potassium 3.9 mmol/L (3.4-5.0); Sodium 136 mmol/L (137-145)
[2025-03-23 18:09] LABS: Erythrocyte Sedimentation Rate 71 mm/hr (0-20)
[2025-03-23] MEDS: SODIUM CHLORIDE 0.9% IV 1,000 ML 999 ML IV CONT (18:09)
--- OUTSIDE RECORDS SUMMARY | 2025-03-23 18:38 | XMS_ITS | Clinical Summary ---
Author Organization [facility] Address [address] [place] [address] Care Team Providers Care Scudding Inspector Name Role Phone Hakeem Green MD Primary Care Provider Unavai lable Allergies Active Allergy Reactions Criticality Noted Date Comments Corticosteroids Unknown 07/02/2012 Morphine Swelling High 07/02/2012 Medications Insulin Pen Needle (BD PEN NEEDLE ASHLEY U/F) 32G X 4 MM MiscIndications :Diabetes ([facility]) USE DIRECTED 200 each 04/07/2019 Active Social [...] Sex Assigned at Female 12/22/2024 6:50 PM RESPIRATORY CARE TECHNICIAN Legal Sex Female 7:20 PM CDT Gender Identity Not on file Sexual Orientation Not on file Last Filed Vital Signs Vital Sign Reading Time Taken Comments Blood Pressure 124/83 12/22/2024 6:23 PM RESPIRATORY CARE TECHNICIAN Pulse 79 12/22/2024 6:23 PM RESPIRATORY CARE TECHNICIAN Temperature 36.7 C (98 F) 12/22/2024 6:23 PM RESPIRATORY CARE TECHNICIAN Respiratory Rate 18 12/22/2024 6:23 PM RESPIRATORY CARE TECHNICIAN Oxygen Saturation 100% 12/22/2024 6:23 PM RESPIRATORY CARE TECHNICIAN Inhaled Oxygen Concentration - - Weight 113.4 kg (250 lb) 12/22/2024 6:23 PM RESPIRATORY CARE TECHNICIAN Height 167.6 cm (5' 6 ) 12/22/2024 6:23 PM RESPIRATORY CARE TECHNICIAN Body Mass Index 40.35 12/22/2024 6:23 PM RESPIRATORY CARE TECHNICIAN Plan of Treatment Health Maintenance Due Date [...] patient's age to complete this topic Insurance [phone] [id number] (Work) [address] [place] [id number] [place] [address] Care Teams Scudding Inspector Relationship Specialty Start Date End Date Hakeem Green MD PCP - General 09/27/16
--- OUTSIDE RECORDS SUMMARY | 2025-03-23 18:38 | XMS_ITS | Encounter Summary ---
Author Organization [facility] Address [address] [place] [id number] Care Team Providers Care Professional Skater Name Role Phone Hakeem Green MD Primary Care Provider Marcy ventura Encounter Details Date Type Department Care Team (Late st Contact Info) Description 07/22/2020 Prep for Procedure [facility] [place], [place] [id number] Victorino Valenzuela MD [address] [facility] [address] [place], [place] [id number] Social History Tobacco Use Types Packs/Day Years [...] Sex Assigned at Female 12/22/2024 6:50 PM TRIBUNAL MEMBER Legal Sex Female 7:20 PM CDT Gender [...] unspecified documented in this encounter Care Teams Professional Skater Relationship Specialty Start Date End Date Hakeem Green MD PCP - General 09/27/16 documented as of this encounter
--- OUTSIDE RECORDS SUMMARY | 2025-03-23 18:38 | XMS_ITS | Referral Summary ---
Author Organization [facility] [address] Address [address] [place] [address] Care Team Providers Care Industrial Chemistry Teacher Name Role Phone Cher Hernandez DPM Unavailable [phone] Preet Rocha MD Primary Care Provider [phone] Encounters Date Type Department Care Team Description 01/25/[address] [address] Qasim Nelson MD from Last [...] 1 3 Active blood-glucose meter,continuous (Dexcom G6 Steel Rule Die Maker Apprentice) miscIndications:Ty pe 2 diabetes mellitus with hyperglycemia, with long-term current use of insulin ([facility]) Inject 1 kit under the skin as directed 1 each 3 Active atorvastatin (LIPITOR) 20 mg tabletIndications: Hyperlipidemia associated with type 2 diabetes mellitus ([facility]) Take 1 tablet (20 mg total) by [...] disease, with long-term current use of insulin ([facility]) Use to inject U500 insulin twice daily [...] mychart. Aware to check results/results letter in [employer]. Will contact by phone if needed. Discussed possible need for ortho pending results. Recurrent major 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 Psychophysiological insomnia 02/04/2023 Gastroesophageal reflux disease without esophagi tis 02/04/2023 Class 3 severe obesity due t o excess calories with serious comorbidity and body mass index (BMI) of 40.0 to 44.9 in adult 11/22/2022 Assessment & Plan (11/22/2022 10:51 AM SALES ADVISORY MANAGER): Discussed healthy diet and importance of regular physical activity (20- 30min/day, 150min/wk). Karin lewis, right 12/19/2020 Overview (12/19/2020): Added automatically from request for surgery [id number] Karin babintte, left 12/19/2020 Overview (12/19/2020): Added automatically from request for surgery [id number] Acquired hammer toe of right foot 12/19/2020 Overview (12/19/2020): Added automatically from request for surgery [id number] Hammer toe of left foot 12/19/2020 Overview (12/19/2020): Added automatically from request for surgery [id number] Insulin pump status 05/30/2020 Assessment & Plan (06/11/2023 4:03 PM CDT): No pump setting changes at this time. Assessment & Plan (11/22/2022 12:17 PM SALES ADVISORY MANAGER): Continue current settings on Omnipod Humulin U500: [...] changes. Assessment & Plan (09/21/2021 2:20 PM SALES ADVISORY MANAGER): Decrease 8a BR to 0.5. Assessment & [...] Atorvastatin 20mg. Last lipid panel: 04/09/23 LDL=60, IP=649. Assessment & Plan (11/22/2022 12:12 PM SALES ADVISORY MANAGER): Chronic problem, at goal. Currently taking atorvastatin 20mg daily. No changes. Update lipid panel today. Verified that she uses [employer]. Aware to check results/results letter in [employer]. Will contact by phone if needed. Assessment & Plan (09/17/2022 11:33 AM SALES ADVISORY MANAGER): Checking fast lipid profile today, adjust medicine thereafter. Diet reviewed Assessment & Plan (03/29/2022 2:43 PM CDT): Chronic problem. On statin therapy, no changes. Assessment & Plan (09/21/2021 2:36 PM SALES ADVISORY MANAGER): Chronic problem. On statin therapy, no changes. [...] Atorvastatin Assessment & Plan (10/04/2020 4:03 PM SALES ADVISORY MANAGER): Goal of treatment , LDL cholesterol less [...] time. Assessment & Plan (11/21/2022 4:02 PM SALES ADVISORY MANAGER): Chronic problem, well controlled on current regimen. No changes at this time. Assessment & Plan (09/17/2022 11:33 AM SALES ADVISORY MANAGER): Blood pressure control adequate no change in [...] infection. Assessment & Plan (11/22/2022 12:13 PM SALES ADVISORY MANAGER): Chronic problem, well controlled at this time. Please have labs drawn today before leaving. Verified that she uses mychart. Aware to check results/results letter in [employer]. Will contact by phone if needed. I [...] 100 Assessment & Plan (09/17/2022 11:06 AM SALES ADVISORY MANAGER): Overdue for multiple tests including hemoglobin A1c [...] today. Assessment & Plan (09/21/2021 2:37 PM SALES ADVISORY MANAGER): Chronic problem, trending low normal during the [...] metformin Assessment & Plan (10/04/2020 4:03 PM SALES ADVISORY MANAGER): Hba1c was Lab Results Component Value Date [...] provided with contact information for insulin pump pharmacy services representative and how to reach our office [...] appointment in 2 weeks. Instructed to contact [facility] specialty pharmacy to have them send [...] CDT): Will work up to rule out [place]'s Diabetic polyneuropathy asso ciated with diabetes mellitus due to underlying condition 03/17/2020 Assessment & Plan (06/11/2023 4:00 PM CDT): Chronic problem. Currently taking lyrica 75mg bid. Aware to check feet nightly & not go barefoot. Assessment & Plan (09/17/2022 12:23 PM SALES ADVISORY MANAGER): Hands worse, Refilling lyrica, reviewed need for tight control of diabetes. She has no clinical findings that suggest carpal tunnel although her symptoms seem somewhat compatible, consider reimaging neck a and/or getting EMG nerve conduction velocity after labs back Assessment & Plan (06/27/2021 3:56 PM CDT): Foot care discussed Continue gabapentin. A prescription sent Assessment & Plan (10/04/2020 4:02 PM SALES ADVISORY MANAGER): Foot care discussed Continue gabapentin Assessment & Plan (04/05/2020 2:16 PM CDT): Could not tolerate Lyrica Continue Gabapentin Foot care discussed Name for aircraft maintenance supervisor recommended. Assessment & Plan (03/17/2020 4:16 PM [...] lifestyle changes. Body mass index 40.0-44.9, adult ([facility]) 03/29/2022 11/21/2022 Morbid obesity with BMI of 4 5.0-49.9, adult ([facility]) 04/20/2020 11/21/2022 Assessment & Plan (09/17/2022 11:06 AM SALES ADVISORY MANAGER): Reviewed weight loss including diet exercise. Hold [...] on file Legal Sex Female 10:15 PM SALES ADVISORY MANAGER Gender Identity Female 07/13/2021 7:15 AM CDT [...] CREATININE RATIO, URINE Routine 11/22/2022 11:25 AM SALES ADVISORY MANAGER Type 2 diabetes mellitus with stage 2 [...] was last reviewed 2021. Testing performed by: [facility], [address] [place] [address]., [address] Blood 05/30/2024 4:54 PM CDT 05/30/2024 5:15 PM CDT Deng Pop DO LAB BLOOD ORDERABLES Final Result ANGEL [address] [facility] Department [place] [address] * (ABNORMAL) POCT hemoglobin A1c [...] ORDERABLES Final Re sult Performing Organization Address City/[facility]/ZIP Co de Phone Number AGNEL [address] [facility] Department [place] [address] * Albumin Creatinine Ratio, Urine (11/22/2022 11:25 AM SALES ADVISORY MANAGER) Albumin Ur <12.0 mg/L ANGEL Comment: Interpretive Data No reference range established. Current interpretive data was last revised 2019. Creatinine Ur 91.7 mg/dL ANGEL Comment: Interpretive Data No reference range established. Current interpretive data was last revised 2019. Albumin Creatinine Ratio, Ur <13 1 - 29 mg/g [facility] Urine 11/22/2022 11:2 5 AM SALES ADVISORY MANAGER 11/22/2022 2:21 PM SALES ADVISORY MANAGER Cathy Talavera NP LAB URINE ORDERABLES Ioana l Result Performing Organization Address [facility]/ZIP Co de Phone Number ANGEL [address] Department of Laboratories [place], [place] [id number] * Diabetic Eye Exam (09/03/2022) Historical Provider HEALTH MAINTENANCE Edited Result - Final from Last 3 Months or Most Recently Relevant to Health Maintenance Insurance [facility] Advance Directives For more information, please contact: [phone] * Full Code (Latest Code Status on File) Date Activated Date Inactivated Comments 01/13/2021 1:19 PM 01/13/2021 7:07 PM Care Teams Industrial Chemistry Teacher Relationship Specialty Start Date End Date Preet Rocha MD [address] [place] [id number] PCP - General Family Medicine 05/30/24 Cher Hernandez DPM [facility] [place] [address] Consulting Physician Foot and Ankle Surg 01/13/21
--- OUTSIDE RECORDS SUMMARY | 2025-03-23 18:38 | XMS_ITS | Clinical Summary ---
Author Organization [facility] [address] Address [address] [place] [address] Care Team Providers Care Engraver Picture Name Role Phone Cher Hernandez DPM Unavailable [phone] Preet Rocha MD Primary Care Provider [phone] Allergies Active Allergy Reactions Criticality Noted Date [...] 1 3 Active blood-glucose meter,continuous (Dexcom G6 Lead Sprinkler) miscIndications:Ty pe 2 diabetes mellitus with hyperglycemia, with long-term current use of insulin ([facility]) Inject 1 kit under the skin as directed 1 each 3 Active atorvastatin (LIPITOR) 20 mg tabletIndications: Hyperlipidemia associated with type 2 diabetes mellitus ([facility]) Take 1 tablet (20 mg total) [...] disease, with long-term current use of insulin ([facility]) Use to inject U500 insulin twice [...] mychart. Aware to check results/results letter in [employer]. Will contact by phone if needed. Discussed possible need for ortho pending results. Recurrent major 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 Psychophysiological insomnia 02/04/2023 Gastroesophageal reflux disease without esophagi tis 02/04/2023 Class 3 severe obesity due t o excess calories with serious comorbidity and body mass index (BMI) of 40.0 to 44.9 in adult 11/22/2022 Assessment & Plan (11/22/2022 10:51 AM NOTCHED BLADE LOADER): Discussed healthy diet and importance of regular physical activity (20- 30min/day, 150min/wk). Karin lewis, right 12/19/2020 Overview (12/19/2020): Added automatically from request for surgery [id number] Karin caballeroe, left 12/19/2020 Overview (12/19/2020): Added automatically from request for surgery [id number] Acquired hammer toe of right foot 12/19/2020 Overview (12/19/2020): Added automatically from request for surgery [id number] Hammer toe of left foot 12/19/2020 Overview (12/19/2020): Added automatically from request for surgery [id number] Insulin pump status 05/30/2020 Assessment & Plan (06/11/2023 4:03 PM CDT): No pump setting changes at this time. Assessment & Plan (11/22/2022 12:17 PM NOTCHED BLADE LOADER): Continue current settings on Omnipod Humulin U500: [...] changes. Assessment & Plan (09/21/2021 2:20 PM NOTCHED BLADE LOADER): Decrease 8a BR to 0.5. Assessment & [...] Atorvastatin 20mg. Last lipid panel: 04/09/23 LDL=60, FD=761. Assessment & Plan (11/22/2022 12:12 PM NOTCHED BLADE LOADER): Chronic problem, at goal. Currently taking atorvastatin 20mg daily. No changes. Update lipid panel today. Verified that she uses [employer]. Aware to check results/results letter in [employer]. Will contact by phone if needed. Assessment & Plan (09/17/2022 11:33 AM NOTCHED BLADE LOADER): Checking fast lipid profile today, adjust medicine thereafter. Diet reviewed Assessment & Plan (03/29/2022 2:43 PM CDT): Chronic problem. On statin therapy, no changes. Assessment & Plan (09/21/2021 2:36 PM NOTCHED BLADE LOADER): Chronic problem. On statin therapy, no changes. [...] Atorvastatin Assessment & Plan (10/04/2020 4:03 PM NOTCHED BLADE LOADER): Goal of treatment , LDL cholesterol less [...] time. Assessment & Plan (11/21/2022 4:02 PM NOTCHED BLADE LOADER): Chronic problem, well controlled on current regimen. No changes at this time. Assessment & Plan (09/17/2022 11:33 AM NOTCHED BLADE LOADER): Blood pressure control adequate no change in [...] infection. Assessment & Plan (11/22/2022 12:13 PM NOTCHED BLADE LOADER): Chronic problem, well controlled at this time. Please have labs drawn today before leaving. Verified that she uses mychart. Aware to check results/results letter in [email or web address]. Will contact by phone if needed. I [...] 100 Assessment & Plan (09/17/2022 11:06 AM NOTCHED BLADE LOADER): Overdue for multiple tests including hemoglobin A1c [...] today. Assessment & Plan (09/21/2021 2:37 PM NOTCHED BLADE LOADER): Chronic problem, trending low normal during the [...] metformin Assessment & Plan (10/04/2020 4:03 PM NOTCHED BLADE LOADER): Hba1c was Lab Results Component Value Date [...] provided with contact information for insulin pump membership sales representative and how to reach our [...] appointment in 2 weeks. Instructed to contact [facility] to have them send Dexcom. [...] CDT): Will work up to rule out [place]'s Diabetic polyneuropathy asso ciated with diabetes mellitus due to underlying condition 03/17/2020 Assessment & Plan (06/11/2023 4:00 PM CDT): Chronic problem. Currently taking lyrica 75mg bid. Aware to check feet nightly & not go barefoot. Assessment & Plan (09/17/2022 12:23 PM NOTCHED BLADE LOADER): Hands worse, Refilling lyrica, reviewed need for tight control of diabetes. She has no clinical findings that suggest carpal tunnel although her symptoms seem somewhat compatible, consider reimaging neck a and/or getting EMG nerve conduction velocity after labs back Assessment & Plan (06/27/2021 3:56 PM CDT): Foot care discussed Continue gabapentin. A prescription sent Assessment & Plan (10/04/2020 4:02 PM NOTCHED BLADE LOADER): Foot care discussed Continue gabapentin Assessment & Plan (04/05/2020 2:16 PM CDT): Could not tolerate Lyrica Continue Gabapentin Foot care discussed Name for barrel rifler operator recommended. Assessment & Plan (03/17/2020 4:16 PM [...] lifestyle changes. Body mass index 40.0-44.9, adult ([facility]) 03/29/2022 11/21/2022 Morbid obesity with BMI of 4 5.0-49.9, adult ([facility]) 04/20/2020 11/21/2022 Assessment & Plan (09/17/2022 11:06 AM NOTCHED BLADE LOADER): Reviewed weight loss including diet exercise. Hold on any medication intervention Syncope and collapse 04/20/2020 023 Encounters Date Type Department Care Team Description 01/25/2025 Telephone [facility] [id number] [place] [address] [address] [address] Qasim Nelson MD from Last [...] on file Legal Sex Female 10:15 PM NOTCHED BLADE LOADER Gender Identity Female 07/13/2021 7:15 AM CDT [...] CREATININE RATIO, URINE Routine 11/22/2022 11:25 AM NOTCHED BLADE LOADER Type 2 diabetes mellitus with stage 2 [...] last reviewed 2021. Testing performed by: [facility], [address] [place] [address], [place]., [address] Blood 05/30/2024 4:54 PM CDT 05/30/2024 5:15 PM CDT Deng Pop DO LAB BLOOD ORDERABLES Final Result ANGEL MIKE [address] [facility] Department [place] [address] * (ABNORMAL) POCT hemoglobin A1c (06/11/2023 3:00 PM CDT) Hemoglobin A1C, POC 6.1 % Blood 06/11/2023 3:00 PM CDT Cathy Talavera PROCESS EXPERT POINT OF CARE TEST ORDERA BLES Final [...] on 2018. Triglycerides 163(H) <=149 mg/dL ANGEL MIKE Comment: Interpretive Data Ages [...] ORDERABLES Final Re sult Performing Organization Address [facility] Co de Phone Number ANGEL [address] [facility] Department [place] [address] * Albumin Creatinine Ratio, Urine (11/22/2022 11:25 AM NOTCHED BLADE LOADER) Albumin Ur <12.0 mg/L ANGEL Comment: Interpretive Data No reference range established. Current interpretive data was last revised 2019. Creatinine Ur 91.7 mg/dL ANGEL Comment: Interpretive Data No reference range established. Current interpretive data was last revised 2019. Albumin Creatinine Ratio, Ur <13 1 - 29 mg/g ANGEL Urine 11/22/2022 11:2 5 AM NOTCHED BLADE LOADER 11/22/2022 2:21 PM NOTCHED BLADE LOADER us Cathy Talavera NP LAB URINE ORDERABLES Ioana l Result Performing Organization Address [facility] Co de Phone Number ANGEL [address] Department [place] [address] * Diabetic Eye Exam (09/03/2022) Historical Provider HEALTH MAINTENANCE Edited Result - Final from Last 3 Months or Most Recently Relevant to Health Maintenance Insurance [facility] Advance Directives For more information, please contact: [phone] * Full Code (Latest Code Status on File) Date Activated Date Inactivated Comments 01/13/2021 1:19 PM 01/13/2021 7:07 PM Care Teams Engraver Picture Relationship Specialty Start Date End Date Preet Rocha MD [address] [place] [address] PCP - General Family Medicine 05/30/24 Cher Hernandez DPM [address] [place] [address] Consulting Physician Foot and Ankle Surg 01/13/21
--- OUTSIDE RECORDS SUMMARY | 2025-03-23 18:38 | XMS_ITS | Clinical Summary ---
Author Organization [facility] Address [address] [facility] [place] [address] Care Team Providers Care Supply Chain Consultant Name Role Phone Preet Rocha MD Primary Care Provider [phone] Source Comments [facility],non-owned Affiliates and Associated Physician Practices is amultiple site organization consisting of ambulatory clinics and hospital sitesin [place], [place], [place] and [place]. This disclosure is being madepursuant to the Care Everywhere program and may not contain all information available regarding this patient. Last updated 18.[facility] Health Encounters Date Type Department Care Team Description 03/02/2025 Travel from Last 3 Months Social History Tobacco Use Types Packs/Day Years Used Date Smoking Tobacco: Never Assessed Comments Unknown Sex and Gender Information Value Date Recorded Sex Assigned at Not on file Legal Sex Female 5:33 AM DOOR ASSEMBLER Gender Identity Not on file Sexual Orientation Not on file Plan of Treatment Upcoming Encounters Date Type Department Care Team (Late st Contact Info) Description 05/20/2025 1:20 PM CDT Office Visit [facility] - Dermatology [address] [place] [address], [place] [phone] Sulaiman Ramachandran MD [address] [place] [address] DEPT OF DERMATOLOGY [address] [place] [phone] Health Maintenance Due Date Last Done Comments [...] patient's age to complete this topic Insurance [facility] Care Teams Supply Chain Consultant Relationship Specialty Start Date End Date Preet Rocha MD [address] [place] [id number] PCP - General Family Medicine 08/27/24
[2025-03-23] MEDS: CEFEPIME 2 GM/NS 50 ML 2 GM/50 ML BAG IVPB (19:46)
[2025-03-23 19:50] VITALS: BP 112/75; PULSE 79; RESP 14; TEMP 36.9; O2SAT 99
[2025-03-23] MEDS: metroNIDAZOLE 500 MG/ISO 100ML 500 MG/100 ML BAG 100 MG IVPB (20:11)
[2025-03-23 20:15] LABS: Glucose Point of Care 248 mg/dl (65-105)
[2025-03-23 20:59] VITALS: BMI 39.0
--- NOTE | 2025-03-23 21:25 | ADMGEN ---
This patient, Sabina Dash, was admitted to [facility] Surg Room 321-02. Patient/family oriented to hospital policies and general routines including ID bracelet, bed and alarms, visiting hours, pain management, procedures, bathroom and other care routines, personal items, smoking policy, room service/diet, and visiting hours. Information on how to activate the Rapid Response Team has been discussed. Patient/Family are encouraged to report perceived risks to care and to ask questions if they do not understand what they are told or what they should do.
[2025-03-23 21:33] VITALS: BP 98/83; PULSE 77; RESP 18; TEMP 36.6; O2SAT 99; BMI 39.1
[2025-03-23 21:33] LABS: Glucose Point of Care 242 mg/dl (65-105)
[2025-03-23 21:50] VITALS: PULSE 77; RESP 18; O2SAT 99
[2025-03-23] MEDS: ONDANSETRON INJ 4 MG/2 ML VIAL IV PUSH (21:57)
[2025-03-23] MEDS: VANCOMYCIN 1,250 MG/NS 250 ML 1,250 MG/250 ML BAG 166.67 MG IVPB ×2 (21:57→23:28)
[2025-03-23] MEDS: INSULIN ASPART (*BKC) 100 UNITS/ML SUB-Q (22:03)
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
[2025-03-24 05:38] VITALS: BP 108/55; PULSE 60; RESP 16; TEMP 36.6; O2SAT 99
[2025-03-24] MEDS: metroNIDAZOLE 500 MG/ISO 100ML 500 MG/100 ML BAG 100 MG IVPB ×3 (05:49→22:52)
[2025-03-24 06:06] LABS: Hematocrit 38.6 % (37.0-47.0); Hemoglobin 12.8 g/dL (12.0-15.0); Immature Platelet Fraction Pct 2.4 % (0.9-11.2); Mean Corpuscular HGB Conc 33.2 g/dl (32-36); Mean Corpuscular Hemoglobin 30.7 pg (26-34); Mean Corpuscular Volume 92.6 fl (80-100); Mean Platelet Volume 9.9 fl (7.4-10.4); Platelet Count Result 113 k/mm3 (150-375); Red Blood Count 4.17 M/mm3 (4.2-5.4); Red Cell Distribution Width 14.7 % (11.5-14.5); White Blood Count 7.1 K/mm3 (4.5-10.0)
[2025-03-24 06:33] LABS: Alanine Aminotransferase 31 U/L (6-35); Albumin Level 3.7 g/dL (3.5-5.1); Alkaline Phosphatase 95 U/L (38-126); Anion Gap 7 mmol/L (4-12); Aspartate Amino Transferase 27 U/L (14-36); Bilirubin,Total 0.9 mg/dL (0.2-1.3); Blood Urea Nitrogen 13 mg/dL (7-17); Calcium 8.4 mg/dL (8.4-10.2); Carbon Dioxide 30 mmol/L (22-30); Chloride 103 mmol/L (98-107); Estimated CRCL calculation 87 ml/min; Estimated Glomerular Filt Rate > 60; Glucose 251 mg/dL (65-110); Potassium 4.1 mmol/L (3.4-5.0); Sodium 140 mmol/L (137-145)
[2025-03-24 06:41] LABS: Estimated CRCL calculation 84 ml/min; Estimated Glomerular Filt Rate > 60
[2025-03-24] MEDS: ONDANSETRON INJ 4 MG/2 ML VIAL IV PUSH (06:44)
[2025-03-24 07:16] LABS: MRSA (PCR) NOT DETECTED (NOT DETECTE)
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
[2025-03-24 08:05] LABS: Glucose Point of Care 223 mg/dl (65-105)
[2025-03-24 08:20] LABS: Hemoglobin A1C 7.6 % (<5.7)
[2025-03-24] MEDS: INSULIN ASPART (*BKC) 100 UNITS/ML SUB-Q ×4 (09:05→21:07)
[2025-03-24] MEDS: ENOXAPARIN 40 MG/0.4 ML SYRINGE SUB-Q (09:06)
[2025-03-24] MEDS: BACLOFEN 10 MG TABLET 20 MG PO ×3 (09:07→16:54)
[2025-03-24] MEDS: POTASSIUM CHLORIDE 10 MEQ ER TABLET PO (09:07)
[2025-03-24] MEDS: SPIRONOLACTONE 50 MG TABLET PO (09:07)
[2025-03-24] MEDS: FUROSEMIDE 40 MG TABLET 80 MG PO (09:07)
[2025-03-24 09:19] VITALS: BP 128/78
[2025-03-24] MEDS: VANCOMYCIN 1,500 MG/NS 500 ML 1,500 MG/500 ML BAG 250 MG IVPB ×2 (10:34→22:54)
[2025-03-24] MEDS: PREGABALIN (*CRX) 75 MG CAPSULE PO ×2 (10:34→22:56)
--- NOTE | 2025-03-24 11:27 | PM.IMPN ---
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 1.4 cm phlegmon versus early abscess in the left medial gluteal soft tissues. Continue cefepime, metronidazole and vancomycin Blood culture pending Gen surgery following Diabetes mellitus Low-dose sliding scale Titrate as needed Hypoglycemia protocol HbA1c ordered Hypertension Continue lisinopril Continue spironolactone Continue furosemide Anxiety Continue buspirone 30 mg p.o. BID and Trazodone DVT prophylaxis: Lovenox 40 mg subQ Subjective Date/time seen: 03/24/25 11:27 Interval history: Comfortable at bedside Exam Narrative: General: alert and comfortable Eyes: EOMI, PERRLA ENNT External ears normal, Neck is supple, no masses, Respiratory systems: Clear to auscultation Cardiovascular S1, S2, normal rhythm, no murmur, rub, or gallop; no thrill or palpable murmurs on palpation. Gastrointestinal: soft, non-tender, and non-distended abdomen with no masses; BS present Skin: left gluteal edematous swelling and erythema Musculoskeletal: no abnormality and no tenderness, normal ROM Neurologic: Alert and oriented x3, non focal Objective Data Vital Signs Vital Signs: Vital Signs - 24 hr 03/23/25 15:58 03/23/25 19:50 03/23/25 21:33 Temperature 97.9 F 98.5 F 97.8 F Pulse Rate 79 79 77 Respiratory Rate 20 14 18 Blood Pressure 131/75 112/75 98/83 L Pulse Oximetry 98 99 99 Oxygen Delivery Room Air 03/23/25 21:50 03/24/25 05:38 03/24/25 09:19 Temperature 97.8 F Pulse Rate 77 60 Respiratory Rate 18 16 Blood Pressure 108/55 L 128/78 Pulse Oximetry 99 99 Oxygen Delivery Room Air Intake/Output Intake/Output: Intake & Output 03/21/25 03/22/25 03/23/25 03/24/25 23:59 23:59 23:59 23:59 Intake Total 1150 240 Balance 1150 240 Meds/Results Medications: Active Medications Generic Name Dose Route Start Last Admin Trade Name Freq PRN Reason Stop Dose Admin Acetaminophen 650 mg 03/23/25 19:51 Acetaminophen 325 Mg Tablet PO Q4H PRN Mild Pain (1-3) or Fever Albuterol 2 puff 03/24/25 02:42 Albuterol Sulfate (*Sp) Aerosol 1 Puff INHALATION QID PRN shortness of breath or wheezing Baclofen 20 mg 03/24/25 09:00 03/24/25 09:07 Baclofen 10 Mg Tablet PO 20 mg TID SYDNEY Administration Buspirone HCl 30 mg 03/24/25 21:00 Buspirone Hcl 10 Mg Tablet PO Q12HR SY[place] Dextrose 12.5 gm 03/23/25 19:51 Dextrose 50% 25 Gm/50 Ml Syringe IV PUSH PRN PRN Hypoglycemia Protocol Enoxaparin Sodium 40 mg 03/24/25 09:00 03/24/25 09:06 Enoxaparin 40 Mg/0.4 Ml Syringe SUB-Q 40 mg DAILY SY[place] Administration Fluoxetine HCl 60 mg 03/24/25 03:05 03/24/25 04:08 Fluoxetine Hcl 20 Mg Capsule PO Not Given 2300 [facility] Furosemide 80 mg 03/24/25 09:00 03/24/25 09:07 Furosemide 40 Mg Tablet PO 80 mg DAILY [facility] Administration Glucagon 1 mg 03/23/25 19:51 Glucagon For Inj 1 Mg Vial IM PRN PRN Hypoglycemia Protocol Glucose 15 gm 03/23/25 19:51 Glucose Oral Gel 15 Gm Of Glucse In 37.5 Gm Tube PO PRN PRN Hypoglycemia Protocol Cefepime HCl 2 gm in 50 mls @ 100 mls/hr 03/24/25 20:00 Maxipime 2 Gm/Ns 50 Ml IVPB Q12H SY[place] Metronidazole 500 mg in 100 mls @ 100 mls/hr 03/24/25 06:00 03/24/25 05:49 Flagyl 500 Mg/Iso Soln 100 Ml IVPB 100 mls/hr Q8H [facility] Administration Dextrose 1,000 mls @ 100 mls/hr 03/23/25 19:51 Dextrose 5% 1,000 Ml IVPB PRN PRN Hypoglycemia Protocol Vancomycin HCl 1,500 mg in 500 mls @ 250 mls/hr 03/24/25 10:00 03/24/25 10:34 Vancomycin 1,500 Mg/Ns 500 Ml IVPB 250 mls/hr Q12H [facility] Administration Insulin Aspart 2 - 5 units 03/24/25 08:00 03/24/25 09:05 Insulin Aspart (*Bkc) 100 Units/Ml SUB-Q 2 units TIDWM SY[place] Administration Protocol Insulin Aspart 1 - 2 units 03/24/25 21:00 Insulin Aspart (*Bkc) 100 Units/Ml SUB-Q HS SY[place] Protocol Ondansetron HCl 4 mg 03/23/25 19:51 03/24/25 06:44 Ondansetron Inj 4 Mg/2 Ml Vial IV PUSH 4 mg Q4H PRN Administration Nausea Potassium Chloride 10 meq 03/24/25 08:00 03/24/25 09:07 Potassium Chloride 10 Meq Er Tablet PO 10 meq DAILY@0800 [place] Administration Pregabalin 75 mg 03/24/25 11:00 03/24/25 10:34 Pregabalin (*Crx) 75 Mg Capsule PO 75 mg Q12H [place] Administration Spironolactone 50 mg 03/24/25 09:00 03/24/25 09:07 Spironolactone 50 Mg Tablet PO 50 mg DAILY [place] Administration Trazodone HCl 150 mg 03/24/25 03:05 03/24/25 04:08 Trazodone Hcl 50 Mg Tablet PO Not Given HS [facility] Radiology Results: ITS Impressions Abdomen/Pelvis CT 03/23/25 19:06 IMPRESSION: Hepatosplenomegaly. 1.4 cm phlegmon versus early abscess in the left medial gluteal soft tissues. Labs Labs: Laboratory Results - last 24 hr 03/23/25 03/23/25 03/23/25 17:17 20:13 21:30 WBC 11.2 H RBC 4.35 Hgb 13.3 Hct 39.2 MCV 90.1 MCH 30.6 MCHC 33.9 RDW 14.6 H Plt Count 134 L MPV 9.8 Immature Gran % (Auto) 0.4 Neut % (Auto) 92.2 H Lymph % (Auto) 3.0 L [place] % (Auto) 3.8 Eos % (Auto) 0.4 Baso % (Auto) 0.2 Lymph # (Auto) 0.34 L [place] # (Auto) 0.4 Eos # (Auto) 0.1 Baso # (Auto) 0.0 Abs Immat Gran (auto) 0.04 H Absolute Neuts (auto) 10.3 H Absolute Nucleated RBC 0.000 Nucleated RBC % 0.0 % Immature Plt Fraction ESR 71 H Sodium 136 L Potassium 3.9 Chloride 103 Carbon Dioxide 25 Anion Gap 8 BUN 10 Creatinine 0.78 Estim Creat Clear Calc 103 Estimated GFR > 60 Glucose 267 H POC Capillary Glucose 248 H 242 H Hemoglobin A1c Lactic Acid 1.6 Calcium 8.9 Total Bilirubin 1.0 AST 28 ALT 34 Alkaline Phosphatase 110 C-Reactive Protein 16.6 H Total Protein 8.0 Albumin 4.1 Urine Color Yellow Urine Appearance Clear Urine pH 7.0 Ur Specific [place] 1.035 Urine Protein 2+ H Urine Glucose (UA) 3+ H Urine Ketones 2+ H Ur Blood (Man) Negative Urine Nitrate Negative Urine Bilirubin Negative Urine Urobilinogen 1.0 Leukocyte Esterase Rfl Negative Urine RBC 0-2 Urine WBC 0-5 Ur Squamous Epith Cells Occasional Urine Bacteria None seen Urine Casts 0-2 Nasal MRSA (PCR) 03/24/25 03/24/25 03/24/25 05:42 05:42 05:42 WBC 7.1 RBC 4.17 L Hgb 12.8 Hct 38.6 MCV 92.6 MCH 30.7 MCHC 33.2 RDW 14.7 H Plt Count 113 L MPV 9.9 Immature Gran % (Auto) Neut % (Auto) Lymph % (Auto) [place] % (Auto) Eos % (Auto) Baso % (Auto) Lymph # (Auto) [place] # (Auto) Eos # (Auto) Baso # (Auto) Abs Immat Gran (auto) Absolute Neuts (auto) Absolute Nucleated RBC Nucleated RBC % % Immature Plt Fraction 2.4 ESR Sodium 140 Potassium 4.1 Chloride 103 Carbon Dioxide 30 Anion Gap 7 BUN 13 Creatinine 0.97 0.93 Estim Creat Clear Calc 84 87 Estimated GFR > 60 Glucose POC Capillary Glucose Hemoglobin A1c Lactic Acid Calcium Total Bilirubin AST ALT Alkaline Phosphatase C-Reactive Protein Total Protein Albumin Urine Color Urine Appearance Urine pH Ur Specific [place] Urine Protein Urine Glucose (UA) Urine Ketones Ur Blood (Man) Urine Nitrate Urine Bilirubin Urine Urobilinogen Leukocyte Esterase Rfl Urine RBC Urine WBC Ur Squamous Epith Cells Urine Bacteria Urine Casts Nasal MRSA (PCR) 03/24/25 03/24/25 03/24/25 05:42 05:54 08:00 WBC RBC Hgb Hct MCV MCH MCHC RDW Plt Count MPV Immature Gran % (Auto) Neut % (Auto) Lymph % (Auto) [place] % (Auto) Eos % (Auto) Baso % (Auto) Lymph # (Auto) [place] # (Auto) Eos # (Auto) Baso # (Auto) Abs Immat Gran (auto) Absolute Neuts (auto) Absolute Nucleated RBC Nucleated RBC % % Immature Plt Fraction ESR Sodium Potassium Chloride Carbon Dioxide Anion Gap BUN Creatinine Estim Creat Clear Calc Estimated GFR > 60 Glucose 251 H POC Capillary Glucose 223 H Hemoglobin A1c 7.6 H Lactic Acid Calcium 8.4 Total Bilirubin 0.9 AST 27 ALT 31 Alkaline Phosphatase 95 C-Reactive Protein Total Protein 7.0 Albumin 3.7 Urine Color Urine Appearance Urine pH Ur Specific [place] Urine Protein Urine Glucose (UA) Urine Ketones Ur Blood (Man) Urine Nitrate Urine Bilirubin Urine Urobilinogen Leukocyte Esterase Rfl Urine RBC Urine WBC Ur Squamous Epith Cells Urine Bacteria Urine Casts Nasal MRSA (PCR) Not detected
[2025-03-24 12:10] LABS: Glucose Point of Care 273 mg/dl (65-105)
[2025-03-24 14:00] VITALS: BP 128/79; PULSE 73; RESP 18; O2SAT 99
[2025-03-24 17:01] LABS: Glucose Point of Care 210 mg/dl (65-105)
[2025-03-24 20:00] VITALS: PULSE 74; RESP 18; O2SAT 99
[2025-03-24] MEDS: busPIRone HCL 10 MG TABLET 30 MG PO (20:43)
[2025-03-24] MEDS: traZODone HCL 50 MG TABLET 150 MG PO (20:43)
[2025-03-24] MEDS: CEFEPIME 2 GM/NS 50 ML 2 GM/50 ML BAG IVPB (20:44)
[2025-03-24] MEDS: ACETAMINOPHEN 325 MG TABLET 650 MG PO (20:54)
[2025-03-24 21:08] LABS: Glucose Point of Care 208 mg/dl (65-105)
[2025-03-24 21:55] VITALS: BP 137/94; PULSE 74; RESP 18; TEMP 36.2; O2SAT 99
[2025-03-24] MEDS: FLUoxetine HCL 20 MG CAPSULE 60 MG PO (23:01)
[2025-03-25 02:11] VITALS: PULSE 76; RESP 20; O2SAT 97
[2025-03-25] MEDS: metroNIDAZOLE 500 MG/ISO 100ML 500 MG/100 ML BAG 100 MG IVPB ×3 (05:43→23:11)
[2025-03-25 05:51] VITALS: BP 128/77; PULSE 76; RESP 18; TEMP 36.6; O2SAT 100
[2025-03-25 07:16] LABS: Glucose Point of Care 200 mg/dl (65-105)
[2025-03-25 08:00] VITALS: O2SAT 99
--- NOTE | 2025-03-25 08:47 | PM.PNGS ---
Progress Note: A&P Assessment and Plan (1) Cellulitis, gluteal, left: Code(s): L03.317 - Cellulitis of buttock Status: Acute Assessment and Plan: Very tender and likely forming a small abscess. No fluctuance this morning. Will go ahead and make her NPO tonight after midnight and possibly proceed with incision and drainage in the operating room tomorrow. Continue IV antibiotics. Subjective Subjective Date/Time Seen: 03/25/25 08:47 Patient reports: still having pain (Reports there was drainage last night.) and afebrile Review of Systems Review of Systems: All systems reviewed & are unremarkable except as noted in HPI and below (HPI) Exam Const: General: comfortable and tired appearing GI: Rectal Exam: buttock abscess (Still no fluctuant but area is small and very tender. ) Objective Data Vital Signs Vital Signs: Vital Signs - 24 hr 03/24/25 09:19 03/24/25 14:00 03/24/25 20:00 Temperature Pulse Rate 73 74 Respiratory Rate 18 18 Blood Pressure 128/78 128/79 Pulse Oximetry 99 99 Oxygen Delivery Room Air Fraction of Inspired Oxygen 03/24/25 21:55 03/25/25 02:11 03/25/25 05:51 Temperature 36.2 C L 36.6 C Pulse Rate 74 76 76 Respiratory Rate 18 20 18 Blood Pressure 137/94 H 128/77 Pulse Oximetry 99 97 100 Oxygen Delivery Room Air Fraction of Inspired Oxygen 21 Intake/Output Intake/Output: Intake & Output 03/22/25 03/23/25 03/24/25 03/25/25 23:59 23:59 23:59 23:59 Intake Total 1150 1570 540 Balance 1150 1570 540 Meds/Results Medications: Active Medications Generic Name Dose Route Start Last Admin Trade Name Freq PRN Reason Stop Dose Admin Acetaminophen 650 mg 03/23/25 19:51 03/24/25 20:54 Acetaminophen 325 Mg Tablet PO 650 mg Q4H PRN Administration Mild Pain (1-3) or Fever Albuterol 2 puff 03/24/25 02:42 Albuterol Sulfate (*Sp) Aerosol 1 Puff INHALATION QID PRN shortness of breath or wheezing Baclofen 20 mg 03/24/25 09:00 03/24/25 16:54 Baclofen 10 Mg Tablet PO 20 mg TID SY[place] Administration Buspirone HCl 30 mg 03/24/25 21:00 03/24/25 20:43 Buspirone Hcl 10 Mg Tablet PO 30 mg Q12HR [place] Administration Dextrose 12.5 gm 03/23/25 19:51 Dextrose 50% 25 Gm/50 Ml Syringe IV PUSH PRN PRN Hypoglycemia Protocol Enoxaparin Sodium 40 mg 03/24/25 09:00 03/24/25 09:06 Enoxaparin 40 Mg/0.4 Ml Syringe SUB-Q 40 mg DAILY [place] Administration Fluoxetine HCl 60 mg 03/24/25 03:05 03/24/25 23:01 Fluoxetine Hcl 20 Mg Capsule PO 60 mg 2300 SY[place] Administration Furosemide 80 mg 03/24/25 09:00 03/24/25 09:07 Furosemide 40 Mg Tablet PO 80 mg DAILY [place] Administration Glucagon 1 mg 03/23/25 19:51 Glucagon For Inj 1 Mg Vial IM PRN PRN Hypoglycemia Protocol Glucose 15 gm 03/23/25 19:51 Glucose Oral Gel 15 Gm Of Glucse In 37.5 Gm Tube PO PRN PRN Hypoglycemia Protocol Cefepime HCl 2 gm in 50 mls @ 100 mls/hr 03/24/25 20:00 03/24/25 21:15 Maxipime 2 Gm/Ns 50 Ml IVPB Infused Q12H SYDNEY Infusion Metronidazole 500 mg in 100 mls @ 100 mls/hr 03/24/25 06:00 03/25/25 05:43 Flagyl 500 Mg/Iso Soln 100 Ml IVPB 100 mls/hr Q8H [place] Administration Dextrose 1,000 mls @ 100 mls/hr 03/23/25 19:51 Dextrose 5% 1,000 Ml IVPB PRN PRN Hypoglycemia Protocol Vancomycin HCl 1,500 mg in 500 mls @ 250 mls/hr 03/24/25 10:00 03/24/25 22:54 Vancomycin 1,500 Mg/Ns 500 Ml IVPB 250 mls/hr Q12H [place] Administration Insulin Aspart 4 - 8 units 03/24/25 17:00 03/25/25 07:51 Insulin Aspart (*Bkc) 100 Units/Ml SUB-Q Not Given TIDWM SY[place] Protocol Insulin Aspart 2 - 4 units 03/24/25 21:00 03/24/25 21:07 Insulin Aspart (*Bkc) 100 Units/Ml SUB-Q 2 units HS [place] Administration Protocol Ondansetron HCl 4 mg 03/23/25 19:51 03/24/25 06:44 Ondansetron Inj 4 Mg/2 Ml Vial IV PUSH 4 mg Q4H PRN Administration Nausea Potassium Chloride 10 meq 03/24/25 08:00 03/24/25 09:07 Potassium Chloride 10 Meq Er Tablet PO 10 meq DAILY@0800 [place] Administration Pregabalin 75 mg 03/24/25 11:00 03/24/25 22:56 Pregabalin (*Crx) 75 Mg Capsule PO 75 mg Q12H [place] Administration Spironolactone 50 mg 03/24/25 09:00 03/24/25 09:07 Spironolactone 50 Mg Tablet PO 50 mg DAILY [place] Administration Trazodone HCl 150 mg 03/24/25 03:05 03/24/25 20:43 Trazodone Hcl 50 Mg Tablet PO 150 mg HS SY[place]NEY Administration Radiology Results: ITS Impressions Abdomen/Pelvis CT 03/23/25 19:06 IMPRESSION: Hepatosplenomegaly. 1.4 cm phlegmon versus early abscess in the left medial gluteal soft tissues. Labs Labs: Laboratory Results - last 24 hr 03/24/25 03/24/25 03/24/25 12:07 16:49 20:20 POC Capillary Glucose 273 H 210 H 208 H 03/25/25 07:13 POC Capillary Glucose 200 H
[2025-03-25] MEDS: BACLOFEN 10 MG TABLET 20 MG PO ×3 (08:55→17:28)
[2025-03-25] MEDS: FUROSEMIDE 40 MG TABLET 80 MG PO (08:55)
[2025-03-25] MEDS: CEFEPIME 2 GM/NS 50 ML 2 GM/50 ML BAG IVPB ×2 (08:55→21:46)
[2025-03-25] MEDS: POTASSIUM CHLORIDE 10 MEQ ER TABLET PO (08:55)
[2025-03-25] MEDS: SPIRONOLACTONE 50 MG TABLET PO (08:55)
[2025-03-25] MEDS: busPIRone HCL 10 MG TABLET 30 MG PO ×2 (08:55→21:55)
[2025-03-25 09:36] LABS: Basophils Percent Auto 0.3 % (0.2-1.2); Eosinophils Absolute Auto 0.3 K/mm3 (0-0.3); Eosinophils Percent Auto 3.7 % (0-4.4); Hematocrit 36.5 % (37.0-47.0); Hemoglobin 11.7 g/dL (12.0-15.0); Immature Granulocyte Absolute 0.04 K/mm3 (0.00-0.031); Immature Granulocyte Percent A 0.5 % (0-0.5); Lymphocytes Absolute Auto 0.65 K/mm3 (0.9-3.2); Lymphocytes Percent Auto 8.5 % (18.3-44.2); Mean Corpuscular HGB Conc 32.1 g/dl (32-36); Mean Corpuscular Hemoglobin 30.3 pg (26-34); Mean Corpuscular Volume 94.6 fl (80-100); Mean Platelet Volume 9.7 fl (7.4-10.4); Monocytes Absolute Auto 0.5 K/mm3 (0.1-0.6); Monocytes Percent Auto 6.2 % (2.6-8.5); Neutrophils Absolute Auto 6.2 K/mm3 (1.3-6.7); Neutrophils Percent Auto 80.8 % (45.5-73.1); Platelet Count Result 133 k/mm3 (150-375); Red Blood Count 3.86 M/mm3 (4.2-5.4); Red Cell Distribution Width 15.1 % (11.5-14.5); White Blood Count 7.6 K/mm3 (4.5-10.0)
[2025-03-25 09:49] LABS: Alanine Aminotransferase 27 U/L (6-35); Albumin Level 3.5 g/dL (3.5-5.1); Alkaline Phosphatase 93 U/L (38-126); Anion Gap 5 mmol/L (4-12); Aspartate Amino Transferase 24 U/L (14-36); Bilirubin,Total 0.6 mg/dL (0.2-1.3); Blood Urea Nitrogen 16 mg/dL (7-17); Calcium 8.3 mg/dL (8.4-10.2); Carbon Dioxide 29 mmol/L (22-30); Chloride 106 mmol/L (98-107); Estimated CRCL calculation 91 ml/min; Estimated Glomerular Filt Rate > 60; Glucose 320 mg/dL (65-110); Magnesium 2.2 mg/dL (1.6-2.3); Potassium 4.3 mmol/L (3.4-5.0); Sodium 140 mmol/L (137-145)
[2025-03-25 12:06] LABS: Glucose Point of Care 261 mg/dl (65-105)
[2025-03-25] MEDS: PREGABALIN (*CRX) 75 MG CAPSULE PO ×2 (12:33→22:16)
[2025-03-25] MEDS: VANCOMYCIN 1,750 MG/NS 500 ML 1,750 MG/500 ML BAG 250 MG IVPB (12:33)
[2025-03-25] MEDS: INSULIN ASPART (*BKC) 100 UNITS/ML SUB-Q ×3 (12:41→21:59)
--- NOTE | 2025-03-25 13:18 | P.PNIM_ITS ---
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 1.4 cm phlegmon versus early abscess in the left medial gluteal soft tissues. Continue cefepime, metronidazole and vancomycin Blood culture pending For I and D tomorrow Gen surgery following Diabetes mellitus Low-dose sliding scale Titrate as needed Hypoglycemia protocol HbA1c 7.6 Hypertension Continue lisinopril, spirinolactone and Lasix Anxiety Continue buspirone 30 mg p.o. BID and Trazodone DVT prophylaxis: Lovenox 40 mg subQ Subjective Date/time seen: 03/25/25 13:18 Interval history: Comfortable at bedside Exam Narrative: General: alert and comfortable Eyes: EOMI, PERRLA ENNT External ears normal, Neck is supple, no masses, Respiratory systems: Clear to auscultation Cardiovascular S1, S2, normal rhythm, no murmur, rub, or gallop; no thrill or palpable murmurs on palpation. Gastrointestinal: soft, non-tender, and non-distended abdomen with no masses; BS present Skin: left gluteal edematous swelling and erythema Musculoskeletal: no abnormality and no tenderness, normal ROM Neurologic: Alert and oriented x3, non focal Objective Data Vital Signs Vital Signs: Vital Signs - 24 hr 03/24/25 14:00 03/24/25 20:00 03/24/25 21:55 Temperature 97.2 F L Pulse Rate 73 74 74 Respiratory Rate 18 18 18 Blood Pressure 128/79 137/94 H Pulse Oximetry 99 99 99 Oxygen Delivery Room Air Fraction of Inspired Oxygen 03/25/25 02:11 03/25/25 05:51 Temperature 97.8 F Pulse Rate 76 76 Respiratory Rate 20 18 Blood Pressure 128/77 Pulse Oximetry 97 100 Oxygen Delivery Room Air Fraction of Inspired Oxygen 21 Intake/Output Intake/Output: Intake & Output 03/22/25 03/23/25 03/24/25 03/25/25 23:59 23:59 23:59 23:59 Intake Total 1150 1570 540 Balance 1150 1570 540 Meds/Results Medications: Active Medications Generic Name Dose Route Start Last Admin Trade Name Freq PRN Reason Stop Dose Admin Acetaminophen 650 mg 03/23/25 19:51 03/24/25 20:54 Acetaminophen 325 Mg Tablet PO 650 mg Q4H PRN Administration Mild Pain (1-3) or Fever Albuterol 2 puff 03/24/25 02:42 Albuterol Sulfate (*Sp) Aerosol 1 Puff INHALATION QID PRN shortness of breath or wheezing Baclofen 20 mg 03/24/25 09:00 03/25/25 12:33 Baclofen 10 Mg Tablet PO 20 mg TID SY[place] Administration Buspirone HCl 30 mg 03/24/25 21:00 03/25/25 08:55 Buspirone Hcl 10 Mg Tablet PO 30 mg Q12HR [place] Administration Dextrose 12.5 gm 03/23/25 19:51 Dextrose 50% 25 Gm/50 Ml Syringe IV PUSH PRN PRN Hypoglycemia Protocol Enoxaparin Sodium 40 mg 03/24/25 09:00 03/25/25 08:57 Enoxaparin 40 Mg/0.4 Ml Syringe SUB-Q Not Given DAILY SY[place] Fluoxetine HCl 60 mg 03/24/25 03:05 03/24/25 23:01 Fluoxetine Hcl 20 Mg Capsule PO 60 mg 2300 SY[place] Administration Furosemide 80 mg 03/24/25 09:00 03/25/25 08:55 Furosemide 40 Mg Tablet PO 80 mg DAILY [place] Administration Glucagon 1 mg 03/23/25 19:51 Glucagon For Inj 1 Mg Vial IM PRN PRN Hypoglycemia Protocol Glucose 15 gm 03/23/25 19:51 Glucose Oral Gel 15 Gm Of Glucse In 37.5 Gm Tube PO PRN PRN Hypoglycemia Protocol Cefepime HCl 2 gm in 50 mls @ 100 mls/hr 03/24/25 20:00 03/25/25 08:55 Maxipime 2 Gm/Ns 50 Ml IVPB 100 mls/hr Q12H [place] Administration Metronidazole 500 mg in 100 mls @ 100 mls/hr 03/24/25 06:00 03/25/25 05:43 Flagyl 500 Mg/Iso Soln 100 Ml IVPB 100 mls/hr Q8H [place] Administration Dextrose 1,000 mls @ 100 mls/hr 03/23/25 19:51 Dextrose 5% 1,000 Ml IVPB PRN PRN Hypoglycemia Protocol Vancomycin HCl 1,750 mg in 500 mls @ 250 mls/hr 03/25/25 12:00 03/25/25 12:33 Vancomycin 1,750 Mg/Ns 500 Ml IVPB 250 mls/hr Q12H [place] Administration Insulin Aspart 4 - 8 units 03/24/25 17:00 03/25/25 12:41 Insulin Aspart (*Bkc) 100 Units/Ml SUB-Q 5 units TIDWM [place] Administration Protocol Insulin Aspart 2 - 4 units 03/24/25 21:00 03/24/25 21:07 Insulin Aspart (*Bkc) 100 Units/Ml SUB-Q 2 units HS [place] Administration Protocol Ondansetron HCl 4 mg 03/23/25 19:51 03/24/25 06:44 Ondansetron Inj 4 Mg/2 Ml Vial IV PUSH 4 mg Q4H PRN Administration Nausea Potassium Chloride 10 meq 03/24/25 08:00 03/25/25 08:55 Potassium Chloride 10 Meq Er Tablet PO 10 meq DAILY@0800 [place] Administration Pregabalin 75 mg 03/24/25 11:00 03/25/25 12:33 Pregabalin (*Crx) 75 Mg Capsule PO 75 mg Q12H [place] Administration Spironolactone 50 mg 03/24/25 09:00 03/25/25 08:55 Spironolactone 50 Mg Tablet PO 50 mg DAILY [place] Administration Trazodone HCl 150 mg 03/24/25 03:05 03/24/25 20:43 Trazodone Hcl 50 Mg Tablet PO 150 mg HS [place] Administration Radiology Results: ITS Impressions Abdomen/Pelvis CT 03/23/25 19:06 IMPRESSION: Hepatosplenomegaly. 1.4 cm phlegmon versus early abscess in the left medial gluteal soft tissues. Labs Labs: Laboratory Results - last 24 hr 03/24/25 03/24/2503/25/25 16:49 20:20 07:13 WBC RBC Hgb Hct MCV MCH MCHC RDW Plt Count MPV Immature Gran % (Auto) Neut % (Auto) Lymph % (Auto) [place] % (Auto) Eos % (Auto) Baso % (Auto) Lymph # (Auto) [place] # (Auto) Eos # (Auto) Baso # (Auto) Abs Immat Gran (auto) Absolute Neuts (auto) Absolute Nucleated RBC Nucleated RBC % Sodium Potassium Chloride Carbon Dioxide Anion Gap BUN Creatinine Estim Creat Clear Calc Estimated GFR Glucose POC Capillary Glucose 210 H 208 H 200 H Calcium Magnesium Total Bilirubin AST ALT Alkaline Phosphatase Total Protein Albumin Vancomycin Trough 03/25/25 03/25/25 09:10 11:43 WBC 7.6 RBC 3.86 L Hgb 11.7 L Hct 36.5 L MCV 94.6 MCH 30.3 MCHC 32.1 RDW 15.1 H Plt Count 133 L MPV 9.7 Immature Gran % (Auto) 0.5 Neut % (Auto) 80.8 H Lymph % (Auto) 8.5 L [place] % (Auto) 6.2 Eos % (Auto) 3.7 Baso % (Auto) 0.3 Lymph # (Auto) 0.65 L [place] # (Auto) 0.5 Eos # (Auto) 0.3 Baso # (Auto) 0.0 Abs Immat Gran (auto) 0.04 H Absolute Neuts (auto) 6.2 Absolute Nucleated RBC 0.000 Nucleated RBC % 0.0 Sodium 140 Potassium 4.3 Chloride 106 Carbon Dioxide 29 Anion Gap 5 BUN 16 Creatinine 0.89 Estim Creat Clear Calc 91 Estimated GFR > 60 Glucose 320 H POC Capillary Glucose 261 H Calcium 8.3 L Magnesium 2.2 Total Bilirubin 0.6 AST 24 ALT 27 Alkaline Phosphatase 93 Total Protein 7.0 Albumin 3.5 Vancomycin Trough 13.0
[2025-03-25 13:57] VITALS: BP 128/79; PULSE 72; RESP 18; TEMP 36.2; O2SAT 99
[2025-03-25 16:17] LABS: Glucose Point of Care 231 mg/dl (65-105)
[2025-03-25] MEDS: HYDROcodone/acetaminophen (*CRX) 5-325 MG TABLET 1 TAB PO ×2 (17:28→23:35)
[2025-03-25 20:30] LABS: Glucose Point of Care 223 mg/dl (65-105)
[2025-03-25 20:40] VITALS: BP 131/83; PULSE 63; RESP 16; TEMP 36.2; O2SAT 99
[2025-03-25] MEDS: traZODone HCL 50 MG TABLET 150 MG PO (21:56)
[2025-03-25] MEDS: FLUoxetine HCL 20 MG CAPSULE 60 MG PO (22:16)
[2025-03-26] VITALS (7 sets, daily range): BP systolic 109–120; BP diastolic 57–75; PULSE 54–71; RESP 13–21; TEMP 36.2–36.5; O2SAT 92–98
[2025-03-26] MEDS: VANCOMYCIN 1,750 MG/NS 500 ML 1,750 MG/500 ML BAG 250 MG IVPB ×2 (00:18→12:16)
[2025-03-26] MEDS: metroNIDAZOLE 500 MG/ISO 100ML 500 MG/100 ML BAG 100 MG IVPB ×2 (05:21→23:06)
[2025-03-26 06:58] LABS: Basophils Percent Auto 0.3 % (0.2-1.2); Eosinophils Absolute Auto 0.3 K/mm3 (0-0.3); Eosinophils Percent Auto 3.8 % (0-4.4); Hematocrit 34.6 % (37.0-47.0); Hemoglobin 11.1 g/dL (12.0-15.0); Immature Granulocyte Absolute 0.02 K/mm3 (0.00-0.031); Immature Granulocyte Percent A 0.3 % (0-0.5); Lymphocytes Absolute Auto 1.39 K/mm3 (0.9-3.2); Lymphocytes Percent Auto 21.3 % (18.3-44.2); Mean Corpuscular HGB Conc 32.1 g/dl (32-36); Mean Corpuscular Hemoglobin 30.2 pg (26-34); Mean Platelet Volume 9.9 fl (7.4-10.4); Monocytes Absolute Auto 0.6 K/mm3 (0.1-0.6); Monocytes Percent Auto 8.7 % (2.6-8.5); Neutrophils Absolute Auto 4.3 K/mm3 (1.3-6.7); Neutrophils Percent Auto 65.6 % (45.5-73.1); Platelet Count Result 115 k/mm3 (150-375); Red Blood Count 3.68 M/mm3 (4.2-5.4); Red Cell Distribution Width 14.6 % (11.5-14.5); White Blood Count 6.5 K/mm3 (4.5-10.0)
[2025-03-26 07:09] LABS: Alanine Aminotransferase 25 U/L (6-35); Albumin Level 3.3 g/dL (3.5-5.1); Alkaline Phosphatase 78 U/L (38-126); Anion Gap 6 mmol/L (4-12); Aspartate Amino Transferase 25 U/L (14-36); Bilirubin,Total 0.4 mg/dL (0.2-1.3); Blood Urea Nitrogen 14 mg/dL (7-17); Calcium 8.2 mg/dL (8.4-10.2); Carbon Dioxide 26 mmol/L (22-30); Chloride 107 mmol/L (98-107); Estimated CRCL calculation 111 ml/min; Estimated Glomerular Filt Rate > 60; Glucose 176 mg/dL (65-110); Potassium 3.8 mmol/L (3.4-5.0); Sodium 139 mmol/L (137-145)
--- NOTE | 2025-03-26 07:24 | P.PNGS_ITS ---
Progress Note: A&P Assessment and Plan (1) Left buttock abscess: Code(s): L02.31 - Cutaneous abscess of buttock Status: Acute Assessment and Plan: Fluctuant area now seen, will proceed with incision and drainage in the operating room later today. Discussed with patient who agrees. Subjective Subjective Date/Time Seen: 03/26/25 07:24 Patient reports: still having pain and afebrile Review of Systems Review of Systems: All systems reviewed & are unremarkable except as noted in HPI and below (HPI) Exam Const: General: tired appearing GI: Rectal Exam: buttock abscess (Tender left buttocks with fluctuance this morning. Consistent with abscess) Objective Data Vital Signs Vital Signs: Vital Signs - 24 hr 03/25/25 08:00 03/25/25 13:57 03/25/25 20:40 Temperature 36.2 C L 36.2 C L Pulse Rate 72 63 Respiratory Rate 18 16 Blood Pressure 128/79 131/83 Pulse Oximetry 99 99 99 Oxygen Delivery Room Air 03/26/25 05:54 Temperature 36.5 C Pulse Rate 60 Respiratory Rate 20 Blood Pressure 120/57 L Pulse Oximetry 98 Oxygen Delivery Intake/Output Intake/Output: Intake & Output 03/23/25 03/24/25 03/25/25 03/26/25 23:59 23:59 23:59 23:59 Intake Total 1150 1570 2009 400 Balance 1150 1570 2009 400 Meds/Results Medications: Active Medications Generic Name Dose Route Start Last Admin Trade Name Freq PRN Reason Stop Dose Admin Acetaminophen 650 mg 03/23/25 19:51 03/24/25 20:54 Acetaminophen 325 Mg Tablet PO 650 mg Q4H PRN Administration Mild Pain (1-3) or Fever Hydrocodone Bitart/Acetaminophen 1 tab 03/25/25 16:28 03/25/25 23:35 Hydrocodone/Acetaminophen (*Crx) 5-325 Mg Tablet PO 1 tab Q6H PRN Administration Pain Rated 4-6 Albuterol 2 puff 03/24/25 02:42 Albuterol Sulfate (*Sp) Aerosol 1 Puff INHALATION QID PRN shortness of breath or wheezing Baclofen 20 mg 03/24/25 09:00 03/25/25 17:28 Baclofen 10 Mg Tablet PO 20 mg TID SYDNEY Administration Buspirone HCl 30 mg 03/24/25 21:00 03/25/25 21:55 Buspirone Hcl 10 Mg Tablet PO 30 mg Q12HR SY[place]NEY Administration Dextrose 12.5 gm 03/23/25 19:51 Dextrose 50% 25 Gm/50 Ml Syringe IV PUSH PRN PRN Hypoglycemia Protocol Enoxaparin Sodium 40 mg 03/24/25 09:00 03/25/25 08:57 Enoxaparin 40 Mg/0.4 Ml Syringe SUB-Q Not Given DAILY SYDNEY Fluoxetine HCl 60 mg 03/24/25 03:05 03/25/25 22:16 Fluoxetine Hcl 20 Mg Capsule PO 60 mg 2300 SYDNEY Administration Furosemide 80 mg 03/24/25 09:00 03/25/25 08:55 Furosemide 40 Mg Tablet PO 80 mg DAILY SYDNEY Administration Glucagon 1 mg 03/23/25 19:51 Glucagon For Inj 1 Mg Vial IM PRN PRN Hypoglycemia Protocol Glucose 15 gm 03/23/25 19:51 Glucose Oral Gel 15 Gm Of Glucse In 37.5 Gm Tube PO PRN PRN Hypoglycemia Protocol Cefepime HCl 2 gm in 50 mls @ 100 mls/hr 03/24/25 20:00 03/25/25 21:46 Maxipime 2 Gm/Ns 50 Ml IVPB 100 mls/hr Q12H SYDNEY Administration Metronidazole 500 mg in 100 mls @ 100 mls/hr 03/24/25 06:00 03/26/25 05:21 Flagyl 500 Mg/Iso Soln 100 Ml IVPB 100 mls/hr Q8H SYDNEY Administration Dextrose 1,000 mls @ 100 mls/hr 03/23/25 19:51 Dextrose 5% 1,000 Ml IVPB PRN PRN Hypoglycemia Protocol Vancomycin HCl 1,750 mg in 500 mls @ 250 mls/hr 03/25/25 12:00 03/26/25 00:18 Vancomycin 1,750 Mg/Ns 500 Ml IVPB 250 mls/hr Q12H SY[place]NEY Administration Insulin Aspart 4 - 8 units 03/24/25 17:00 03/25/25 17:40 Insulin Aspart (*Bkc) 100 Units/Ml SUB-Q 4 units TIDWM SY[place]NEY Administration Protocol Insulin Aspart 2 - 4 units 03/24/25 21:00 03/25/25 21:59 Insulin Aspart (*Bkc) 100 Units/Ml SUB-Q 2 units HS SYDNEY Administration Protocol Ondansetron HCl 4 mg 03/23/25 19:51 03/24/25 06:44 Ondansetron Inj 4 Mg/2 Ml Vial IV PUSH 4 mg Q4H PRN Administration Nausea Potassium Chloride 10 meq 03/24/25 08:00 03/25/25 08:55 Potassium Chloride 10 Meq Er Tablet PO 10 meq DAILY@0800 SYDNEY Administration Pregabalin 75 mg 03/24/25 11:00 03/25/25 22:16 Pregabalin (*Crx) 75 Mg Capsule PO 75 mg Q12H SY[place]NEY Administration Spironolactone 50 mg 03/24/25 09:00 03/25/25 08:55 Spironolactone 50 Mg Tablet PO 50 mg DAILY SYDNEY Administration Trazodone HCl 150 mg 03/24/25 03:05 03/25/25 21:56 Trazodone Hcl 50 Mg Tablet PO 150 mg HS SYDNEY Administration Radiology Results: ITS Impressions Abdomen/Pelvis CT 03/23/25 19:06 IMPRESSION: Hepatosplenomegaly. 1.4 cm phlegmon versus early abscess in the left medial gluteal soft tissues. Labs Labs: Laboratory Results - last 24 hr 03/25/25 03/25/25 03/25/25 09:10 11:43 16:09 WBC 7.6 RBC 3.86 L Hgb 11.7 L Hct 36.5 L MCV 94.6 MCH 30.3 MCHC 32.1 RDW 15.1 H Plt Count 133 L MPV 9.7 Immature Gran % (Auto) 0.5 Neut % (Auto) 80.8 H Lymph % (Auto) 8.5 L [place] % (Auto) 6.2 Eos % (Auto) 3.7 Baso % (Auto) 0.3 Lymph # (Auto) 0.65 L [place] # (Auto) 0.5 Eos # (Auto) 0.3 Baso # (Auto) 0.0 Abs Immat Gran (auto) 0.04 H Absolute Neuts (auto) 6.2 Absolute Nucleated RBC 0.000 Nucleated RBC % 0.0 Sodium 140 Potassium 4.3 Chloride 106 Carbon Dioxide 29 Anion Gap 5 BUN 16 Creatinine 0.89 Estim Creat Clear Calc 91 Estimated GFR > 60 Glucose 320 H POC Capillary Glucose 261 H 231 H Calcium 8.3 L Magnesium 2.2 Total Bilirubin 0.6 AST 24 ALT 27 Alkaline Phosphatase 93 Total Protein 7.0 Albumin 3.5 Vancomycin Trough 13.0 03/25/25 03/26/25 20:03 06:28 WBC 6.5 RBC 3.68 L Hgb 11.1 L Hct 34.6 L MCV 94.0 MCH 30.2 MCHC 32.1 RDW 14.6 H Plt Count 115 L MPV 9.9 Immature Gran % (Auto) 0.3 Neut % (Auto) 65.6 Lymph % (Auto) 21.3 [place] % (Auto) 8.7 H Eos % (Auto) 3.8 Baso % (Auto) 0.3 Lymph # (Auto) 1.39 [place] # (Auto) 0.6 Eos # (Auto) 0.3 Baso # (Auto) 0.0 Abs Immat Gran (auto) 0.02 Absolute Neuts (auto) 4.3 Absolute Nucleated RBC 0.000 Nucleated RBC % 0.0 Sodium 139 Potassium 3.8 Chloride 107 Carbon Dioxide 26 Anion Gap 6 BUN 14 Creatinine 0.72 Estim Creat Clear Calc 111 Estimated GFR > 60 Glucose 176 H POC Capillary Glucose 223 H Calcium 8.2 L Magnesium 2.0 Total Bilirubin 0.4 AST 25 ALT 25 Alkaline Phosphatase 78 Total Protein 6.0 L Albumin 3.3 L Vancomycin Trough
[2025-03-26 08:11] LABS: Glucose Point of Care 202 mg/dl (65-105)
[2025-03-26] MEDS: CEFEPIME 2 GM/NS 50 ML 2 GM/50 ML BAG IVPB ×2 (09:13→22:13)
[2025-03-26] MEDS: ONDANSETRON INJ 4 MG/2 ML VIAL IV PUSH ×2 (09:13→12:23)
[2025-03-26] MEDS: busPIRone HCL 10 MG TABLET 30 MG PO ×2 (09:15→22:14)
[2025-03-26 11:58] LABS: Glucose Point of Care 217 mg/dl (65-105)
[2025-03-26] MEDS: SPIRONOLACTONE 50 MG TABLET PO (12:19)
[2025-03-26] MEDS: PREGABALIN (*CRX) 75 MG CAPSULE PO ×2 (12:23→23:06)
--- NOTE | 2025-03-26 12:59 | PM.IMPN ---
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 1.4 cm phlegmon versus early abscess in the left medial gluteal soft tissues. Continue cefepime, metronidazole and vancomycin Blood culture pending For I and D today Gen surgery following Diabetes mellitus Low-dose sliding scale Titrate as needed Hypoglycemia protocol HbA1c 7.6 Hypertension Continue lisinopril, spironolactone and Lasix Anxiety Continue buspirone 30 mg p.o. BID and Trazodone DVT prophylaxis: Lovenox 40 mg subQ Subjective Date/time seen: 03/26/25 12:59 Interval history: Comfortable at bedside Exam Narrative: General: alert and comfortable Eyes: EOMI, PERRLA ENNT External ears normal, Neck is supple, no masses, Respiratory systems: Clear to auscultation Cardiovascular S1, S2, normal rhythm, no murmur, rub, or gallop; no thrill or palpable murmurs on palpation. Gastrointestinal: soft, non-tender, and non-distended abdomen with no masses; BS present Skin: left gluteal edematous swelling and erythema Musculoskeletal: no abnormality and no tenderness, normal ROM Neurologic: Alert and oriented x3, non focal Objective Data Vital Signs Vital Signs: Vital Signs - 24 hr 03/25/25 13:57 03/25/25 20:40 03/26/25 05:54 Temperature 97.1 F L 97.1 F L 97.7 F Pulse Rate 72 63 60 Respiratory Rate 18 16 20 Blood Pressure 128/79 131/83 120/57 L Pulse Oximetry 99 99 98 Intake/Output Intake/Output: Intake & Output 03/23/25 03/24/25 03/25/25 03/26/25 23:59 23:59 23:59 23:59 Intake Total 1150 1570 2060 900 Balance 1150 1570 2060 900 Meds/Results Medications: Active Medications Generic Name Dose Route Start Last Admin Trade Name Freq PRN Reason Stop Dose Admin Acetaminophen 650 mg 03/23/25 19:51 03/24/25 20:54 Acetaminophen 325 Mg Tablet PO 650 mg Q4H PRN Administration Mild Pain (1-3) or Fever Hydrocodone Bitart/Acetaminophen 1 tab 03/25/25 16:28 03/25/25 23:35 Hydrocodone/Acetaminophen (*Crx) 5-325 Mg Tablet PO 1 tab Q6H PRN Administration Pain Rated 4-6 Albuterol 2 puff 03/24/25 02:42 Albuterol Sulfate (*Sp) Aerosol 1 Puff INHALATION QID PRN shortness of breath or wheezing Baclofen 20 mg 03/24/25 09:00 03/26/25 11:50 Baclofen 10 Mg Tablet PO Not Given TID SYDNEY Buspirone HCl 30 mg 03/24/25 21:00 03/26/25 09:15 Buspirone Hcl 10 Mg Tablet PO 30 mg Q12HR [place] Administration Dextrose 12.5 gm 03/23/25 19:51 Dextrose 50% 25 Gm/50 Ml Syringe IV PUSH PRN PRN Hypoglycemia Protocol Enoxaparin Sodium 40 mg 03/24/25 09:00 03/26/25 08:23 Enoxaparin 40 Mg/0.4 Ml Syringe SUB-Q Not Given DAILY SYDNEY Fluoxetine HCl 60 mg 03/24/25 03:05 03/25/25 22:16 Fluoxetine Hcl 20 Mg Capsule PO 60 mg 2300 SYDNEY Administration Furosemide 80 mg 03/24/25 09:00 03/26/25 11:53 Furosemide 40 Mg Tablet PO Not Given DAILY SY[place]NEY Glucagon 1 mg 03/23/25 19:51 Glucagon For Inj 1 Mg Vial IM PRN PRN Hypoglycemia Protocol Glucose 15 gm 03/23/25 19:51 Glucose Oral Gel 15 Gm Of Glucse In 37.5 Gm Tube PO PRN PRN Hypoglycemia Protocol Cefepime HCl 2 gm in 50 mls @ 100 mls/hr 03/24/25 20:00 03/26/25 09:13 Maxipime 2 Gm/Ns 50 Ml IVPB 100 mls/hr Q12H [place] Administration Metronidazole 500 mg in 100 mls @ 100 mls/hr 03/24/25 06:00 03/26/25 05:21 Flagyl 500 Mg/Iso Soln 100 Ml IVPB 100 mls/hr Q8H [place] Administration Dextrose 1,000 mls @ 100 mls/hr 03/23/25 19:51 Dextrose 5% 1,000 Ml IVPB PRN PRN Hypoglycemia Protocol Vancomycin HCl 1,750 mg in 500 mls @ 250 mls/hr 03/25/25 12:00 03/26/25 12:16 Vancomycin 1,750 Mg/Ns 500 Ml IVPB 250 mls/hr Q12H [place] Administration Insulin Aspart 4 - 8 units 03/24/25 17:00 03/26/25 12:32 Insulin Aspart (*Bkc) 100 Units/Ml SUB-Q Not Given TIDWM [facility] Protocol Insulin Aspart 2 - 4 units 03/24/25 21:00 03/25/25 21:59 Insulin Aspart (*Bkc) 100 Units/Ml SUB-Q 2 units HS [facility] Administration Protocol Insulin Glargine 10 units 03/26/25 21:00 Insulin Glargine (*Bkc) 100 Units/Ml SUB-Q HS [facility] Ondansetron HCl 4 mg 03/23/25 19:51 03/26/25 12:23 Ondansetron Inj 4 Mg/2 Ml Vial IV PUSH 4 mg Q4H PRN Administration Nausea Potassium Chloride 10 meq 03/24/25 08:00 03/26/25 11:53 Potassium Chloride 10 Meq Er Tablet PO Not Given DAILY@0800 [facility] Pregabalin 75 mg 03/24/25 11:00 03/26/25 12:23 Pregabalin (*Crx) 75 Mg Capsule PO 75 mg Q12H [place] Administration Spironolactone 50 mg 03/24/25 09:00 03/26/25 12:19 Spironolactone 50 Mg Tablet PO 50 mg DAILY [place] Administration Trazodone HCl 150 mg 03/24/25 03:05 03/25/25 21:56 Trazodone Hcl 50 Mg Tablet PO 150 mg HS [facility] Administration Radiology Results: ITS Impressions Abdomen/Pelvis CT 03/23/25 19:06 IMPRESSION: Hepatosplenomegaly. 1.4 cm phlegmon versus early abscess in the left medial gluteal soft tissues. Labs Labs: Laboratory Results - last 24 hr 03/25/25 03/25/25 03/26/25 16:09 20:03 06:28 WBC 6.5 RBC 3.68 L Hgb 11.1 L Hct 34.6 L MCV 94.0 MCH 30.2 MCHC 32.1 RDW 14.6 H Plt Count 115 L MPV 9.9 Immature Gran % (Auto) 0.3 Neut % (Auto) 65.6 Lymph % (Auto) 21.3 [place] % (Auto) 8.7 H Eos % (Auto) 3.8 Baso % (Auto) 0.3 Lymph # (Auto) 1.39 [place] # (Auto) 0.6 Eos # (Auto) 0.3 Baso # (Auto) 0.0 Abs Immat Gran (auto) 0.02 Absolute Neuts (auto) 4.3 Absolute Nucleated RBC 0.000 Nucleated RBC % 0.0 Sodium 139 Potassium 3.8 Chloride 107 Carbon Dioxide 26 Anion Gap 6 BUN 14 Creatinine 0.72 Estim Creat Clear Calc 111 Estimated GFR > 60 Glucose 176 H POC Capillary Glucose 231 H 223 H Calcium 8.2 L Magnesium 2.0 Total Bilirubin 0.4 AST 25 ALT 25 Alkaline Phosphatase 78 Total Protein 6.0 L Albumin 3.3 L 03/26/25 03/26/25 08:03 11:46 WBC RBC Hgb Hct MCV MCH MCHC RDW Plt Count MPV Immature Gran % (Auto) Neut % (Auto) Lymph % (Auto) [place] % (Auto) Eos % (Auto) Baso % (Auto) Lymph # (Auto) [place] # (Auto) Eos # (Auto) Baso # (Auto) Abs Immat Gran (auto) Absolute Neuts (auto) Absolute Nucleated RBC Nucleated RBC % Sodium Potassium Chloride Carbon Dioxide Anion Gap BUN Creatinine Estim Creat Clear Calc Estimated GFR Glucose POC Capillary Glucose 202 H 217 H Calcium Magnesium Total Bilirubin AST ALT Alkaline Phosphatase Total Protein Albumin
[2025-03-26 17:09] LABS: Glucose Point of Care 178 mg/dl (65-105)
[2025-03-26 20:14] LABS: Glucose Point of Care 154 mg/dl (65-105)
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
--- NOTE | 2025-03-26 20:32 | WPDHPUPDATE1 ---
History and Physical Update Update Date/Time: 03/26/25 20:32 History and Physical has been reviewed, including an updated exam of the patient. There are NO changes in the patient's condition. Risks, benefits, and alternatives have been discussed and questions answered. Patient agrees to proceed with procedure.
[2025-03-26] MEDS: BUPIVACAINE/EPINEPHRINE 0.5% 30 ML VIAL 10 ML INFILTRATE (21:06)
--- NOTE | 2025-03-26 21:11 | W.PM.PROC2 ---
Procedure Note - Detailed Date of Procedure 03/26/25 Pre-op Diagnosis Left buttocks abscess Post-op Diagnosis Same Procedure Performed Incision and drainage of left buttocks abscess Surgeon Jose Luis Barnard MD [employer] Safety [employer] Jack Anesthesia MAC and Local Indications Patient has history of abscesses and had a groin abscess back in December. She also had another abscess treated about a year ago. Both of these grew methicillin sensitive Staph aureus. She has had a nasal swab which was negative for Staph. She has developed a fluctuant abscess from yesterday and is taken to surgery for incision and drainage. Findings White cloudy fluid purulent but not thick or foul smelling. Description of Procedure Patient was taken to surgery and placed in right lateral decubitus position. The buttocks were prepped and draped. The fluctuant area on the left buttocks was anesthetized with local anesthetic. Incision was made and purulent fluid came forth. We cultured this for aerobes anaerobes and Gram stain. I probed the abscess cavity and it extended cephalad about 2 more cm. I extended the incision about cm more cephalad. All loculations were broken up in the abscess. The wound was packed with half-inch iodoform Nu Gauze. Bulky fluffs, ABDs, and Medipore tape were used to dress the wound. Patient was returned to a supine position, awakened and taken to recovery in good condition. Counts were correct x2. Estimated Blood Loss -5 Drains No Packing Yes (1/2 inch iodoform Nu Gauze) Pathology Other (Cultures) Complications None Condition Stable Disposition PACU [facility] Billing Surgery - Charge Forward: Surgery Billing (Incision and drainage left buttocks abscess)
[2025-03-26] MEDS: fentaNYL CITRATE INJ (*CRX) 100 MCG/2 ML VIAL 25 MCG IV PUSH ×3 (21:19→21:25)
[2025-03-26] MEDS: LACTATED RINGERS 1,000 ML 30 ML IV CONT (21:48)
--- NOTE | 2025-03-26 21:59 | PC.NURSE ---
Patient returned for procedure. Awake and alert.
[2025-03-26 22:08] LABS: Glucose Point of Care 168 mg/dl (65-105)
[2025-03-26] MEDS: traZODone HCL 50 MG TABLET 150 MG PO (22:14)
[2025-03-26] MEDS: LACTATED RINGERS 1,000 ML 100 ML IV CONT (22:15)
[2025-03-26] MEDS: INSULIN GLARGINE (*BKC) 100 UNITS/ML 10 UNITS SUB-Q (22:15)
[2025-03-26] MEDS: FLUoxetine HCL 20 MG CAPSULE 60 MG PO (23:06)
[2025-03-26 23:20] LABS: Vancomycin Trough 14.7 ug/mL (10.0-20.0)
[2025-03-27] VITALS (8 sets, daily range): BP systolic 100–137; BP diastolic 60–98; PULSE 51–62; RESP 14–18; TEMP 35.7–36.7; O2SAT 98–100
[2025-03-27] MEDS: VANCOMYCIN 2,000 MG/NS 500 ML 2,000 MG/500 ML BAG 250 MG IVPB ×2 (00:47→12:09)
[2025-03-27] MEDS: oxyCODONE/ACETAMINOPHEN (*CRX) 5-325 MG TABLET 1 TABLET PO ×4 (00:52→23:42)
[2025-03-27] MEDS: metroNIDAZOLE 500 MG/ISO 100ML 500 MG/100 ML BAG 100 MG IVPB ×3 (05:49→21:23)
[2025-03-27 06:11] LABS: Basophils Percent Auto 0.6 % (0.2-1.2); Eosinophils Absolute Auto 0.2 K/mm3 (0-0.3); Hematocrit 35.1 % (37.0-47.0); Hemoglobin 11.4 g/dL (12.0-15.0); Immature Granulocyte Absolute 0.02 K/mm3 (0.00-0.031); Immature Granulocyte Percent A 0.4 % (0-0.5); Lymphocytes Percent Auto 29.5 % (18.3-44.2); Mean Corpuscular HGB Conc 32.5 g/dl (32-36); Mean Corpuscular Hemoglobin 30.6 pg (26-34); Mean Corpuscular Volume 94.1 fl (80-100); Mean Platelet Volume 9.8 fl (7.4-10.4); Monocytes Absolute Auto 0.5 K/mm3 (0.1-0.6); Neutrophils Absolute Auto 3.1 K/mm3 (1.3-6.7); Neutrophils Percent Auto 57.5 % (45.5-73.1); Platelet Count Result 130 k/mm3 (150-375); Red Blood Count 3.73 M/mm3 (4.2-5.4); Red Cell Distribution Width 14.7 % (11.5-14.5); White Blood Count 5.4 K/mm3 (4.5-10.0)
[2025-03-27 06:45] LABS: Alanine Aminotransferase 35 U/L (6-35); Albumin Level 3.2 g/dL (3.5-5.1); Alkaline Phosphatase 69 U/L (38-126); Anion Gap 4 mmol/L (4-12); Aspartate Amino Transferase 41 U/L (14-36); Bilirubin,Total 0.3 mg/dL (0.2-1.3); Blood Urea Nitrogen 14 mg/dL (7-17); Calcium 8.3 mg/dL (8.4-10.2); Carbon Dioxide 27 mmol/L (22-30); Chloride 109 mmol/L (98-107); Estimated CRCL calculation 97 ml/min; Estimated Glomerular Filt Rate > 60; Glucose 195 mg/dL (65-110); Magnesium 2.2 mg/dL (1.6-2.3); Potassium 4.4 mmol/L (3.4-5.0); Sodium 140 mmol/L (137-145)
[2025-03-27 08:31] LABS: Glucose Point of Care 161 mg/dl (65-105)
[2025-03-27] MEDS: CEFEPIME 2 GM/NS 50 ML 2 GM/50 ML BAG IVPB ×2 (08:58→21:16)
[2025-03-27] MEDS: FUROSEMIDE 40 MG TABLET 80 MG PO (08:59)
[2025-03-27] MEDS: POTASSIUM CHLORIDE 10 MEQ ER TABLET PO (08:59)
[2025-03-27] MEDS: SPIRONOLACTONE 50 MG TABLET PO (08:59)
[2025-03-27] MEDS: busPIRone HCL 10 MG TABLET 30 MG PO ×2 (08:59→21:16)
[2025-03-27] MEDS: BACLOFEN 10 MG TABLET 20 MG PO ×3 (08:59→16:48)
[2025-03-27] MEDS: PREGABALIN (*CRX) 75 MG CAPSULE PO ×2 (10:25→23:40)
[2025-03-27 11:35] LABS: Glucose Point of Care 254 mg/dl (65-105)
[2025-03-27] MEDS: INSULIN ASPART (*BKC) 100 UNITS/ML SUB-Q ×2 (12:10→16:49)
--- NOTE | 2025-03-27 15:24 | P.PNGS_ITS ---
Progress Note: A&P Assessment and Plan (1) Left buttock abscess: Code(s): L02.31 - Cutaneous abscess of buttock Status: Acute Assessment and Plan: Healing. Continue antibiotics. Will recheck wound again tomorrow and possibly discharge. Much improved. Cultures of the abscess were sent. Previous abscess from a year ago and from December were both methicillin sensitive Staph aureus. Subjective Subjective Date/Time Seen: 03/27/25 15:24 Post Op day: 1 Patient reports: feels better, tolerating a regular diet and afebrile Exam GI: Rectal Exam: buttock abscess (Packing changed, no purulence, much less tender, no erythema) Objective Data Vital Signs Vital Signs: Vital Signs - 24 hr 03/26/25 20:00 03/26/25 21:08 03/26/25 21:15 Temperature 36.2 C L Pulse Rate 60 71 63 Respiratory Rate 20 20 21 H Blood Pressure 120/75 110/72 Pulse Oximetry 98 95 95 Oxygen Delivery Room Air Room Air Room Air Fraction of Inspired Oxygen 03/26/25 21:30 03/26/25 21:45 03/27/25 00:00 Temperature 36.0 C L Pulse Rate 54 L 56 L 57 L Respiratory Rate 13 15 18 Blood Pressure 109/61 113/72 107/60 Pulse Oximetry 92 96 100 Oxygen Delivery Room Air Room Air Fraction of Inspired Oxygen 03/27/25 04:00 03/27/25 07:33 03/27/25 08:00 Temperature 36.7 C 35.8 C L Pulse Rate 51 L 56 L 57 L Respiratory Rate 18 16 16 Blood Pressure 100/67 137/68 Pulse Oximetry 99 99 98 Oxygen Delivery Room Air Fraction of Inspired Oxygen 03/27/25 09:17 03/27/25 10:51 Temperature 35.8 C L 35.7 C L Pulse Rate 56 L 57 L Respiratory Rate 16 16 Blood Pressure 137/68 121/68 Pulse Oximetry 99 98 Oxygen Delivery Fraction of Inspired Oxygen Intake/Output Intake/Output: Intake & Output 03/24/25 03/25/25 03/26/25 03/27/25 23:59 23:59 23:59 23:59 Intake Total 1570 2060 1450 1400 Balance 1570 2060 1450 1400 Meds/Results Medications: Active Medications Generic Name Dose Route Start Last Admin Trade Name Freq PRN Reason Stop Dose Admin Acetaminophen 500 mg 03/26/25 21:48 Acetaminophen 500 Mg Tablet PO Q6H PRN Pain Rated 1-3 Albuterol 2 puff 03/24/25 02:42 Albuterol Sulfate (*Sp) Aerosol 1 Puff INHALATION QID PRN shortness of breath or wheezing Baclofen 20 mg 03/24/25 09:00 03/27/25 12:09 Baclofen 10 Mg Tablet PO 20 mg TID [place] Administration Buspirone HCl 30 mg 03/24/25 21:00 03/27/25 08:59 Buspirone Hcl 10 Mg Tablet PO 30 mg Q12HR [place] Administration Dextrose 12.5 gm 03/23/25 19:51 Dextrose 50% 25 Gm/50 Ml Syringe IV PUSH PRN PRN Hypoglycemia Protocol Enoxaparin Sodium 40 mg 03/27/25 09:00 03/27/25 09:00 Enoxaparin 40 Mg/0.4 Ml Syringe SUB-Q Not Given DAILY [place] Fentanyl Citrate 12.5 mcg 03/26/25 21:48 Fentanyl Citrate Inj (*Crx) 100 Mcg/2 Ml Vial IV PUSH Q2H PRN Breakthrough Pain Rated 4-6 or NPO Fentanyl Citrate 25 mcg 03/26/25 21:48 Fentanyl Citrate Inj (*Crx) 100 Mcg/2 Ml Vial IV PUSH Q2H PRN Breakthrough Pain Rated 7-10 or NPO Fluoxetine HCl 60 mg 03/24/25 03:05 03/26/25 23:06 Fluoxetine Hcl 20 Mg Capsule PO 60 mg 2300 [place] Administration Furosemide 80 mg 03/24/25 09:00 03/27/25 08:59 Furosemide 40 Mg Tablet PO 80 mg DAILY [place] Administration Glucagon 1 mg 03/23/25 19:51 Glucagon For Inj 1 Mg Vial IM PRN PRN Hypoglycemia Protocol Glucose 15 gm 03/23/25 19:51 Glucose Oral Gel 15 Gm Of Glucse In 37.5 Gm Tube PO PRN PRN Hypoglycemia Protocol Cefepime HCl 2 gm in 50 mls @ 100 mls/hr 03/24/25 20:00 03/27/25 08:58 Maxipime 2 Gm/Ns 50 Ml IVPB 100 mls/hr Q12H [place] Administration Metronidazole 500 mg in 100 mls @ 100 mls/hr 03/24/25 06:00 03/27/25 05:49 Flagyl 500 Mg/Iso Soln 100 Ml IVPB 100 mls/hr Q8H [place] Administration Dextrose 1,000 mls @ 100 mls/hr 03/23/25 19:51 Dextrose 5% 1,000 Ml IVPB PRN PRN Hypoglycemia Protocol Ibuprofen 800 mg in 200 mls @ 400 mls/hr 03/26/25 21:48 Caldolor 800 Mg/200 Ml IVPB Q6H PRN Breakthrough Pain Rated 1-3 or NPO Vancomycin HCl 2,000 mg in 500 mls @ 250 mls/hr 03/27/25 01:00 03/27/25 12:09 Vancomycin 2,000 Mg/Ns 500 Ml IVPB 250 mls/hr Q12H [place] Administration Insulin Aspart 4 - 8 units 03/24/25 17:00 03/27/25 12:10 Insulin Aspart (*Bkc) 100 Units/Ml SUB-Q 5 units TIDWM [place] Administration Protocol Insulin Aspart 2 - 4 units 03/24/25 21:00 03/26/25 22:11 Insulin Aspart (*Bkc) 100 Units/Ml SUB-Q Not Given HS [facility] Protocol Insulin Glargine 10 units 03/26/25 21:00 03/26/25 22:15 Insulin Glargine (*Bkc) 100 Units/Ml SUB-Q 10 units HS [place] Administration Naloxone HCl 0.1 mg 03/26/25 21:48 Naloxone Hcl 0.4 Mg/Ml Vial IV PUSH Q2M PRN Opiate Reversal Oxycodone/Acetaminophen 1 tablet 03/26/25 21:48 03/27/25 10:25 Oxycodone/Acetaminophen (*Crx) 5-325 Mg Tablet PO 1 tablet Q4H PRN Administration Pain Rated 4-6 Potassium Chloride 10 meq 03/24/25 08:00 03/27/25 08:59 Potassium Chloride 10 Meq Er Tablet PO 10 meq DAILY@0800 [place] Administration Pregabalin 75 mg 03/24/25 11:00 03/27/25 10:25 Pregabalin (*Crx) 75 Mg Capsule PO 75 mg Q12H [place] Administration Spironolactone 50 mg 03/24/25 09:00 03/27/25 08:59 Spironolactone 50 Mg Tablet PO 50 mg DAILY [place] Administration Trazodone HCl 150 mg 03/24/25 03:05 03/26/25 22:14 Trazodone Hcl 50 Mg Tablet PO 150 mg HS [place] Administration Radiology Results: ITS Impressions Abdomen/Pelvis CT 03/23/25 19:06 IMPRESSION: Hepatosplenomegaly. 1.4 cm phlegmon versus early abscess in the left medial gluteal soft tissues. Labs Labs: Laboratory Results - last 24 hr 03/26/25 03/26/25 03/26/25 17:05 20:11 22:03 WBC RBC Hgb Hct MCV MCH MCHC RDW Plt Count MPV Immature Gran % (Auto) Neut % (Auto) Lymph % (Auto) [place] % (Auto) Eos % (Auto) Baso % (Auto) Lymph # (Auto) [place] # (Auto) Eos # (Auto) Baso # (Auto) Abs Immat Gran (auto) Absolute Neuts (auto) Absolute Nucleated RBC Nucleated RBC % Sodium Potassium Chloride Carbon Dioxide Anion Gap BUN Creatinine Estim Creat Clear Calc Estimated GFR Glucose POC Capillary Glucose 178 H 154 H 168 H Calcium Magnesium Total Bilirubin AST ALT Alkaline Phosphatase Total Protein Albumin Vancomycin Trough 03/26/25 03/27/25 03/27/25 22:55 05:33 07:43 WBC 5.4 RBC 3.73 L Hgb 11.4 L Hct 35.1 L MCV 94.1 MCH 30.6 MCHC 32.5 RDW 14.7 H Plt Count 130 L MPV 9.8 Immature Gran % (Auto) 0.4 Neut % (Auto) 57.5 Lymph % (Auto) 29.5 [place] % (Auto) 9.0 H Eos % (Auto) 3.0 Baso % (Auto) 0.6 Lymph # (Auto) 1.60 [place] # (Auto) 0.5 Eos # (Auto) 0.2 Baso # (Auto) 0.0 Abs Immat Gran (auto) 0.02 Absolute Neuts (auto) 3.1 Absolute Nucleated RBC 0.000 Nucleated RBC % 0.0 Sodium 140 Potassium 4.4 Chloride 109 H Carbon Dioxide 27 Anion Gap 4 BUN 14 Creatinine 0.83 Estim Creat Clear Calc 97 Estimated GFR > 60 Glucose 195 H POC Capillary Glucose 161 H Calcium 8.3 L Magnesium 2.2 Total Bilirubin 0.3 AST 41 H ALT 35 Alkaline Phosphatase 69 Total Protein 6.0 L Albumin 3.2 L Vancomycin Trough 14.7 03/27/25 11:09 WBC RBC Hgb Hct MCV MCH MCHC RDW Plt Count MPV Immature Gran % (Auto) Neut % (Auto) Lymph % (Auto) [place] % (Auto) Eos % (Auto) Baso % (Auto) Lymph # (Auto) [place] # (Auto) Eos # (Auto) Baso # (Auto) Abs Immat Gran (auto) Absolute Neuts (auto) Absolute Nucleated RBC Nucleated RBC % Sodium Potassium Chloride Carbon Dioxide Anion Gap BUN Creatinine Estim Creat Clear Calc Estimated GFR Glucose POC Capillary Glucose 254 H Calcium Magnesium Total Bilirubin AST ALT Alkaline Phosphatase Total Protein Albumin Vancomycin Trough
[2025-03-27 16:01] LABS: Glucose Point of Care 222 mg/dl (65-105)
--- NOTE | 2025-03-27 17:27 | P.PNIM_ITS ---
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 1.4 cm phlegmon versus early abscess in the left medial gluteal soft tissues. Continue cefepime, metronidazole and vancomycin S/p I and D Wound culture pending Gen surgery following Diabetes mellitus Low-dose sliding scale Titrate as needed Hypoglycemia protocol HbA1c 7.6 Hypertension Continue lisinopril, spironolactone and Lasix Anxiety Continue buspirone 30 mg p.o. BID and Trazodone DVT prophylaxis: Lovenox 40 mg subQ Subjective Date/time seen: 03/27/25 17:27 Interval history: Comfortable at bedside Exam Narrative: General: alert and comfortable Eyes: EOMI, PERRLA ENNT External ears normal, Neck is supple, no masses, Respiratory systems: Clear to auscultation Cardiovascular S1, S2, normal rhythm, no murmur, rub, or gallop; no thrill or palpable murmurs on palpation. Gastrointestinal: soft, non-tender, and non-distended abdomen with no masses; BS present Skin: left gluteal edematous swelling and erythema Musculoskeletal: no abnormality and no tenderness, normal ROM Neurologic: Alert and oriented x3, non focal Objective Data Vital Signs Vital Signs: Vital Signs - 24 hr 03/26/25 20:00 03/26/25 21:08 03/26/25 21:15 Temperature 97.2 F L Pulse Rate 60 71 63 Respiratory Rate 20 20 21 H Blood Pressure 120/75 110/72 Pulse Oximetry 98 95 95 Oxygen Delivery Room Air Room Air Room Air Fraction of Inspired Oxygen 21 03/26/25 21:30 03/26/25 21:45 03/27/25 00:00 Temperature 96.8 F L Pulse Rate 54 L 56 L 57 L Respiratory Rate 13 15 18 Blood Pressure 109/61 113/72 107/60 Pulse Oximetry 92 96 100 Oxygen Delivery Room Air Room Air Fraction of Inspired Oxygen 03/27/25 04:00 03/27/25 07:33 03/27/25 08:00 Temperature 98.1 F 96.4 F L Pulse Rate 51 L 56 L 57 L Respiratory Rate 18 16 16 Blood Pressure 100/67 137/68 Pulse Oximetry 99 99 98 Oxygen Delivery Room Air Fraction of Inspired Oxygen 21 03/27/25 09:17 03/27/25 10:51 03/27/25 15:33 Temperature 96.4 F L 96.2 F L 97.6 F Pulse Rate 56 L 57 L 62 Respiratory Rate 16 16 17 Blood Pressure 137/68 121/68 116/72 Pulse Oximetry 99 98 100 Oxygen Delivery Fraction of Inspired Oxygen Intake/Output Intake/Output: Intake & Output 03/24/25 03/25/25 03/26/25 03/27/25 23:59 23:59 23:59 23:59 Intake Total 1570 0 1450 0 Balance 1570 0 1450 2049 Meds/Results Medications: Active Medications Generic Name Dose Route Start Last Admin Trade Name Freq PRN Reason Stop Dose Admin Acetaminophen 500 mg 03/26/25 21:48 Acetaminophen 500 Mg Tablet PO Q6H PRN Pain Rated 1-3 Albuterol 2 puff 03/24/25 02:42 Albuterol Sulfate (*Sp) Aerosol 1 Puff INHALATION QID PRN shortness of breath or wheezing Baclofen 20 mg 03/24/25 09:00 03/27/25 16:48 Baclofen 10 Mg Tablet PO 20 mg TID [place] Administration Buspirone HCl 30 mg 03/24/25 21:00 03/27/25 08:59 Buspirone Hcl 10 Mg Tablet PO 30 mg Q12HR [place] Administration Dextrose 12.5 gm 03/23/25 19:51 Dextrose 50% 25 Gm/50 Ml Syringe IV PUSH PRN PRN Hypoglycemia Protocol Enoxaparin Sodium 40 mg 03/27/25 09:00 03/27/25 09:00 Enoxaparin 40 Mg/0.4 Ml Syringe SUB-Q Not Given DAILY [place] Fentanyl Citrate 12.5 mcg 03/26/25 21:48 Fentanyl Citrate Inj (*Crx) 100 Mcg/2 Ml Vial IV PUSH Q2H PRN Breakthrough Pain Rated 4-6 or NPO Fentanyl Citrate 25 mcg 03/26/25 21:48 Fentanyl Citrate Inj (*Crx) 100 Mcg/2 Ml Vial IV PUSH Q2H PRN Breakthrough Pain Rated 7-10 or NPO Fluoxetine HCl 60 mg 03/24/25 03:05 03/26/25 23:06 Fluoxetine Hcl 20 Mg Capsule PO 60 mg 2300 [place] Administration Furosemide 80 mg 03/24/25 09:00 03/27/25 08:59 Furosemide 40 Mg Tablet PO 80 mg DAILY [place] Administration Glucagon 1 mg 03/23/25 19:51 Glucagon For Inj 1 Mg Vial IM PRN PRN Hypoglycemia Protocol Glucose 15 gm 03/23/25 19:51 Glucose Oral Gel 15 Gm Of Glucse In 37.5 Gm Tube PO PRN PRN Hypoglycemia Protocol Cefepime HCl 2 gm in 50 mls @ 100 mls/hr 03/24/25 20:00 03/27/25 16:10 Maxipime 2 Gm/Ns 50 Ml IVPB Infused Q12H [place] Infusion Metronidazole 500 mg in 100 mls @ 100 mls/hr 03/24/25 06:00 03/27/25 14:00 Flagyl 500 Mg/Iso Soln 100 Ml IVPB 100 mls/hr Q8H [place] Administration Dextrose 1,000 mls @ 100 mls/hr 03/23/25 19:51 Dextrose 5% 1,000 Ml IVPB PRN PRN Hypoglycemia Protocol Ibuprofen 800 mg in 200 mls @ 400 mls/hr 03/26/25 21:48 Caldolor 800 Mg/200 Ml IVPB Q6H PRN Breakthrough Pain Rated 1-3 or NPO Vancomycin HCl 2,000 mg in 500 mls @ 250 mls/hr 03/27/25 01:00 03/27/25 16:51 Vancomycin 2,000 Mg/Ns 500 Ml IVPB Infused Q12H [place] Infusion Insulin Aspart 4 - 8 units 03/24/25 17:00 03/27/25 16:49 Insulin Aspart (*Bkc) 100 Units/Ml SUB-Q 4 units TIDWM [place] Administration Protocol Insulin Aspart 2 - 4 units 03/24/25 21:00 03/26/25 22:11 Insulin Aspart (*Bkc) 100 Units/Ml SUB-Q Not Given HS [facility] Protocol Insulin Glargine 10 units 03/26/25 21:00 03/26/25 22:15 Insulin Glargine (*Bkc) 100 Units/Ml SUB-Q 10 units HS [place] Administration Naloxone HCl 0.1 mg 03/26/25 21:48 Naloxone Hcl 0.4 Mg/Ml Vial IV PUSH Q2M PRN Opiate Reversal Oxycodone/Acetaminophen 1 tablet 03/26/25 21:48 03/27/25 16:48 Oxycodone/Acetaminophen (*Crx) 5-325 Mg Tablet PO 1 tablet Q4H PRN Administration Pain Rated 4-6 Potassium Chloride 10 meq 03/24/25 08:00 03/27/25 08:59 Potassium Chloride 10 Meq Er Tablet PO 10 meq DAILY@0800 [place] Administration Pregabalin 75 mg 03/24/25 11:00 03/27/25 10:25 Pregabalin (*Crx) 75 Mg Capsule PO 75 mg Q12H [place] Administration Spironolactone 50 mg 03/24/25 09:00 03/27/25 08:59 Spironolactone 50 Mg Tablet PO 50 mg DAILY [place] Administration Trazodone HCl 150 mg 03/24/25 03:05 03/26/25 22:14 Trazodone Hcl 50 Mg Tablet PO 150 mg HS [place] Administration Radiology Results: ITS Impressions Abdomen/Pelvis CT 03/23/25 19:06 IMPRESSION: Hepatosplenomegaly. 1.4 cm phlegmon versus early abscess in the left medial gluteal soft tissues. Labs Labs: Laboratory Results - last 24 hr 03/26/25 03/26/25 03/26/25 20:11 22:03 22:55 WBC RBC Hgb Hct MCV MCH MCHC RDW Plt Count MPV Immature Gran % (Auto) Neut % (Auto) Lymph % (Auto) [place] % (Auto) Eos % (Auto) Baso % (Auto) Lymph # (Auto) [place] # (Auto) Eos # (Auto) Baso # (Auto) Abs Immat Gran (auto) Absolute Neuts (auto) Absolute Nucleated RBC Nucleated RBC % Sodium Potassium Chloride Carbon Dioxide Anion Gap BUN Creatinine Estim Creat Clear Calc Estimated GFR Glucose POC Capillary Glucose 154 H 168 H Calcium Magnesium Total Bilirubin AST ALT Alkaline Phosphatase Total Protein Albumin Vancomycin Trough 14.7 03/27/25 03/27/25 03/27/25 05:33 07:43 11:09 WBC 5.4 RBC 3.73 L Hgb 11.4 L Hct 35.1 L MCV 94.1 MCH 30.6 MCHC 32.5 RDW 14.7 H Plt Count 130 L MPV 9.8 Immature Gran % (Auto) 0.4 Neut % (Auto) 57.5 Lymph % (Auto) 29.5 [place] % (Auto) 9.0 H Eos % (Auto) 3.0 Baso % (Auto) 0.6 Lymph # (Auto) 1.60 [place] # (Auto) 0.5 Eos # (Auto) 0.2 Baso # (Auto) 0.0 Abs Immat Gran (auto) 0.02 Absolute Neuts (auto) 3.1 Absolute Nucleated RBC 0.000 Nucleated RBC % 0.0 Sodium 140 Potassium 4.4 Chloride 109 H Carbon Dioxide 27 Anion Gap 4 BUN 14 Creatinine 0.83 Estim Creat Clear Calc 97 Estimated GFR > 60 Glucose 195 H POC Capillary Glucose 161 H 254 H Calcium 8.3 L Magnesium 2.2 Total Bilirubin 0.3 AST 41 H ALT 35 Alkaline Phosphatase 69 Total Protein 6.0 L Albumin 3.2 L Vancomycin Trough 03/27/25 15:53 WBC RBC Hgb Hct MCV MCH MCHC RDW Plt Count MPV Immature Gran % (Auto) Neut % (Auto) Lymph % (Auto) [place] % (Auto) Eos % (Auto) Baso % (Auto) Lymph # (Auto) [place] # (Auto) Eos # (Auto) Baso # (Auto) Abs Immat Gran (auto) Absolute Neuts (auto) Absolute Nucleated RBC Nucleated RBC % Sodium Potassium Chloride Carbon Dioxide Anion Gap BUN Creatinine Estim Creat Clear Calc Estimated GFR Glucose POC Capillary Glucose 222 H Calcium Magnesium Total Bilirubin AST ALT Alkaline Phosphatase Total Protein Albumin Vancomycin Trough
[2025-03-27 21:07] LABS: Glucose Point of Care 173 mg/dl (65-105)
[2025-03-27] MEDS: INSULIN GLARGINE (*BKC) 100 UNITS/ML 10 UNITS SUB-Q (22:24)
[2025-03-27] MEDS: FLUoxetine HCL 20 MG CAPSULE 60 MG PO (23:39)
[2025-03-27] MEDS: traZODone HCL 50 MG TABLET 150 MG PO (23:39)
[2025-03-28] MEDS: VANCOMYCIN 2,000 MG/NS 500 ML 2,000 MG/500 ML BAG 250 MG IVPB (01:04)
[2025-03-28] MEDS: metroNIDAZOLE 500 MG/ISO 100ML 500 MG/100 ML BAG 100 MG IVPB (06:08)
[2025-03-28 06:27] LABS: Basophils Percent Auto 0.6 % (0.2-1.2); Eosinophils Absolute Auto 0.2 K/mm3 (0-0.3); Eosinophils Percent Auto 2.4 % (0-4.4); Hematocrit 36.5 % (37.0-47.0); Hemoglobin 12.2 g/dL (12.0-15.0); Immature Granulocyte Absolute 0.06 K/mm3 (0.00-0.031); Lymphocytes Absolute Auto 2.27 K/mm3 (0.9-3.2); Lymphocytes Percent Auto 36.7 % (18.3-44.2); Mean Corpuscular HGB Conc 33.4 g/dl (32-36); Mean Corpuscular Volume 92.9 fl (80-100); Mean Platelet Volume 9.7 fl (7.4-10.4); Monocytes Absolute Auto 0.4 K/mm3 (0.1-0.6); Neutrophils Absolute Auto 3.2 K/mm3 (1.3-6.7); Neutrophils Percent Auto 52.3 % (45.5-73.1); Platelet Count Result 144 k/mm3 (150-375); Red Blood Count 3.93 M/mm3 (4.2-5.4); Red Cell Distribution Width 14.6 % (11.5-14.5); White Blood Count 6.2 K/mm3 (4.5-10.0)
[2025-03-28 06:27] LABS: Glucose Point of Care 185 mg/dl (65-105)
[2025-03-28 06:32] LABS: Alanine Aminotransferase 41 U/L (6-35); Albumin Level 3.4 g/dL (3.5-5.1); Alkaline Phosphatase 73 U/L (38-126); Anion Gap 7 mmol/L (4-12); Aspartate Amino Transferase 44 U/L (14-36); Bilirubin,Total 0.3 mg/dL (0.2-1.3); Blood Urea Nitrogen 13 mg/dL (7-17); Calcium 8.5 mg/dL (8.4-10.2); Carbon Dioxide 25 mmol/L (22-30); Chloride 108 mmol/L (98-107); Estimated CRCL calculation 112 ml/min; Estimated Glomerular Filt Rate > 60; Glucose 174 mg/dL (65-110); Magnesium 2.1 mg/dL (1.6-2.3); Potassium 3.9 mmol/L (3.4-5.0); Sodium 140 mmol/L (137-145)
[2025-03-28 07:53] LABS: Glucose Point of Care 170 mg/dl (65-105)
[2025-03-28] MEDS: POTASSIUM CHLORIDE 10 MEQ ER TABLET PO (08:22)
[2025-03-28] MEDS: BACLOFEN 10 MG TABLET 20 MG PO ×2 (08:22→12:17)
[2025-03-28] MEDS: FUROSEMIDE 40 MG TABLET 80 MG PO (08:23)
[2025-03-28] MEDS: SPIRONOLACTONE 50 MG TABLET PO (08:23)
[2025-03-28] MEDS: busPIRone HCL 10 MG TABLET 30 MG PO (08:28)
[2025-03-28] MEDS: CEFEPIME 2 GM/NS 50 ML 2 GM/50 ML BAG IVPB (08:31)
[2025-03-28] MEDS: PREGABALIN (*CRX) 75 MG CAPSULE PO (10:12)
--- NOTE | 2025-03-28 11:06 | P.PNGS_ITS ---
Progress Note: A&P Assessment and Plan (1) Left buttock abscess: Code(s): L02.31 - Cutaneous abscess of buttock Status: Acute Assessment and Plan: Much improved after incision and drainage 2 days ago. Cultures are showing Staph aureus but sensitivities are pending. She had an oxacillin sensitive Staph aureus on her abscesses from a year ago and in December. I will start her on doxycycline 100 mg b.i.d. to complete 1 week of antibiotic treatment. The Staph aureus from December was sensitive to doxycycline. Discharge instructions are written. She will see me week after next in the office. Subjective Subjective Date/Time Seen: 03/28/25 11:06 Patient reports: no new complaints, feels better, tolerating a regular diet and afebrile Exam GI: Rectal Exam: buttock abscess (Wound clean with no redness, no purulent drainage) and No tenderness Objective Data Vital Signs Vital Signs: Vital Signs - 24 hr 03/27/25 15:33 03/27/25 21:42 Temperature 36.4 C 36.5 C Pulse Rate 62 53 L Respiratory Rate 17 14 Blood Pressure 116/72 126/98 H Pulse Oximetry 100 100 Intake/Output Intake/Output: Intake & Output 03/25/25 03/26/25 03/27/25 03/28/25 23:59 23:59 23:59 23:59 Intake Total 2060 1450 2400 600 Balance 2060 1450 2400 600 Meds/Results Medications: Active Medications Generic Name Dose Route Start Last Admin Trade Name Freq PRN Reason Stop Dose Admin Acetaminophen 500 mg 03/26/25 21:48 Acetaminophen 500 Mg Tablet PO Q6H PRN Pain Rated 1-3 Albuterol 2 puff 03/24/25 02:42 Albuterol Sulfate (*Sp) Aerosol 1 Puff INHALATION QID PRN shortness of breath or wheezing Baclofen 20 mg 03/24/25 09:00 03/28/25 08:22 Baclofen 10 Mg Tablet PO 20 mg TID [place] Administration Buspirone HCl 30 mg 03/24/25 21:00 03/28/25 08:28 Buspirone Hcl 10 Mg Tablet PO 30 mg Q12HR [place] Administration Dextrose 12.5 gm 03/23/25 19:51 Dextrose 50% 25 Gm/50 Ml Syringe IV PUSH PRN PRN Hypoglycemia Protocol Enoxaparin Sodium 40 mg 03/27/25 09:00 03/28/25 08:36 Enoxaparin 40 Mg/0.4 Ml Syringe SUB-Q Not Given DAILY [place] Fentanyl Citrate 12.5 mcg 03/26/25 21:48 Fentanyl Citrate Inj (*Crx) 100 Mcg/2 Ml Vial IV PUSH Q2H PRN Breakthrough Pain Rated 4-6 or NPO Fentanyl Citrate 25 mcg 03/26/25 21:48 Fentanyl Citrate Inj (*Crx) 100 Mcg/2 Ml Vial IV PUSH Q2H PRN Breakthrough Pain Rated 7-10 or NPO Fluoxetine HCl 60 mg 03/24/25 03:05 03/27/25 23:39 Fluoxetine Hcl 20 Mg Capsule PO 60 mg 2300 [place] Administration Furosemide 80 mg 03/24/25 09:00 03/28/25 08:23 Furosemide 40 Mg Tablet PO 80 mg DAILY [place] Administration Glucagon 1 mg 03/23/25 19:51 Glucagon For Inj 1 Mg Vial IM PRN PRN Hypoglycemia Protocol Glucose 15 gm 03/23/25 19:51 Glucose Oral Gel 15 Gm Of Glucse In 37.5 Gm Tube PO PRN PRN Hypoglycemia Protocol Cefepime HCl 2 gm in 50 mls @ 100 mls/hr 03/24/25 20:00 03/28/25 08:31 Maxipime 2 Gm/Ns 50 Ml IVPB 100 mls/hr Q12H [place] Administration Metronidazole 500 mg in 100 mls @ 100 mls/hr 03/24/25 06:00 03/28/25 07:08 Flagyl 500 Mg/Iso Soln 100 Ml IVPB Infused Q8H [place] Infusion Dextrose 1,000 mls @ 100 mls/hr 03/23/25 19:51 Dextrose 5% 1,000 Ml IVPB PRN PRN Hypoglycemia Protocol Ibuprofen 800 mg in 200 mls @ 400 mls/hr 03/26/25 21:48 Caldolor 800 Mg/200 Ml IVPB Q6H PRN Breakthrough Pain Rated 1-3 or NPO Vancomycin HCl 2,000 mg in 500 mls @ 250 mls/hr 03/27/25 01:00 03/28/25 03:04 Vancomycin 2,000 Mg/Ns 500 Ml IVPB Infused Q12H [place] Infusion Insulin Aspart 4 - 8 units 03/24/25 17:00 03/28/25 08:20 Insulin Aspart (*Bkc) 100 Units/Ml SUB-Q Not Given TIDWM [facility] Protocol Insulin Aspart 2 - 4 units 03/24/25 21:00 03/27/25 22:20 Insulin Aspart (*Bkc) 100 Units/Ml SUB-Q Not Given HS [facility] Protocol Insulin Glargine 10 units 03/26/25 21:00 03/27/25 22:24 Insulin Glargine (*Bkc) 100 Units/Ml SUB-Q 10 units HS [place] Administration Naloxone HCl 0.1 mg 03/26/25 21:48 Naloxone Hcl 0.4 Mg/Ml Vial IV PUSH Q2M PRN Opiate Reversal Oxycodone/Acetaminophen 1 tablet 03/26/25 21:48 03/27/25 23:42 Oxycodone/Acetaminophen (*Crx) 5-325 Mg Tablet PO 1 tablet Q4H PRN Administration Pain Rated 4-6 Potassium Chloride 10 meq 03/24/25 08:00 03/28/25 08:22 Potassium Chloride 10 Meq Er Tablet PO 10 meq DAILY@0800 [place] Administration Pregabalin 75 mg 03/24/25 11:00 03/28/25 10:12 Pregabalin (*Crx) 75 Mg Capsule PO 75 mg Q12H [place] Administration Spironolactone 50 mg 03/24/25 09:00 03/28/25 08:23 Spironolactone 50 Mg Tablet PO 50 mg DAILY [place] Administration Trazodone HCl 150 mg 03/24/25 03:05 03/27/25 23:39 Trazodone Hcl 50 Mg Tablet PO 150 mg HS [place] Administration Radiology Results: ITS Impressions Abdomen/Pelvis CT 03/23/25 19:06 IMPRESSION: Hepatosplenomegaly. 1.4 cm phlegmon versus early abscess in the left medial gluteal soft tissues. Labs Labs: Laboratory Results - last 24 hr 03/27/25 03/27/25 03/27/25 11:09 15:53 20:40 WBC RBC Hgb Hct MCV MCH MCHC RDW Plt Count MPV Immature Gran % (Auto) Neut % (Auto) Lymph % (Auto) [place] % (Auto) Eos % (Auto) Baso % (Auto) Lymph # (Auto) [place] # (Auto) Eos # (Auto) Baso # (Auto) Abs Immat Gran (auto) Absolute Neuts (auto) Absolute Nucleated RBC Nucleated RBC % Sodium Potassium Chloride Carbon Dioxide Anion Gap BUN Creatinine Estim Creat Clear Calc Estimated GFR Glucose POC Capillary Glucose 254 H 222 H 173 H Calcium Magnesium Total Bilirubin AST ALT Alkaline Phosphatase Total Protein Albumin 03/28/25 03/28/25 03/28/25 05:48 06:24 07:49 WBC 6.2 RBC 3.93 L Hgb 12.2 Hct 36.5 L MCV 92.9 MCH 31.0 MCHC 33.4 RDW 14.6 H Plt Count 144 L MPV 9.7 Immature Gran % (Auto) 1.0 H Neut % (Auto) 52.3 Lymph % (Auto) 36.7 [place] % (Auto) 7.0 Eos % (Auto) 2.4 Baso % (Auto) 0.6 Lymph # (Auto) 2.27 [place] # (Auto) 0.4 Eos # (Auto) 0.2 Baso # (Auto) 0.0 Abs Immat Gran (auto) 0.06 H Absolute Neuts (auto) 3.2 Absolute Nucleated RBC 0.000 Nucleated RBC % 0.0 Sodium 140 Potassium 3.9 Chloride 108 H Carbon Dioxide 25 Anion Gap 7 BUN 13 Creatinine 0.71 Estim Creat Clear Calc 112 Estimated GFR > 60 Glucose 174 H POC Capillary Glucose 185 H 170 H Calcium 8.5 Magnesium 2.1 Total Bilirubin 0.3 AST 44 H ALT 41 H Alkaline Phosphatase 73 Total Protein 6.0 L Albumin 3.4 L
[2025-03-28 11:55] LABS: Glucose Point of Care 295 mg/dl (65-105)
--- NOTE | 2025-03-28 11:57 | P.DS_ITS ---
DS: Admitting Diagnosis Discharge Date 03/28/2025 Admitting Diagnosis Cellulitis DS: Discharge Diagnosis Discharge Diagnosis (1) Left buttock abscess: Code(s): L02.31 - Cutaneous abscess of buttock Status: Acute DS: Summary Hospital Course Hospital Course: 44-year-old female with a history of morbid obesity, hypertension, hyperlipidemia, diabetes mellitus, peripheral neuropathy, GERD, anxiety, depression, and PTSD, among other comorbidities, presents with infection on the left gluteal area. Pertinent ED labs: WBC 11.2, hemoglobin 13.3, platelet 134, sodium 136, potassium 3.9, BUN 10, creatinine 0.7, GFR greater than 60, glucose 267 CRP 16.6 HB A1c pending The patient is admitted to the left gluteal abscess setting, with no evidence of drainage. During the evaluation, the patient reported that recently her PCP discontinued insulin due to episodes of hypoglycemia. According to the patient, her PCP wants her to follow up with endocrinology. Ordered HbA1c and pending. Record review indicates the patient had a recent incision and drainage of a complex abdominal wall abscess on 12/25/2024 with surgery. General surgery was consulted from the ER. Patient was placed on CEfepime,Flagyl and Vanc, underwent I adn D. Wound culture growiing Staph aureus. surgery noted patine thas grown MSSA in the past and recommended discharging patient on DOxycycline x 1 week. Patient will follow up with surgery in 1 week and follow up with PCP in 3-5 days Time Spent with Patient Time attestation: Total time spent providing and/or coordinating discharge services: DS: Data Data Completed and Pending Labs on day of discharge: Labs from last 24 hours 03/28/25 03/28/25 03/28/25 11:53 07:49 06:24 WBC RBC Hgb Hct MCV MCH MCHC RDW Plt Count MPV Immature Gran % (Auto) Neut % (Auto) Lymph % (Auto) Randall % (Auto) Eos % (Auto) Baso % (Auto) Lymph # (Auto) Randall # (Auto) Eos # (Auto) Baso # (Auto) Abs Immat Gran (auto) Absolute Neuts (auto) Absolute Nucleated RBC Nucleated RBC % Sodium Potassium Chloride Carbon Dioxide Anion Gap BUN Creatinine Estim Creat Clear Calc Estimated GFR Glucose POC Capillary Glucose 295 H 170 H 185 H Calcium Magnesium Total Bilirubin AST ALT Alkaline Phosphatase Total Protein Albumin 03/28/25 03/27/25 03/27/25 05:48 20:40 15:53 WBC 6.2 RBC 3.93 L Hgb 12.2 Hct 36.5 L MCV 92.9 MCH 31.0 MCHC 33.4 RDW 14.6 H Plt Count 144 L MPV 9.7 Immature Gran % (Auto) 1.0 H Neut % (Auto) 52.3 Lymph % (Auto) 36.7 Randall % (Auto) 7.0 Eos % (Auto) 2.4 Baso % (Auto) 0.6 Lymph # (Auto) 2.27 Randall # (Auto) 0.4 Eos # (Auto) 0.2 Baso # (Auto) 0.0 Abs Immat Gran (auto) 0.06 H Absolute Neuts (auto) 3.2 Absolute Nucleated RBC 0.000 Nucleated RBC % 0.0 Sodium 140 Potassium 3.9 Chloride 108 H Carbon Dioxide 25 Anion Gap 7 BUN 13 Creatinine 0.71 Estim Creat Clear Calc 112 Estimated GFR > 60 Glucose 174 H POC Capillary Glucose 173 H 222 H Calcium 8.5 Magnesium 2.1 Total Bilirubin 0.3 AST 44 H ALT 41 H Alkaline Phosphatase 73 Total Protein 6.0 L Albumin 3.4 L Preliminary micro results at discharge 03/26/25 21:04 Anaerobic Culture - Preliminary Abscess Aerobic Culture - Preliminary Staphylococcus aureus 03/23/25 18:33 Blood Culture - Preliminary Blood 03/23/25 18:33 Blood Culture - Preliminary Blood Discharge Plan Discharge Attending physician on discharge: Osman Almaguer Consulting providers: Julia Tatum Discharging Clinician: Osman Almaguer Anticipated Discharge Date/Time: 03/28/25 10:51 Patient Disposition: Home Activity: may shower and as tolerated Diet: diabetic Wound Care Instructions: keep dressing dry, remove dressing to shower and change dressing daily Discharge Instructions: Wound care for left buttocks abscess: * Change dressing daily and p.r.n. * Remove dressing and packing to shower or bathe. Soap and water are fine for the wound. * Place fresh packing in the wound daily until 04/05/2025. * Discontinue the packing on 04/05/[address] gauze dressing over the wound and tape in place. * Cover packing and/or wound with 4 x 4 gauze and Medipore tape. * Call Dr. Mcmillan office on Saturday and make appointment for him to see you sometime the week of 04/05/2025. * Take doxycycline antibiotics until they are gone. Patient Instructions: Antibiotic Form Patient Language: Vietnamese Stand Alone Forms: General Discharge Information, Work/School Release IP Follow-up/Referrals: Jose Luis Barnard MD [Physician] - 2 Weeks (Call Dr. Mcmillan office on Saturday to make follow-up appointment for 2 weeks.) Discharge Medications: New doxycycline monohydrate 100 mg capsule 100 mg PO BID Qty: 10 0RF Continued furosemide 40 mg Tablet 80 mg PO DAILY baclofen 20 mg Tablet 40 mg PO HS albuterol sulfate 90 mcg/actuation HFA aerosol inhaler 2 puff INHALATION QID PRN (Reason: shortness of breath or wheezing) Qty: 8.5 0RF trazodone 150 mg Tablet 150 mg PO HS pregabalin 75 mg Capsule 150 mg PO HS Rx Instructions: takes at 11pm fluoxetine 60 mg Tablet 60 mg PO HS Rx Instructions: takes at 11pm buspirone 30 mg tablet 30 mg PO HS potassium chloride 10 mEq tablet extended release 10 meq PO DAILY naproxen 500 mg tablet 1,000 mg PO DAILY spironolactone 50 mg tablet 50 mg PO DAILY Date of admission: 03/25/25 09:27 Primary Care Provider: Aj,Preet Schwartz Admitting Provider: Oh Abreu Attending physician on admission: Oh Abreu Condition: Improved
[2025-03-28] MEDS: INSULIN ASPART (*BKC) 100 UNITS/ML SUB-Q (12:15)
[2025-03-28] MEDS: oxyCODONE/ACETAMINOPHEN (*CRX) 5-325 MG TABLET 1 TABLET PO (12:16)
[2025-03-28 12:25] LABS: Vancomycin Trough 18.9 ug/mL (10.0-20.0)
== END 2025-03-28 12:50 | disposition home or self-care (01) | DRG 364 ==
LOC: ANHED 19:41 → ANH3MEDSUR 20:51
PROVIDERS: Physician Assistant; Surgery; Admitting Provider General Practice; Emergency Provider Emergency Medicine; PCP Family Medicine; Visit Provider Internal Medicine
PROC: 0J990ZZ Drainage of Buttock Subcutaneous Tissue and Fascia, Open Approach (ICD-10-PCS; principal; 2025-03-26 15:00)
DX: L02.31 Cutaneous abscess of buttock (principal); L03.317 Cellulitis of buttock; K59.09 Other constipation; I10 Essential (primary) hypertension; J45.909 Unspecified asthma, uncomplicated; E78.5 Hyperlipidemia, unspecified; E11.42 Type 2 diabetes mellitus with diabetic polyneuropathy; K21.9 Gastro-esophageal reflux disease without esophagitis; K50.90 Crohn's disease, unspecified, without complications; N39.46 Mixed incontinence; F43.10 Post-traumatic stress disorder, unspecified; F41.9 Anxiety disorder, unspecified; F32.A Depression, unspecified; Z96.41 Presence of insulin pump (external) (internal); Z87.891 Personal history of nicotine dependence; E66.01 Morbid (severe) obesity due to excess calories; Z68.41 Body mass index [BMI] 40.0-44.9, adult
CPT/HCPCS: 36415; 74177; 80053; 80202; 81001; 82565; 82948; 83036; 83605; 83735; 85025; 85027; 85055; 85652; 86140; 87040; 87070; 87075; 87181; 87205; 87641; 96361; 96365; 96366; 96367; 96375; 99285; A9270; G0378; G0379; J0692; J1650; J1815; J1836; J2003; J2250; J2405; J2704; J3010; J3370; J7030; J7120; Q9967

== ENCOUNTER 2025-05-29 10:48 | Inpatient (IN) | payer OTHER, SELFPAY ==
--- NOTE | ~2025-05-29 | XR_ITS ---
CHEST RADIOGRAPH CLINICAL HISTORY: picc placement . COMPARISON: 01/05/2014 TECHNIQUE: Single portable view of the chest. FINDINGS Right upper extremity PICC line identified with its tip projecting over the cavoatrial junction. The remainder of the cardiomediastinal silhouette is otherwise unremarkable. The lungs are clear. IMPRESSION: No focal infiltrate or effusion. Right upper extremity PICC line in good position and ready for immediate use. Reviewed, dictated and finalized at location A.
--- NOTE | ~2025-05-29 | CT_ITS ---
CT OF right foot EXAMINATION: CT foot RT wo con DATE: 05/31/2025 09:50 INDICATION: Pain swelling, foreign body. TECHNIQUE: Computed tomography (CT) of the right foot was performed without intravenous contrast. Aut omated exposure control and iterative reconstruction technique were employed. The dose-length product was 482.30 mGy-cm. COMPARISON: X-ray right foot, 05/29/2025 FINDINGS: Linear metallic foreign body measuring up to 8 mm in length in the soft tissues of the ball of foot, superficial to the level of the proximal aspect of the first and second proximal phalanges, with asso ciated subcutaneous fat stranding and soft tissue swelling. Status post partial fifth metatarsal rese ction. Moderate degenerative changes at the ankle joint. Moderate Achilles and plantar enthesopathy. Os cuboidium. Mild-moderate degenerative changes in multiple midfoot joints. Small os trigonum. Ossif ic fragment in the sinus tarsi, may represent old fracture fragment or degenerative ossification. Tin y bone island in the navicular. No fracture or dislocation. No lytic or suspicious blastic lesion. No erosion or suspicious periosteal changes. IMPRESSION: 8 mm long, radiopaque, likely metallic foreign body in the soft tissues of the ball of the right foot , superficial to the interspace between the proximal aspect of the first and second proximal phalange s. May represent a small piece of metallic wire or needle fragment. Likely surrounding cellulitis. No definite soft tissue fluid collection. Reviewed, dictated and finalized at location K. IMPRESSION: 8 mm long, radiopaque, likely metallic foreign body in the soft tissues of the ball of the right foot, superficial to the interspace between the proximal aspe ct of the first and second proximal phalanges. May represent a small piece of m etallic wire or needle fragment. Likely surrounding cellulitis. No definite sof t tissue fluid collection.
--- NOTE | ~2025-05-29 | XR_ITS ---
XR fluoroscopy <1hr Indication: Foreign body removal from right foot TECHNIQUE: Fluoroscopy used during Foreign body removal from right foot performed by [Julia Tatum MD] on 06/02/2025. 6 seconds of fluoroscopy with one fluoroscopic images captured. FINDINGS: Correlate with procedure note. IMPRESSION: Fluoroscopy used during Foreign body removal from right foot. Reviewed, dictated and finalized at location A.
--- NOTE | ~2025-05-29 | XR_ITS ---
XR foot RT min 3V 05/29/2025 12:09 Indication: Trauma to foot. 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 There are severe degene rative changes of the ankle and midfoot. There are prominent degenerative calcaneal enthesophytes. No acute fracture. Impression: 1: No acute fracture. 2: Severe polyarticular osteoarthritis. Reviewed, dictated and finalized at location A. Impression: 1: No acute fracture. 2: Severe polyarticular osteoarthritis.
--- OUTSIDE RECORDS SUMMARY | 2025-05-29 10:51 | XMS_ITS | Encounter Summary ---
Author Organization [facility] Healthcare Address [address] [place] [address] Care Team Providers Care Occup Ther Name Role Phone Cher Hernandez DPM Unavailable [phone] Preet Rocha MD Primary Care Provider [phone] Encounter Details Date Type Department Care Team (Late st Contact Info) Description 04/16/2025 Results Follow-Up [facility] Diabetes and Endocrinology [address] [place] [id number] Cathy Talavera, CHOIR DIRECTOR [id number] [address] Cortisol, Thyroid Function Trimble, T4, free, T3, free Social History Tobacco Use Types Packs/Day Years [...] on file Legal Sex Female 10:15 PM SQE Gender Identity Female 07/13/2021 7:15 AM CDT Sexual Orientation Straight 07/13/2021 7: 15 AM CDT documented as of this encounter Miscellaneous Notes * Result Encounter Note - Cathy Talavera NP - 04/16/2025 1:30 PM CDT Nafisalo Altaf, Your cortisol level is normal. Your TSH on your thyroid is showing a little suppressed (subclinical/mild hyperthyroidism). Your T3& T4 are both normal though. We'll recheck this in the future. Please call or send a Lingua[employer] message if any questions. Thank you, Cathy Talavera, REMI-desean documented in this encounter Plan of Treatment Not on file documented as of this encounter Visit Diagnoses Not on filedocumented in this encounter Care Teams Occup Ther Relationship Specialty Start Date End Date Preet Rocha MD [address] [place] [address] PCP - General Family Medicine 05/30/24 Cher Hernandez DPM [address] [place] [address] Consulting Physician Foot and Ankle Surg 01/13/21 documented as of this encounter
[2025-05-29 10:52] VITALS: BP 137/89; PULSE 70; RESP 20; TEMP 36.3; O2SAT 100
--- OUTSIDE RECORDS SUMMARY | 2025-05-29 10:52 | XMS_ITS | Clinical Summary ---
Author Organization [facility] Address [address] [place] [address] Care Team Providers Care Hand Hardener Name Role Phone Hakeem Green MD Primary Care Provider Unavai lable Allergies Active Allergy Reactions Criticality Noted Date Comments Corticosteroids Unknown 07/02/2012 Morphine Swelling High 07/02/2012 Medications Insulin Pen Needle (BD PEN NEEDLE ASLHEY U/F) 32G X 4 MM MiscIndications :Diabetes ([facility]) USE DIRECTED 200 each 04/07/2019 Active Social [...] Sex Assigned at Female 12/22/2024 6:50 PM OYSTER OPENER Legal Sex Female 7:20 PM CDT Gender Identity Not on file Sexual Orientation Not on file Last Filed Vital Signs Vital Sign Reading Time Taken Comments Blood Pressure 124/83 12/22/2024 6:23 PM OYSTER OPENER Pulse 79 12/22/2024 6:23 PM OYSTER OPENER Temperature 36.7 C (98 F) 12/22/2024 6:23 PM OYSTER OPENER Respiratory Rate 18 12/22/2024 6:23 PM OYSTER OPENER Oxygen Saturation 100% 12/22/2024 6:23 PM OYSTER OPENER Inhaled Oxygen Concentration - - Weight 113.4 kg (250 lb) 12/22/2024 6:23 PM OYSTER OPENER Height 167.6 cm (5' 6) 12/22/2024 6:23 PM OYSTER OPENER Body Mass Index 40.35 12/22/2024 6:23 PM OYSTER OPENER Plan of Treatment Health Maintenance Due Date [...] patient's age to complete this topic Insurance [phone] [id number] (Work) [address] [place] [id number] [place] [address] Care Teams Hand Hardener Relationship Specialty Start Date End Date Haekem Green MD PCP - General 09/27/16
--- OUTSIDE RECORDS SUMMARY | 2025-05-29 10:52 | XMS_ITS | Encounter Summary ---
Author Organization [facility] Healthcare Address [address] [place] [address] Care Team Providers Care Fire Department Battalion Chief Name Role Phone Cher Hernandez DPM Unavailable [phone] Preet Rocha MD Primary Care Provider [phone] Encounter Details Date Type Department Care Team (Latest Contact Info) Description 04/02/2025 Results Follow-Up [facility] Medical Group Diabetes and Endocrinology [address] [place] [phone] Cathy Talavera, SYSTEMS INTEGRATION MANAGER [id number] [facility] [address] [address] Albumin Creatinine Ratio, Urine, Lipid panel, Comprehensive metabolic panel, eGFR Social History Tobacco Use Types Packs/Day Years [...] on file 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
--- OUTSIDE RECORDS SUMMARY | 2025-05-29 10:52 | XMS_ITS | Clinical Summary ---
Author Organization [facility] [address] Address [address] [place] [address] Care Team Providers Care Chemist Enzymes Name Role Phone Cher Hernandez DPM Unavailable [phone] Preet Rocha MD Primary Care Provider [phone] Allergies Active Allergy Reactions Criticality Noted Date Comments Corticosteroids (Glucocorticoids) Swelling,Unknown Medium 07/02/2012 Swelling Cortisone Shortness of breath High 03/17/2020 Also edema Ketorolac Tromethamine Headache Low 11/29/2020 MIGRAINES. Morphine Swelling High 07/02/2012 Opioids - Morphine Analogues Swelling Medium Medications baclofen (LIORESAL) 20 mg tablet Take 2 tablets (40 mg total) by mouth 3 (three) times a day 020 Active ondansetron ODT (ZOFRAN-ODT) 4 mg disintegrating tablet DISSOLVE 1 TABLET ON THE TONGUE EVERY 12 HOURS NEEDED 022 Active TRUEplus Pen Needle 31 gauge x 516 needle Use once daily for victoza 100 each 3 023 Active spironolactone (ALDACTONE) 50 mg tablet TAKE 1 TABLET(50 MG) BY MOUTH DAILY 90 tablet 1 023 Active traZODone (DESYREL) 100 mg tabletIndications :Psychophysiologi mae insomnia Take 1 tablet (100 mg total) by mouth nightly 90 tablet 023 Active insulin U-500 syringe-needle 1/2 mL 31 gauge x 1564 syringeIndication s:Type 2 diabetes mellitus with stage 2 chronic kidney disease, with long-term current use of insulin ([facility]) Use to inject U500 insulin twice daily 200 each 3 023 Active busPIRone (BUSPAR) 15 mg tabletIndications :Recurrent major 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 TAKE 1 TABLET(15 MG) BY MOUTH DAILY 30 tablet 023 Active pregabalin (LYRICA) 75 mg capsule TAKE 1 CAPSULE(75 MG) BY MOUTH TWICE DAILY 60 capsule 023 Active buPROPion SR (WELLBUTRIN SR) 100 mg 12 hr tablet Take 1 tablet (100 mg total) by mouth 2 (two) times a day 023 Active furosemide (LASIX) 40 mg tabletIndications :Hypertension associated with diabetes ([facility]) TAKE 1 TABLET(40 MG) BY MOUTH TWICE DAILY 180 tablet 024 Active metFORMIN (GLUCOPHAGE) 500 mg tabletIndications :Type 2 diabetes mellitus with hyperglycemia, with long-term current use of insulin ([facility]) TAKE 1 TABLET(500 MG) BY MOUTH TWICE DAILY WITH MEALS 180 tablet 024 Active albuterol HFA (PROVENTIL HFA,VENTOLIN HFA,PROAIR HFA) 90 mcg/actuation inhaler Inhale 2 puffs 025 Active doxycycline monohydrate (MONODOX) 100 mg capsule Take 1 capsule (100 mg total) by mouth 2 (two) times a day 025 Active naproxen (NAPROSYN) 500 mg tablet Take 1 tablet (500 mg total) by mouth 2 (two) times a day 025 Active potassium chloride ER 10 mEq CR tablet Take 1 tablet/capsul e (10 mEq total) by mouth 2 (two) times a day 025 Active ertugliflozin (Steglatro) 15 mg tabletIndications :type 2 diabetes mellitus Take 1 tablet by mouth daily 90 tablet 3 025 2025 Active Dexcom G7 Sensor deviceIndications :Type 2 diabetes mellitus with stage 2 chronic kidney disease, with long-term current use of insulin ([facility]) Continuous glucose monitor. Change every 10 days. 10 each 3 025 Active Omnipod 5 G6-G7 Intro Kt,Gen5, cartridgeIndicati ons:Type 2 diabetes mellitus with stage 2 chronic kidney disease, with long-term current use of insulin ([facility]) One each kit 1 each Active insulin pump cart,auto,BT,G6/7 (Omnipod 5 G6-G7 Pods, Gen 5,) cartridgeIndicati ons:Type 2 diabetes mellitus with stage 2 chronic kidney disease, with long-term current use of insulin ([facility]) Change pods every 3 days 30 each 3 025 Active insulin regular U-500 (HumuLIN R U-500) 500 unit/mL CONCENTRATED vial for injectionIndicati ons:Type 2 diabetes mellitus with stage 2 chronic kidney disease, with long-term current use of insulin ([facility]) Inject via insulin pump. Max dose 70 units daily 30 mL 3 Active Contour Next Test Strips stripIndications: Type 2 diabetes mellitus with stage 2 chronic kidney disease, with long-term current use of insulin ([facility]) Check blood sugar 4 times daily if not wearing CGM 400 strip 3 Active lancets miscIndications:T ype 2 diabetes mellitus with stage 2 chronic kidney disease, with long-term current use of insulin ([facility]) Check blood sugar 4 times daily if not wearing CGM 400 each 3 025 Active fluconazole (DIFLUCAN) 150 mg tablet Take by mouth once 025 Active FLUoxetine (PROzac) 60 mg tablet Take 1 tablet (60 mg total) by mouth daily 025 Active lisinopriL (PRINIVIL,ZESTRIL ) 2.5 mg tablet 025 Active furosemide (LASIX) 80 mg tablet Take 1 tablet (80 mg total) by mouth 2 (two) times a day 025 Active pregabalin (LYRICA) 100 mg capsule Take 1 capsule (100 mg total) by mouth 2 (two) times a day 025 Active traZODone (DESYREL) 150 mg tablet Take 1 tablet (150 mg total) by mouth nightly at bedtime 025 Active dulaglutide (Trulicity) 0.75 mg/0.5 mL pen injectorIndicatio ns:type 2 diabetes mellitus Inject 0.5 mL (0.75 mg total) under the skin once a week 2 mL 11 025 2025 Active dulaglutide (TRULICITY) 0.75 mg/0.5 mL pen injectorIndicatio ns:type 2 diabetes mellitus Inject 0.5 mL (0.75 mg total) under the skin every 7 days 2 mL 025 2024 Discontinued Trulicity 0.75 mg/0.5 mL pen injectorIndicatio ns:Type 2 diabetes mellitus with stage 2 chronic kidney disease, with long-term current use of insulin (HCC) ADMINISTER 0.75 MG UNDER THE SKIN EVERY 7 DAYS 2 mL 025 2024 Discontinued(R eorder) Active Problems Problem Noted Date Diagnosed Date [...] before leaving today. Verified that she uses [facility]. Aware to check results/results letter in [facility]. Will contact by phone if needed. Discussed possible need for ortho pending results. Recurrent major 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 Psychophysiological insomnia 02/04/2023 Gastroesophageal reflux disease without esophagi tis 02/04/2023 Class 2 severe obesity due t o excess calories with serious comorbidity and body mass index (BMI) of 39.0 to 39.9 in adult 11/22/2022 Assessment & Plan (11/22/2022 10:51 AM FUEL CELL BUILDER): Discussed healthy diet and importance of regular physical activity (20- 30min/day, 150min/wk). Karin lewis, right 12/19/2020 Overview (12/19/2020): Added automatically from request for surgery [id number] Karin lewis, left 12/19/2020 Overview (12/19/2020): Added automatically from request for surgery [id number] Acquired hammer toe of right foot 12/19/2020 Overview (12/19/2020): Added automatically from request for surgery [id number] Hammer toe of left foot 12/19/2020 Overview (12/19/2020): Added automatically from request for surgery [id number] Insulin pump status 05/30/2020 Assessment & Plan (04/15/2025 3:39 PM CDT): Current medications: Mounjaro 5mg weekly Steglatro 15 mg Humulin U500 via Omnipod Dash insulin pump BR 12a 0.7, 9a 0.65 CR 25 CF 75 AIT 6 hours Target 110-130 Assessment & Plan (04/01/2025 11:49 AM CDT): Use old settings. Return back in 7-10 days after starting pump. Current medications: Ozempic 2 mg weekly Steglatro 15 mg Humulin U500 via Omnipod Dash insulin pump BR 0.8 CR 25 CF 75 AIT 6 hours Target 100 Assessment & Plan (06/11/2023 4:03 PM CDT): No pump setting changes at this time. Assessment & Plan (11/22/2022 12:17 PM FUEL CELL BUILDER): Continue current settings on Omnipod Humulin U500: [...] changes. Assessment & Plan (09/21/2021 2:20 PM FUEL CELL BUILDER): Decrease 8a BR to 0.5. Assessment & [...] diabetes doc randall 04/20/2020 Assessment & Plan (04/01/2025 11:12 AM CDT): Chronic problem. Had been ontrolled on current Atorvastatin 20mg. Last lipid panel: 04/09/23 LDL=60, VE=079. Has not taken statin in some time. Will update labs. Verified that she uses [facility]. Aware to check results/results letter in [facility]. Will contact by phone if needed. Assessment & Plan (06/11/2023 4:02 PM CDT): Chronic problem. Controlled on current Atorvastatin 20mg. Last lipid panel: 04/09/23 LDL=60, HS=304. Assessment & Plan (11/22/2022 12:12 PM FUEL CELL BUILDER): Chronic problem, at goal. Currently taking atorvastatin 20mg daily. No changes. Update lipid panel today. Verified that she uses [facility]. Aware to check results/results letter in [facility]. Will contact by phone if needed. Assessment & Plan (09/17/2022 11:33 AM FUEL CELL BUILDER): Checking fast lipid profile today, adjust medicine thereafter. Diet reviewed Assessment & Plan (03/29/2022 2:43 PM CDT): Chronic problem. On statin therapy, no changes. Assessment & Plan (09/21/2021 2:36 PM FUEL CELL BUILDER): Chronic problem. On statin therapy, no changes. [...] Atorvastatin Assessment & Plan (10/04/2020 4:03 PM FUEL CELL BUILDER): Goal of treatment , LDL cholesterol less [...] associated with diabetes 04/20/2020 Assessment & Plan (04/01/2025 11:13 AM CDT): Chronic problem, controlled on current lasix 40mg daily, spironolactone 50mg daily. No changes at this time. Will update labs. Verified that she uses [facility]. Aware to check results/results letter in [facility]. Will contact by phone if needed. Assessment & Plan (06/11/2023 4:03 PM CDT): Chronic problem, controlled on current lisinopril 2.5mg daily, lasix 40mg daily, spironolactone 50mg daily. No changes at this time. Assessment & Plan (11/21/2022 4:02 PM FUEL CELL BUILDER): Chronic problem, well controlled on current regimen. No changes at this time. Assessment & Plan (09/17/2022 11:33 AM FUEL CELL BUILDER): Blood pressure control adequate no change in [...] use of insulin 03/17/2020 Assessment & Plan (04/15/2025 4:19 PM CDT): Chronic problem. Here for f/u after restarting pump. Much improved BG readings with pump back on. Updated pump settings. Aware to use only in manual more Would like to try Mounjaro for more weight loss help. Sent in. Aware that PA will be needed. Discussed moving up in dose if 5mg is not helping with weight loss/BG rising. Current medications: Mounjaro 5mg weekly Steglatro 15 mg Humulin U500 via Omnipod Dash insulin pump BR 12a 0.7, 9a 0.65 CR 25 CF 75 AIT 6 hours Target 110-130 Will update labs today. She requested to have her thyroid & cortisol levels checked. UTD on DM eye exam (01/2025 [facility]). Letter sent to get copy of report. Strive for regular exercise (30min most days) and diet (get at least 4-5 servings of fruit and veggies daily, avoid processed foods, increase lean protein intake and decrease carb portions as well as fruit juices, regular soda & desserts). Watch carbs and simple sugars. Check the feet daily for skin breakdown and infection. Assessment & Plan (04/01/2025 11:55 AM CDT): Chronic problem. A1c worsened from 6.1% 06/11/23 to now 7.8%. has had some serious personal/family issues in family. Has been unable to make it in to appts. PCP stopped U500 insulin. Will resume pump & U500 insulin. To come in with pump if needing help getting pump set up. Use old settings. Return back in 7-10 days after starting pump. Current medications: Ozempic 2 mg weekly Steglatro 15 mg Humulin U500 via Omnipod Dash insulin pump BR 0.8 CR 25 CF 75 AIT 6 hours Target 100 Will update labs today. UTD on DM eye exam (01/2025 [facility]). Letter sent to get copy of report. Strive for regular exercise (30min most days) and diet (get at least 4-5 servings of fruit and veggies daily, avoid processed foods, increase lean protein intake and decrease carb portions as well as fruit juices, regular soda & desserts). Watch carbs and simple sugars. Check the feet daily for skin breakdown and infection. Assessment & Plan (06/11/2023 3:59 PM CDT): [...] infection. Assessment & Plan (11/22/2022 12:13 PM FUEL CELL BUILDER): Chronic problem, well controlled at this time. Please have labs drawn today before leaving. Verified that she uses [facility]. Aware to check results/results letter in [facility]. Will contact by phone if needed. I [...] 100 Assessment & Plan (09/17/2022 11:06 AM FUEL CELL BUILDER): Overdue for multiple tests including hemoglobin A1c [...] today. Assessment & Plan (09/21/2021 2:37 PM FUEL CELL BUILDER): Chronic problem, trending low normal during the [...] metformin Assessment & Plan (10/04/2020 4:03 PM FUEL CELL BUILDER): Hba1c was Lab Results Component Value Date [...] with contact information for insulin pump patient admitting representative and how to reach our office [...] appointment in 2 weeks. Instructed to contact [facility] specialty pharmacy to have them send Dexcom. [...] to underlying condition 03/17/2020 Assessment & Plan (04/01/2025 11:12 AM CDT): Chronic problem. Currently taking Lyrica 75mg bid. Reviewed foot care; needs to lotion daily. Aware to check feet nightly, not to go barefoot. Assessment & Plan (06/11/2023 4:00 PM CDT): Chronic problem. Currently taking lyrica 75mg bid. Aware to check feet nightly & not go barefoot. Assessment & Plan (09/17/2022 12:23 PM FUEL CELL BUILDER): Hands worse, Refilling lyrica, reviewed need for tight control of diabetes. She has no clinical findings that suggest carpal tunnel although her symptoms seem somewhat compatible, consider reimaging neck a and/or getting EMG nerve conduction velocity after labs back Assessment & Plan (06/27/2021 3:56 PM CDT): Foot care discussed Continue gabapentin. A prescription sent Assessment & Plan (10/04/2020 4:02 PM FUEL CELL BUILDER): Foot care discussed Continue gabapentin Assessment & Plan (04/05/2020 2:16 PM CDT): Could not tolerate Lyrica Continue Gabapentin Foot care discussed Name for quick technician recommended. Assessment & Plan (03/17/2020 4:16 PM [...] lifestyle changes. Body mass index 40.0-44.9, adult ([facility]) 03/29/2022 11/21/2022 Morbid obesity with BMI of 4 5.0-49.9, adult ([facility]) 04/20/2020 11/21/2022 Assessment & Plan (09/17/2022 11:06 AM FUEL CELL BUILDER): Reviewed weight loss including diet exercise. Hold on any medication intervention Syncope and collapse 04/20/2020 023 Encounters Date Type Department Care Team Description 04/29/2025 Orders Only [facility] Medical [facility] Diabetes and Endocrinology [address] [place] [phone] Cathy Talavera NP Varicose veins of both lower extremities with pain (Primary Dx) 04/27/2025 Orders Only [facility] Diabetes and Endocrinology [address] [place] [phone] Provider, MD Nancy 04/20/2025 Telephone [facility] Diabetes and Endocrinology [address] [place] [phone] Cathy Talavera NP Prior Auth (Trulicmarybeth) 04/16/2025 Results Follow-Up [facility] Diabetes and Endocrinology [address] [place] [phone] Cathy Talavera NP Cortisol, Thyroid Function [place], T4, free, T3, free 04/16/2025 Telephone [facility] Diabetes and Endocrinology [address] [place] [phone] Cathy Talavera NP Prior Auth (Mounjaro) 04/15/2025 3:52 PM CDT - 04/15/2025 11:59 PM CDT Hospital Encounter [address] [address] Type 2 diabetes mellitus with stage 2 chronic kidney disease, with long-term current use of insulin ([facility]) Discharge Disposition: Discharge to home or self care 04/15/2025 3:45 PM CDT Lab [facility] Outpatient Lab at [address] [phone] 04/15/2025 3:00 PM CDT Office Visit [facility] Diabetes and Endocrinology [address] [place] [phone] Cathy Talavera NP Type 2 diabetes mellitus with stage 2 chronic kidney disease, with long-term current use of insulin (HCC) (Primary Dx); Insulin pump status; Class 2 severe obesity due to excess calories with serious comorbidity and body mass index (BMI) of 39.0 to 39.9 in adult (HCC) 04/08/2025 Telephone [facility] [id number] [place] [phone] Cathy Talavera NP Med Management (Omnipod) 04/06/2025 Telephone [facility] Diabetes and Endocrinology [address] [place] [phone] Cathy Talavera NP [facility] 04/02/2025 Results Follow-Up [facility] Diabetes and Endocrinology [address] [place] [phone] Cathy Talavera NP Albumin Creatinine Ratio, Urine, Lipid panel, Comprehensive metabolic panel, eGFR 04/01/2025 12:03 PM CDT - 04/01/2025 11:59 PM CDT Hospital Encounter [facility] [id number] [place] [phone] Type 2 diabetes mellitus with stage 2 chronic kidney disease, with long-term current use of insulin (HCC); Hyperlipidemia associated with type 2 diabetes mellitus (HCC); Hypertension associated with diabetes (HCC) Discharge Disposition: Discharge to home or self care 04/01/2025 12:00 PM CDT Lab [facility] Outpatient Lab at [address] [phone] 04/01/2025 11:00 AM CDT Office Visit [facility] Diabetes and Endocrinology [address] [place] [phone] Cathy Talavera NP Type 2 diabetes mellitus with stage 2 chronic kidney disease, with long-term current use of insulin (HCC) (Primary Dx); Hypertension associated with diabetes (HCC); Hyperlipidemia associated with type 2 diabetes mellitus (HCC); Diabetic polyneuropathy associated with diabetes mellitus due to underlying condition (HCC); Insulin pump status 04/01/2025 Telephone [facility] [address] [facility] [address] [address] Cathy Talavera NP Prior Auth (Dexcom G7; Omnipod 5) 03/31/2025 Telephone [facility] Diabetes and Endocrinology [facility] [place] [phone] Cathy Talavera NP Appointment Confirmation with PCP office from Last 3 Months Immunizations Immunization Administration [...] on file Legal Sex Female 10:15 PM FUEL CELL BUILDER Gender Identity Female 07/13/2021 7:15 AM CDT Sexual Orientation Straight 07/13/2021 7: 15 AM CDT Obstetrics History Last Filed Vital Signs Vital Sign Reading Time Taken Comments Blood Pressure 134/88 04/15/2025 3:01 PM CDT Pulse 73 04/15/2025 3:01 PM CDT Temperature 36.8 C (98.2 F) 05/30/2024 4:35 PM CDT Respiratory Rate 18 04/15/2025 3:01 PM CDT Oxygen Saturation 98% 05/30/2024 9:41 PM CDT Inhaled Oxygen Concentration - - Weight 113.4 kg (250 lb) 04/15/2025 3:01 PM CDT Height 170.2 cm (5' 7.01) 04/15/2025 3:01 PM CD T Body Mass Index 39.15 04/15/2025 3:01 PM CDT Plan of Treatment Health Maintenance Due Date Last Done Comments Breast Cancer Screening-Mammogram 1979 Colon Cancer Screening-Colonoscopy 1979 Hepatitis C Screening 1979 DTaP/Tdap/Td Vaccine (1 - Tdap) 1990 Hepatitis B Screening 1997 Pneumococcal vaccine <65 (2 of 2 - PCV) 11/11/2019 11/11/2018, 12/17/2017 Depression Screening 05/30/2023 05/30/2022, 05/30/2022, 02/14/2021, Additional history exists Regular Well Visit/Exam 18-64 02/05/2024 02/04/2023 Covid-19 Vaccine ( season) 2024 10/04/2021, 01/27/2021, 01/06/2021 Influenza Vaccine (#1) 2025 2, 10/04/2021, 09/16/2020, Additional history exists Hemoglobin A1C 10/02/2025 04/01/2025, 08/0 11/2022, 04/09/2023, Additional history exists Albumin Creatinine Ratio, Urine 04/01/2026 04/01/2025, 11/22/2022, 07/07/2021 Foot Exam 04/01/2026 04/01/2025, 11/11, 06/27/2021, Additional history exists Lipid Panel 04/01/2026 04/01/2025, 03/13, 11/22/2022, Additional history exists eGFR 04/01/2026 04/01/2025, 2 , 04/09/2023, Additional history exists Dilated Eye Exam 01/13/2027 01/13/2025, , 04/28/2020 HPV Vaccines Aged Out No longer eligi ble based on patient's age to complete this topic Procedures Procedure Name Priority Date/Time Associated Diagnosis Comments T3, FREE Routine 04/15/2025 3:52 PM CDT T4, FREE Routine 04/15/2025 3:52 PM CDT Type 2 diabetes mellitus with stage 2 chronic kidney disease, with long-term current use of insulin (HCC) THYROID FUNCTION CASCADE Routine 04/15/2025 3:52 PM CDT Type 2 diabetes mellitus with stage 2 chronic kidney disease, with long-term current use of insulin (HCC) CORTISOL Routine 04/15/2025 3:52 PM CDT Type 2 diabetes mellitus with stage 2 chronic kidney disease, with long-term current use of insulin (HCC) POCT GLUCOSE Routine 04/15/2025 3:11 PM CDT Type 2 diabetes mellitus with stage 2 chronic kidney disease, with long-term current use of insulin (HCC) EGFR Routine 04/01/2025 12:03 PM CDT Type 2 diabetes mellitus with stage 2 chronic kidney disease, with long-term current use of insulin (HCC) Hypertension associated with diabetes (HCC) COMPREHENSIVE METABOLIC PANEL Routine 04/01/2025 12:03 PM CDT Type 2 diabetes mellitus with stage 2 chronic kidney disease, with long-term current use of insulin (HCC) Hypertension associated with diabetes (HCC) LIPID PANEL Routine 04/01/2025 12:03 PM CDT Type 2 diabetes mellitus with stage 2 chronic kidney disease, with long-term current use of insulin (HCC) Hyperlipidemia associated with type 2 diabetes mellitus (HCC) ALBUMIN CREATININE RATIO, URINE Routine 04/01/2025 12:03 PM CDT Type 2 diabetes mellitus with stage 2 chronic kidney disease, with long-term current use of insulin (HCC) POCT HEMOGLOBIN A1C Routine 04/01/2025 1 0:55 AM CDT Type 2 diabetes mellitus with stage 2 chronic kidney disease, with long-term current use of insulin (HCC) POCT GLUCOSE Routine 04/01/2025 10:55 AM CDT Type 2 diabetes mellitus with stage 2 chronic kidney disease, with long-term current use of insulin (HCC) HM DIABETES EYE EXAM Routine 01/13/2025 8:30 AM FUEL CELL BUILDER from Last 3 Months or Most Recently Relevant to Health Maintenance Results * (ABNORMAL) Thyroid Function [place] (04/15/2025 3:52 PM CDT) TSH 0.22(L) 0.30 - 4.20 mcIUnit/mL Blood 04/15/2025 3:52 PM CDT 04/16/2025 11:29 AM CDT us Cathy Talavera NP LAB BLOOD ORDERABLES Ioana l Result [facility] [address] Department [place] [address] * T3, free (04/15/2025 3:52 PM CDT) Free T3 2.6 2.0 - 4.4 pg/mL Blood 04/15/2025 3:52 PM CDT 04/16/2025 11:31 AM CDT Narrative [facility] - 04/16/2025 12:42 PM CDT This test was reflexed from a Free T4 result. us Cathy Talavera PSYCHOTHERAPIST COUNSELOR LAB BLOOD ORDERABLES Ioana l Result Performing Organization Address [facility] Co de Phone Number [facility] [phone] [facility] [email or web address] [address] * T4, free (04/15/2025 3:52 PM CDT) Pathologist [facility] Free T4 1.19 0.90 - 1.70 ng/dL Blood 04/15/2025 3:52 PM CDT 04/16/2025 11:31 AM CDT us Cathymonika Talavera PSYCHOTHERAPIST COUNSELOR LAB BLOOD ORDERABLES Ioana l Result Performing Organization Address [facility] de Phone Number [facility] [phone] [facility] [email or web address] [address] * Cortisol (04/15/2025 3:52 PM CDT) [facility] Cortisol 14.4 4.8 - 19.5 mcg/dl Comment: Interpretive Data Normal Range: 4.8 - 19.5 mcg/dL; Evening: Half of morning value. This analyte undergoes marked diurnal variation. Ranges indicated apply to morning specimens. Current interpretive data was last revised 2018. Blood 04/15/2025 3:52 PM CDT 04/16/2025 11:29 AM CDT us Cathymonika Talavera PSYCHOTHERAPIST COUNSELOR LAB BLOOD ORDERABLES Ioana l Result Performing Organization Address [facility] Co de Phone Number [facility] [address] [email or web address] [address] * POCT glucose (04/15/2025 3:11 PM CDT) Glucose Blood, POC 103 Normal Fasting 70 - 100, Random <200 mg/dL Blood 04/15/2025 3:11 PM CDT Cathy Talavera PSYCHOTHERAPIST COUNSELOR POINT OF CARE TEST ORDERA BLES Final Result * eGFR (04/01/2025 12:03 PM CDT) eGFR 79 >=60 mL/min/1. 73 m2 Comment: Interpretive Data [...] Current interpretive data was last reviewed 2021. Blood 04/01/2025 12:0 3 PM CDT 04/01/2025 11:16 PM CDT Cathy Talavera NP LAB BLOOD ORDERABLES Ioana l Result ANGEL VARGAS [address] Department [place] [address] * Albumin Creatinine Ratio, Urine (04/01/2025 12:03 PM CDT) Albumin Ur 17.6 mg/L Comment: Interpretive Data No reference range established. Current interpretive data was last revised 2019. Creatinine Ur 126.9 mg/dL ANGEL VARGAS Comment: Interpretive Data No reference range established. Current interpretive data was last revised 2019. Albumin Creatinine Ratio, Ur 14 1 - 29 mg/g ANGEL Urine 04/01/2025 12:0 3 PM CDT 04/01/2025 11:06 PM CDT us Cathy Talavera NP LAB URINE ORDERABLES Ioana dg Result [facility] [address] Department [place] [address] * (ABNORMAL) Lipid panel (04/01/2025 12:03 PM CDT) Cholesterol 173 30 - 199 mg/dL Comment: Interpretive Data Ages < or = [...] Data was last revised on 2018. Triglycerides 269(H) <=149 mg/dL ANGEL Comment: Interpretive Data Ages [...] Data was last revised on 2018. HDL 31(L) >=40 mg/dL ANGEL Comment: Interpretive Data Ages [...] was last revised on 2018. LDL, calculated 96 <=129 mg/dL ANGEL VARGAS Comment: Interpretive Data Ages < or = 19 years Acceptable: <110 mg/dL Borderline high: 110-129 mg/dL High: >or= 130 mg/dL Ages > or = 20 years Optimal: <100 mg/dL Near optimal: 100-129 mg/dL Borderline high: 130-159 mg/dL High: >160 mg/dL Calculated using the Enrique LDL-C estimating equation. This equation was implemented on 2024. Prior to this date LDL-C was estimated using the Friedewald equation. Literature References: 1. Expert Panel on Integrated Guidelines for Cardiovascular Health and Risk Reduction in Children and Adolescents. Pediatrics 2011;128:S213 2. NCEP Expert Panel. Circulation 2004;110:227 3. Enrique Stephens et al. ALFONSO Cardiol. 2019March 11;5(5):540-548. doi: 10.1001/jamacardio.2020.0013 Current Interpretive Data was last revised on 2024. Non-HDL Cholesterol 142 mg/dL ANGEL VARGAS Comment: Interpretive Data Ages < or = [...] was last revised on 2018. Chol/HDL ratio 6 ANGEL VARGAS Blood 04/01/2025 12:0 3 PM CDT 04/01/2025 11:06 PM CDT us Cathy Talavera PSYCHOTHERAPIST COUNSELOR LAB BLOOD ORDERABLES Ioana l Result Performing Organization Address City/State/[facility] Co de Phone Number [facility] [address] Department [place] [address] * (ABNORMAL) Comprehensive metabolic panel (04/01/2025 12:03 PM CDT) Sodium 139 135 - 145 mmol/L Potassium, pl 3.8 3.3 - 4.9 mmol/L C[facility]ER [facility] Chloride 99 97 - 110 mmol/L [facility] CO2 27 22 - 32 mmol/L [facility] Anion gap 13 2 - 15 mmol/L [facility] BUN 10 6 - 25 mg/dL [facility] Creatinine 0.91 0.60 - 1.10 mg/dL [facility] Glucose 207(H) 70 - 199 mg/dL CERNER CH Comment: Interpretive Data Fasting glucose >/= 126 mg/dl is diagnostic for diabetes. Fasting is defined as no caloric intake for at least 8 hours. Fasting glucose between 100 mg/dl to 125 mg/dl is diagnostic of prediabetes. In a patient with classic symptoms of hyperglycemia or hyperglycemic crisis, a random glucose >/= 200 mg/dl is diagnostic for diabetes. In the absence of unequivocal hyperglycemia, results should be confirmed by repeat testing. The classification and Diagnosis of Diabetes Diabetes Care 2021; 46: S19-S40. Current interpretive data was last revised 2022. Calcium 9.2 8.5 - 10.3 mg/dL CERN[facility] Bilirubin, total 0.3 0.1 - 1.2 mg/dL [facility] Protein, pl 7.6 6.5 - 8.5 g/dL [facility] Albumin 4.0 3.5 - 5.0 g/dL [facility] Alk phos 86 40 - 130 Units/L [facility] ALT 33 7 - 45 Units/L [facility] AST 33 10 - 45 Units/L CERNER [facility] Blood 04/01/2025 12:0 3 PM CDT 04/01/2025 11:06 PM CDT us Cathy Talavera PSYCHOTHERAPIST COUNSELOR LAB [place] [address] [address] Department [place] [address] * (ABNORMAL) POCT hemoglobin A1c (04/01/2025 10:55 AM CDT) Hemoglobin A1C, POC 7.8(A) 4.0 - 5.6 % Blood 04/01/2025 10:5 5 AM CDT us Cathy Talavera NP POINT OF CARE TEST ORDERA BLES Final Result * (ABNORMAL) POCT glucose (04/01/2025 10:55 AM CDT) Glucose Blood, POC 270 Normal Fasting 70 - 100, Random <200 mg/dL Blood 04/01/2025 10:5 5 AM CDT us Cathy Talavera NP POINT OF CARE TEST ORDERA BLES Final Result * DIABETES EYE EXAM (01/13/2025 8:30 AM FUEL CELL BUILDER) Historical Provider HEALTH MAINTENANCE Final Result from Last 3 Months or Most Recently Relevant to Health Maintenance Insurance [facility] Advance Directives For more information, please contact: [phone] * Full Code (Latest Code Status on File) Date Activated Date Inactivated Comments 01/13/2021 1:19 PM 01/13/2021 7:07 PM Care Teams Chemist Enzymes Relationship Specialty Start Date End Date Preet Rocha MD [address] [place] [id number] PCP - General Family Medicine 05/30/24 Cher Hernandez, ENRIQUE [address] [place] [address] Consulting Physician Foot and Ankle Surg 01/13/21
--- OUTSIDE RECORDS SUMMARY | 2025-05-29 10:52 | XMS_ITS | Referral Summary ---
Author Organization [facility] [address] Address [address] [place] [address] Care Team Providers Care Maintenance Worker House Trailer Name Role Phone DavidPoCherxavier Warren DPM Unavailable [phone] Preet Rocha MD Primary Care Provider [phone] Encounters Date Type Department Care Team Description 04/29/2025 Orders Only [facility] Medical [facility] Diabetes and Endocrinology [address] [place] [phone] Cathy Talavera NP Varicose veins of both lower extremities with pain (Primary Dx) 04/27/2025 Orders Only [facility] Medical [facility] Diabetes and Endocrinology [address] [place] [phone] ProviderNancy MD 04/20/2025 Telephone [facility] Diabetes and Endocrinology [address] [place] [phone] Cathy Talavera NP Prior Auth (Trulicity) 04/16/2025 Results Follow-Up [facility] Diabetes and Endocrinology [address] [place] [phone] Cathy Talavera NP Cortisol, Thyroid Function [place], T4, free, T3, free 04/16/2025 Telephone [facility] Diabetes and Endocrinology [address] [place] [phone] Cathy Talavera NP Prior Auth (Mounjaro) 04/15/2025 3:52 PM CDT - 04/15/2025 11:59 PM CDT Hospital Encounter [address] [address] Type 2 diabetes mellitus with stage 2 chronic kidney disease, with long-term current use of insulin (HCC) Discharge Disposition: Discharge to home or self care 04/15/2025 3:45 PM CDT Lab [facility] Outpatient Lab at [address] [phone] 04/15/2025 3:00 PM CDT Office Visit [facility] Diabetes and Endocrinology [address] [place] [phone] Cathy Talavera, RUFINO Type 2 diabetes mellitus with stage 2 chronic kidney disease, with long-term current use of insulin (HCC) (Primary Dx); Insulin pump status; Class 2 severe obesity due to excess calories with serious comorbidity and body mass index (BMI) of 39.0 to 39.9 in adult (HCC) 04/08/2025 Telephone [facility] [address] [phone] Cathy Talavera NP Med Management (Omnipod) 04/06/2025 Telephone [facility] Diabetes and Endocrinology [address] [place] [phone] Cathy Talavera NP [facility] 04/02/2025 Results Follow-Up [facility] Diabetes and Endocrinology [address] [place] [phone] Cathy Talavera, RUFINO Albumin Creatinine Ratio, Urine, Lipid panel, Comprehensive metabolic panel, eGFR 04/01/2025 12:03 PM CDT - 04/01/2025 11:59 PM CDT Hospital Encounter [address] [address] Type 2 diabetes mellitus with stage 2 chronic kidney disease, with long-term current use of insulin (HCC); Hyperlipidemia associated with type 2 diabetes mellitus (HCC); Hypertension associated with diabetes (HCC) Discharge Disposition: Discharge to home or self care 04/01/2025 Telephone [facility] [place] [id number] [place] [address] [address] [place] [address] Cathy Talavera NP Prior Auth (Dexcom G7; Omnipod 5) 04/01/2025 12:00 PM CDT Lab [facility] Outpatient Lab at [address] [phone] 04/01/2025 11:00 AM CDT Office Visit [facility] Diabetes and Endocrinology [address] [place] [phone] Cathy Talavera, RUFINO Type 2 diabetes mellitus with stage 2 chronic kidney disease, with long-term current use of insulin (HCC) (Primary Dx); Hypertension associated with diabetes (HCC); Hyperlipidemia associated with type 2 diabetes mellitus (HCC); Diabetic polyneuropathy associated with diabetes mellitus due to underlying condition (HCC); Insulin pump status 03/31/2025 Telephone [facility] Medical [facility] Diabetes and Endocrinology [address] [place] [phone] Cathy Talavera NP Appointment Confirmation with PCP office from Last 3 Months Allergies Active Allergy [...] syringe-needle 1/2 mL 31 gauge x 15/64 syringeIndication s:Type 2 diabetes mellitus with stage 2 chronic kidney disease, with long-term current use of insulin ([facility]) Use to inject U500 insulin twice [...] 40 mg tabletIndications :Hypertension associated with diabetes ([facility]) TAKE 1 TABLET(40 MG) BY MOUTH TWICE DAILY 180 tablet 024 Active metFORMIN (GLUCOPHAGE) 500 mg tabletIndications :Type 2 diabetes mellitus with hyperglycemia, with long-term current use of insulin ([facility]) TAKE 1 TABLET(500 MG) BY MOUTH [...] disease, with long-term current use of insulin ([facility]) Continuous glucose monitor. Change every 10 days. 10 each 3 Active Omnipod 5 G6-G7 Intro Kt,Gen5, cartridgeIndicati ons:Type 2 diabetes mellitus with stage 2 chronic kidney disease, with long-term current use of insulin ([facility]) One each kit 1 each Active insulin pump cart,auto,BT,G6/7 (Omnipod 5 G6-G7 Pods, Gen 5,) cartridgeIndicati ons:Type 2 diabetes mellitus with stage 2 chronic kidney disease, with long-term current use of insulin ([facility]) Change pods every 3 days 30 each 3 Active insulin regular U-500 (HumuLIN R U-500) 500 unit/mL CONCENTRATED vial for injectionIndicati ons:Type 2 diabetes mellitus with stage 2 chronic kidney disease, with long-term current use of insulin ([facility]) Inject via insulin pump. Max dose 70 units daily 30 mL 3 Active Contour Next Test Strips stripIndications: Type 2 diabetes mellitus with stage 2 chronic kidney disease, with long-term current use of insulin ([facility]) Check blood sugar 4 times daily if not wearing CGM 400 strip 3 Active lancets miscIndications:T ype 2 diabetes mellitus with stage 2 chronic kidney disease, with long-term current use of insulin ([facility]) Check blood sugar 4 times daily if not wearing CGM 400 each 3 Active fluconazole (DIFLUCAN) 150 mg tablet Take by mouth once Active FLUoxetine (PROzac) 60 mg tablet Take 1 tablet (60 mg total) by mouth daily Active lisinopriL (PRINIVIL,ZESTRIL ) 2.5 mg tablet Active furosemide (LASIX) 80 mg tablet Take 1 tablet (80 mg total) by mouth 2 (two) times a day Active pregabalin (LYRICA) 100 mg capsule Take 1 capsule (100 mg total) by mouth 2 (two) times a day Active traZODone (DESYREL) 150 mg tablet Take 1 tablet (150 mg total) by mouth nightly at bedtime Active dulaglutide (Trulicity) 0.75 mg/0.5 mL pen [...] mychart. Aware to check results/results letter in [email or web address]. Will contact by phone if needed. Discussed possible need for ortho pending results. Recurrent major 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 Psychophysiological insomnia 02/04/2023 Gastroesophageal reflux disease without esophagi tis 02/04/2023 Class 2 severe obesity due t o excess calories with serious comorbidity and body mass index (BMI) of 39.0 to 39.9 in adult 11/22/2022 Assessment & Plan (11/22/2022 10:51 AM DIRECT MAIL MARKETER): Discussed healthy diet and importance of regular physical activity (20- 30min/day, 150min/wk). Karin lewis, right 12/19/2020 Overview (12/19/2020): Added automatically from request for surgery [id number] Karin lewis, left 12/19/2020 Overview (12/19/2020): Added automatically from request for surgery [id number] Acquired hammer toe of right foot 12/19/2020 Overview (12/19/2020): Added automatically from request for surgery [id number] Hammer toe of left foot 12/19/2020 Overview (12/19/2020): Added automatically from request for surgery [id number] Insulin pump status 05/30/2020 Assessment & Plan [...] time. Assessment & Plan (11/22/2022 12:17 PM DIRECT MAIL MARKETER): Continue current settings on Omnipod Humulin U500: [...] changes. Assessment & Plan (09/21/2021 2:20 PM DIRECT MAIL MARKETER): Decrease 8a BR to 0.5. Assessment & [...] Atorvastatin 20mg. Last lipid panel: 04/09/23 LDL=60, OD=772. Has not taken statin in some time. Will update labs. Verified that she uses mychart. Aware to check results/results letter in [employer]. Will contact by phone if needed. Assessment & Plan (06/11/2023 4:02 PM CDT): Chronic problem. Controlled on current Atorvastatin 20mg. Last lipid panel: 04/09/23 LDL=60, LA=616. Assessment & Plan (11/22/2022 12:12 PM DIRECT MAIL MARKETER): Chronic problem, at goal. Currently taking atorvastatin 20mg daily. No changes. Update lipid panel today. Verified that she uses mychart. Aware to check results/results letter in [employer]. Will contact by phone if needed. Assessment & Plan (09/17/2022 11:33 AM DIRECT MAIL MARKETER): Checking fast lipid profile today, adjust medicine thereafter. Diet reviewed Assessment & Plan (03/29/2022 2:43 PM CDT): Chronic problem. On statin therapy, no changes. Assessment & Plan (09/21/2021 2:36 PM DIRECT MAIL MARKETER): Chronic problem. On statin therapy, no changes. [...] Atorvastatin Assessment & Plan (10/04/2020 4:03 PM DIRECT MAIL MARKETER): Goal of treatment , LDL cholesterol less [...] Will update labs. Verified that she uses [email or web address]. Aware to check results/results letter in [email or web address]. Will contact by phone if needed. Assessment & Plan (06/11/2023 4:03 PM CDT): Chronic problem, controlled on current lisinopril 2.5mg daily, lasix 40mg daily, spironolactone 50mg daily. No changes at this time. Assessment & Plan (11/21/2022 4:02 PM DIRECT MAIL MARKETER): Chronic problem, well controlled on current regimen. No changes at this time. Assessment & Plan (09/17/2022 11:33 AM DIRECT MAIL MARKETER): Blood pressure control adequate no change in [...] checked. UTD on DM eye exam (01/2025 [facility] Letter sent to get copy of [...] today. UTD on DM eye exam (01/2025 [facility]). Letter sent to get copy of [...] infection. Assessment & Plan (11/22/2022 12:13 PM DIRECT MAIL MARKETER): Chronic problem, well controlled at this time. Please have labs drawn today before leaving. Verified that she uses [employer]. Aware to check results/results letter in [email or web address]. Will contact by phone if needed. I [...] 100 Assessment & Plan (09/17/2022 11:06 AM DIRECT MAIL MARKETER): Overdue for multiple tests including hemoglobin A1c [...] today. Assessment & Plan (09/21/2021 2:37 PM DIRECT MAIL MARKETER): Chronic problem, trending low normal during the [...] metformin Assessment & Plan (10/04/2020 4:03 PM DIRECT MAIL MARKETER): Hba1c was Lab Results Component Value Date [...] provided with contact information for insulin pump technology sales representative and how to reach our [...] appointment in 2 weeks. Instructed to contact [facility] specialty pharmacy to have them send Dexcom. [...] barefoot. Assessment & Plan (09/17/2022 12:23 PM DIRECT MAIL MARKETER): Hands worse, Refilling lyrica, reviewed need for tight control of diabetes. She has no clinical findings that suggest carpal tunnel although her symptoms seem somewhat compatible, consider reimaging neck a and/or getting EMG nerve conduction velocity after labs back Assessment & Plan (06/27/2021 3:56 PM CDT): Foot care discussed Continue gabapentin. A prescription sent Assessment & Plan (10/04/2020 4:02 PM DIRECT MAIL MARKETER): Foot care discussed Continue gabapentin Assessment & Plan (04/05/2020 2:16 PM CDT): Could not tolerate Lyrica Continue Gabapentin Foot care discussed Name for spreader operator recommended. Assessment & Plan (03/17/2020 4:16 [...] lifestyle changes. Body mass index 40.0-44.9, adult ([facility]) 03/29/2022 11/21/2022 Morbid obesity with BMI of 4 5.0-49.9, adult ([facility]) 04/20/2020 11/21/2022 Assessment & Plan (09/17/2022 11:06 AM DIRECT MAIL MARKETER): Reviewed weight loss including diet exercise. Hold [...] on file Legal Sex Female 10:15 PM DIRECT MAIL MARKETER Gender Identity Female 07/13/2021 7:15 AM CDT [...] 04/15/2025 3:01 PM CDT Plan of Treatment Not on [...] DIABETES EYE EXAM Routine 01/13/2025 8:30 AM DIRECT MAIL MARKETER from Last 3 Months or Most Recently Relevant to Health Maintenance Results * (ABNORMAL) Thyroid Function [place] (04/15/2025 3:52 PM CDT) TSH 0.22(L) 0.30 - 4.20 mcIUnit/mL Blood 04/15/2025 3:52 PM CDT 04/16/2025 11:29 AM CDT Cathy Talavera NP LAB BLOOD ORDERABLES Ioana l Result ANGEL VARGAS [address] [place] [address] * T3, free (04/15/2025 3:52 PM CDT) Free T3 2.6 2.0 - 4.4 pg/mL Blood 04/15/2025 3:52 PM CDT 04/16/2025 11:31 AM CDT Narrative ANGEL VARGAS - 04/16/2025 12:42 PM CDT This test was reflexed from a Free T4 result. us Cathy Talavera MARKETING RESEARCH ANALYST LAB BLOOD ORDERABLES Ioana l Result Performing Organization Address [facility] Co de Phone Number ANGEL VARGAS [address] [facility] [place] [address] * T4, free (04/15/2025 3:52 PM CDT) Free T4 1.19 0.90 - 1.70 ng/dL Blood 04/15/2025 3:52 PM CDT 04/16/2025 11:31 AM CDT us Cathymonika Talavera MARKETING RESEARCH ANALYST LAB BLOOD ORDERABLES Ioana l Result Performing Organization Address [facility] de Phone Number ANGEL VARGAS [address] [facility] [place] [address] * Cortisol (04/15/2025 3:52 PM CDT) Pathologist [facility] Cortisol 14.4 4.8 - 19.5 mcg/dl Comment: Interpretive Data Normal Range: 4.8 - 19.5 mcg/dL; Evening: Half of morning value. This analyte undergoes marked diurnal variation. Ranges indicated apply to morning specimens. Current interpretive data was last revised 2018. Blood 04/15/2025 3:52 PM CDT 04/16/2025 11:29 AM CDT us Cathymonika Talavera MARKETING RESEARCH ANALYST LAB BLOOD ORDERABLES Ioana l Result Performing Organization Address [facility] Co de Phone Number ANGEL VARGAS [address] [place] [address] * POCT glucose (04/15/2025 3:11 PM CDT) Glucose Blood, POC 103 Normal Fasting 70 - 100, Random <200 mg/dL Blood 04/15/2025 3:11 PM CDT us Cathy R. Schleeper MARKETING RESEARCH ANALYST POINT OF CARE TEST ORDERA BLES Final [...] 3 PM CDT 04/01/2025 11:16 PM CDT us Cathy Talavera NP LAB BLOOD ORDERABLES Ioana l Result ANGEL [address] Department of Laboratories [place], [place] [id number] * Albumin Creatinine Ratio, Urine (04/01/2025 12:03 PM CDT) Albumin Ur 17.6 mg/L Comment: Interpretive Data No reference range established. Current interpretive data was last revised 2019. Creatinine Ur 126.9 mg/dL ANGEL VARGAS Comment: Interpretive Data No reference range established. Current interpretive data was last revised 2019. Albumin Creatinine Ratio, Ur 14 1 - 29 mg/g ANGEL VARGAS Urine 04/01/2025 12:0 3 PM CDT 04/01/2025 11:06 PM CDT us Cathy Talavera NP LAB URINE ORDERABLES Ioana conte Result ANGEL VARGAS [address] [place] [address] * (ABNORMAL) Lipid panel (04/01/2025 12:03 PM [...] on 2018. Triglycerides 269(H) <=149 mg/dL ANGEL VARGAS Comment: Interpretive Data Ages [...] on 2018. HDL 31(L) >=40 mg/dL ANGEL VARGAS Comment: Interpretive Data Ages [...] PM CDT us Cathy Talavera NP LAB BLOOD ORDERABLES Ioana conte Result ANGEL VARGAS [address] [place] [address] * (ABNORMAL) Comprehensive metabolic panel (04/01/2025 12:03 [...] classification and Diagnosis of Diabetes Diabetes Care 202; 46: S19-S40. Current interpretive data was last [...] PM CDT us Cathy Talavera NP LAB BLOOD ORDERABLES Ioana conte Result [facility] [address] [place] [address] * (ABNORMAL) POCT hemoglobin A1c (04/01/2025 10:55 AM CDT) Hemoglobin A1C, POC 7.8(A) 4.0 - 5.6 % Blood 04/01/2025 10:5 5 AM CDT us Cathy Talavera MARKETING RESEARCH ANALYST POINT OF CARE TEST ORDERA BLES Final Result * (ABNORMAL) POCT glucose (04/01/2025 10:55 AM CDT) Glucose Blood, POC 270 Normal Fasting 70 - 100, Random <200 mg/dL Blood 04/01/2025 10:5 5 AM CDT us Cathy Talavera MARKETING RESEARCH ANALYST POINT OF CARE TEST ORDERA BLES Final Result * DIABETES EYE EXAM (01/13/2025 8:30 AM DIRECT MAIL MARKETER) Historical Provider HEALTH MAINTENANCE Final Result from Last 3 Months or Most Recently Relevant to Health Maintenance Insurance [facility] Advance Directives For more information, please contact: [phone] * Full Code (Latest Code Status on File) Date Activated Date Inactivated Comments 01/13/2021 1:19 PM 01/13/2021 7:07 PM Care Teams Maintenance Worker House Trailer Relationship Specialty Start Date End Date Preet Rocha MD [address] [place] [address] PCP - General Family Medicine 05/30/24 Cher Hernandez DPM [address] [place] [address] Consulting Physician Foot and Ankle Surg 01/13/21
--- OUTSIDE RECORDS SUMMARY | 2025-05-29 10:52 | XMS_ITS | Encounter Summary ---
Author Organization [facility] Address [address] [place] [address] Care Team Providers Care Surgery Teacher Name Role Phone Hakeem Green MD Primary Care Provider Marcy ventura Encounter Details Date Type Department Care Team (Late st Contact Info) Description 07/22/[address] [facility] [place], [place] [phone] Victorino Valenzuela MD [address] [facility] [address] [place], [place] [phone] Social History Tobacco Use Types Packs/Day Years [...] Sex Assigned at Female 12/22/2024 6:50 PM MOTION PICTURE NARRATOR Legal Sex Female 7:20 PM CDT Gender [...] unspecified documented in this encounter Care Teams Surgery Teacher Relationship Specialty Start Date End Date Hakeem Green MD PCP - General 09/27/16 documented as of this encounter
--- OUTSIDE RECORDS SUMMARY | 2025-05-29 10:52 | XMS_ITS | Clinical Summary ---
Author Organization [facility] Address [address] [place] [address] Care Team Providers Care Product Tester Fiberglass Name Role Phone Preet Rocha MD Primary Care Provider [phone] Source Comments [facility],non-owned Affiliates and Associated Physician Practices is amultiple site organization consisting of ambulatory clinics and hospital sitesin [place], [place], [place]. This disclosure is being madepursuant to the Care Everywhere program and may not contain all information available regarding this patient. Last updated 18.[facility] Allergies Active Allergy Reactions Criticality Noted Date Comments Corticosteroids Swelling,Unknown Medium 07/02/2012 Swelling Ketorolac Tromethamine Headache Low 11/29/2020 MIGRAINES. Morphine Swelling Medium 05/05/2025 Medications * Be aware that medications may not be up to date on this document. Alwaysverify current medications with the patient. albuterol HFA (Proventil; Ventolin; Proair) 108 (90 Base) MCG/ACT inhaler Inhale 2 (two) puffs by mouth every 6 hours as needed for Shortness of Breath, Cough or Wheezing 01/13/20 25 Active baclofen (Lioresal) 20 MG tablet Take 1 (one) tablet by mouth 3 times daily 04/11/20 25 Active busPIRone (Buspar) 15 MG tablet Take 1 (one) tablet by mouth 2 times daily 05/01/20 25 Active Continuous Glucose Sensor (Dexcom G7 Sensor) MISC USE 1 EACH DIRECTED AND CHANGE EVERY 10 DAYS 05/01/20 25 Active Trulicity 0.75 MG/0.5ML injection Inject 0.75 (three-quarters) mg subcutaneously every 7 days (once a week) Active Steglatro 15 MG tablet Take 1 (one) tablet by mouth once daily 04/01/20 25 026 Active FLUoxetine (PROzac) 60 MG tablet Take 1 (one) tablet by mouth once daily Active furosemide (Lasix) 80 MG tablet Take 1 (one) tablet by mouth 2 times daily Active Insulin Disposable Pump (Omnipod 5 [id number] Pods Gen 5) [facility] 05/04/20 25 Active HumuLIN R 500 UNIT/ML injection Inject via insulin pump. Max dose 70 units daily 04/01/20 25 Active lisinopril (Prinivil; Zestril) 2.5 MG tablet Take 1 (one) tablet by mouth once daily 04/13/20 25 Active naproxen (Naprosyn) 500 MG tablet Take 1 (one) tablet by mouth 2 times daily 04/23/20 25 Active omeprazole (PriLOSEC) 20 MG capsule Take 1 (one) capsule by mouth once daily 12/20/19 25 Active potassium chloride ER 10 MEQ tablet Take 1 (one) tablet by mouth 2 times daily 03/16/20 25 Active pregabalin (Lyrica) 100 MG capsule Take 1 (one) capsule by mouth 2 times daily 04/12/20 25 Active spironolactone (Aldactone) 50 MG tablet Take 1 (one) tablet by mouth once daily 03/13/20 25 Active traZODone (Desyrel) 150 MG tablet Take 1 (one) tablet by mouth at bedtime 04/12/20 25 Active mupirocin (Bactroban) 2 % ointment Apply to affected area 2 times daily for 7 days to nares 22 g 05/05/20 25 025 chlorhexidine gluconate (Hibiclens) 4 % solution Apply to affected area once daily for 14 days 236 mL 05/05/20 25 025 Active Problems Problem Noted Date Diagnosed Date Gastroesophageal reflux disease without esophagi tis 02/04/2023 Recurrent major 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 Class 2 severe obesity due t o excess calories with serious comorbidity and body mass index (BMI) of 39.0 to 39.9 in adult 11/22/2022 Acquired hammer toe of right foot 12/19/2020 Overview (05/05/2025): Added automatically from request for surgery [id number] Adrenal mass 05/10/2020 Hyperlipidemia associated with type 2 diabetes m prakash 04/20/2020 Hypertension associated with diabetes 04/20/2020 Diabetic polyneuropathy asso ciated with diabetes mellitus due to underlying condition 03/17/2020 Type 2 diabetes mellitus wit h stage 2 chronic kidney disease, with long-term current use of insulin 03/17/2020 Encounters Date Type Department Care Team Description 05/06/2025 Telephone [facility] - Infectious Disease [address] [place] [phone] Dee Ayala RN Medication Prior Auth Request 05/05/2025 4:00 PM CDT - 05/05/2025 11:59 PM CDT Hospital Encounter [facility] [address] [place] [phone] Discharge Disposition: Home or Self Care 05/05/2025 3:00 PM CDT Office Visit [facility] - Infectious Disease [address] [place] [phone] Darwin Rey MD Recurrent infection of skin (Primary Dx); History of abscess of skin and subcutaneous tissue 05/05/2025 Travel 04/21/2025 Telephone [facility] - Infectious Disease [address] [place] [phone] Robbin Castro MD Appointment 03/02/2025 Travel from Last 3 Months Immunizations Immunization Administration Dates Next Due Covid Moderna primary monova lent 12+ yr 0.5mL 10/04/2021 Covid Pfizer primary monoval ent 12+ yr 0.3mL Purple cap 01/27/2021,01/06/2021 INFLUENZA VACCINE, QUADR. 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 Gender Identity Not on file Sexual Orientation Not on file Last Filed Vital Signs Vital Sign Reading Time Taken Comments Blood Pressure 114/73 05/05/2025 2:53 PM CDT Pulse 62 05/05/2025 2:53 PM CDT Temperature 36.1 C (96.9 F) 05/05/2025 2:53 PM CDT Respiratory Rate 20 05/05/2025 2:53 PM CDT Oxygen Saturation 95% 05/05/2025 2:53 PM CDT Inhaled Oxygen Concentration - - Weight 112 kg (247 lb) 05/05/2025 2:53 PM CDT Height 169.4 cm (5' 6.7) 05/05/2025 2:53 PM CDT Body Mass Index 39.03 05/05/2025 2:53 PM CDT Plan of Treatment Upcoming Encounters Date Type Department Care Team (Late st Contact Info) Description 06/30/2025 4:00 PM CDT Office Visit [facility] - Infectious Disease [address] [facility] [place] [phone] Darwin Rey MD [facility] [place] [address] Health Maintenance Due Date Last Done Comments COLOGUARD (AGES 45-75) - COLON CA SCREENING 1979 COLON MONITORING 1979 COLONOSCOPY - COLON CA SCREENING 1979 CT COLONOGRAPHY - COLON CA SCREENING 1979 Colorectal Cancer Screening 1979 FIT - COLON CA SCREENING 1979 FLEX SIG - COLON CA SCREENING 1979 MAMMOGRAM 1979 HEPATITIS C SCREENING 05/21/1997 DIABETES-SERUM CREATININE 1997 DTAP/TDAP/TD VACCINES (1 - Tdap) 1998 HEPATITIS B VACCINE (1 of 3 - 19+ 3-dose series) 1998 PAP SMEAR 2000 DIABETES-STATIN 2019 PNEUMOCOCCAL VACCINE (2 of 2 - PCV) 11/11/2019 11/11/2018, 12/17/2017 COVID-19 VACCINE (4 - season) 2024 10/04/2021, 01/27/2021, 01/06/2021 DEPRESSION SCREENING 11/11/2024 DIABETES - URINE PROTEIN SCREENING 11/11/2024 11/22/2022 DIABETES RETINOPATHY SCREENING 05/05/2025 DIABETES-FOOT EXAM WITH MONOFILAMENT 05/05/2025 INFLUENZA VACCINE (#1) 2025 2, 10/04/2021, 09/16/2020, Additional history exists DIABETES-HGB A1C 10/02/2025 04/01/2025, 06/11/2023 ZOSTER VACCINE (1 of 2) 2029 HIV SCREENING Completed 05/05/2025 HIB VACCINE Aged Out No longer eligi [...] Procedure Name Priority Date/Time Associated Diagnosis Comments HIV-1 HIV-2 ANTIBODY + HIV P24 AG PANEL Routine 05/05/2025 4:00 PM CDT Recurrent infection of skin History of abscess of skin and subcutaneous tissue from Last 3 Months Results * HIV-1 HIV-2 ANTIBODY + HIV P24 AG PANEL (New on 03/27) (05/05/2025 4:00 PM CDT) HIV Antigen/Antibod y 1 & 2 Non-reacti ve Non-react vivien 05/05/2025 5:36 PM CDT [facility] Comment:No Laboratory eviden ce of HIV infection. Blood BLOOD SPECIMEN / Unknown Lab Venipuncture / Unknown 05/05/2025 4:00 PM CDT 05/05/2025 4:51 PM CDT us Darwin Rey MD LAB - CHEMISTRY ORDERABLES Final Result [facility] [address] [place] [address], [facility] [phone] from Last 3 Months Insurance [place] [employer] [facility] Care Teams Product Tester Fiberglass Relationship Specialty Start Date End Date Preet Rocha MD [address] [place] [address] PCP - General Family Medicine 08/27/24
--- OUTSIDE RECORDS SUMMARY | 2025-05-29 11:23 | XMS_ITS | Clinical Summary ---
Author Organization [facility] [employer] Address [address] [place] [address] Care Team Providers Care Machine Design Engineer Name Role Phone Preet Rocha MD Primary Care Provider Source Comments [facility] [employer],non-owned Affiliates and Associated Physician Practices is amultiple site organization consisting of ambulatory clinics and hospital sitesin [place], [place], [place] and [place]. This disclosure is being madepursuant to the Care Everywhere program and may not contain all information available regarding this patient. Last updated 18.[facility] [employer] Allergies Active Allergy Reactions Criticality Noted Date [...] daily Active Insulin Disposable Pump (Omnipod 5 [id number] Pods Gen 5) [facility] 05/04/20 25 Active HumuLIN R 500 UNIT/ML [...] (05/05/2025): Added automatically from request for surgery [id number] Adrenal mass 05/10/2020 Hyperlipidemia associated with type 2 diabetes m prakash 04/20/2020 Hypertension associated with diabetes 04/20/2020 Diabetic polyneuropathy asso ciated with diabetes mellitus due to underlying condition 03/17/2020 Type 2 diabetes mellitus wit h stage 2 chronic kidney disease, with long-term current use of insulin 03/17/2020 Encounters Date Type Department Care Team Description 05/06/2025 Telephone [facility] - Infectious Disease [address] [place] [phone] Dee Ayala RN Medication Prior Auth Request 05/05/2025 4:00 PM CDT - 05/05/2025 11:59 PM CDT Hospital Encounter [facility] OP [facility]RAW [facility] [address] [place] [phone] Discharge Disposition: Home or Self Care 05/05/2025 3:00 PM CDT Office Visit [facility] - Infectious Disease [address] [place] [phone] Darwin Rey MD Recurrent infection of skin (Primary Dx); History of abscess of skin and subcutaneous tissue 05/05/2025 Travel 04/21/2025 Telephone [facility] - Infectious Disease [address] [place] [phone] Robbin Castro MD Appointment 03/02/2025 Travel from [...] on file 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 [address] Health Maintenance Due Date Last Done Comments [...] ve Non-react vivien 05/05/2025 5:36 PM CDT [facility] Comment:No Laboratory eviden ce of HIV infection. Blood BLOOD SPECIMEN / Unknown Lab Venipuncture / Unknown 05/05/2025 4:00 PM CDT 05/05/2025 4:51 PM CDT us Darwin Rey MD LAB - CHEMISTRY ORDERABLES Final Result [facility] [address] [place] [address], [facility] [phone] from Last 3 Months Insurance [place] [employer] PLAN [facility] Care Teams Machine Design Engineer Relationship Specialty Start Date End Date Preet Rocha MD [address] [place] [address] PCP - General Family Medicine 08/27/24
--- OUTSIDE RECORDS SUMMARY | 2025-05-29 11:23 | XMS_ITS | Encounter Summary ---
Author Organization [facility] Healthcare Address [address] [place] [address] Care Team Providers Care Floater Operator Name Role Phone Cher Hernandez DPM Unavailable [phone] Preet Rocha MD Primary Care Provider Encounter Details Date Type Department Care Team (Latest Contact Info) Description 04/02/2025 Results Follow-Up 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
--- OUTSIDE RECORDS SUMMARY | 2025-05-29 11:23 | XMS_ITS | Clinical Summary ---
Author Organization [facility] [address] Address [address] [place] [address] Care Team Providers Care Real Estate Utilization Officer Name Role Phone Cher Hernandez DPM Unavailable [phone] Preet Rocha MD Primary Care Provider [phone] Allergies Active Allergy Reactions Criticality Noted Date [...] disease, with long-term current use of insulin ([facility]) Use to inject U500 insulin [...] 40 mg tabletIndications :Hypertension associated with diabetes ([facility]) TAKE 1 TABLET(40 MG) BY MOUTH TWICE DAILY 180 tablet 024 Active metFORMIN (GLUCOPHAGE) 500 mg tabletIndications :Type 2 diabetes mellitus with hyperglycemia, with long-term current use of insulin ([facility]) TAKE 1 TABLET(500 MG) BY MOUTH TWICE [...] disease, with long-term current use of insulin ([facility]) Continuous glucose monitor. Change every 10 days. 10 each 3 025 Active Omnipod 5 G6-G7 Intro Kt,Gen5, cartridgeIndicati ons:Type 2 diabetes mellitus with stage 2 chronic kidney disease, with long-term current use of insulin ([facility]) One each kit 1 each Active insulin pump cart,auto,BT,G6/7 (Omnipod 5 G6-G7 Pods, Gen 5,) cartridgeIndicati ons:Type 2 diabetes mellitus with stage 2 chronic kidney disease, with long-term current use of insulin ([facility]) Change pods every 3 days 30 each 3 025 Active insulin regular U-500 (HumuLIN R U-500) 500 unit/mL CONCENTRATED vial for injectionIndicati ons:Type 2 diabetes mellitus with stage 2 chronic kidney disease, with long-term current use of insulin ([facility]) Inject via insulin pump. Max dose 70 units daily 30 mL 3 Active Contour Next Test Strips stripIndications: Type 2 diabetes mellitus with stage 2 chronic kidney disease, with long-term current use of insulin ([facility]) Check blood sugar 4 times daily if not wearing CGM 400 strip 3 Active lancets miscIndications:T ype 2 diabetes mellitus with stage 2 chronic kidney disease, with long-term current use of insulin ([facility]) Check blood sugar 4 times daily if [...] before leaving today. Verified that she uses [employer]. Aware to check results/results letter in [employer]. Will contact by phone if needed. Discussed possible need for ortho pending results. Recurrent major 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 Psychophysiological insomnia 02/04/2023 Gastroesophageal reflux disease without esophagi tis 02/04/2023 Class 2 severe obesity due t o excess calories with serious comorbidity and body mass index (BMI) of 39.0 to 39.9 in adult 11/22/2022 Assessment & Plan (11/22/2022 10:51 AM RADAR SYSTEMS ENGINEER): Discussed healthy diet and importance of regular physical activity (20- 30min/day, 150min/wk). Karin lewis, right 12/19/2020 Overview (12/19/2020): Added automatically from request for surgery [id number] Karin lewis, left 12/19/2020 Overview (12/19/2020): Added automatically from request for surgery [id number] Acquired hammer toe of right foot 12/19/2020 Overview (12/19/2020): Added automatically from request for surgery [id number] Hammer toe of left foot 12/19/2020 Overview (12/19/2020): Added automatically from request for surgery [id number] Insulin pump status 05/30/2020 Assessment & Plan [...] time. Assessment & Plan (11/22/2022 12:17 PM RADAR SYSTEMS ENGINEER): Continue current settings on Omnipod Humulin [...] changes. Assessment & Plan (09/21/2021 2:20 PM RADAR SYSTEMS ENGINEER): Decrease 8a BR to 0.5. Assessment [...] Atorvastatin 20mg. Last lipid panel: 04/09/23 LDL=60, DZ=980. Has not taken statin in some time. Will update labs. Verified that she uses [employer]. Aware to check results/results letter in [employer]. Will contact by phone if needed. Assessment & Plan (06/11/2023 4:02 PM CDT): Chronic problem. Controlled on current Atorvastatin 20mg. Last lipid panel: 04/09/23 LDL=60, SC=104. Assessment & Plan (11/22/2022 12:12 PM RADAR SYSTEMS ENGINEER): Chronic problem, at goal. Currently taking atorvastatin 20mg daily. No changes. Update lipid panel today. Verified that she uses [employer]. Aware to check results/results letter in [employer]. Will contact by phone if needed. Assessment & Plan (09/17/2022 11:33 AM RADAR SYSTEMS ENGINEER): Checking fast lipid profile today, adjust medicine thereafter. Diet reviewed Assessment & Plan (03/29/2022 2:43 PM CDT): Chronic problem. On statin therapy, no changes. Assessment & Plan (09/21/2021 2:36 PM RADAR SYSTEMS ENGINEER): Chronic problem. On statin therapy, no [...] Atorvastatin Assessment & Plan (10/04/2020 4:03 PM RADAR SYSTEMS ENGINEER): Goal of treatment , LDL cholesterol [...] Will update labs. Verified that she uses [employer]. Aware to check results/results letter in [employer]. Will contact by phone if needed. Assessment & Plan (06/11/2023 4:03 PM CDT): Chronic problem, controlled on current lisinopril 2.5mg daily, lasix 40mg daily, spironolactone 50mg daily. No changes at this time. Assessment & Plan (11/21/2022 4:02 PM RADAR SYSTEMS ENGINEER): Chronic problem, well controlled on current regimen. No changes at this time. Assessment & Plan (09/17/2022 11:33 AM RADAR SYSTEMS ENGINEER): Blood pressure control adequate no change [...] checked. UTD on DM eye exam (01/2025 [facility]). Letter sent to get copy of [...] today. UTD on DM eye exam (01/2025 [facility]). Letter sent to get copy of [...] infection. Assessment & Plan (11/22/2022 12:13 PM RADAR SYSTEMS ENGINEER): Chronic problem, well controlled at this time. Please have labs drawn today before leaving. Verified that she uses [employer]. Aware to check results/results letter in [employer]. Will contact by phone if needed. I [...] 100 Assessment & Plan (09/17/2022 11:06 AM RADAR SYSTEMS ENGINEER): Overdue for multiple tests including hemoglobin [...] today. Assessment & Plan (09/21/2021 2:37 PM RADAR SYSTEMS ENGINEER): Chronic problem, trending low normal during [...] metformin Assessment & Plan (10/04/2020 4:03 PM RADAR SYSTEMS ENGINEER): Hba1c was Lab Results Component Value [...] provided with contact information for insulin pump environmental marketing representative and how to reach our [...] appointment in 2 weeks. Instructed to contact [facility] specialty pharmacy to have them send [...] barefoot. Assessment & Plan (09/17/2022 12:23 PM RADAR SYSTEMS ENGINEER): Hands worse, Refilling lyrica, reviewed need for tight control of diabetes. She has no clinical findings that suggest carpal tunnel although her symptoms seem somewhat compatible, consider reimaging neck a and/or getting EMG nerve conduction velocity after labs back Assessment & Plan (06/27/2021 3:56 PM CDT): Foot care discussed Continue gabapentin. A prescription sent Assessment & Plan (10/04/2020 4:02 PM RADAR SYSTEMS ENGINEER): Foot care discussed Continue gabapentin Assessment & Plan (04/05/2020 2:16 PM CDT): Could not tolerate Lyrica Continue Gabapentin Foot care discussed Name for second chef recommended. Assessment & Plan (03/17/2020 4:16 PM [...] lifestyle changes. Body mass index 40.0-44.9, adult ([facility]) 03/29/2022 11/21/2022 Morbid obesity with BMI of 4 5.0-49.9, adult ([facility]) 04/20/2020 11/21/2022 Assessment & Plan (09/17/2022 11:06 AM RADAR SYSTEMS ENGINEER): Reviewed weight loss including diet exercise. Hold on any medication intervention Syncope and collapse 04/20/2020 023 Encounters Date Type Department Care Team Description 04/29/2025 Orders Only [facility] Medical [facility] Diabetes and Endocrinology [address] [place] [phone] Cathy Talavera NP Varicose veins of both lower extremities with pain (Primary Dx) 04/27/2025 Orders Only [facility] Diabetes and Endocrinology [address] [place] [phone] Provider, MD Nancy 04/20/2025 Telephone [facility] Diabetes and Endocrinology [address] [place] [phone] Cathy Talavera NP Prior Auth (Trulicmarybeth) 04/16/2025 Results Follow-Up [facility] Diabetes and Endocrinology [address] [place] [phone] Cathy Talavera NP Cortisol, Thyroid Function [facility], T4, free, T3, free 04/16/2025 Telephone [facility] Diabetes and Endocrinology [address] [place] [phone] Cathy Talavera NP Prior Auth (Mounjaro) 04/15/2025 3:52 PM CDT - 04/15/2025 11:59 PM CDT Hospital Encounter [address] [address] Type 2 diabetes mellitus with stage 2 chronic kidney disease, with long-term current use of insulin ([facility]) Discharge Disposition: Discharge to home or self care 04/15/2025 3:45 PM CDT Lab [facility] Outpatient Lab at [address] [phone] 04/15/2025 3:00 PM CDT Office Visit [facility] Diabetes and Endocrinology [address] [place] [phone] Cathy Talavera NP Type 2 diabetes mellitus with stage 2 chronic kidney disease, with long-term current use of insulin (HCC) (Primary Dx); Insulin pump status; Class 2 severe obesity due to excess calories with serious comorbidity and body mass index (BMI) of 39.0 to 39.9 in adult (HCC) 04/08/2025 Telephone [facility] [address] [place] [phone] Cathy Talavera NP Med Management (Omnipod) 04/06/2025 Telephone [facility] Diabetes and Endocrinology [address] [place] [phone] Cathy Talavera NP [facility] 04/02/2025 Results Follow-Up [facility] Diabetes and Endocrinology [address] [place] [phone] Cathy Talavera NP Albumin Creatinine Ratio, Urine, Lipid panel, Comprehensive metabolic panel, eGFR 04/01/2025 12:03 PM CDT - 04/01/2025 11:59 PM CDT Hospital Encounter [facility] [id number] [place] [id number] Type 2 diabetes mellitus with stage 2 chronic kidney disease, with long-term current use of insulin (HCC); Hyperlipidemia associated with type 2 diabetes mellitus (HCC); Hypertension associated with diabetes (HCC) Discharge Disposition: Discharge to home or self care 04/01/2025 12:00 PM CDT Lab [facility] Outpatient Lab at [address] [phone] 04/01/2025 11:00 AM CDT Office Visit [facility] Diabetes and Endocrinology [address] [place] [phone] Cathy Talavera NP Type 2 diabetes mellitus with stage 2 chronic kidney disease, with long-term current use of insulin (HCC) (Primary Dx); Hypertension associated with diabetes (HCC); Hyperlipidemia associated with type 2 diabetes mellitus (HCC); Diabetic polyneuropathy associated with diabetes mellitus due to underlying condition (HCC); Insulin pump status 04/01/2025 Telephone [facility] [address] [facility] [address], [place] [address] Cathy Talavera NP Prior Auth (Dexcom G7; Omnipod 5) 03/31/2025 Telephone [facility] Diabetes and Endocrinology [facility] [address] [place] [phone] Cathy Talavera NP Appointment Confirmation [...] on file Legal Sex Female 10:15 PM RADAR SYSTEMS ENGINEER Gender Identity Female 07/13/2021 7:15 AM [...] DIABETES EYE EXAM Routine 01/13/2025 8:30 AM RADAR SYSTEMS ENGINEER from Last 3 Months or Most Recently Relevant to Health Maintenance Results * (ABNORMAL) Thyroid Function [facility] (04/15/2025 3:52 PM CDT) TSH 0.22(L) 0.30 - 4.20 mcIUnit/mL Blood 04/15/2025 3:52 PM CDT 04/16/2025 11:29 AM CDT us Cathy Talavera NP LAB BLOOD ORDERABLES Ioana l Result ANGEL VARGAS [address] [address] Department [place] [address] * T3, free (04/15/2025 3:52 PM CDT) Free T3 2.6 2.0 - 4.4 pg/mL Blood 04/15/2025 3:52 PM CDT 04/16/2025 11:31 AM CDT Narrative ANGEL VARGAS - 04/16/2025 12:42 PM CDT This test was reflexed from a Free T4 result. us Cathy Talavera INSTALLMENT AGENT LAB BLOOD ORDERABLES Ioana l Result Performing Organization Address [facility] Co de Phone Number ANGEL [address] [address] [facility] [place] [address] * T4, free (04/15/2025 3:52 PM CDT) Pathologist [facility] Free T4 1.19 0.90 - 1.70 ng/dL Blood 04/15/2025 3:52 PM CDT 04/16/2025 11:31 AM CDT us Cathymonika Talavera INSTALLMENT AGENT LAB BLOOD ORDERABLES Ioana l Result Performing Organization Address [facility] de Phone Number ANGEL VARGAS [address] [address] [facility] [place] [address] * Cortisol (04/15/2025 3:52 PM CDT) [facility] Cortisol 14.4 4.8 - 19.5 mcg/dl Comment: Interpretive Data Normal Range: 4.8 - 19.5 mcg/dL; Evening: Half of morning value. This analyte undergoes marked diurnal variation. Ranges indicated apply to morning specimens. Current interpretive data was last revised 2018. Blood 04/15/2025 3:52 PM CDT 04/16/2025 11:29 AM CDT us Cathymonika Talavera INSTALLMENT AGENT LAB BLOOD ORDERABLES Ioana l Result Performing Organization Address [facility] Co de Phone Number ANGEL VARGAS [address] [address] [place] [address] * POCT glucose (04/15/2025 3:11 PM CDT) Glucose Blood, POC 103 Normal Fasting 70 - 100, Random <200 mg/dL Blood 04/15/2025 3:11 PM CDT Cathy Talavera INSTALLMENT AGENT POINT OF CARE TEST ORDERA BLES Final [...] BLOOD ORDERABLES Ioana l Result ANGEL VARGAS [address] [address] Department [place] [address] * Albumin Creatinine Ratio, Urine [...] NP LAB URINE ORDERABLES Ioana dg Result [facility] [address] [address] Department [place] [address] * (ABNORMAL) Lipid panel (04/01/2025 12:03 PM [...] 04/01/2025 11:06 PM CDT us Cathy Talavera INSTALLMENT AGENT LAB BLOOD ORDERABLES Ioana l Result Performing Organization Address City/State/[facility] Co de Phone Number [facility] [address] Department [place] [address] * (ABNORMAL) Comprehensive metabolic panel [...] 04/01/2025 11:06 PM CDT us Cathy Talavera INSTALLMENT AGENT LAB [place]LOOD [place] [address] [address] [place] [address] * (ABNORMAL) POCT hemoglobin A1c [...] * DIABETES EYE EXAM (01/13/2025 8:30 AM RADAR SYSTEMS ENGINEER) Historical Provider HEALTH MAINTENANCE Final Result from Last 3 Months or Most Recently Relevant to Health Maintenance Insurance [employer] Advance Directives For more information, please contact: [phone] * Full Code (Latest Code Status on File) Date Activated Date Inactivated Comments 01/13/2021 1:19 PM 01/13/2021 7:07 PM Care Teams Real Estate Utilization Officer Relationship Specialty Start Date End Date Preet Rocah MD [address] [place] [address] PCP - General Family Medicine 05/30/24 Cher Hernandez, ENRIQUE [address] [place] [address] Consulting Physician Foot and Ankle Surg 01/13/21
--- OUTSIDE RECORDS SUMMARY | 2025-05-29 11:23 | XMS_ITS | Encounter Summary ---
Author Organization [facility] Healthcare Address [address] [place] [address] Care Team Providers Care Rhinestone Setter Name Role Phone Cher Hernandez DPM Unavailable [phone] Preet Rocha MD Primary Care Provider [phone] Encounter Details Date Type Department Care Team (Late st Contact Info) Description 04/16/2025 Results Follow-Up [facility] Group Diabetes and Endocrinology [address] [place] [phone] Cathy Talavera, CLIENT EXPERIENCE SPECIALIST [phone] [address] Cortisol, Thyroid Function [place], T4, free, T3, free Social History Tobacco [...] on file Legal Sex Female 10:15 PM CLOUD SUBJECT MATTER EXPERT Gender Identity Female 07/13/2021 7:15 AM CDT [...] the future. Please call or send a [employer] message if any questions. Thank you, Cathy Talavera, REMI-desean documented in this encounter Plan of Treatment Not on file documented as of this encounter Visit Diagnoses Not on filedocumented in this encounter Care Teams Rhinestone Setter Relationship Specialty Start Date End Date Preet Rocha MD [address] [place] [address] PCP - General Family Medicine 05/30/24 Cher Hernandez DPM [address] [place] [address] Consulting Physician Foot and Ankle Surg 01/13/21 documented as of this encounter
--- OUTSIDE RECORDS SUMMARY | 2025-05-29 11:23 | XMS_ITS | Clinical Summary ---
Author Organization [facility] Address [address] [place] [address] Care Team Providers Care Electrician Substation Supervisor Name Role Phone Hakeem Green MD Primary Care Provider Unavai lable Allergies Active Allergy Reactions Criticality Noted Date Comments Corticosteroids Unknown 07/02/2012 Morphine Swelling High 07/02/2012 Medications Insulin Pen Needle (BD PEN NEEDLE ASHLEY U/F) 32G X 4 MM MiscIndications :Diabetes ([facility]) USE DIRECTED 200 each 04/07/2019 [...] Sex Assigned at Female 12/22/2024 6:50 PM COLOR TESTER Legal Sex Female 7:20 PM CDT Gender Identity Not on file Sexual Orientation Not on file Last Filed Vital Signs Vital Sign Reading Time Taken Comments Blood Pressure 124/83 12/22/2024 6:23 PM COLOR TESTER Pulse 79 12/22/2024 6:23 PM COLOR TESTER Temperature 36.7 C (98 F) 12/22/2024 6:23 PM COLOR TESTER Respiratory Rate 18 12/22/2024 6:23 PM COLOR TESTER Oxygen Saturation 100% 12/22/2024 6:23 PM COLOR TESTER Inhaled Oxygen Concentration - - Weight 113.4 kg (250 lb) 12/22/2024 6:23 PM COLOR TESTER Height 167.6 cm (5' 6) 12/22/2024 6:23 PM COLOR TESTER Body Mass Index 40.35 12/22/2024 6:23 PM COLOR TESTER Plan of Treatment Health Maintenance Due Date [...] patient's age to complete this topic Insurance [phone] [id number] (Work) [address] [place] [id number] [place] [address] Care Teams Electrician Substation Supervisor Relationship Specialty Start Date End Date Hakeem Green MD PCP - General 09/27/16
--- OUTSIDE RECORDS SUMMARY | 2025-05-29 11:23 | XMS_ITS | Encounter Summary ---
Author Organization [facility] Address [address] [place] [address] Care Team Providers Care Office Technology Instructor Name Role Phone Hakeem Green MD Primary Care Provider Marcy ventura Encounter Details Date Type Department Care Team (Late st Contact Info) Description 07/22/2020 Prep for Procedure [facility] [place], [place] [id number] Victorino Valenzuela MD [address] [facility] [address] [place], [place] [id number] Social History Tobacco Use Types Packs/Day Years [...] Sex Assigned at Female 12/22/2024 6:50 PM LAND MANAGER Legal Sex Female 7:20 PM CDT [...] unspecified documented in this encounter Care Teams Office Technology Instructor Relationship Specialty Start Date End Date Hakeem Green MD PCP - General 09/27/16 documented as of this encounter
--- OUTSIDE RECORDS SUMMARY | 2025-05-29 11:23 | XMS_ITS ---
Author Organization Unknown Plan of Treatment Description Planned Activity Planned Timing [facility] is a provider organization who partners directly with Health Plans and provides integrated primary care, behavioral health, and social work associate for an attributed population Letter encounter to patientTelephone encounter May 06, 2025Jul 2024 Patient Care team information Name Category Status Period Participants - - Proposed period not known -
--- OUTSIDE RECORDS SUMMARY | 2025-05-29 11:23 | XMS_ITS | Referral Summary ---
Author Organization [facility] [address] Address [address] [place] [address] Care Team Providers Care Licensing Worker Name Role Phone DavidPoCherxavier Warren DPM Unavailable [phone] Preet Rocha MD Primary Care Provider [phone] Encounters Date Type Department Care Team Description 04/29/2025 Orders Only [facility] Medical [facility] Diabetes and Endocrinology [address] [place] [phone] Cathy Talavera NP Varicose veins of both lower extremities with pain (Primary Dx) 04/27/2025 Orders Only [facility] Medical [facility] Diabetes and Endocrinology [address] [place] [phone] ProviderNancy MD 04/20/2025 Telephone [facility] Diabetes and Endocrinology [address] [place] [phone] Cathy Talavera NP Prior Auth (Trulicity) 04/16/2025 Results Follow-Up [facility] Diabetes and Endocrinology [address] [place] [phone] Cathy Talavera NP Cortisol, Thyroid Function [place], T4, free, T3, free 04/16/2025 Telephone [facility] Diabetes and Endocrinology [address] [place] [phone] Cathy Talavera NP Prior Auth (Mounjaro) 04/15/2025 3:52 PM CDT - 04/15/2025 11:59 PM CDT Hospital Encounter [address] [address] Type 2 diabetes mellitus with stage 2 chronic kidney disease, with long-term current use of insulin (HCC) Discharge Disposition: Discharge to home or self care 04/15/2025 3:45 PM CDT Lab [facility] Outpatient Lab at [address] [phone] 04/15/2025 3:00 PM CDT Office Visit [facility] Diabetes and Endocrinology [address] [place] [phone] Cathy Talavera, RUFINO Type 2 diabetes mellitus with stage 2 chronic kidney disease, with long-term current use of insulin (HCC) (Primary Dx); Insulin pump status; Class 2 severe obesity due to excess calories with serious comorbidity and body mass index (BMI) of 39.0 to 39.9 in adult (HCC) 04/08/2025 Telephone [facility] [address] [phone] Cathy Talavera NP Med Management (Omnipod) 04/06/2025 Telephone [facility] Diabetes and Endocrinology [address] [place] [phone] [address] [facility] 04/02/2025 Results Follow-Up [facility] Diabetes and Endocrinology [address] [place] [phone] Cathy Talavera, RUFINO Albumin Creatinine Ratio, Urine, Lipid panel, Comprehensive metabolic panel, eGFR 04/01/2025 12:03 PM CDT - 04/01/2025 11:59 PM CDT Hospital Encounter [address] [address] Type 2 diabetes mellitus with stage 2 chronic kidney disease, with long-term current use of insulin (HCC); Hyperlipidemia associated with type 2 diabetes mellitus (HCC); Hypertension associated with diabetes (HCC) Discharge Disposition: Discharge to home or self care 04/01/2025 Telephone [facility] [place] [phone] [place] [address] [address] [place] [address] Cathy Talavera NP Prior Auth (Dexcom G7; Omnipod 5) 04/01/2025 12:00 PM CDT Lab [facility] Medical Group Outpatient Lab at [address] [phone] 04/01/2025 11:00 AM CDT Office Visit [facility] Group Diabetes and Endocrinology [address] [place] [phone] Cathy Talavera, RUFINO Type 2 diabetes mellitus with stage 2 chronic kidney disease, with long-term current use of insulin (HCC) (Primary Dx); Hypertension associated with diabetes (HCC); Hyperlipidemia associated with type 2 diabetes mellitus (HCC); Diabetic polyneuropathy associated with diabetes mellitus due to underlying condition (HCC); Insulin pump status 03/31/2025 Telephone [facility] Medical [facility] Diabetes and Endocrinology [address] [place] [phone] Cathy Talavera NP Appointment Confirmation with [...] disease, with long-term current use of insulin ([facility]) Use to inject U500 insulin [...] 40 mg tabletIndications :Hypertension associated with diabetes ([facility]) TAKE 1 TABLET(40 MG) BY MOUTH TWICE DAILY 180 tablet 024 Active metFORMIN (GLUCOPHAGE) 500 mg tabletIndications :Type 2 diabetes mellitus with hyperglycemia, with long-term current use of insulin ([facility]) TAKE 1 TABLET(500 MG) BY [...] disease, with long-term current use of insulin ([facility]) Continuous glucose monitor. Change every 10 days. 10 each 3 Active Omnipod 5 G6-G7 Intro Kt,Gen5, cartridgeIndicati ons:Type 2 diabetes mellitus with stage 2 chronic kidney disease, with long-term current use of insulin ([facility]) One each kit 1 each Active insulin pump cart,auto,BT,G6/7 (Omnipod 5 G6-G7 Pods, Gen 5,) cartridgeIndicati ons:Type 2 diabetes mellitus with stage 2 chronic kidney disease, with long-term current use of insulin ([facility]) Change pods every 3 days 30 each 3 Active insulin regular U-500 (HumuLIN R U-500) 500 unit/mL CONCENTRATED vial for injectionIndicati ons:Type 2 diabetes mellitus with stage 2 chronic kidney disease, with long-term current use of insulin ([facility]) Inject via insulin pump. Max dose 70 units daily 30 mL 3 Active Contour Next Test Strips stripIndications: Type 2 diabetes mellitus with stage 2 chronic kidney disease, with long-term current use of insulin ([facility]) Check blood sugar 4 times daily if not wearing CGM 400 strip 3 Active lancets miscIndications:T ype 2 diabetes mellitus with stage 2 chronic kidney disease, with long-term current use of insulin ([facility]) Check blood sugar 4 times [...] mychart. Aware to check results/results letter in [employer]. Will contact by phone if needed. Discussed possible need for ortho pending results. Recurrent major 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 Psychophysiological insomnia 02/04/2023 Gastroesophageal reflux disease without esophagi tis 02/04/2023 Class 2 severe obesity due t o excess calories with serious comorbidity and body mass index (BMI) of 39.0 to 39.9 in adult 11/22/2022 Assessment & Plan (11/22/2022 10:51 AM [facility]YE [employer]SE [employer]): Discussed healthy diet and importance of regular physical activity (20- 30min/day, 150min/wk). Karin lewis, right 12/19/2020 Overview (12/19/2020): Added automatically from request for surgery [id number] Karin lewis, left 12/19/2020 Overview (12/19/2020): Added automatically from request for surgery [id number] Acquired hammer toe of right foot 12/19/2020 Overview (12/19/2020): Added automatically from request for surgery [id number] Hammer toe of left foot 12/19/2020 Overview (12/19/2020): Added automatically from request for surgery [id number] Insulin pump status 05/30/2020 Assessment & Plan [...] time. Assessment & Plan (11/22/2022 12:17 PM [employer]YE HOUSE HAND): Continue current settings on Omnipod Humulin U500: [...] changes. Assessment & Plan (09/21/2021 2:20 PM [employer]YE HOUSE HAND): Decrease 8a BR to 0.5. Assessment & [...] Atorvastatin 20mg. Last lipid panel: 04/09/23 LDL=60, JQ=594. Has not taken statin in some time. Will update labs. Verified that she uses mychart. Aware to check results/results letter in [employer]. Will contact by phone if needed. Assessment & Plan (06/11/2023 4:02 PM CDT): Chronic problem. Controlled on current Atorvastatin 20mg. Last lipid panel: 04/09/23 LDL=60, AV=466. Assessment & Plan (11/22/2022 12:12 PM [employer]YE [employer]SE HAND): Chronic problem, at goal. Currently taking atorvastatin 20mg daily. No changes. Update lipid panel today. Verified that she uses mychart. Aware to check results/results letter in [employer]. Will contact by phone if needed. Assessment & Plan (09/17/2022 11:33 AM DYE HOUSE HAND): Checking fast lipid profile today, adjust medicine thereafter. Diet reviewed Assessment & Plan (03/29/2022 2:43 PM CDT): Chronic problem. On statin therapy, no changes. Assessment & Plan (09/21/2021 2:36 PM [employer]YE [employer]SE HAND): Chronic problem. On statin therapy, no changes. [...] Atorvastatin Assessment & Plan (10/04/2020 4:03 PM [employer]YE HOUSE HAND): Goal of treatment , LDL cholesterol less [...] Will update labs. Verified that she uses [employer]. Aware to check results/results letter in [employer]. Will contact by phone if needed. Assessment & Plan (06/11/2023 4:03 PM CDT): Chronic problem, controlled on current lisinopril 2.5mg daily, lasix 40mg daily, spironolactone 50mg daily. No changes at this time. Assessment & Plan (11/21/2022 4:02 PM [employer]YE HOUSE HAND): Chronic problem, well controlled on current regimen. No changes at this time. Assessment & Plan (09/17/2022 11:33 AM [employer]YE [employer]SE HAND): Blood pressure control adequate no change in [...] checked. UTD on DM eye exam (01/2025 [facility] Letter sent to get copy of [...] today. UTD on DM eye exam (01/2025 [facility]). Letter sent to get copy of [...] infection. Assessment & Plan (11/22/2022 12:13 PM DYE HOUSE HAND): Chronic problem, well controlled at this time. Please have labs drawn today before leaving. Verified that she uses eyefactivehart. Aware to check results/results letter in [employer]. Will contact by phone if needed. I [...] 100 Assessment & Plan (09/17/2022 11:06 AM [facility]YE HOUSE HAND): Overdue for multiple tests including hemoglobin A1c [...] today. Assessment & Plan (09/21/2021 2:37 PM DYE HOUSE HAND): Chronic problem, trending low normal during the [...] metformin Assessment & Plan (10/04/2020 4:03 PM [facility]YE HOUSE HAND): Hba1c was Lab Results Component Value Date [...] appointment in 2 weeks. Instructed to contact [facility] specialty pharmacy to have them send Dexcom. [...] barefoot. Assessment & Plan (09/17/2022 12:23 PM [employer]YE HOUSE HAND): Hands worse, Refilling lyrica, reviewed need for tight control of diabetes. She has no clinical findings that suggest carpal tunnel although her symptoms seem somewhat compatible, consider reimaging neck a and/or getting EMG nerve conduction velocity after labs back Assessment & Plan (06/27/2021 3:56 PM CDT): Foot care discussed Continue gabapentin. A prescription sent Assessment & Plan (10/04/2020 4:02 PM [facility]SE [employer]): Foot care discussed Continue gabapentin Assessment & Plan (04/05/2020 2:16 PM CDT): Could not tolerate Lyrica Continue Gabapentin Foot care discussed Name for steam drier tender recommended. Assessment & Plan (03/17/2020 4:16 PM [...] lifestyle changes. Body mass index 40.0-44.9, adult ([facility]) 03/29/2022 11/21/2022 Morbid obesity with BMI of 4 5.0-49.9, adult ([facility]) 04/20/2020 11/21/2022 Assessment & Plan (09/17/2022 11:06 AM [facility]SE HAND): Reviewed weight loss including diet exercise. Hold [...] on file Legal Sex Female 10:15 PM [facility]SE [employer] Gender Identity Female 07/13/2021 7:15 AM CDT [...] DIABETES EYE EXAM Routine 01/13/2025 8:30 AM [facility]YE [facility]SE HAND from Last 3 Months or Most Recently Relevant to Health Maintenance Results * (ABNORMAL) Thyroid Function Custer (04/15/2025 3:52 PM CDT) TSH 0.22(L) 0.30 - 4.20 mcIUnit/mL Blood 04/15/2025 3:52 PM CDT 04/16/2025 11:29 AM CDT Cathy Talavera NP LAB BLOOD ORDERABLES Ioana l Result ANGEL [facility] [address] Department [place] [address] * T3, free (04/15/2025 3:52 PM CDT) Free T3 2.6 2.0 - 4.4 pg/mL Blood 04/15/2025 3:52 PM CDT 04/16/2025 11:31 AM CDT Narrative ANGEL VARGAS - 04/16/2025 12:42 PM CDT This test was reflexed from a Free T4 result. us Cathy Talavera PARAPROFESSIONAL AIDE LAB BLOOD ORDERABLES Ioana l Result Performing Organization Address [facility] Co de Phone Number ANGEL VARGAS [address] [address] [facility] [place] [address] * T4, free (04/15/2025 3:52 PM CDT) Free T4 1.19 0.90 - 1.70 ng/dL Blood 04/15/2025 3:52 PM CDT 04/16/2025 11:31 AM CDT us Cathymonika Talavera PARAPROFESSIONAL AIDE LAB BLOOD ORDERABLES Ioana l Result Performing Organization Address [facility] de Phone Number ANGEL VARGAS [address] [address] [facility] [place] [address] * Cortisol (04/15/2025 3:52 PM CDT) Pathologist [facility] Cortisol 14.4 4.8 - 19.5 mcg/dl Comment: Interpretive Data Normal Range: 4.8 - 19.5 mcg/dL; Evening: Half of morning value. This analyte undergoes marked diurnal variation. Ranges indicated apply to morning specimens. Current interpretive data was last revised 2018. Blood 04/15/2025 3:52 PM CDT 04/16/2025 11:29 AM CDT us Cathymonika Talavera PARAPROFESSIONAL AIDE LAB BLOOD ORDERABLES Ioana l Result Performing Organization Address [facility] Co de Phone Number ANGEL VARGAS [address] [place] [address] * POCT glucose (04/15/2025 3:11 PM CDT) Glucose Blood, POC 103 Normal Fasting 70 - 100, Random <200 mg/dL Blood 04/15/2025 3:11 PM CDT us Cathy R. Schleeper PARAPROFESSIONAL AIDE POINT OF CARE TEST ORDERA BLES Final [...] LAB BLOOD ORDERABLES Ioana l Result [address] Department of Laboratories [place], [place] [id number] * Albumin Creatinine Ratio, Urine (04/01/2025 12:03 [...] URINE ORDERABLES Ioana conte Result [facility]EL [facility] [address] [facility] [place] [address] * (ABNORMAL) Lipid panel (04/01/2025 12:03 PM [...] BLOOD ORDERABLES Ioana conte Result [facility]EL [facility] [address] Department [place] [address] * (ABNORMAL) Comprehensive metabolic panel (04/01/2025 12:03 [...] NP LAB BLOOD ORDERABLES Ioana conte Result [facility] [address] [address] Department [place] [address] * (ABNORMAL) POCT hemoglobin A1c (04/01/2025 10:55 AM CDT) Hemoglobin A1C, POC 7.8(A) 4.0 - 5.6 % Blood 04/01/2025 10:5 5 AM CDT us Cathy Talavera PARAPROFESSIONAL AIDE POINT OF CARE TEST ORDERA BLES Final Result * (ABNORMAL) POCT glucose (04/01/2025 10:55 AM CDT) Glucose Blood, POC 270 Normal Fasting 70 - 100, Random <200 mg/dL Blood 04/01/2025 10:5 5 AM CDT us Cathy Talavera PARAPROFESSIONAL AIDE POINT OF CARE TEST ORDERA BLES Final Result * DIABETES EYE EXAM (01/13/2025 8:30 AM [facility] [employer]SE [facility]) Historical Provider HEALTH MAINTENANCE Final Result from Last 3 Months or Most Recently Relevant to Health Maintenance Insurance [facility] Advance Directives For more information, please contact: [phone] * Full Code (Latest Code Status on File) Date Activated Date Inactivated Comments 01/13/2021 1:19 PM 01/13/2021 7:07 PM Care Teams Licensing Worker Relationship Specialty Start Date End Date Preet Rocha MD [address] [place] [address] PCP - General Family Medicine 05/30/24 Cher Hernandez DPM [address] [place] [address] Consulting Physician Foot and Ankle Surg 01/13/21
[2025-05-29 12:36] LABS: Hematocrit 42.1 % (37.0-47.0); Hemoglobin 14.2 g/dL (12.0-15.0); Immature Granulocyte Percent A 0.3 % (0-0.5); Lymphocytes Absolute Auto 1.59 K/mm3 (0.9-3.2); Mean Corpuscular HGB Conc 33.7 g/dl (32-36); Mean Corpuscular Hemoglobin 30.5 pg (26-34); Mean Corpuscular Volume 90.3 fl (80-100); Nucleated Red Blood Cells Absolute Auto 0.000 K/mm3 (0.0-0.012); Nucleated Red Blood Cells Perc 0.0 % (0.0-0.2); Platelet Count Result 194 k/mm3 (150-375); Red Blood Count 4.66 M/mm3 (4.2-5.4); White Blood Count 10.6 K/mm3 (4.5-10.0)
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
[2025-05-29] MEDS: metroNIDAZOLE 500 MG/ISO 100ML 500 MG/100 ML BAG 100 MG IVPB ×2 (12:40→21:59)
[2025-05-29 12:52] LABS: INR 1.1; Partial Thromboplastin Time 27.2 Seconds (22.3-36.8); Prothrombin Time 14.1 Seconds (11.1-14.7)
[2025-05-29 13:01] LABS: Alanine Aminotransferase 24 U/L (6-35); Albumin Level 4.3 g/dL (3.5-5.1); Alkaline Phosphatase 89 U/L (38-126); Anion Gap 11 mmol/L (4-12); Aspartate Amino Transferase 28 U/L (14-36); Bilirubin,Total 0.9 mg/dL (0.2-1.3); Blood Urea Nitrogen 14 mg/dL (7-17); CRP 5.1 mg/dL (<1.0); Calcium 9.1 mg/dL (8.4-10.2); Carbon Dioxide 26 mmol/L (22-30); Chloride 102 mmol/L (98-107); Estimated CRCL calculation 74 ml/min; Estimated Glomerular Filt Rate 55; Glucose 108 mg/dL (65-110); Potassium 3.3 mmol/L (3.4-5.0); Sodium 139 mmol/L (137-145); Total Protein 8.1 g/dL (6.3-8.2)
[2025-05-29] MEDS: CEFEPIME 2 GM in SODIUM CHLORIDE 0.9% IV 50 ML 100 ML IVPB (13:42)
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
[2025-05-29] MEDS: VANCOMYCIN 1,500 MG/NS 500 ML 1,500 MG/500 ML BAG 250 MG IVPB (14:18)
--- NOTE | 2025-05-29 14:21 | PC.NURSE ---
Dinner tray ordered for patient at this time.
--- OUTSIDE RECORDS SUMMARY | 2025-05-29 14:57 | XMS_ITS | Encounter Summary ---
Author Organization [facility] Healthcare Address [address] [place] [address] Care Team Providers Care Rug Drying Machine Operator Name Role Phone Cher Hernandez DPM Unavailable [phone] Preet Rocha MD Primary Care Provider [phone] Encounter Details Date Type Department Care Team (Late st Contact Info) Description 04/16/2025 Results Follow-Up [facility] Medical Group Diabetes and Endocrinology [address] [place] [id number] Cathy Talavera, SOCIAL WELFARE CLERK [id number] [address] Cortisol, Thyroid Function [place], T4, free, T3, free Social History Tobacco [...] on file Legal 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 Please call or send a [employer] message if any questions. Thank you, Cathy Talavera, REMI-desean documented in this encounter Plan of Treatment Not on file documented as of this encounter Visit Diagnoses Not on filedocumented in this encounter Care Teams Rug Drying Machine Operator Relationship Specialty Start Date End Date Preet Rocha MD [address] [place] [address] PCP - General Family Medicine 05/30/24 Cher Hernandez DPM [address] [place] [address] Consulting Physician Foot and Ankle Surg 01/13/21 documented as of this encounter
--- OUTSIDE RECORDS SUMMARY | 2025-05-29 14:57 | XMS_ITS | Encounter Summary ---
Author Organization 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
--- OUTSIDE RECORDS SUMMARY | 2025-05-29 14:57 | XMS_ITS | Clinical Summary ---
Author Organization [facility] [address] Address [address] [place] [address] Care Team Providers Care Senior Manufacturing Test Engineer Name Role Phone Cher Hernandez DPM Unavailable [phone] Preet Rocha MD Primary Care Provider [phone] Allergies Active Allergy Reactions Criticality Noted Date [...] with long-term current use of insulin ([facility]) Use to inject U500 insulin twice [...] 40 mg tabletIndications :Hypertension associated with diabetes ([facility]) TAKE 1 TABLET(40 MG) BY MOUTH TWICE DAILY 180 tablet 024 Active metFORMIN (GLUCOPHAGE) 500 mg tabletIndications :Type 2 diabetes mellitus with hyperglycemia, with long-term current use of insulin ([facility]) TAKE 1 TABLET(500 MG) BY MOUTH TWICE [...] with long-term current use of insulin ([facility]) Continuous glucose monitor. Change every 10 days. 10 each 3 025 Active Omnipod 5 G6-G7 Intro Kt,Gen5, cartridgeIndicati ons:Type 2 diabetes mellitus with stage 2 chronic kidney disease, with long-term current use of insulin ([facility]) One each kit 1 each Active insulin pump cart,auto,BT,G6/7 (Omnipod 5 G6-G7 Pods, Gen 5,) cartridgeIndicati ons:Type 2 diabetes mellitus with stage 2 chronic kidney disease, with long-term current use of insulin ([facility]) Change pods every 3 days 30 each 3 025 Active insulin regular U-500 (HumuLIN R U-500) 500 unit/mL CONCENTRATED vial for injectionIndicati ons:Type 2 diabetes mellitus with stage 2 chronic kidney disease, with long-term current use of insulin ([facility]) Inject via insulin pump. Max dose 70 units daily 30 mL 3 Active Contour Next Test Strips stripIndications: Type 2 diabetes mellitus with stage 2 chronic kidney disease, with long-term current use of insulin ([facility]) Check blood sugar 4 times daily if not wearing CGM 400 strip 3 Active lancets miscIndications:T ype 2 diabetes mellitus with stage 2 chronic kidney disease, with long-term current use of insulin ([facility]) Check blood sugar 4 times daily if [...] before leaving today. Verified that she uses Protecode. Aware to check results/results letter in Protecode. Will contact by phone if needed. Discussed possible need for ortho pending results. Recurrent major 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 Psychophysiological insomnia 02/04/2023 Gastroesophageal reflux disease without esophagi tis 02/04/2023 Class 2 severe obesity due t o excess calories with serious comorbidity and body mass index (BMI) of 39.0 to 39.9 in adult 11/22/2022 Assessment & Plan (11/22/2022 10:51 AM LINOLEUM FLOOR LAYER): Discussed healthy diet and importance of regular physical activity (20- 30min/day, 150min/wk). Karin lewis, right 12/19/2020 Overview (12/19/2020): Added automatically from request for surgery [id number] Karin lewis, left 12/19/2020 Overview (12/19/2020): Added automatically from request for surgery [id number] Acquired hammer toe of right foot 12/19/2020 Overview (12/19/2020): Added automatically from request for surgery [id number] Hammer toe of left foot 12/19/2020 Overview (12/19/2020): Added automatically from request for surgery [id number] Insulin pump status 05/30/2020 Assessment & Plan [...] time. Assessment & Plan (11/22/2022 12:17 PM LINOLEUM FLOOR LAYER): Continue current settings on Omnipod Humulin U500: [...] changes. Assessment & Plan (09/21/2021 2:20 PM LINOLEUM FLOOR LAYER): Decrease 8a BR to 0.5. Assessment & [...] Atorvastatin 20mg. Last lipid panel: 04/09/23 LDL=60, BS=361. Has not taken statin in some time. Will update labs. Verified that she uses mychart. Aware to check results/results letter in Protecode. Will contact by phone if needed. Assessment & Plan (06/11/2023 4:02 PM CDT): Chronic problem. Controlled on current Atorvastatin 20mg. Last lipid panel: 04/09/23 LDL=60, CF=777. Assessment & Plan (11/22/2022 12:12 PM LINOLEUM FLOOR LAYER): Chronic problem, at goal. Currently taking atorvastatin 20mg daily. No changes. Update lipid panel today. Verified that she uses mychart. Aware to check results/results letter in Protecode. Will contact by phone if needed. Assessment & Plan (09/17/2022 11:33 AM LINOLEUM FLOOR LAYER): Checking fast lipid profile today, adjust medicine thereafter. Diet reviewed Assessment & Plan (03/29/2022 2:43 PM CDT): Chronic problem. On statin therapy, no changes. Assessment & Plan (09/21/2021 2:36 PM LINOLEUM FLOOR LAYER): Chronic problem. On statin therapy, no changes. [...] Atorvastatin Assessment & Plan (10/04/2020 4:03 PM LINOLEUM FLOOR LAYER): Goal of treatment , LDL cholesterol less [...] Will update labs. Verified that she uses Protecode. Aware to check results/results letter in Protecode. Will contact by phone if needed. Assessment & Plan (06/11/2023 4:03 PM CDT): Chronic problem, controlled on current lisinopril 2.5mg daily, lasix 40mg daily, spironolactone 50mg daily. No changes at this time. Assessment & Plan (11/21/2022 4:02 PM LINOLEUM FLOOR LAYER): Chronic problem, well controlled on current regimen. No changes at this time. Assessment & Plan (09/17/2022 11:33 AM LINOLEUM FLOOR LAYER): Blood pressure control adequate no change in [...] checked. UTD on DM eye exam (01/2025 [facility]). Letter sent to get copy of [...] today. UTD on DM eye exam (01/2025 [facility]). Letter sent to get copy of [...] infection. Assessment & Plan (11/22/2022 12:13 PM LINOLEUM FLOOR LAYER): Chronic problem, well controlled at this time. Please have labs drawn today before leaving. Verified that she uses Protecode. Aware to check results/results letter in Protecode. Will contact by phone if needed. I [...] 100 Assessment & Plan (09/17/2022 11:06 AM LINOLEUM FLOOR LAYER): Overdue for multiple tests including hemoglobin A1c [...] today. Assessment & Plan (09/21/2021 2:37 PM LINOLEUM FLOOR LAYER): Chronic problem, trending low normal during the [...] metformin Assessment & Plan (10/04/2020 4:03 PM LINOLEUM FLOOR LAYER): Hba1c was Lab Results Component Value Date [...] provided with contact information for insulin pump customer operations representative and how to reach our office [...] appointment in 2 weeks. Instructed to contact [facility] specialty pharmacy to have them send [...] barefoot. Assessment & Plan (09/17/2022 12:23 PM LINOLEUM FLOOR LAYER): Hands worse, Refilling lyrica, reviewed need for tight control of diabetes. She has no clinical findings that suggest carpal tunnel although her symptoms seem somewhat compatible, consider reimaging neck a and/or getting EMG nerve conduction velocity after labs back Assessment & Plan (06/27/2021 3:56 PM CDT): Foot care discussed Continue gabapentin. A prescription sent Assessment & Plan (10/04/2020 4:02 PM LINOLEUM FLOOR LAYER): Foot care discussed Continue gabapentin Assessment & Plan (04/05/2020 2:16 PM CDT): Could not tolerate Lyrica Continue Gabapentin Foot care discussed Name for adjunct sociology professor recommended. Assessment & Plan (03/17/2020 4:16 PM [...] lifestyle changes. Body mass index 40.0-44.9, adult ([facility]) 03/29/2022 11/21/2022 Morbid obesity with BMI of 4 5.0-49.9, adult ([facility]) 04/20/2020 11/21/2022 Assessment & Plan (09/17/2022 11:06 AM LINOLEUM FLOOR LAYER): Reviewed weight loss including diet exercise. Hold on any medication intervention Syncope and collapse 04/20/2020 023 Encounters Date Type Department Care Team Description 04/29/2025 Orders Only [facility] Medical [facility] Diabetes and Endocrinology [address] [place] [phone] Cathy Talavera NP Varicose veins of both lower extremities with pain (Primary Dx) 04/27/2025 Orders Only [facility] Diabetes and Endocrinology [address] [place] [phone] Provider, MD Nancy 04/20/2025 Telephone [facility] Diabetes and Endocrinology [address] [place] [phone] Cathy Talavera NP Prior Auth (Trulicmarybeth) 04/16/2025 Results Follow-Up [facility] Diabetes and Endocrinology [address] [place] [phone] Cathy Talavera NP Cortisol, Thyroid Function [place], T4, free, T3, free 04/16/2025 Telephone [facility] Diabetes and Endocrinology [address] [place] [phone] Cathy Talavera NP Prior Auth (Mounjaro) 04/15/2025 3:52 PM CDT - 04/15/2025 11:59 PM CDT Hospital Encounter [address] [address] Type 2 diabetes mellitus with stage 2 chronic kidney disease, with long-term current use of insulin ([facility]) Discharge Disposition: Discharge to home or self care 04/15/2025 3:45 PM CDT Lab [facility] Outpatient Lab at [address] [phone] 04/15/2025 3:00 PM CDT Office Visit [facility] Diabetes and Endocrinology [address] [place] [phone] Cathy Talavera NP Type 2 diabetes mellitus with stage 2 chronic kidney disease, with long-term current use of insulin (HCC) (Primary Dx); Insulin pump status; Class 2 severe obesity due to excess calories with serious comorbidity and body mass index (BMI) of 39.0 to 39.9 in adult (HCC) 04/08/2025 Telephone [facility] [id number] [place] [phone] Cathy Talavera NP Med Management (Omnipod) 04/06/2025 Telephone [facility] Diabetes and Endocrinology [address] [place] [phone] Cathy Talavera NP [facility] 04/02/2025 Results Follow-Up [facility] Diabetes and Endocrinology [address] [place] [phone] Cathy Talavera NP Albumin Creatinine Ratio, Urine, Lipid panel, Comprehensive metabolic panel, eGFR 04/01/2025 12:03 PM CDT - 04/01/2025 11:59 PM CDT Hospital Encounter [facility] [phone] [place] [address] Type 2 diabetes mellitus with stage 2 chronic kidney disease, with long-term current use of insulin (HCC); Hyperlipidemia associated with type 2 diabetes mellitus (HCC); Hypertension associated with diabetes (HCC) Discharge Disposition: Discharge to home or self care 04/01/2025 12:00 PM CDT Lab [facility] Outpatient Lab at [address] [phone] 04/01/2025 11:00 AM CDT Office Visit [facility] Diabetes and Endocrinology [address] [place] [phone] Cathy Talavera NP Type 2 diabetes mellitus with stage 2 chronic kidney disease, with long-term current use of insulin (HCC) (Primary Dx); Hypertension associated with diabetes (HCC); Hyperlipidemia associated with type 2 diabetes mellitus (HCC); Diabetic polyneuropathy associated with diabetes mellitus due to underlying condition (HCC); Insulin pump status 04/01/2025 Telephone [facility] [address] [facility] [address], [place] [address] Cathy Talavera NP Prior Auth (Dexcom G7; Omnipod 5) 03/31/2025 Telephone [facility] Diabetes and Endocrinology [facility] [place] [address] Cathy Talavera NP Appointment Confirmation [...] on file Legal Sex Female 10:15 PM LINOLEUM FLOOR LAYER Gender Identity Female 07/13/2021 7:15 AM CDT [...] DIABETES EYE EXAM Routine 01/13/2025 8:30 AM LINOLEUM FLOOR LAYER from Last 3 Months or Most Recently Relevant to Health Maintenance Results * (ABNORMAL) Thyroid Function [place] (04/15/2025 3:52 PM CDT) TSH 0.22(L) 0.30 - 4.20 mcIUnit/mL Blood 04/15/2025 3:52 PM CDT 04/16/2025 11:29 AM CDT us Cathy Talavera NP LAB BLOOD ORDERABLES Ioana l Result ANGEL [facility]AS [address] Department [place] [address] * T3, free (04/15/2025 3:52 PM CDT) Free T3 2.6 2.0 - 4.4 pg/mL Blood 04/15/2025 3:52 PM CDT 04/16/2025 11:31 AM CDT Narrative ANGEL [facility]ARGAS - 04/16/2025 12:42 PM CDT This test was reflexed from a Free T4 result. us Cathy Talavera CARBIDE GRINDER LAB BLOOD ORDERABLES Ioana l Result Performing Organization Address [facility] Co de Phone Number ANGEL [address] [address] [facility] [place] [address] * T4, free (04/15/2025 3:52 PM CDT) Pathologist [facility] Free T4 1.19 0.90 - 1.70 ng/dL Blood 04/15/2025 3:52 PM CDT 04/16/2025 11:31 AM CDT us Cathymonika Talavera CARBIDE GRINDER LAB BLOOD ORDERABLES Ioana l Result Performing Organization Address [facility] de Phone Number ANGEL VARGAS [address] [address] [facility] [place] [address] * Cortisol (04/15/2025 3:52 PM CDT) [facility] Cortisol 14.4 4.8 - 19.5 mcg/dl Comment: Interpretive Data Normal Range: 4.8 - 19.5 mcg/dL; Evening: Half of morning value. This analyte undergoes marked diurnal variation. Ranges indicated apply to morning specimens. Current interpretive data was last revised 2018. Blood 04/15/2025 3:52 PM CDT 04/16/2025 11:29 AM CDT us Cathymonika Talavera CARBIDE GRINDER LAB BLOOD ORDERABLES Ioana l Result Performing Organization Address [facility] Co de Phone Number ANGEL VARGAS [address] [place] [address] * POCT glucose (04/15/2025 3:11 PM CDT) Glucose Blood, POC 103 Normal Fasting 70 - 100, Random <200 mg/dL Blood 04/15/2025 3:11 PM CDT Cathy Talavera CARBIDE GRINDER POINT OF CARE TEST ORDERA BLES Final [...] BLOOD ORDERABLES Ioana l Result ANGEL [facility]ARGAS [address] [address] Department [place] [address] * Albumin Creatinine Ratio, Urine [...] URINE ORDERABLES Ioana dg Result [facility] [address] [address] Department [place] [address] * (ABNORMAL) Lipid panel (04/01/2025 12:03 PM [...] 04/01/2025 11:06 PM CDT us Cathy Talavera CARBIDE GRINDER LAB BLOOD ORDERABLES Ioana l Result Performing Organization Address City/State/[facility] Co de Phone Number [facility] [address] Department [place] [address] * (ABNORMAL) Comprehensive metabolic panel [...] 04/01/2025 11:06 PM CDT us Cathy Talavera CARBIDE GRINDER LAB BLOOD [place] [address] [address] [place] [address] * (ABNORMAL) POCT hemoglobin A1c [...] * DIABETES EYE EXAM (01/13/2025 8:30 AM LINOLEUM FLOOR LAYER) Historical Provider HEALTH MAINTENANCE Final Result from Last 3 Months or Most Recently Relevant to Health Maintenance Insurance [facility] Advance Directives For more information, please contact: [phone] * Full Code (Latest Code Status on File) Date Activated Date Inactivated Comments 01/13/2021 1:19 PM 01/13/2021 7:07 PM Care Teams Senior Manufacturing Test Engineer Relationship Specialty Start Date End Date Preet Rocha MD [address] [place] [id number] PCP - General Family Medicine 05/30/24 Cher Hernandez, ENRIQUE [address] [place] [address] Consulting Physician Foot and Ankle Surg 01/13/21
--- OUTSIDE RECORDS SUMMARY | 2025-05-29 14:57 | XMS_ITS | Clinical Summary ---
Author Organization [facility] [employer] Address [address] [place] [address] Care Team Providers Care Ceiling Insulation Blower Name Role Phone Preet Rocha MD Primary Care Provider [phone] Source Comments [facility] [employer],non-owned Affiliates and Associated Physician Practices is amultiple site organization consisting of ambulatory clinics and hospital sitesin [place], [place], [place]. This disclosure is being madepursuant to the Care Everywhere program and may not contain all information available regarding this patient. Last updated 18.[facility] [employer] Allergies Active Allergy Reactions Criticality Noted Date [...] daily Active Insulin Disposable Pump (Omnipod 5 CzzA6M1 Pods Gen 5) [facility] 05/04/20 25 Active HumuLIN R 500 UNIT/ML [...] (05/05/2025): Added automatically from request for surgery [id number] Adrenal mass 05/10/2020 Hyperlipidemia associated with type 2 diabetes m prakash 04/20/2020 Hypertension associated with diabetes 04/20/2020 Diabetic polyneuropathy asso ciated with diabetes mellitus due to underlying condition 03/17/2020 Type 2 diabetes mellitus wit h stage 2 chronic kidney disease, with long-term current use of insulin 03/17/2020 Encounters Date Type Department Care Team Description 05/06/2025 Telephone [facility] - Infectious Disease [address] [place] [phone] Dee Ayala RN Medication Prior Auth Request 05/05/2025 4:00 PM CDT - 05/05/2025 11:59 PM CDT Hospital Encounter [facility] OP DRAW [facility]ATION [address] [place] [phone] Discharge Disposition: Home or Self Care 05/05/2025 3:00 PM CDT Office Visit [facility] - Infectious Disease [address] [place] [phone] Darwin Rey MD Recurrent infection of skin (Primary Dx); History of abscess of skin and subcutaneous tissue 05/05/2025 Travel 04/21/2025 Telephone [facility] - Infectious Disease [address] [place] [phone] Robbin Castro MD Appointment 03/02/2025 Travel from [...] on file Legal Sex 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 [place] [address] Health Maintenance Due Date Last Done Comments [...] ve Non-react vivien 05/05/2025 5:36 PM CDT [facility] Comment:No Laboratory eviden ce of HIV infection. Blood BLOOD SPECIMEN / Unknown Lab Venipuncture / Unknown 05/05/2025 4:00 PM CDT 05/05/2025 4:51 PM CDT us Darwin Rey MD LAB - CHEMISTRY ORDERABLES Final Result [facility] [address] [place] [address], [facility] [phone] from Last 3 Months Insurance [employer] [place] Care Teams Ceiling Insulation Blower Relationship Specialty Start Date End Date Preet Rocha MD [address] [place] [address] PCP - General Family Medicine 08/27/24
--- OUTSIDE RECORDS SUMMARY | 2025-05-29 14:58 | XMS_ITS | Encounter Summary ---
Author Organization [facility] Address [address] [place] [address] Care Team Providers Care Bag Machine Set Up Operator Name Role Phone Cher Hernandez DPM Unavailable [phone] Preet Rocha MD Primary Care Provider [phone] Encounter Details Date Type Department Care Team (Latest Contact Info) Description 04/02/2025 Results Follow-Up [facility] Diabetes and Endocrinology [address] [place] [phone] Cathy Talavera, DETECTIVE [address] 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
--- OUTSIDE RECORDS SUMMARY | 2025-05-29 14:58 | XMS_ITS | Clinical Summary ---
Author Organization [facility] Address [address] [place] [address] Care Team Providers Care Plastics Fabricator Or Welder Name Role Phone Hakeem Green MD Primary Care Provider Unavai lable Allergies Active Allergy Reactions Criticality Noted Date Comments Corticosteroids Unknown 07/02/2012 Morphine Swelling High 07/02/2012 Medications Insulin Pen Needle (BD PEN NEEDLE ASHLEY U/F) 32G X 4 MM MiscIndications :Diabetes ([facility]) USE DIRECTED 200 each 04/07/2019 [...] Sex Assigned at Female 12/22/2024 6:50 PM SCHOOL AGE PROGRAM ASSOCIATE Legal Sex Female 7:20 PM CDT Gender Identity Not on file Sexual Orientation Not on file Last Filed Vital Signs Vital Sign Reading Time Taken Comments Blood Pressure 124/83 12/22/2024 6:23 PM SCHOOL AGE PROGRAM ASSOCIATE Pulse 79 12/22/2024 6:23 PM SCHOOL AGE PROGRAM ASSOCIATE Temperature 36.7 C (98 F) 12/22/2024 6:23 PM SCHOOL AGE PROGRAM ASSOCIATE Respiratory Rate 18 12/22/2024 6:23 PM SCHOOL AGE PROGRAM ASSOCIATE Oxygen Saturation 100% 12/22/2024 6:23 PM SCHOOL AGE PROGRAM ASSOCIATE Inhaled Oxygen Concentration - - Weight 113.4 kg (250 lb) 12/22/2024 6:23 PM SCHOOL AGE PROGRAM ASSOCIATE Height 167.6 cm (5' 6) 12/22/2024 6:23 PM SCHOOL AGE PROGRAM ASSOCIATE Body Mass Index 40.35 12/22/2024 6:23 PM SCHOOL AGE PROGRAM ASSOCIATE Plan of Treatment Health Maintenance Due Date [...] patient's age to complete this topic Insurance [phone] [id number] (Work) [address] [place] [id number] [place] [address] Care Teams Plastics Fabricator Or Welder Relationship Specialty Start Date End Date Hakeem Green MD PCP - General 09/27/16
--- OUTSIDE RECORDS SUMMARY | 2025-05-29 14:58 | XMS_ITS | Referral Summary ---
Author Organization [facility] [address] Address [address] [place] [address] Care Team Providers Care Mental Telepathist Name Role Phone DavidPoCherxavier Warren DPM Unavailable Preet Rocha MD Primary Care Provider [phone] Encounters Date Type Department Care Team Description 04/29/2025 Orders Only [facility] Medical [facility] Diabetes and Endocrinology [address] [place] [phone] Cathy Talavera NP Varicose veins of both lower extremities with pain (Primary Dx) 04/27/2025 Orders Only [facility] Medical [facility] Diabetes and Endocrinology [address] [place] [phone] ProviderNancy MD 04/20/2025 Telephone [facility] Diabetes and Endocrinology [address] [place] [phone] Cathy Talavera NP Prior Auth (Trulicity) 04/16/2025 Results Follow-Up [facility] Diabetes and Endocrinology [address] [place] [phone] Cathy Talavera NP Cortisol, Thyroid Function Humphreys, T4, free, T3, free 04/16/2025 Telephone [facility] Diabetes and Endocrinology [address] [place] [phone] Cathy Talavera NP Prior Auth (Mounjaro) 04/15/2025 3:52 PM CDT - 04/15/2025 11:59 PM CDT Hospital Encounter [address] [address] Type 2 diabetes mellitus with stage 2 chronic kidney disease, with long-term current use of insulin (HCC) Discharge Disposition: Discharge to home or self care 04/15/2025 3:45 PM CDT Lab [facility] Outpatient Lab at [address] [phone] 04/15/2025 3:00 PM CDT Office Visit [facility] Diabetes and Endocrinology [address] [place] [phone] Cathy Talavera, RUFINO Type 2 diabetes mellitus with stage 2 chronic kidney disease, with long-term current use of insulin (HCC) (Primary Dx); Insulin pump status; Class 2 severe obesity due to excess calories with serious comorbidity and body mass index (BMI) of 39.0 to 39.9 in adult (HCC) 04/08/2025 Telephone [facility] [address] [phone] Cathy Talavera NP Med Management (Omnipod) 04/06/2025 Telephone [facility] Diabetes and Endocrinology [address] [place] [phone] Cathy Talavera NP [facility] 04/02/2025 Results Follow-Up [facility] Diabetes and Endocrinology [address] [place] [phone] Cathy Talavera, RUFINO Albumin Creatinine Ratio, Urine, Lipid panel, Comprehensive metabolic panel, eGFR 04/01/2025 12:03 PM CDT - 04/01/2025 11:59 PM CDT Hospital Encounter [address] [address] Type 2 diabetes mellitus with stage 2 chronic kidney disease, with long-term current use of insulin (HCC); Hyperlipidemia associated with type 2 diabetes mellitus (HCC); Hypertension associated with diabetes (HCC) Discharge Disposition: Discharge to home or self care 04/01/2025 Telephone [facility] [place] [id number] [place] [address] [address] [place] [address] Cathy Talavera NP Prior Auth (Dexcom G7; Omnipod 5) 04/01/2025 12:00 PM CDT Lab [facility] Outpatient Lab at [address] [phone] 04/01/2025 11:00 AM CDT Office Visit [facility] Diabetes and Endocrinology [address] [place] [phone] Cathy Talavera, RUFINO Type 2 diabetes mellitus with stage 2 chronic kidney disease, with long-term current use of insulin (HCC) (Primary Dx); Hypertension associated with diabetes (HCC); Hyperlipidemia associated with type 2 diabetes mellitus (HCC); Diabetic polyneuropathy associated with diabetes mellitus due to underlying condition (HCC); Insulin pump status 03/31/2025 Telephone [facility] Medical [facility] Diabetes and Endocrinology [address] [place] [phone] Cathy Talavera NP Appointment Confirmation with [...] disease, with long-term current use of insulin ([facility]) Use to inject U500 insulin [...] 40 mg tabletIndications :Hypertension associated with diabetes ([facility]) TAKE 1 TABLET(40 MG) BY MOUTH TWICE DAILY 180 tablet 024 Active metFORMIN (GLUCOPHAGE) 500 mg tabletIndications :Type 2 diabetes mellitus with hyperglycemia, with long-term current use of insulin ([facility]) TAKE 1 TABLET(500 MG) BY [...] disease, with long-term current use of insulin ([facility]) Continuous glucose monitor. Change every 10 days. 10 each 3 Active Omnipod 5 G6-G7 Intro Kt,Gen5, cartridgeIndicati ons:Type 2 diabetes mellitus with stage 2 chronic kidney disease, with long-term current use of insulin ([facility]) One each kit 1 each Active insulin pump cart,auto,BT,G6/7 (Omnipod 5 G6-G7 Pods, Gen 5,) cartridgeIndicati ons:Type 2 diabetes mellitus with stage 2 chronic kidney disease, with long-term current use of insulin ([facility]) Change pods every 3 days 30 each 3 Active insulin regular U-500 (HumuLIN R U-500) 500 unit/mL CONCENTRATED vial for injectionIndicati ons:Type 2 diabetes mellitus with stage 2 chronic kidney disease, with long-term current use of insulin ([facility]) Inject via insulin pump. Max dose 70 units daily 30 mL 3 Active Contour Next Test Strips stripIndications: Type 2 diabetes mellitus with stage 2 chronic kidney disease, with long-term current use of insulin ([facility]) Check blood sugar 4 times daily if not wearing CGM 400 strip 3 Active lancets miscIndications:T ype 2 diabetes mellitus with stage 2 chronic kidney disease, with long-term current use of insulin ([facility]) Check blood sugar 4 times [...] mychart. Aware to check results/results letter in [employer]. Will contact by phone if needed. Discussed possible need for ortho pending results. Recurrent major 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 Psychophysiological insomnia 02/04/2023 Gastroesophageal reflux disease without esophagi tis 02/04/2023 Class 2 severe obesity due t o excess calories with serious comorbidity and body mass index (BMI) of 39.0 to 39.9 in adult 11/22/2022 Assessment & Plan (11/22/2022 10:51 AM CAR REPAIRER APPRENTICE): Discussed healthy diet and importance of regular physical activity (20- 30min/day, 150min/wk). Karin lewis, right 12/19/2020 Overview (12/19/2020): Added automatically from request for surgery [id number] Karin lewis, left 12/19/2020 Overview (12/19/2020): Added automatically from request for surgery [id number] Acquired hammer toe of right foot 12/19/2020 Overview (12/19/2020): Added automatically from request for surgery [id number] Hammer toe of left foot 12/19/2020 Overview (12/19/2020): Added automatically from request for surgery [id number] Insulin pump status 05/30/2020 Assessment & Plan [...] time. Assessment & Plan (11/22/2022 12:17 PM CAR REPAIRER APPRENTICE): Continue current settings on Omnipod [...] changes. Assessment & Plan (09/21/2021 2:20 PM CAR REPAIRER APPRENTICE): Decrease 8a BR to 0.5. [...] Atorvastatin 20mg. Last lipid panel: 04/09/23 LDL=60, XL=680. Has not taken statin in some time. Will update labs. Verified that she uses mychart. Aware to check results/results letter in [employer]. Will contact by phone if needed. Assessment & Plan (06/11/2023 4:02 PM CDT): Chronic problem. Controlled on current Atorvastatin 20mg. Last lipid panel: 04/09/23 LDL=60, FL=582. Assessment & Plan (11/22/2022 12:12 PM CAR REPAIRER APPRENTICE): Chronic problem, at goal. Currently taking atorvastatin 20mg daily. No changes. Update lipid panel today. Verified that she uses mychart. Aware to check results/results letter in [employer]. Will contact by phone if needed. Assessment & Plan (09/17/2022 11:33 AM CAR REPAIRER APPRENTICE): Checking fast lipid profile today, adjust medicine thereafter. Diet reviewed Assessment & Plan (03/29/2022 2:43 PM CDT): Chronic problem. On statin therapy, no changes. Assessment & Plan (09/21/2021 2:36 PM CAR REPAIRER APPRENTICE): Chronic problem. On statin therapy, [...] Atorvastatin Assessment & Plan (10/04/2020 4:03 PM CAR REPAIRER APPRENTICE): Goal of treatment , LDL [...] Will update labs. Verified that she uses [employer]. Aware to check results/results letter in [employer]. Will contact by phone if needed. Assessment & Plan (06/11/2023 4:03 PM CDT): Chronic problem, controlled on current lisinopril 2.5mg daily, lasix 40mg daily, spironolactone 50mg daily. No changes at this time. Assessment & Plan (11/21/2022 4:02 PM CAR REPAIRER APPRENTICE): Chronic problem, well controlled on current regimen. No changes at this time. Assessment & Plan (09/17/2022 11:33 AM CAR REPAIRER APPRENTICE): Blood pressure control adequate no [...] checked. UTD on DM eye exam (01/2025 [facility] Letter sent to get copy of [...] today. UTD on DM eye exam (01/2025 [facility]). Letter sent to get copy of [...] infection. Assessment & Plan (11/22/2022 12:13 PM CAR REPAIRER APPRENTICE): Chronic problem, well controlled at this time. Please have labs drawn today before leaving. Verified that she uses [employer]. Aware to check results/results letter in [employer]. Will contact by phone if needed. [...] 100 Assessment & Plan (09/17/2022 11:06 AM CAR REPAIRER APPRENTICE): Overdue for multiple tests including [...] today. Assessment & Plan (09/21/2021 2:37 PM CAR REPAIRER APPRENTICE): Chronic problem, trending low normal [...] metformin Assessment & Plan (10/04/2020 4:03 PM CAR REPAIRER APPRENTICE): Hba1c was Lab Results Component [...] provided with contact information for insulin pump telesales representative and how to reach our office [...] appointment in 2 weeks. Instructed to contact [facility] specialty pharmacy to have them send [...] barefoot. Assessment & Plan (09/17/2022 12:23 PM CAR REPAIRER APPRENTICE): Hands worse, Refilling lyrica, reviewed need for tight control of diabetes. She has no clinical findings that suggest carpal tunnel although her symptoms seem somewhat compatible, consider reimaging neck a and/or getting EMG nerve conduction velocity after labs back Assessment & Plan (06/27/2021 3:56 PM CDT): Foot care discussed Continue gabapentin. A prescription sent Assessment & Plan (10/04/2020 4:02 PM CAR REPAIRER APPRENTICE): Foot care discussed Continue gabapentin Assessment & Plan (04/05/2020 2:16 PM CDT): Could not tolerate Lyrica Continue Gabapentin Foot care discussed Name for executive advisor recommended. Assessment & Plan (03/17/2020 4:16 PM [...] lifestyle changes. Body mass index 40.0-44.9, adult [place] 03/29/2022 11/21/2022 Morbid obesity with BMI of 4 5.0-49.9, adult ([facility]) 04/20/2020 11/21/2022 Assessment & Plan (09/17/2022 11:06 AM CAR REPAIRER APPRENTICE): Reviewed weight loss including diet [...] on file Legal Sex Female 10:15 PM CAR REPAIRER APPRENTICE Gender Identity Female 07/13/2021 7:15 [...] DIABETES EYE EXAM Routine 01/13/2025 8:30 AM CAR REPAIRER APPRENTICE from Last 3 Months or Most Recently Relevant to Health Maintenance Results * (ABNORMAL) Thyroid Function Humphreys (04/15/2025 3:52 PM CDT) TSH 0.22(L) 0.30 - 4.20 mcIUnit/mL Blood 04/15/2025 3:52 PM CDT 04/16/2025 11:29 AM CDT Cathy Talavera NP LAB BLOOD ORDERABLES Ioana l Result [facility] [address] [facility] [place] [address] * T3, free (04/15/2025 3:52 PM CDT) Free T3 2.6 2.0 - 4.4 pg/mL Blood 04/15/2025 3:52 PM CDT 04/16/2025 11:31 AM CDT Narrative ANGEL [facility]AS - 04/16/2025 12:42 PM CDT This test was reflexed from a Free T4 result. us Cathy Talavera FILLER SHREDDER LAB BLOOD ORDERABLES Ioana l Result Performing Organization Address [facility] Co de Phone Number ANGEL [facility] [address] [facility] [place] [address] * T4, free (04/15/2025 3:52 PM CDT) Free T4 1.19 0.90 - 1.70 ng/dL Blood 04/15/2025 3:52 PM CDT 04/16/2025 11:31 AM CDT us Cathymonika Talavera FILLER SHREDDER LAB BLOOD ORDERABLES Ioana l Result Performing Organization Address [facility] de Phone Number [facility]EL [facility] [address] [facility] [place] [address] * Cortisol (04/15/2025 3:52 PM CDT) Pathologist [facility] Cortisol 14.4 4.8 - 19.5 mcg/dl Comment: Interpretive Data Normal Range: 4.8 - 19.5 mcg/dL; Evening: Half of morning value. This analyte undergoes marked diurnal variation. Ranges indicated apply to morning specimens. Current interpretive data was last revised 2018. Blood 04/15/2025 3:52 PM CDT 04/16/2025 11:29 AM CDT us Cathymonika Talavera FILLER SHREDDER LAB BLOOD ORDERABLES Ioana l Result Performing Organization Address [facility] Co de Phone Number ANGEL VARGAS [address] [place] [address] * POCT glucose (04/15/2025 3:11 PM CDT) Glucose Blood, POC 103 Normal Fasting 70 - 100, Random <200 mg/dL Blood 04/15/2025 3:11 PM CDT us Cathy R. Schleeper FILLER SHREDDER POINT OF CARE TEST ORDERA BLES Final [...] LAB BLOOD ORDERABLES Ioana l Result [address] Department [facility] [place], [place] [id number] * Albumin Creatinine Ratio, Urine (04/01/2025 12:03 [...] URINE ORDERABLES Ioana conte Result [facility] [address] [facility] [place] [address] * (ABNORMAL) Lipid panel (04/01/2025 12:03 PM [...] CDT 04/01/2025 11:06 PM CDT us Cathy Tlaavera NP LAB BLOOD ORDERABLES Ioana conte Result [facility] [address] [facility] [place] [address] * (ABNORMAL) Comprehensive metabolic panel (04/01/2025 12:03 [...] NP LAB BLOOD ORDERABLES Ioana conte Result [facility] [address] [place] [address] * (ABNORMAL) POCT hemoglobin A1c (04/01/2025 10:55 AM CDT) Hemoglobin A1C, POC 7.8(A) 4.0 - 5.6 % Blood 04/01/2025 10:5 5 AM CDT us Cathy Talavera FILLER SHREDDER POINT OF CARE TEST ORDERA BLES Final Result * (ABNORMAL) POCT glucose (04/01/2025 10:55 AM CDT) Glucose Blood, POC 270 Normal Fasting 70 - 100, Random <200 mg/dL Blood 04/01/2025 10:5 5 AM CDT us Cathy Talavera FILLER SHREDDER POINT OF CARE TEST ORDERA BLES Final Result * DIABETES EYE EXAM (01/13/2025 8:30 AM CAR REPAIRER APPRENTICE) Historical Provider HEALTH MAINTENANCE Final Result from Last 3 Months or Most Recently Relevant to Health Maintenance Insurance [facility] Advance Directives For more information, please contact: [phone] * Full Code (Latest Code Status on File) Date Activated Date Inactivated Comments 01/13/2021 1:19 PM 01/13/2021 7:07 PM Care Teams Mental Telepathist Relationship Specialty Start Date End Date Preet Rocha MD [address] [place] [address] PCP - General Family Medicine 05/30/24 Cher Hernandez DPM [address] [place] [address] Consulting Physician Foot and Ankle Surg 01/13/21
--- OUTSIDE RECORDS SUMMARY | 2025-05-29 14:58 | XMS_ITS ---
Author Organization Unknown Plan of Treatment Description Planned Activity Planned Timing [facility] is a provider organization who partners directly with Health Plans and provides integrated primary care, behavioral health, and elementary school social worker for an attributed population Letter encounter to patientTelephone encounter May 06, 2025Jul 2024 Patient Care team information Name Category Status Period Participants - - Proposed period not known - - - Proposed period not known -
[2025-05-29 15:00] VITALS: BMI 39.2
[2025-05-29 15:55] VITALS: BP 110/50; PULSE 60; RESP 18; O2SAT 98
[2025-05-29] MEDS: KETOROLAC 30 MG/ML VIAL (*BKC) IV PUSH ×2 (16:10→22:53)
--- NOTE | 2025-05-29 16:30 | ADMGEN ---
This patient, Sabina Dash, was admitted to Medical Room 242-01. Patient/family oriented to hospital policies and general routines including ID bracelet, bed and alarms, visiting hours, pain management, procedures, bathroom and other care routines, personal items, smoking policy, room service/diet, and visiting hours. Information on how to activate the Rapid Response Team has been discussed. Patient/Family are encouraged to report perceived risks to care and to ask questions if they do not understand what they are told or what they should do.
--- NOTE | 2025-05-29 17:49 | PC.NURSE ---
Patient signed CGM and Insulin pump agreement at this time. Patient given 24 hour insulin sheet to fill out for today and tonight until 0600.
[2025-05-29 20:00] VITALS: PULSE 60; RESP 18; O2SAT 98
[2025-05-29 22:00] VITALS: BP 137/79; PULSE 61; RESP 16; TEMP 36.6; O2SAT 100
[2025-05-29] MEDS: BACLOFEN 10 MG TABLET 20 MG PO (22:01)
[2025-05-30] MEDS: CEFEPIME 2 GM in SODIUM CHLORIDE 0.9% IV 50 ML 100 ML IVPB ×2 (03:11→12:44)
[2025-05-30] MEDS: TETANUS,DIPHTHERIA,AC PERTUSSIS ADULT (0.5 ML) BOOSTRIX IM (03:12)
[2025-05-30 05:02] LABS: Hematocrit 40.1 % (37.0-47.0); Hemoglobin 13.4 g/dL (12.0-15.0); Immature Granulocyte Percent A 0.4 % (0-0.5); Lymphocytes Absolute Auto 2.04 K/mm3 (0.9-3.2); Mean Corpuscular HGB Conc 33.4 g/dl (32-36); Mean Corpuscular Hemoglobin 31.2 pg (26-34); Mean Corpuscular Volume 93.5 fl (80-100); Nucleated Red Blood Cells Absolute Auto 0.000 K/mm3 (0.0-0.012); Nucleated Red Blood Cells Perc 0.0 % (0.0-0.2); Platelet Count Result 163 k/mm3 (150-375); Red Blood Count 4.29 M/mm3 (4.2-5.4); White Blood Count 6.9 K/mm3 (4.5-10.0)
[2025-05-30 05:30] LABS: Anion Gap 7 mmol/L (4-12); Blood Urea Nitrogen 18 mg/dL (7-17); Calcium 9.0 mg/dL (8.4-10.2); Carbon Dioxide 25 mmol/L (22-30); Chloride 104 mmol/L (98-107); Estimated CRCL calculation 75 ml/min; Estimated Glomerular Filt Rate 55; Glucose 98 mg/dL (65-110); Potassium 3.1 mmol/L (3.4-5.0); Sodium 136 mmol/L (137-145)
[2025-05-30] MEDS: metroNIDAZOLE 500 MG/ISO 100ML 500 MG/100 ML BAG 100 MG IVPB ×3 (05:58→22:42)
[2025-05-30 06:20] VITALS: BP 112/68; PULSE 60; RESP 16; TEMP 36.5; O2SAT 98
[2025-05-30 07:44] VITALS: O2SAT 95
--- NOTE | 2025-05-30 08:41 | P.PNIM_ITS ---
Progress Note: A&P Assessment and Plan (1) Cellulitis: Qualifiers: Site of cellulitis: other site Qualified Code(s): L03.818 - Cellulitis of other sites Code(s): L03.90 - Cellulitis, unspecified Status: Acute Assessment and Plan: patient reports injury to foot with her dog stepping on her right foot and noticed 3 splinters with worsening edema and erythema patient with history of MSSA current treatment with doxycycline right foot XR: No acute fracture and Severe polyarticular osteoarthritis. Reviewed previous micro, grew Staph aureus resistant to Cipro/clindamycin/erythromycin/Bactrim and intermediate to Levaquin and moxifloxacin on 03/26 * hold home p.o. doxycycline. * continue on cefepime, Flagyl, and vancomycin pending blood cultures and wound culture * received DTaP booster * Wound culture and blood culture pending * analgesics p.r.n. (2) Diabetes mellitus: Qualifiers: Diabetes mellitus complication status: with other specified complication Diabetes mellitus snf insulin use: unspecified computer terminal operator insulin use status Diabetes mellitus type: type 2 Qualified Code(s): E11.69 - Type 2 diabetes mellitus with other specified complication Code(s): E11.9 - Type 2 diabetes mellitus without complications Status: Acute Assessment and Plan: * hypoglycemia protocol * POC blood glucose ACHS * home medication: Hold Trulicity. Continue Streglato. * patient okay to use CGM and insulin pump * correct regimen ordered - high dose TIDWM, based off BMI * A1C 7.6% on 03/24/2025 * diabetic diet (3) Essential hypertension: Code(s): I10 - Essential (primary) hypertension Status: Acute Assessment and Plan: * conitnued Spironolactone, Lasix * monitor per unit protocol Plan Code status: Full code per patient DVT prophylaxis: Lovenox Stress ulcer prophylaxis: NA PT/OT notes: Ambulatory Disposition: patient admitted to the medical unit for further evaluation right foot cellulitis continue with IV antibiotics pending wound cultures and blood cultures. patient is ambulatory on own and plan will be to return home at discharge when medically stable. Time Spent With Patient Time with patient: 15 - 25 minutes Subjective Date/time seen: 05/30/25 08:41 Interval history: Patient is a 45-year-old female admitted for injury to her right foot with worsening edema and erythema she was admitted for further evaluation started on IV antibiotic therapy patient has history MSSA on oral doxycycline outpatient continue IV antibiotics pending cultures 05/30/2025: Patient still reporting moderate pain to foot has 3 splinters identified removed one in big toe. Patient extremely tender to any touch on the right foot. Afebrile, and normal WBC today. Patient with no other complaints. Review of Systems Review of Systems: All systems reviewed & are unremarkable except as noted in HPI and below Exam Const: General: comfortable and no acute distress Other: , female, nontoxic appearance HENMT: Face/Nose/Sinus: Normal nares present Mouth: Yes moist mucous membranes Eyes: General: appearance normal, both eyes and all related structures Sclera: sclerae normal Pupils: Equal, round and reactive pupils present EOM: EOMs intact bilaterally Resp: Effort & Inspection: normal respiratory effort Auscultation: clear to auscultation bilaterally Cardio: Rate: regular rate Rhythm: regular rhythm Other: S1-S2 present without murmur, rub, ectopy GI: GI Palp: Yes Soft to palpation Auscultation: normal bowel sounds Skin: General skin exam: no rashes or lesions noted Other: Pinpoint area to right great toe and less than 1 cm area to right great toe that appear to have retained splinter and partial splinter (wood). As well as a 3rd pinpoint area with possible retained splinter between the 2nd metatarsal head and fibular sesamoid. Surrounding erythema, edema and significant tenderness. No areas of fluctuation or areas concerning for abscess. Neuro: Cranial nerves: Yes Equal, round and reactive pupils present Speech: normal speech Motor exam (neuro): 5/5 motor strength present throughout Sensory Exam: normal sensation Other: A&O x4 Extrem: General: normal exam except as noted and edema (Right forefoot) Psych: Mental Status: mental status grossly normal Affect: normal affect Objective Data Vital Signs Vital Signs: Vital Signs - 24 hr 05/29/25 10:52 05/29/25 15:55 05/29/25 20:00 Temperature 97.3 F L Pulse Rate 70 60 60 Respiratory Rate 20 18 18 Blood Pressure 137/89 110/50 L Pulse Oximetry 100 98 98 Oxygen Delivery Room Air Room Air 05/29/25 22:00 05/30/25 06:20 Temperature 97.8 F 97.7 F Pulse Rate 61 60 Respiratory Rate 16 16 Blood Pressure 137/79 112/68 Pulse Oximetry 100 98 Oxygen Delivery Intake/Output Intake/Output: Intake & Output 05/27/25 05/28/25 05/29/25 05/30/25 23:59 23:59 23:59 23:59 Intake Total 730 350 Balance 730 350 Meds/Results Medications: Active Medications Generic Name Dose Route Start Last Admin Trade Name Freq PRN Reason Stop Dose Admin Acetaminophen 1,000 mg 05/29/25 14:23 Acetaminophen 500 Mg Tablet PO Q6H PRN Mild Pain (1-3) or Fever Albuterol 2 puff 05/29/25 19:48 Albuterol Sulfate (*Sp) Aerosol 1 Puff INHALATION QID PRN shortness of breath or wheezing Baclofen 20 mg 05/29/25 20:00 05/29/25 22:01 Baclofen 10 Mg Tablet PO 20 mg TID [facility] Administration Buspirone HCl 30 mg 05/29/25 21:00 05/29/25 22:01 Buspirone Hcl 10 Mg Tablet PO 30 mg HS [facility] Administration Dextrose 12.5 gm 05/29/25 14:23 Dextrose 50% 25 Gm/50 Ml Syringe IV PUSH PRN PRN Hypoglycemia Protocol Enoxaparin Sodium 40 mg 05/30/25 09:00 Enoxaparin 40 Mg/0.4 Ml Syringe SUB-Q DAILY [facility] Fluoxetine HCl 60 mg 05/29/25 23:00 05/29/25 22:01 Fluoxetine Hcl 20 Mg Capsule PO 60 mg Q24H [facility] Administration Furosemide 80 mg 05/30/25 09:00 Furosemide 40 Mg Tablet PO BID [facility] Glucagon 1 mg 05/29/25 14:23 Glucagon For Inj 1 Mg Vial IM PRN PRN Hypoglycemia Protocol Glucose 15 gm 05/29/25 14:23 Glucose Oral Gel 15 Gm Of Glucse In 37.5 Gm Tube PO PRN PRN Hypoglycemia Protocol Hydromorphone HCl 0.5 mg 05/29/25 19:50 Hydromorphone Hcl Inj (*Crx) 2 Mg/Ml Vial IV PUSH Q3H PRN Pain Rated 7-10 Cefepime HCl 2 gm/ Sodium 50 mls @ 100 mls/hr 05/30/25 01:00 05/30/25 03:40 Chloride IVPB Infused Q12H [facility] Infusion Metronidazole 500 mg in 100 mls @ 100 mls/hr 05/29/25 22:00 05/30/25 05:58 Flagyl 500 Mg/Iso Soln 100 Ml IVPB 100 mls/hr Q8H [facility] Administration Dextrose 1,000 mls @ 100 mls/hr 05/29/25 14:23 Dextrose 5% 1,000 Ml IVPB PRN PRN Hypoglycemia Protocol Vancomycin HCl 1,500 mg in 500 mls @ 250 mls/hr 05/30/25 09:00 Vancomycin 1,500 Mg/Ns 500 Ml IVPB Q18H [facility] Insulin Aspart 4 - 8 units 05/29/25 17:00 05/29/25 17:18 Insulin Aspart (*Bkc) 100 Units/Ml SUB-Q Not Given TIDWM [facility] Protocol Ketorolac Tromethamine 30 mg 05/29/25 13:25 05/29/25 22:53 Ketorolac 30 Mg/Ml Vial (*Bkc) IV PUSH 06/03/25 13:24 30 mg Q6H PRN Administration Pain Rated 4-6 Miscellaneous Information 1 each 05/30/25 00:01 Please Send Pt's Home Med Steglatro To Pharmacy For Verification When Available XX 06/29/25 00:00 CLARIFY [facility] Non-Formulary Medication 15 mg 07/20/25 09:00 Ertugliflozin [Steglatro] PO 06/29/25 08:59 DAILY [facility] Ondansetron HCl 4 mg 05/29/25 14:23 Ondansetron Hcl Odt 4 Mg Tablet PO Q6H PRN Nausea And Vomiting Potassium Chloride 10 meq 05/29/25 21:00 Potassium Chloride 10 Meq Er Tablet PO .Q12HR [facility] Potassium Chloride 40 meq 05/30/25 08:39 Potassium Chloride 20 Meq Er Tablet PO 05/30/25 08:40 ONCE ONE Spironolactone 50 mg 05/30/25 09:00 Spironolactone 50 Mg Tablet PO DAILY [facility] Trazodone HCl 150 mg 05/29/25 21:00 05/29/25 22:02 Trazodone Hcl 50 Mg Tablet PO 150 mg HS [facility] Administration Radiology Results: ITS Impressions Foot X-Ray 05/29/25 12:10 Impression: 1: No acute fracture. 2: Severe polyarticular osteoarthritis. Labs Labs: Laboratory Results - last 24 hr 05/29/25 05/29/25 05/29/25 12:29 16:56 20:14 WBC 10.6 H RBC 4.66 Hgb 14.2 Hct 42.1 MCV 90.3 MCH 30.5 MCHC 33.7 RDW 13.4 Plt Count 194 MPV 9.1 Immature Gran % (Auto) 0.3 Neut % (Auto) 76.3 H Lymph % (Auto) 15.1 L [place] % (Auto) 7.1 Eos % (Auto) 0.9 Baso % (Auto) 0.3 Lymph # (Auto) 1.59 [place] # (Auto) 0.8 H Eos # (Auto) 0.1 Baso # (Auto) 0.0 Abs Immat Gran (auto) 0.03 Absolute Neuts (auto) 8.1 H Absolute Nucleated RBC 0.000 Nucleated RBC % 0.0 PT 14.1 INR 1.1 APTT 27.2 Sodium 139 Potassium 3.3 L Chloride 102 Carbon Dioxide 26 Anion Gap 11 BUN 14 Creatinine 1.07 H Estim Creat Clear Calc 74 Estimated GFR 55 L Glucose 108 POC Capillary Glucose 194 H 112 H Lactic Acid 1.0 Calcium 9.1 Total Bilirubin 0.9 AST 28 ALT 24 Alkaline Phosphatase 89 C-Reactive Protein 5.1 H Total Protein 8.1 Albumin 4.3 07/20/25 07/20/25 04:29 08:00 WBC 6.9 RBC 4.29 Hgb 13.4 Hct 40.1 MCV 93.5 MCH 31.2 MCHC 33.4 RDW 13.4 Plt Count 163 MPV 9.4 Immature Gran % (Auto) 0.4 Neut % (Auto) 58.1 Lymph % (Auto) 29.7 [place] % (Auto) 8.3 Eos % (Auto) 3.2 Baso % (Auto) 0.3 Lymph # (Auto) 2.04 [place] # (Auto) 0.6 Eos # (Auto) 0.2 Baso # (Auto) 0.0 Abs Immat Gran (auto) 0.03 Absolute Neuts (auto) 4.0 Absolute Nucleated RBC 0.000 Nucleated RBC % 0.0 PT INR APTT Sodium 136 L Potassium 3.1 L Chloride 104 Carbon Dioxide 25 Anion Gap 7 BUN 18 H Creatinine 1.08 H Estim Creat Clear Calc 75 Estimated GFR 55 L Glucose 98 POC Capillary Glucose 101 Lactic Acid Calcium 9.0 Total Bilirubin AST ALT Alkaline Phosphatase C-Reactive Protein Total Protein Albumin Quality VTE Prophylaxis VTE prophylaxis: pharmacologic ordered -Patient's previous records reviewed on admission -ER notes reviewed in detail on admission -discussed all findings and current treatment plan with patient/Family/POA -Consultations reviewed for recommendations -Patient's disposition for safe discharge discussed with caseworker protective services Dictation performed by [employer] direct speech recognition software, therefore orthodontist assistant variants and typographical errors may occur. Hospitalist MIPS Advance Care Plan I have confirmed that the patient's Advanced Care Plan is present, code status is documented, or surrogate decision maker is listed in patient medical record.: Yes Medication Reconciliation I have utilized all available resources to obtain, update and review the patients current medications (includes all prescriptions, OTC, herbals, ca nnabis, and nutritional supplements).: Yes The patient is not eligible for med reconciliation; the patient is in a emergent medical situation where delaying treatment would jeopardize the patients health.: No
[2025-05-30] MEDS: POTASSIUM CHLORIDE 20 MEQ ER TABLET 40 MEQ PO (09:07)
[2025-05-30] MEDS: BACLOFEN 10 MG TABLET 20 MG PO ×3 (09:09→17:48)
[2025-05-30] MEDS: VANCOMYCIN 1,500 MG/NS 500 ML 1,500 MG/500 ML BAG 250 MG IVPB (09:10)
[2025-05-30] MEDS: FUROSEMIDE 40 MG TABLET 80 MG PO ×2 (09:10→17:48)
[2025-05-30] MEDS: SPIRONOLACTONE 50 MG TABLET PO (09:10)
[2025-05-30] MEDS: HYDROmorphone HCL INJ (*CRX) 2 MG/ML VIAL 0.5 MG IV PUSH ×4 (09:39→22:45)
[2025-05-30 13:14] VITALS: BP 136/69; PULSE 62; RESP 16; TEMP 36.5; O2SAT 99
--- NOTE | 2025-05-30 19:41 | PC.NURSE ---
Pt has Dexcom and insulin pump. Asked pt if she was keeping track of her glucose levels and how much insulin she was giving herself via her Dexcom and insulin pump. Pt stated she was given a sheet last night that was not collected and never got a new sheet for today. Sheet from last night on the counter top. Sheet from last night only has glucose levels written in and signed by pt. Pt given a new sheet to start at 1900 on 05/30/2025.
[2025-05-30 19:51] VITALS: BP 119/77; PULSE 75; RESP 20; TEMP 36.4; O2SAT 100
[2025-05-30 20:28] VITALS: O2SAT 99
[2025-05-30] MEDS: ONDANSETRON HCL ODT 4 MG TABLET PO (22:56)
[2025-05-31] MEDS: CEFEPIME 2 GM in SODIUM CHLORIDE 0.9% IV 50 ML 100 ML IVPB (00:09)
[2025-05-31] MEDS: VANCOMYCIN 1,500 MG/NS 500 ML 1,500 MG/500 ML BAG 250 MG IVPB ×2 (03:24→22:15)
[2025-05-31 03:38] VITALS: BP 110/65; PULSE 56; RESP 20; TEMP 36.5; O2SAT 100
[2025-05-31 05:23] LABS: Hematocrit 39.4 % (37.0-47.0); Hemoglobin 12.9 g/dL (12.0-15.0); Mean Corpuscular HGB Conc 32.7 g/dl (32-36); Mean Corpuscular Hemoglobin 30.6 pg (26-34); Mean Corpuscular Volume 93.4 fl (80-100); Platelet Count Result 170 k/mm3 (150-375); Red Blood Count 4.22 M/mm3 (4.2-5.4); White Blood Count 7.6 K/mm3 (4.5-10.0)
[2025-05-31 05:51] LABS: Alanine Aminotransferase 56 U/L (6-35); Albumin Level 3.6 g/dL (3.5-5.1); Alkaline Phosphatase 105 U/L (38-126); Anion Gap 6 mmol/L (4-12); Aspartate Amino Transferase 69 U/L (14-36); Bilirubin,Total 0.4 mg/dL (0.2-1.3); Blood Urea Nitrogen 14 mg/dL (7-17); Calcium 8.7 mg/dL (8.4-10.2); Carbon Dioxide 28 mmol/L (22-30); Chloride 106 mmol/L (98-107); Estimated CRCL calculation 82 ml/min; Estimated Glomerular Filt Rate > 60; Glucose 75 mg/dL (65-110); Magnesium 2.4 mg/dL (1.6-2.3); Potassium 3.8 mmol/L (3.4-5.0); Sodium 140 mmol/L (137-145); Total Protein 6.9 g/dL (6.3-8.2)
[2025-05-31] MEDS: metroNIDAZOLE 500 MG/ISO 100ML 500 MG/100 ML BAG 100 MG IVPB (06:53)
--- NOTE | 2025-05-31 07:08 | PC.NURSE ---
Per pt's insulin pump cece, pt receives 16.05 units/day. Pt bolused herself with 2 units of insulin at 1900. Total record of insulin 18.05 units.
[2025-05-31 08:00] VITALS: PULSE 56; RESP 20; O2SAT 100
[2025-05-31] MEDS: ONDANSETRON HCL ODT 4 MG TABLET PO ×2 (08:19→22:31)
[2025-05-31] MEDS: FUROSEMIDE 40 MG TABLET 80 MG PO ×2 (08:19→17:19)
[2025-05-31] MEDS: SPIRONOLACTONE 50 MG TABLET PO (08:19)
[2025-05-31] MEDS: ENOXAPARIN 40 MG/0.4 ML SYRINGE SUB-Q (08:19)
[2025-05-31] MEDS: BACLOFEN 10 MG TABLET 20 MG PO ×3 (08:19→17:19)
[2025-05-31 10:40] VITALS: BMI 39.2
--- NOTE | 2025-05-31 12:18 | P.PNIM_ITS ---
Progress Note: A&P Assessment and Plan (1) Cellulitis: Qualifiers: Site of cellulitis: other site Qualified Code(s): L03.818 - Cellulitis of other sites Code(s): L03.90 - Cellulitis, unspecified Status: Acute Assessment and Plan: patient reports injury to foot with her dog stepping on her right foot and noticed 3 splinters with worsening edema and erythema patient with history of MSSA current treatment with doxycycline right foot XR: No acute fracture and Severe polyarticular osteoarthritis. Reviewed previous micro, grew Staph aureus resistant to Cipro/clindamycin/erythromycin/Bactrim and intermediate to Levaquin and moxifloxacin on 03/26 * hold home p.o. doxycycline. * continue on cefepime, and vancomycin pending blood cultures and wound culture * received DTaP booster * Wound culture and blood culture pending * analgesics p.r.n. * Added CT foot to evaluate object and soft tissue will consult general surgery if needed (2) Diabetes mellitus: Qualifiers: Diabetes mellitus complication status: with other specified complication Diabetes mellitus terminal makeup operator insulin use: unspecified terminal makeup operator insulin use status Diabetes mellitus type: type 2 Qualified Code(s): E11.69 - Type 2 diabetes mellitus with other specified complication Code(s): E11.9 - Type 2 diabetes mellitus without complications Status: Acute Assessment and Plan: * hypoglycemia protocol * POC blood glucose ACHS * home medication: Hold Trulicity. Continue Streglato. * patient okay to use CGM and insulin pump * correct regimen ordered - high dose TIDWM, based off BMI * A1C 7.6% on 03/24/2025 * diabetic diet (3) Essential hypertension: Code(s): I10 - Essential (primary) hypertension Status: Acute Assessment and Plan: * conitnued Spironolactone, Lasix * monitor per unit protocol Plan Code status: Full code per patient DVT prophylaxis: Lovenox Stress ulcer prophylaxis: NA PT/OT notes: Ambulatory Disposition: patient admitted to the medical unit for further evaluation right foot cellulitis continue with IV antibiotics pending wound cultures and blood cultures. CT pending patient is ambulatory on own and plan will be to return home at discharge when medically stable. Time Spent With Patient Time with patient: 15 - 25 minutes Subjective Date/time seen: 05/31/25 12:18 Interval history: Patient is a 45-year-old female admitted for injury to her right foot with worsening edema and erythema she was admitted for further evaluation started on IV antibiotic therapy patient has history MSSA on oral doxycycline outpatient continue IV antibiotics pending cultures 05/31/2025: Patient still reporting moderate pain to foot severe with any touch. Foreign object likely splinter noted to the bottom of the foot. Normal WBC and remained afebrile no chills. Foot is still swollen with erythema CT to evaluate soft tissue and object may need surgery consult. Review of Systems Review of Systems: All systems reviewed & are unremarkable except as noted in HPI and below Exam Narrative: small pinpoint splinter to right great toe and pad of foot, larger Const: General: comfortable and no acute distress Other: , female, nontoxic appearance HENMT: Face/Nose/Sinus: Normal nares present Mouth: Yes moist mucous membranes Eyes: General: appearance normal, both eyes and all related structures Sclera: sclerae normal Pupils: Equal, round and reactive pupils present EOM: EOMs intact bilaterally Resp: Effort & Inspection: normal respiratory effort Auscultation: clear to auscultation bilaterally Cardio: Rate: regular rate Rhythm: regular rhythm Other: S1-S2 present without murmur, rub, ectopy GI: Auscultation: normal bowel sounds Other: Abdomen soft, nondistended, nontender. Normoactive bowel sounds in all quadrants. Skin: General skin exam: no rashes or lesions noted Other: Pinpoint area to right great toe and less than 1 cm area to right great toe that appear to have retained splinter and partial splinter (wood). As well as a 3rd pinpoint area with possible retained splinter between the 2nd metatarsal head and fibular sesamoid. Surrounding erythema, edema and significant tenderness. No areas of fluctuation or areas concerning for abscess. Neuro: Cranial nerves: Yes Equal, round and reactive pupils present Speech: normal speech Motor exam (neuro): 5/5 motor strength present throughout Sensory Exam: normal sensation Other: A&O x4 Extrem: General: normal exam except as noted and edema (Right forefoot) Psych: Mental Status: mental status grossly normal Affect: normal affect Other: Good insight and judgment, very pleasant Objective Data Vital Signs Vital Signs: Vital Signs - 24 hr 05/30/25 13:14 05/30/25 19:51 05/30/25 20:28 Temperature 97.7 F 97.6 F Pulse Rate 62 75 Respiratory Rate 16 20 Blood Pressure 136/69 119/77 Pulse Oximetry 99 100 99 Oxygen Delivery Room Air 05/30/25 20:32 05/31/25 03:38 05/31/25 08:00 Temperature 97.7 F Pulse Rate 56 L 56 L Respiratory Rate 20 20 Blood Pressure 110/65 Pulse Oximetry 100 100 Oxygen Delivery Room Air Room Air Intake/Output Intake/Output: Intake & Output 05/28/25 05/29/25 05/30/25 05/31/25 23:59 23:59 23:59 23:59 Intake Total 730 2640 1062 Balance 730 2640 1062 Meds/Results Medications: Active Medications Generic Name Dose Route Start Last Admin Trade Name Freq PRN Reason Stop Dose Admin Acetaminophen 1,000 mg 05/29/25 14:23 Acetaminophen 500 Mg Tablet PO Q6H PRN Mild Pain (1-3) or Fever Albuterol 2 puff 05/29/25 19:48 Albuterol Sulfate (*Sp) Aerosol 1 Puff INHALATION QID PRN shortness of breath or wheezing Baclofen 20 mg 05/29/25 20:00 05/31/25 08:19 Baclofen 10 Mg Tablet PO 20 mg TID [facility] Administration Buspirone HCl 30 mg 05/29/25 21:00 05/30/25 22:38 Buspirone Hcl 10 Mg Tablet PO 30 mg HS [facility] Administration Dextrose 12.5 gm 05/29/25 14:23 Dextrose 50% 25 Gm/50 Ml Syringe IV PUSH PRN PRN Hypoglycemia Protocol Enoxaparin Sodium 40 mg 05/30/25 09:00 05/31/25 08:19 Enoxaparin 40 Mg/0.4 Ml Syringe SUB-Q 40 mg DAILY [facility] Administration Fluoxetine HCl 60 mg 05/29/25 23:00 05/30/25 22:37 Fluoxetine Hcl 20 Mg Capsule PO 60 mg Q24H [facility] Administration Furosemide 80 mg 05/30/25 09:00 05/31/25 08:19 Furosemide 40 Mg Tablet PO 80 mg BID [place] Administration Glucagon 1 mg 05/29/25 14:23 Glucagon For Inj 1 Mg Vial IM PRN PRN Hypoglycemia Protocol Glucose 15 gm 05/29/25 14:23 Glucose Oral Gel 15 Gm Of Glucse In 37.5 Gm Tube PO PRN PRN Hypoglycemia Protocol Hydromorphone HCl 0.5 mg 05/29/25 19:50 05/30/25 22:45 Hydromorphone Hcl Inj (*Crx) 2 Mg/Ml Vial IV PUSH 0.5 mg Q3H PRN Administration Pain Rated 7-10 Dextrose 1,000 mls @ 100 mls/hr 05/29/25 14:23 Dextrose 5% 1,000 Ml IVPB PRN PRN Hypoglycemia Protocol Vancomycin HCl 1,500 mg in 500 mls @ 250 mls/hr 05/30/25 09:00 05/31/25 05:24 Vancomycin 1,500 Mg/Ns 500 Ml IVPB Infused Q18H [facility] Infusion Ceftriaxone Sodium 2 gm/ 100 mls @ 200 mls/hr 06/01/25 11:00 Sodium Chloride IVPB DAILY [facility] Insulin Aspart 4 - 8 units 05/29/25 17:00 05/31/25 11:47 Insulin Aspart (*Bkc) 100 Units/Ml SUB-Q Not Given TIDWM [facility] Protocol Ketorolac Tromethamine 30 mg 05/29/25 13:25 05/29/25 22:53 Ketorolac 30 Mg/Ml Vial (*Bkc) IV PUSH 06/03/25 13:24 30 mg Q6H PRN Administration Pain Rated 4-6 Miscellaneous Information 1 each 05/30/25 00:01 Please Send Pt's Home Med Steglatro To Pharmacy For Verification When Available XX 06/29/25 00:00 CLARIFY [facility] Non-Formulary Medication 15 mg 05/30/25 09:00 Ertugliflozin [Steglatro] PO 06/29/25 08:59 DAILY [facility] Ondansetron HCl 4 mg 05/29/25 14:23 05/31/25 08:19 Ondansetron Hcl Odt 4 Mg Tablet PO 4 mg Q6H PRN Administration Nausea And Vomiting Potassium Chloride 10 meq 05/29/25 21:00 Potassium Chloride 10 Meq Er Tablet PO .Q12HR [facility] Sodium Chloride 10 ml 05/31/25 14:00 Saline Lock Flush IV PUSH Q8HR [facility] Sodium Chloride 10 ml 05/31/25 06:37 Saline Lock Flush IV PUSH PRN PRN Flush Sodium Chloride 20 ml 05/31/25 06:37 Saline Lock Flush IV PUSH PRN PRN after blood draws Spironolactone 50 mg 05/30/25 09:00 05/31/25 08:19 Spironolactone 50 Mg Tablet PO 50 mg DAILY [facility] Administration Trazodone HCl 150 mg 05/29/25 21:00 05/30/25 22:37 Trazodone Hcl 50 Mg Tablet PO 150 mg HS [facility] Administration Radiology Results: ITS Impressions Foot X-Ray 05/29/25 12:10 Impression: 1: No acute fracture. 2: Severe polyarticular osteoarthritis. Labs Labs: Laboratory Results - last 24 hr 05/30/25 05/30/25 05/31/25 16:51 19:55 05:06 WBC 7.6 RBC 4.22 Hgb 12.9 Hct 39.4 MCV 93.4 MCH 30.6 MCHC 32.7 RDW 13.3 Plt Count 170 MPV 9.1 Sodium 140 Potassium 3.8 Chloride 106 Carbon Dioxide 28 Anion Gap 6 BUN 14 Creatinine 0.98 Estim Creat Clear Calc 82 Estimated GFR > 60 Glucose 75 POC Capillary Glucose 134 H 135 H Calcium 8.7 Magnesium 2.4 H Total Bilirubin 0.4 AST 69 H ALT 56 H Alkaline Phosphatase 105 Total Protein 6.9 Albumin 3.6 05/31/25 05/31/25 07:45 11:32 WBC RBC Hgb Hct MCV MCH MCHC RDW Plt Count MPV Sodium Potassium Chloride Carbon Dioxide Anion Gap BUN Creatinine Estim Creat Clear Calc Estimated GFR Glucose POC Capillary Glucose 96 107 H Calcium Magnesium Total Bilirubin AST ALT Alkaline Phosphatase Total Protein Albumin Quality VTE Prophylaxis VTE prophylaxis: pharmacologic ordered -Patient's previous records reviewed on admission -ER notes reviewed in detail on admission -discussed all findings and current treatment plan with patient/Family/POA -Consultations reviewed for recommendations -Patient's disposition for safe discharge discussed with telehealth case manager Dictation performed by [employer] direct speech recognition software, therefore double bass player variants and typographical errors may occur. Hospitalist MIPS Advance Care Plan I have confirmed that the patient's Advanced Care Plan is present, code status is documented, or surrogate decision maker is listed in patient medical record.: Yes Medication Reconciliation I have utilized all available resources to obtain, update and review the patients current medications (includes all prescriptions, OTC, herbals, cannabis, and nutritional supplements).: Yes The patient is not eligible for med reconciliation; the patient is in a emergent medical situation where delaying treatment would jeopardize the patients health.: No
[2025-05-31] MEDS: SALINE LOCK FLUSH 10 ML IV PUSH ×2 (13:40→22:15)
[2025-05-31] MEDS: HYDROmorphone HCL INJ (*CRX) 2 MG/ML VIAL 0.5 MG IV PUSH ×2 (13:47→22:20)
[2025-05-31 13:59] VITALS: BP 146/79; PULSE 64; RESP 16; TEMP 36.4; O2SAT 98
--- NOTE | 2025-05-31 14:02 | PHAR ---
PHARMACY VERIFIED PT'S HOME MED HUMULIN R [id number] INSULIN VIAL THAT SHE USES IN HER INSULIN PUMP.
[2025-05-31 20:13] VITALS: BP 122/78; PULSE 71; RESP 20; TEMP 36.5; O2SAT 99
[2025-05-31] MEDS: KETOROLAC 30 MG/ML VIAL (*BKC) IV PUSH (20:39)
[2025-05-31 21:47] VITALS: PULSE 65; RESP 20; O2SAT 95
[2025-06-01 04:54] VITALS: BP 121/71; PULSE 69; RESP 20; TEMP 36.5; O2SAT 100
[2025-06-01] MEDS: SALINE LOCK FLUSH 10 ML IV PUSH ×3 (05:37→22:18)
[2025-06-01 06:01] LABS: Hematocrit 40.1 % (37.0-47.0); Hemoglobin 13.2 g/dL (12.0-15.0); Mean Corpuscular HGB Conc 32.9 g/dl (32-36); Mean Corpuscular Hemoglobin 30.6 pg (26-34); Mean Corpuscular Volume 92.8 fl (80-100); Platelet Count Result 180 k/mm3 (150-375); Red Blood Count 4.32 M/mm3 (4.2-5.4); White Blood Count 7.6 K/mm3 (4.5-10.0)
[2025-06-01 06:28] LABS: Alanine Aminotransferase 41 U/L (6-35); Albumin Level 3.6 g/dL (3.5-5.1); Alkaline Phosphatase 72 U/L (38-126); Anion Gap 6 mmol/L (4-12); Aspartate Amino Transferase 35 U/L (14-36); Bilirubin,Total 0.4 mg/dL (0.2-1.3); Blood Urea Nitrogen 14 mg/dL (7-17); Calcium 8.8 mg/dL (8.4-10.2); Carbon Dioxide 29 mmol/L (22-30); Chloride 106 mmol/L (98-107); Estimated CRCL calculation 79 ml/min; Estimated Glomerular Filt Rate 58; Glucose 99 mg/dL (65-110); Magnesium 2.3 mg/dL (1.6-2.3); Potassium 3.3 mmol/L (3.4-5.0); Sodium 141 mmol/L (137-145); Total Protein 7.0 g/dL (6.3-8.2)
--- NOTE | 2025-06-01 08:55 | P.PNIM_ITS ---
Progress Note: A&P Assessment and Plan (1) Cellulitis: Qualifiers: Site of cellulitis: other site Qualified Code(s): L03.818 - Cellulitis of other sites Code(s): L03.90 - Cellulitis, unspecified Status: Acute Assessment and Plan: patient reports injury to foot with her dog stepping on her right foot and noticed 3 splinters with worsening edema and erythema patient with history of MSSA current treatment with doxycycline right foot XR: No acute fracture and Severe polyarticular osteoarthritis. Reviewed previous micro, grew Staph aureus resistant to Cipro/clindamycin/erythromycin/Bactrim and intermediate to Levaquin and moxifloxacin on 03/26 * hold home p.o. doxycycline. * continue on cefepime, and vancomycin pending blood cultures and wound culture * received DTaP booster * Wound culture and blood culture pending * analgesics p.r.n. * Added CT foot to evaluate object and soft tissue will consult general surgery if needed 06/01- gen surgery consulted- awaiting recommendation Continue IV antibiotics, NPO after midnight. surgery for foreign body removal (2) Diabetes mellitus: Qualifiers: Diabetes mellitus complication status: with other specified complication Diabetes mellitus medical terminologist insulin use: unspecified medical terminologist insulin use status Diabetes mellitus type: type 2 Qualified Code(s): E11.69 - Type 2 diabetes mellitus with other specified complication Code(s): E11.9 - Type 2 diabetes mellitus without complications Status: Acute Assessment and Plan: * hypoglycemia protocol * POC blood glucose ACHS * home medication: Hold Trulicity. Continue Streglato. * patient okay to use CGM and insulin pump * correct regimen ordered - high dose TIDWM, based off BMI * A1C 7.6% on 03/24/2025 * diabetic diet (3) Essential hypertension: Code(s): I10 - Essential (primary) hypertension Status: Acute Assessment and Plan: * conitnue Spironolactone, Lasix * monitor per unit protocol Plan Code status: Full code per patient DVT prophylaxis: Lovenox Stress ulcer prophylaxis: NA PT/OT notes: Ambulatory Disposition: patient admitted to the medical unit for further evaluation right foot cellulitis continue with IV antibiotics pending wound cultures and blood cultures. CT pending patient is ambulatory on own and plan will be to return home at discharge when medically stable. Time Spent With Patient Time with patient: 25 - 35 minutes Subjective Date/time seen: 06/01/25 08:55 Interval history: Patient is a 45-year-old female admitted for injury to her right foot with worsening edema and erythema she was admitted for further evaluation started on IV antibiotic therapy patient has history MSSA on oral doxycycline outpatient continue IV antibiotics pending cultures 05/31/2025: Patient still reporting moderate pain to foot severe with any touch. Foreign object likely splinter noted to the bottom of the foot. Normal WBC and remained afebrile no chills. Foot is still swollen with erythema CT to evaluate soft tissue and object may need surgery consult. 06/01/2025: assuming care. Pt is seen and examined. surgery schedule for tomorrow morning. Continue IV antibiotics, NPO after midnight. Review of Systems Review of Systems: All systems reviewed & are unremarkable except as noted in HPI and below Exam Narrative: small pinpoint splinter to right great toe and pad of foot, larger Const: General: comfortable and no acute distress Other: , female, nontoxic appearance HENMT: Face/Nose/Sinus: Normal nares present Mouth: Yes moist mucous membranes Eyes: General: appearance normal, both eyes and all related structures Sclera: sclerae normal Pupils: Equal, round and reactive pupils present EOM: EOMs intact bilaterally Resp: Effort & Inspection: normal respiratory effort Auscultation: clear to auscultation bilaterally Cardio: Rate: regular rate Rhythm: regular rhythm Other: S1-S2 present without murmur, rub, ectopy GI: Auscultation: normal bowel sounds Other: Abdomen soft, nondistended, nontender. Normoactive bowel sounds in all quadrants. Skin: General skin exam: no rashes or lesions noted Other: Pinpoint area to right great toe and less than 1 cm area to right great toe that appear to have retained splinter and partial splinter (wood). As well as a 3rd pinpoint area with possible retained splinter between the 2nd metatarsal head and fibular sesamoid. Surrounding erythema, edema and significant tenderness. No areas of fluctuation or areas concerning for abscess. Neuro: Cranial nerves: Yes Equal, round and reactive pupils present Speech: normal speech Motor exam (neuro): 5/5 motor strength present throughout Sensory Exam: normal sensation Other: A&O x4 Extrem: General: normal exam except as noted and edema (Right forefoot) Psych: Mental Status: mental status grossly normal Affect: normal affect Other: Good insight and judgment, very pleasant Objective Data Vital Signs Vital Signs: Vital Signs - 24 hr 05/31/25 13:59 05/31/25 20:13 05/31/25 20:40 Temperature 97.5 F L 97.7 F Pulse Rate 64 71 Respiratory Rate 16 20 Blood Pressure 146/79 H 122/78 Pulse Oximetry 98 99 Oxygen Delivery Room Air Fraction of Inspired Oxygen 05/31/25 21:47 06/01/25 04:54 Temperature 97.7 F Pulse Rate 65 69 Respiratory Rate 20 20 Blood Pressure 121/71 Pulse Oximetry 95 100 Oxygen Delivery Room Air Fraction of Inspired Oxygen 21 Intake/Output Intake/Output: Intake & Output 05/29/25 05/30/25 05/31/25 06/01/25 23:59 23:59 23:59 23:59 Intake Total 730 2640 2828 890 Balance 730 2640 2828 890 Meds/Results Medications: Active Medications Generic Name Dose Route Start Last Admin Trade Name Freq PRN Reason Stop Dose Admin Acetaminophen 1,000 mg 05/29/25 14:23 Acetaminophen 500 Mg Tablet PO Q6H PRN Mild Pain (1-3) or Fever Albuterol 2 puff 05/29/25 19:48 Albuterol Sulfate (*Sp) Aerosol 1 Puff INHALATION QID PRN shortness of breath or wheezing Baclofen 20 mg 05/29/25 20:00 05/31/25 17:19 Baclofen 10 Mg Tablet PO 20 mg TID SYDNEY Administration Buspirone HCl 30 mg 05/29/25 21:00 05/31/25 22:14 Buspirone Hcl 10 Mg Tablet PO 30 mg HS SYDNEY Administration Dextrose 12.5 gm 05/29/25 14:23 Dextrose 50% 25 Gm/50 Ml Syringe IV PUSH PRN PRN Hypoglycemia Protocol Enoxaparin Sodium 40 mg 05/30/25 09:00 05/31/25 08:19 Enoxaparin 40 Mg/0.4 Ml Syringe SUB-Q 40 mg DAILY SYDNEY Administration Fluoxetine HCl 60 mg 05/29/25 23:00 05/31/25 22:14 Fluoxetine Hcl 20 Mg Capsule PO 60 mg Q24H SYDNEY Administration Furosemide 80 mg 05/30/25 09:00 05/31/25 17:19 Furosemide 40 Mg Tablet PO 80 mg BID SYDNEY Administration Glucagon 1 mg 05/29/25 14:23 Glucagon For Inj 1 Mg Vial IM PRN PRN Hypoglycemia Protocol Glucose 15 gm 05/29/25 14:23 Glucose Oral Gel 15 Gm Of Glucse In 37.5 Gm Tube PO PRN PRN Hypoglycemia Protocol Hydromorphone HCl 0.5 mg 05/29/25 19:50 05/31/25 22:20 Hydromorphone Hcl Inj (*Crx) 2 Mg/Ml Vial IV PUSH 0.5 mg Q3H PRN Administration Pain Rated 7-10 Dextrose 1,000 mls @ 100 mls/hr 05/29/25 14:23 Dextrose 5% 1,000 Ml IVPB PRN PRN Hypoglycemia Protocol Vancomycin HCl 1,500 mg in 500 mls @ 250 mls/hr 05/30/25 09:00 06/01/25 00:15 Vancomycin 1,500 Mg/Ns 500 Ml IVPB Infused Q18H SYDNEY Infusion Ceftriaxone Sodium 2 gm/ 100 mls @ 200 mls/hr 06/01/25 11:00 Sodium Chloride IVPB DAILY SYDNYE Insulin Aspart 4 - 8 units 05/29/25 17:00 06/01/25 07:35 Insulin Aspart (*Bkc) 100 Units/Ml SUB-Q Not Given TIDWM [facility] Protocol Ketorolac Tromethamine 30 mg 05/29/25 13:25 05/31/25 20:39 Ketorolac 30 Mg/Ml Vial (*Bkc) IV PUSH 06/03/25 13:24 30 mg Q6H PRN Administration Pain Rated 4-6 Miscellaneous Information 1 each 05/30/25 00:01 Please Send Pt's Home Med Steglatro To Pharmacy For Verification When Available XX 06/29/25 00:00 CLARIFY SYDNEY Miscellaneous Information 1 each 06/01/25 00:01 Pharmacy Verified Pt's Home Med Humulin R U-500 Insulin That She Uses In Her Insulin Pump, XX 07/01/25 00:00 CLARIFY [facility] Non-Formulary Medication 15 mg 05/30/25 09:00 Ertugliflozin [Steglatro] PO 06/29/25 08:59 DAILY SYDNEY Ondansetron HCl 4 mg 05/29/25 14:23 05/31/25 22:31 Ondansetron Hcl Odt 4 Mg Tablet PO 4 mg Q6H PRN Administration Nausea And Vomiting Potassium Chloride 10 meq 05/29/25 21:00 Potassium Chloride 10 Meq Er Tablet PO .Q12HR SYDNEY Sodium Chloride 10 ml 05/31/25 14:00 06/01/25 05:37 Saline Lock Flush IV PUSH 10 ml Q8HR SYDNEY Administration Sodium Chloride 10 ml 05/31/25 06:37 Saline Lock Flush IV PUSH PRN PRN Flush Sodium Chloride 20 ml 05/31/25 06:37 Saline Lock Flush IV PUSH PRN PRN after blood draws Spironolactone 50 mg 05/30/25 09:00 05/31/25 08:19 Spironolactone 50 Mg Tablet PO 50 mg DAILY SYDNEY Administration Trazodone HCl 150 mg 05/29/25 21:00 05/31/25 22:14 Trazodone Hcl 50 Mg Tablet PO 150 mg HS SYDNEY Administration Radiology Results: ITS Impressions Foot X-Ray 05/29/25 12:10 Impression: 1: No acute fracture. 2: Severe polyarticular osteoarthritis. Foot CT 05/31/25 15:06 IMPRESSION: 8 mm long, radiopaque, likely metallic foreign body in the soft tissues of the ball of the right foot, superficial to the interspace between the proximal aspect of the first and second proximal phalanges. May represent a small piece of metallic wire or needle fragment. Likely surrounding cellulitis. No definite soft tissue fluid collection. Labs Labs: Laboratory Results - last 24 hr 05/31/25 05/31/25 05/31/25 11:32 16:38 19:49 WBC RBC Hgb Hct MCV MCH MCHC RDW Plt Count MPV Sodium Potassium Chloride Carbon Dioxide Anion Gap BUN Creatinine Estim Creat Clear Calc Estimated GFR Glucose POC Capillary Glucose 107 H 110 H Calcium Magnesium Total Bilirubin AST ALT Alkaline Phosphatase Total Protein Albumin Vancomycin Trough 11.4 05/31/25 06/01/25 06/01/25 20:17 05:49 07:28 WBC 7.6 RBC 4.32 Hgb 13.2 Hct 40.1 MCV 92.8 MCH 30.6 MCHC 32.9 RDW 13.5 Plt Count 180 MPV 9.0 Sodium 141 Potassium 3.3 L Chloride 106 Carbon Dioxide 29 Anion Gap 6 BUN 14 Creatinine 1.03 H Estim Creat Clear Calc 79 Estimated GFR 58 L Glucose 99 POC Capillary Glucose 118 H 100 Calcium 8.8 Magnesium 2.3 Total Bilirubin 0.4 AST 35 ALT 41 H Alkaline Phosphatase 72 Total Protein 7.0 Albumin 3.6 Vancomycin Trough Quality VTE Prophylaxis VTE prophylaxis: pharmacologic ordered
[2025-06-01] MEDS: POTASSIUM CHLORIDE 20 MEQ ER TABLET PO ×2 (09:17→22:14)
[2025-06-01] MEDS: BACLOFEN 10 MG TABLET 20 MG PO ×3 (09:18→16:27)
[2025-06-01 09:19] VITALS: RESP 20; O2SAT 100
[2025-06-01] MEDS: SPIRONOLACTONE 50 MG TABLET PO (09:19)
[2025-06-01] MEDS: FUROSEMIDE 40 MG TABLET 80 MG PO ×2 (09:19→16:27)
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
[2025-06-01] MEDS: cefTRIAXone 2 GM in SODIUM CHLORIDE 0.9% IV 100 ML 200 ML IVPB (10:50)
[2025-06-01] MEDS: HYDROmorphone HCL INJ (*CRX) 2 MG/ML VIAL 0.5 MG IV PUSH ×2 (12:14→22:16)
[2025-06-01 14:00] VITALS: BP 124/67; PULSE 61; RESP 14; TEMP 36.4; O2SAT 99
[2025-06-01] MEDS: VANCOMYCIN 1,500 MG/NS 500 ML 1,500 MG/500 ML BAG 250 MG IVPB (15:06)
[2025-06-01] MEDS: KETOROLAC 30 MG/ML VIAL (*BKC) IV PUSH (15:15)
[2025-06-01] MEDS: ONDANSETRON HCL ODT 4 MG TABLET PO (15:15)
[2025-06-01 20:21] VITALS: BP 136/85; PULSE 68; RESP 20; TEMP 36.2; O2SAT 99
[2025-06-02] VITALS (13 sets, daily range): BP systolic 104–130; BP diastolic 54–91; PULSE 55–69; RESP 14–20; TEMP 36.1–36.8; O2SAT 94–100
[2025-06-02 04:45] LABS: Hematocrit 38.3 % (37.0-47.0); Hemoglobin 12.7 g/dL (12.0-15.0); Mean Corpuscular HGB Conc 33.2 g/dl (32-36); Mean Corpuscular Hemoglobin 30.3 pg (26-34); Mean Corpuscular Volume 91.4 fl (80-100); Platelet Count Result 174 k/mm3 (150-375); Red Blood Count 4.19 M/mm3 (4.2-5.4); White Blood Count 7.1 K/mm3 (4.5-10.0)
[2025-06-02 05:11] LABS: Alanine Aminotransferase 36 U/L (6-35); Albumin Level 3.5 g/dL (3.5-5.1); Alkaline Phosphatase 70 U/L (38-126); Anion Gap 5 mmol/L (4-12); Aspartate Amino Transferase 31 U/L (14-36); Bilirubin,Total 0.3 mg/dL (0.2-1.3); Blood Urea Nitrogen 15 mg/dL (7-17); Calcium 8.7 mg/dL (8.4-10.2); Carbon Dioxide 29 mmol/L (22-30); Chloride 107 mmol/L (98-107); Estimated CRCL calculation 81 ml/min; Estimated Glomerular Filt Rate 60; Glucose 69 mg/dL (65-110); Magnesium 2.3 mg/dL (1.6-2.3); Potassium 3.4 mmol/L (3.4-5.0); Sodium 141 mmol/L (137-145); Total Protein 6.7 g/dL (6.3-8.2)
[2025-06-02] MEDS: DEXTROSE 50% 25 GM/50 ML SYRINGE IV PUSH (05:51)
[2025-06-02] MEDS: SALINE LOCK FLUSH 10 ML IV PUSH (05:51)
--- NOTE | 2025-06-02 06:51 | P.PNIM_ITS ---
Progress Note: A&P Assessment and Plan (1) Cellulitis: Qualifiers: Site of cellulitis: other site Qualified Code(s): L03.818 - Cellulitis of other sites Code(s): L03.90 - Cellulitis, unspecified Status: Acute Assessment and Plan: Patient reports injury to foot with her dog stepping on her right foot and noticed 3 splinters with worsening edema and erythema Patient with history of MSSA of the buttock, current treatment with doxycycline which is on hold Right foot XR: No acute fracture and Severe polyarticular osteoarthritis. Right foot CT: 8 mm long, radiopaque, likely metallic foreign body in the soft tissues of the ball of the right foot, superficial to the interspace between the proximal aspect of the first and second proximal phalanges. May represent a small piece of metallic wire or needle fragment. Likely surrounding cellulitis. No definite soft tissue fluid collection. Reviewed previous micro, grew Staph aureus resistant to Cipro/clindamycin/erythromycin/Bactrim and intermediate to Levaquin and moxifloxacin on 03/26 - Antibiotics: cefepime and vancomycin started on 05/29 - Pending blood cultures and wound culture - Received DTaP booster - Monitor vital signs, I&Os, neuro status and patient is a fall risk - Monitor serum electrolytes, CBC, cultures, WBC and temp curve - Consult general surgeon S/p removal of foreign body from right foot today with Dr. Tatum (2) Diabetes mellitus: Qualifiers: Diabetes mellitus complication status: with other specified complication Diabetes mellitus correction insulin use: unspecified correction insulin use status Diabetes mellitus type: type 2 Qualified Code(s): E11.69 - Type 2 diabetes mellitus with other specified complication Code(s): E11.9 - Type 2 diabetes mellitus without complications Status: Acute Assessment and Plan: - hypoglycemia protocol - POC blood glucose ACHS - home medication: Hold Trulicity. Continue Streglato. - Patient okay to use CGM and insulin pump - Correct regimen ordered - high dose TIDWM, based off BMI - A1C 7.6 on 03/24 Glucose remains stable. Continue to monitor. (3) Essential hypertension: Code(s): I10 - Essential (primary) hypertension Status: Acute Assessment and Plan: Chronic, continue home medication - Spironolactone 50 mg daily - Lasix 80 mg BID - blood pressures remain stable, continue to monitor per unit protocol Time Spent With Patient Time with patient: 25 - 35 minutes Subjective Date/time seen: 06/02/25 06:51 Interval history: 45 year old female with past medical history of morbid obesity, hypertension, hyperlipidemia, diabetes mellitus, peripheral neuropathy, GERD, anxiety, depression, recent buttock cellulitis/abscess (culture grew staph aureus on 03/26), PTSD, among other comorbidities presents to the hospital with right foot pain. Patient is pleasant sitting up comfortably in bed. She underwent a foreign body removal with Dr. Tatum today. She states pain is well controlled on the current regimen. She notes chronic neuropathy to the toes. She has no other complaints denying chest pain, shortness of breath, palpitations, nausea/vomiting and abdominal pain. Review of Systems Review of Systems: All systems reviewed & are unremarkable except as noted in HPI and below Exam Narrative: AF HR 64 RR 16 SPO2 100 BP 128/81 General: female in no acute respiratory distress who is nontoxic appearing, sitting up in bed. HEENT: Normocephalic. Atraumatic. Extraocular movement intact. Sclera clear and anicteric. No facial asymmetry. Chest: Lungs are clear to auscultation bilaterally. No wheezes or crackles. CV: Heart was regular rate and rhythm. S1-S2. No murmurs, gallops, or rubs. Abd: Abdomen was soft. Nontender. Nondistended. Positive bowel sounds. Ext: No clubbing, cyanosis, or edema. DP pulses bilaterally. Surgical dressing is clean dry and intact. Wiggling toes. Neuro: Patient is alert and oriented x3. Speech is clear. Objective Data Vital Signs Vital Signs: Vital Signs - 24 hr 06/01/25 09:19 06/01/25 14:00 06/01/25 20:21 Temperature 97.5 F L 97.2 F L Pulse Rate 61 68 Respiratory Rate 20 14 20 Blood Pressure 124/67 136/85 Pulse Oximetry 100 99 99 Oxygen Delivery Room Air 06/01/25 20:46 06/02/25 03:19 Temperature 97.7 F Pulse Rate 68 Respiratory Rate 20 Blood Pressure 108/54 L Pulse Oximetry 99 Oxygen Delivery Room Air Intake/Output Intake/Output: Intake & Output 05/30/25 05/31/25 06/01/25 06/02/25 23:59 23:59 23:59 23:59 Intake Total 2640 2828 3496 120 Balance 2640 2828 3496 120 Meds/Results Medications: Active Medications Generic Name Dose Route Start Last Admin Trade Name Freq PRN Reason Stop Dose Admin Acetaminophen 1,000 mg 05/29/25 14:23 Acetaminophen 500 Mg Tablet PO Q6H PRN Mild Pain (1-3) or Fever Albuterol 2 puff 05/29/25 19:48 Albuterol Sulfate (*Sp) Aerosol 1 Puff INHALATION QID PRN shortness of breath or wheezing Baclofen 20 mg 05/29/25 20:00 06/01/25 16:27 Baclofen 10 Mg Tablet PO 20 mg TID SYDNEY Administration Buspirone HCl 30 mg 05/29/25 21:00 06/01/25 22:14 Buspirone Hcl 10 Mg Tablet PO 30 mg HS SYDNEY Administration Dextrose 12.5 gm 05/29/25 14:23 06/02/25 05:51 Dextrose 50% 25 Gm/50 Ml Syringe IV PUSH 12.5 gm PRN PRN Administration Hypoglycemia Protocol Enoxaparin Sodium 40 mg 05/30/25 09:00 06/01/25 09:18 Enoxaparin 40 Mg/0.4 Ml Syringe SUB-Q Not Given DAILY SYDNEY Fluoxetine HCl 60 mg 05/29/25 23:00 06/01/25 22:13 Fluoxetine Hcl 20 Mg Capsule PO 60 mg Q24H SYDNEY Administration Furosemide 80 mg 05/30/25 09:00 06/01/25 16:27 Furosemide 40 Mg Tablet PO 80 mg BID SYDNEY Administration Glucagon 1 mg 05/29/25 14:23 Glucagon For Inj 1 Mg Vial IM PRN PRN Hypoglycemia Protocol Glucose 15 gm 05/29/25 14:23 Glucose Oral Gel 15 Gm Of Glucse In 37.5 Gm Tube PO PRN PRN Hypoglycemia Protocol Hydromorphone HCl 0.5 mg 05/29/25 19:50 06/01/25 22:16 Hydromorphone Hcl Inj (*Crx) 2 Mg/Ml Vial IV PUSH 0.5 mg Q3H PRN Administration Pain Rated 7-10 Dextrose 1,000 mls @ 100 mls/hr 05/29/25 14:23 Dextrose 5% 1,000 Ml IVPB PRN PRN Hypoglycemia Protocol Vancomycin HCl 1,500 mg in 500 mls @ 250 mls/hr 05/30/25 09:00 06/01/25 17:08 Vancomycin 1,500 Mg/Ns 500 Ml IVPB Infused Q18H SYDNEY Infusion Ceftriaxone Sodium 2 gm/ 100 mls @ 200 mls/hr 06/01/25 11:00 06/01/25 11:20 Sodium Chloride IVPB Infused DAILY SYDNEY Infusion Insulin Aspart 4 - 8 units 05/29/25 17:00 06/01/25 16:29 Insulin Aspart (*Bkc) 100 Units/Ml SUB-Q Not Given TIDWM [facility] Protocol Ketorolac Tromethamine 30 mg 05/29/25 13:25 06/01/25 15:15 Ketorolac 30 Mg/Ml Vial (*Bkc) IV PUSH 06/03/25 13:24 30 mg Q6H PRN Administration Pain Rated 4-6 Miscellaneous Information 1 each 05/30/25 00:01 Please Send Pt's Home Med Steglatro To Pharmacy For Verification When Available XX 06/29/25 00:00 CLARIFY SYDNEY Miscellaneous Information 1 each 06/01/25 00:01 06/01/25 09:18 Pharmacy Verified Pt's Home Med Humulin R U-500 Insulin That She Uses In Her Insulin Pump, XX 07/01/25 00:00 Not Given CLARIFY SYDNEY Non-Formulary Medication 15 mg 05/30/25 09:00 Ertugliflozin [Steglatro] PO 06/29/25 08:59 DAILY SYDNEY Ondansetron HCl 4 mg 05/29/25 14:23 06/01/25 15:15 Ondansetron Hcl Odt 4 Mg Tablet PO 4 mg Q6H PRN Administration Nausea And Vomiting Potassium Chloride 20 meq 06/01/25 09:03 06/01/25 22:14 Potassium Chloride 20 Meq Er Tablet PO 20 meq Q12HR SYDNEY Administration Sodium Chloride 10 ml 05/31/25 14:00 06/02/25 05:51 Saline Lock Flush IV PUSH 10 ml Q8HR SYDNEY Administration Sodium Chloride 10 ml 05/31/25 06:37 Saline Lock Flush IV PUSH PRN PRN Flush Sodium Chloride 20 ml 05/31/25 06:37 Saline Lock Flush IV PUSH PRN PRN after blood draws Spironolactone 50 mg 05/30/25 09:00 06/01/25 09:19 Spironolactone 50 Mg Tablet PO 50 mg DAILY SYDNEY Administration Trazodone HCl 150 mg 05/29/25 21:00 06/01/25 22:14 Trazodone Hcl 50 Mg Tablet PO 150 mg HS SYDNEY Administration Radiology Results: ITS Impressions Foot X-Ray 05/29/25 12:10 Impression: 1: No acute fracture. 2: Severe polyarticular osteoarthritis. Foot CT 05/31/25 15:06 IMPRESSION: 8 mm long, radiopaque, likely metallic foreign body in the soft tissues of the ball of the right foot, superficial to the interspace between the proximal as pect of the first and second proximal phalanges. May represent a small piece of metallic wire or needle fragment. Likely surrounding cellulitis. No definite soft tissue fluid collection. Labs Labs: Laboratory Results - last 24 hr 06/01/25 06/01/25 06/01/25 07:28 11:29 16:25 WBC RBC Hgb Hct MCV MCH MCHC RDW Plt Count MPV Sodium Potassium Chloride Carbon Dioxide Anion Gap BUN Creatinine Estim Creat Clear Calc Estimated GFR Glucose POC Capillary Glucose 100 91 115 H Calcium Magnesium Total Bilirubin AST ALT Alkaline Phosphatase Total Protein Albumin 06/01/25 06/02/25 06/02/25 20:27 04:15 06:05 WBC 7.1 RBC 4.19 L Hgb 12.7 Hct 38.3 MCV 91.4 MCH 30.3 MCHC 33.2 RDW 13.7 Plt Count 174 MPV 9.2 Sodium 141 Potassium 3.4 Chloride 107 Carbon Dioxide 29 Anion Gap 5 BUN 15 Creatinine 1.00 Estim Creat Clear Calc 81 Estimated GFR 60 Glucose 69 POC Capillary Glucose 103 135 H Calcium 8.7 Magnesium 2.3 Total Bilirubin 0.3 AST 31 ALT 36 H Alkaline Phosphatase 70 Total Protein 6.7 Albumin 3.5 Quality VTE Prophylaxis VTE prophylaxis: pharmacologic ordered
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
--- NOTE | 2025-06-02 07:14 | WPDHPUPDATE1 ---
History and Physical Update Update Date/Time: 06/02/25 07:14 History and Physical has been reviewed, including an updated exam of the patient. There are NO changes in the patient's condition. Risks, benefits, and alternatives have been discussed and questions answered. Patient agrees to proceed with procedure.
--- NOTE | 2025-06-02 07:48 | S_PTH ---
PATIENT: Sabina Dash LOC: [id number] U#:[id number] AGE/SX: 45/F ROOM: 242 RE05/30/[address]: Kathi Darden PA-C : [id number] BED: 01 DIS: 06/04/2025 SPEC #: [id number] RECD: 06/02/25 08:02 STATUS: FRANCISCO DONNA #: [id number] DONI: 06/02/25 07:[address]: Julia Tatum DEPT: [facility] Surgical RECD BY: [place] ENTERED: 06/02/25 08:03 SP TYPE: Surgical OTHR DR: OMER Tierney MD Izabella L. Timmons, PA-C James P. WadeMD Tissues: A - Foreign Body Procedures: Gross Exam Level 1
[2025-06-02] MEDS: BUPIVACAINE/EPINEPHRINE 0.5% 50 ML VIAL 20 ML INFILTRATE (07:53)
[2025-06-02] MEDS: LACTATED RINGERS 1,000 ML 30 ML IV CONT (08:00)
--- NOTE | 2025-06-02 08:02 | P.OP_ITS ---
Procedure Note - Detailed Date of Procedure 06/02/25 Pre-op Diagnosis Right foot foreign body Post-op Diagnosis Same Procedure Performed removal right foot foreign body under fluoroscopic guidance Surgeon Julia Tatum MD Anesthesia General and Local Indications 45-year-old female reporting severe right foot pain over the last week. The patient initially with significant swelling and redness that has improved with antibiotics. The patient with noted for body on CT scan of the foot. Findings Approximately 1 cm metallic wire in the soft tissue between the 1st and 2nd proximal phalanx plantar surface Description of Procedure The patient was taken to the operating room and placed in the supine position. After adequate induction of general anesthesia, the patient was prepped and draped in the normal sterile fashion. A time-out was then done to verify patient's identity, as well as the procedure being performed. There was noted to be a punctate opening in the area of the ball of the foot. Using fluo roscopic guidance, I was able to identify a foreign body deep to this opening in the subcutaneous tissue. I then localized the area. I then enlarged the opening by making an incision with a 15 blade scalpel. This was carried down into the subcutaneous tissue. I then used a mosquito to bluntly dissect into the subcutaneous tissue. Using fluoroscopy, I was able to get into the right plane which was noted to be approximately half a cm from the dermis. I was then able to identify and remove this foreign body. This was noted to be located superficial to the interspace between the 1st and 2nd proximal phalanx. The foreign body was removed in full as confirmed via fluoroscopy. This was noted grossly to be a metallic wire measuring approximately 1 cm in length. It will be sent to pathology for further review. I then placed further local anesthetic around the incision. Sterile dressing was then placed. The patient tolerated the procedure well and was extubated postoperatively. She will be transferred to the recovery room in stable condition. Estimated Blood Loss 5 Drains No Packing No Pathology Yes Complications No immediate complications Condition Stable Disposition PACU [facility] Billing Surgery - Charge Forward: Surgery Billing
--- NOTE | 2025-06-02 09:10 | PC.NURSE ---
Returned from OR via stretcher.
[2025-06-02] MEDS: FUROSEMIDE 40 MG TABLET 80 MG PO ×2 (09:14→16:26)
[2025-06-02] MEDS: SPIRONOLACTONE 50 MG TABLET PO (09:14)
[2025-06-02] MEDS: POTASSIUM CHLORIDE 20 MEQ ER TABLET PO ×2 (09:14→21:33)
[2025-06-02] MEDS: cefTRIAXone 2 GM in SODIUM CHLORIDE 0.9% IV 100 ML IVPB (09:15)
[2025-06-02] MEDS: BACLOFEN 10 MG TABLET 20 MG PO ×3 (09:15→16:26)
[2025-06-02] MEDS: VANCOMYCIN 1,500 MG/NS 500 ML 1,500 MG/500 ML BAG 250 MG IVPB (09:54)
[2025-06-02] MEDS: HYDROmorphone HCL INJ (*CRX) 2 MG/ML VIAL 0.5 MG IV PUSH ×3 (11:52→21:31)
[2025-06-02] MEDS: ONDANSETRON HCL ODT 4 MG TABLET PO ×2 (11:53→21:41)
[2025-06-02] MEDS: LIDOCAINE 1% PF INJ 5 ML VIAL INFILTRATE (16:09)
[2025-06-02] MEDS: CENTRAL LINE FLUSH 10 ML IV PUSH (21:33)
[2025-06-03] MEDS: HYDROcodone/acetaminophen (*CRX) 5-325 MG TABLET 1 TAB PO ×2 (02:32→06:02)
[2025-06-03] MEDS: VANCOMYCIN 1,500 MG/NS 500 ML 1,500 MG/500 ML BAG 250 MG IVPB (02:33)
[2025-06-03] MEDS: CENTRAL LINE FLUSH 10 ML IV PUSH ×3 (06:02→21:30)
[2025-06-03 06:11] VITALS: BP 112/45; PULSE 60; RESP 18; TEMP 36.4; O2SAT 100
[2025-06-03 06:16] LABS: Hematocrit 37.0 % (37.0-47.0); Hemoglobin 12.3 g/dL (12.0-15.0); Mean Corpuscular HGB Conc 33.2 g/dl (32-36); Mean Corpuscular Hemoglobin 30.5 pg (26-34); Mean Corpuscular Volume 91.8 fl (80-100); Platelet Count Result 160 k/mm3 (150-375); Red Blood Count 4.03 M/mm3 (4.2-5.4); White Blood Count 7.4 K/mm3 (4.5-10.0)
[2025-06-03 06:51] LABS: Alanine Aminotransferase 35 U/L (6-35); Albumin Level 3.4 g/dL (3.5-5.1); Alkaline Phosphatase 72 U/L (38-126); Anion Gap 4 mmol/L (4-12); Aspartate Amino Transferase 35 U/L (14-36); Bilirubin,Total 0.2 mg/dL (0.2-1.3); Blood Urea Nitrogen 12 mg/dL (7-17); Calcium 8.7 mg/dL (8.4-10.2); Carbon Dioxide 29 mmol/L (22-30); Chloride 105 mmol/L (98-107); Estimated CRCL calculation 94 ml/min; Estimated Glomerular Filt Rate > 60; Glucose 83 mg/dL (65-110); Magnesium 2.2 mg/dL (1.6-2.3); Potassium 3.8 mmol/L (3.4-5.0); Sodium 138 mmol/L (137-145); Total Protein 6.5 g/dL (6.3-8.2)
[2025-06-03 08:00] VITALS: BP 134/95; PULSE 60; RESP 18; TEMP 36.7; O2SAT 100
[2025-06-03] MEDS: BACLOFEN 10 MG TABLET 20 MG PO ×3 (08:11→16:33)
[2025-06-03] MEDS: POTASSIUM CHLORIDE 20 MEQ ER TABLET PO ×2 (08:11→22:00)
[2025-06-03] MEDS: FUROSEMIDE 40 MG TABLET 80 MG PO ×2 (08:11→16:34)
[2025-06-03 08:12] VITALS: RESP 18; O2SAT 100
[2025-06-03] MEDS: SPIRONOLACTONE 50 MG TABLET PO (08:12)
--- NOTE | 2025-06-03 08:30 | P.PNIM_ITS ---
Progress Note: A&P Assessment and Plan (1) Cellulitis: Qualifiers: Site of cellulitis: other site Qualified Code(s): L03.818 - Cellulitis of other sites Code(s): L03.90 - Cellulitis, unspecified Status: Acute Assessment and Plan: Patient reports injury to foot with her dog stepping on her right foot and noticed 3 splinters with worsening edema and erythema Patient with history of MSSA of the buttock, current treatment with doxycycline which is on hold Right foot XR: No acute fracture and Severe polyarticular osteoarthritis. Right foot CT: 8 mm long, radiopaque, likely metallic foreign body in the soft tissues of the ball of the right foot, superficial to the interspace between the proximal aspect of the first and second proximal phalanges. May represent a small piece of metallic wire or needle fragment. Likely surrounding cellulitis. No definite soft tissue fluid collection. Reviewed previous micro, grew Staph aureus resistant to Cipro/clindamycin/erythromycin/Bactrim and intermediate to Levaquin and moxifloxacin on 03/26 - Antibiotics: cefepime and vancomycin started on 05/29 Discussed antibiotics with [facility] pharmacy. Vancomycin DC given low MRSA concern. Transitioned to Augmentin, coures to be completed 06/07. Surgery aware of antibiotic change. - Blood cultures NGTD - wound culture: mixed mirna - Received DTaP booster - Monitor vital signs, I&Os, neuro status and patient is a fall risk - Monitor serum electrolytes, CBC, cultures, WBC and temp curve - Consult general surgeon S/p removal of foreign body from right foot today with Dr. 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 Continue Streglato. - Patient okay to use CGM and insulin pump - Correct regimen ordered - high dose TIDWM, based off BMI - A1C 7.6 on 03/24 Glucose remains stable. Continue to monitor. (3) Essential hypertension: Code(s): I10 - Essential (primary) hypertension Status: Acute Assessment and Plan: Chronic, continue home medication - Spironolactone 50 mg daily - Lasix 80 mg BID - blood pressures remain stable, continue to monitor Time Spent With Patient Time with patient: 25 - 35 minutes Subjective Date/time seen: 06/03/25 08:30 Interval history: 45 year old female with past medical history of morbid obesity, hypertension, hyperlipidemia, diabetes mellitus, peripheral neuropathy, GERD, anxiety, depression, recent buttock cellulitis/abscess (culture grew staph aureus on 03/26), PTSD, among other comorbidities presents to the hospital with right foot pain. Patient is pleasant sitting up comfortably in her chair. Continues to endorse pain to surgical site that is further exacerbated with ambulation. She states that the pain regimen is not covering well at this time. Mulberry dose increased. Patient also notes that she has not had a bowel movement in 3 days. She states that is not uncommon for her to go several days without a bowel movement and will often have to take large doses of a MiraLax to get herself to go. She denies any associated nausea vomiting or abdominal pain. Was started on a bowel regimen. She has no other complaints denying chest pain, shortness a breath, palpitations. Review of Systems Review of Systems: All systems reviewed & are unremarkable except as noted in HPI and below Exam Narrative: AF HR 60 RR 18 SpO2 100 BP 134/95 General: female in no acute respiratory distress who is nontoxic appearing, sitting up in chair HEENT: Normocephalic. Atraumatic. Extraocular movement intact. Sclera clear and anicteric. No facial asymmetry. Chest: Lungs are clear to auscultation bilaterally. CV: Heart was regular rate and rhythm. Abd: Abdomen was soft. Nontender. Nondistended. Positive bowel sounds. Ext: No clubbing, cyanosis, or edema. DP pulses bilaterally. Surgical dressing is clean dry and intact. Surgical shoe on. Wiggling toes. Neuro: Patient is alert and oriented x3. Speech is clear. Objective Data Vital Signs Vital Signs: Vital Signs - 24 hr 06/02/25 08:45 06/02/25 09:07 06/02/25 09:15 Temperature 97.7 F Pulse Rate 66 61 Respiratory Rate 20 16 20 Blood Pressure 124/75 130/64 Pulse Oximetry 94 99 94 Oxygen Delivery Room Air Room Air 06/02/25 09:22 07/23/25 09:52 06/02/25 10:52 Temperature 97.7 F 97.7 F 97.7 F Pulse Rate 61 61 64 Respiratory Rate 14 16 16 Blood Pressure 120/70 119/65 128/81 Pulse Oximetry 99 100 100 Oxygen Delivery 06/02/25 14:14 06/02/25 18:00 06/03/25 06:11 Temperature 97.1 F L 97.5 F L 97.6 F Pulse Rate 60 69 60 Respiratory Rate 18 18 18 Blood Pressure 105/67 115/91 H 112/45 L Pulse Oximetry 99 100 100 Oxygen Delivery 06/03/25 08:00 Temperature 98.0 F Pulse Rate 60 Respiratory Rate 18 Blood Pressure 134/95 H Pulse Oximetry 100 Oxygen Delivery Intake/Output Intake/Output: Intake & Output 05/31/25 06/01/25 06/02/25 06/03/25 23:59 23:59 23:59 23:59 Intake Total 2828 3496 2359.7 500 Balance 2828 3496 2359.7 500 Meds/Results Medications: Active Medications Generic Name Dose Route Start Last Admin Trade Name Freq PRN Reason Stop Dose Admin Acetaminophen 1,000 mg 05/29/25 14:23 Acetaminophen 500 Mg Tablet PO Q6H PRN Mild Pain (1-3) or Fever Hydrocodone Bitart/Acetaminophen 1 tab 06/02/25 08:50 06/03/25 06:02 Hydrocodone/Acetaminophen (*Crx) 5-325 Mg Tablet PO 1 tab Q4H PRN Administration Pain Rated 4-6 Albuterol 2 puff 05/29/25 19:48 Albuterol Sulfate (*Sp) Aerosol 1 Puff INHALATION QID PRN shortness of breath or wheezing Amoxicillin/Clavulanate Potassium 1 tablet 06/03/25 09:00 Amoxicillin/Clavulanate K 875-125 Mg Tab PO 06/07/25 21:01 Q12HR [facility] Baclofen 20 mg 05/29/25 20:00 06/03/25 08:11 Baclofen 10 Mg Tablet PO 20 mg TID [facility] Administration Buspirone HCl 30 mg 05/29/25 21:00 06/02/25 21:32 Buspirone Hcl 10 Mg Tablet PO 30 mg HS [facility] Administration Dextrose 12.5 gm 05/29/25 14:23 06/02/25 05:51 Dextrose 50% 25 Gm/50 Ml Syringe IV PUSH 12.5 gm PRN PRN Administration Hypoglycemia Protocol Enoxaparin Sodium 40 mg 05/30/25 09:00 06/03/25 08:12 Enoxaparin 40 Mg/0.4 Ml Syringe SUB-Q Not Given DAILY [facility] Fentanyl Citrate 25 mcg 06/02/25 07:08 Fentanyl Citrate Inj (*Crx) 100 Mcg/2 Ml Vial IV PUSH Q2M PRN Pain Fluoxetine HCl 60 mg 05/29/25 23:00 06/02/25 21:33 Fluoxetine Hcl 20 Mg Capsule PO 60 mg Q24H [facility] Administration Furosemide 80 mg 05/30/25 09:00 06/03/25 08:11 Furosemide 40 Mg Tablet PO 80 mg BID [facility] Administration Glucagon 1 mg 05/29/25 14:23 Glucagon For Inj 1 Mg Vial IM PRN PRN Hypoglycemia Protocol Glucose 15 gm 05/29/25 14:23 Glucose Oral Gel 15 Gm Of Glucse In 37.5 Gm Tube PO PRN PRN Hypoglycemia Protocol Hydromorphone HCl 0.5 mg 05/29/25 19:50 06/02/25 21:31 Hydromorphone Hcl Inj (*Crx) 2 Mg/Ml Vial IV PUSH 0.5 mg Q3H PRN Administration Pain Rated 7-10 Dextrose 1,000 mls @ 100 mls/hr 05/29/25 14:23 Dextrose 5% 1,000 Ml IVPB PRN PRN Hypoglycemia Protocol Insulin Aspart 4 - 8 units 05/29/25 17:00 06/03/25 07:45 Insulin Aspart (*Bkc) 100 Units/Ml SUB-Q Not Given TIDWM [facility] Protocol Ketorolac Tromethamine 30 mg 05/29/25 13:25 06/01/25 15:15 Ketorolac 30 Mg/Ml Vial (*Bkc) IV PUSH 06/03/25 13:24 30 mg Q6H PRN Administration Pain Rated 4-6 Miscellaneous Information 1 each 05/30/25 00:01 06/03/25 08:03 Please Send Pt's Home Med Steglatro To Pharmacy For Verification When Available XX 06/29/25 00:00 Not Given [facility] Miscellaneous Information 1 each 06/01/25 00:01 06/03/25 08:02 Pharmacy Verified Pt's Home Med Humulin R U-500 Insulin That She Uses In Her Insulin Pump, XX 07/01/25 00:00 Not Given [facility] Miscellaneous Information 1 each 06/03/25 00:01 Toradol Needs To Be Renewed Or It Will Automatically Discontinue. XX 07/03/25 00:00 [facility] Non-Formulary Medication 15 mg 05/30/25 09:00 Ertugliflozin [Steglatro] PO 06/29/25 08:59 [facility] Ondansetron HCl 4 mg 05/29/25 14:23 06/02/25 21:41 Ondansetron Hcl Odt 4 Mg Tablet PO 4 mg Q6H PRN Administration Nausea And Vomiting Potassium Chloride 20 meq 06/01/25 09:03 06/03/25 08:11 Potassium Chloride 20 Meq Er Tablet PO 20 meq Q12HR [facility] Administration Sodium Chloride 10 ml 06/02/25 22:00 06/03/25 06:02 Central Line Flush IV PUSH 10 ml Q8HR [facility] Administration Sodium Chloride 10 ml 06/02/25 16:08 Central Line Flush IV PUSH PRN PRN with TPN bag changes Sodium Chloride 20 ml 06/02/25 16:08 Central Line Flush IV PUSH PRN PRN after blood draws Spironolactone 50 mg 05/30/25 09:00 06/03/25 08:12 Spironolactone 50 Mg Tablet PO 50 mg DAILY [facility] Administration Trazodone HCl 150 mg 05/29/25 21:00 06/02/25 21:32 Trazodone Hcl 50 Mg Tablet PO 150 mg HS [facility] Administration Radiology Results: ITS Impressions Foot X-Ray 05/29/25 12:10 Impression: 1: No acute fracture. 2: Severe polyarticular osteoarthritis. Foot CT 05/31/25 15:06 IMPRESSION: 8 mm long, radiopaque, likely metallic foreign body in the soft tissues of the ball of the right foot, superficial to the interspace between the proximal aspect of the first and second proximal phalanges. May represent a small piece of metallic wire or needle fragment. Likely surrounding cellulitis. No definite soft tissue fluid collection. Fluoroscopy 06/02/25 08:59 IMPRESSION: Fluoroscopy used during Foreign body removal from right foot. Chest X-Ray 06/02/25 16:15 IMPRESSION: No focal infiltrate or effusion. Right upper extremity PICC line in good position and ready for immediate use. Labs Labs: Laboratory Results - last 24 hr 06/02/25 06/02/25 06/02/25 09:14 11:31 16:30 WBC RBC Hgb Hct MCV MCH MCHC RDW Plt Count MPV Sodium Potassium Chloride Carbon Dioxide Anion Gap BUN Creatinine Estim Creat Clear Calc Estimated GFR Glucose POC Capillary Glucose 92 198 H 63 L Calcium Magnesium Total Bilirubin AST ALT Alkaline Phosphatase Total Protein Albumin 06/02/25 06/02/25 06/03/25 17:08 20:11 06:08 WBC 7.4 RBC 4.03 L Hgb 12.3 Hct 37.0 MCV 91.8 MCH 30.5 MCHC 33.2 RDW 13.6 Plt Count 160 MPV 9.1 Sodium 138 Potassium 3.8 Chloride 105 Carbon Dioxide 29 Anion Gap 4 BUN 12 Creatinine 0.85 Estim Creat Clear Calc 94 Estimated GFR > 60 Glucose 83 POC Capillary Glucose 120 H 113 H Calcium 8.7 Magnesium 2.2 Total Bilirubin 0.2 AST 35 ALT 35 Alkaline Phosphatase 72 Total Protein 6.5 Albumin 3.4 L 06/03/25 07:39 WBC RBC Hgb Hct MCV MCH MCHC RDW Plt Count MPV Sodium Potassium Chloride Carbon Dioxide Anion Gap BUN Creatinine Estim Creat Clear Calc Estimated GFR Glucose POC Capillary Glucose 76 Calcium Magnesium Total Bilirubin AST ALT Alkaline Phosphatase Total Protein Albumin Quality VTE Prophylaxis VTE prophylaxis: pharmacologic ordered
[2025-06-03] MEDS: HYDROmorphone HCL INJ (*CRX) 2 MG/ML VIAL 0.5 MG IV PUSH ×3 (08:37→22:12)
--- NOTE | 2025-06-03 10:51 | PM.PNGS ---
Progress Note: A&P Assessment and Plan (1) Foreign body in right foot with infection: Code(s): S90.851A - Superficial foreign body, right foot, initial encounter; L08.9 - Local infection of the skin and subcutaneous tissue, unspecified Status: Acute Assessment and Plan: Pod 1 status post removal of right foot foreign body under fluoroscopic guidance. Foreign body was noted to be a metallic wire measuring approximately 1 cm in length. It was sent to pathology for further review. Pathology is still pending. Will continue current antibiotic regimen and make changes as needed when pathology returns. Preliminary blood cultures from 05/29 showing no growth. Wound specimens from 05/29 preliminarily showing mixed skin mirna. Will consider discharge in the near future, as long as cellulitis continues to decrease and pathology/microbiology proves to be amenable to oral antibiotics. (2) Insulin dependent diabetes mellitus: Status: Chronic (3) Morbid obesity with BMI of 40.0-44.9, adult: Code(s): E66.01 - Morbid (severe) obesity due to excess calories; Z68.41 - Body mass index [BMI] 40.0-44.9, adult Status: Chronic (4) Obstructive sleep apnea: Onset Date: ~10/2020 Code(s): G47.33 - Obstructive sleep apnea (adult) (pediatric) Status: Acute Plan I have discussed the patient's case and plan of care with Dr. Tatum. Subjective Subjective Date/Time Seen: 06/03/25 10:51 Post Op day: 1 Patient reports: no new complaints, still having pain and tolerating a regular diet Interval history: Patient is doing well today. Ambulating around room with minimal pain to foot. Tolerating regular diabetic diet. WBC count remains normal. Vital signs stable. Exam Const: General: comfortable and no acute distress Extrem: Right upper extremity: normal to inspection Left upper extremity: normal to inspection Right lower extremity: foot Details: vascular exam (weak but palpable DP and PT pulses) Details: not cool and no cyanosis Left lower extremity: normal to inspection Other: Right dorsal foot appears normal, there is a small scab to the center of the plantar great toe, nontender. Incision site is clean, with minimal serosanguineous drainage. Edema and erythema still present to the area. The area is very tender to the touch. Objective Data Vital Signs Vital Signs: Vital Signs - 24 hr 06/02/25 10:52 06/02/25 14:14 06/02/25 18:00 Temperature 97.7 F 97.1 F L 97.5 F L Pulse Rate 64 60 69 Respiratory Rate 16 18 18 Blood Pressure 128/81 105/67 115/91 H Pulse Oximetry 100 99 100 06/03/25 06:11 06/03/25 08:00 Temperature 97.6 F 98.0 F Pulse Rate 60 60 Respiratory Rate 18 18 Blood Pressure 112/45 L 134/95 H Pulse Oximetry 100 100 Intake/Output Intake/Output: Intake & Output 05/31/25 06/01/25 06/02/25 06/03/25 23:59 23:59 23:59 23:59 Intake Total 2828 3496 2359.7 1100 Balance 2828 3496 2359.7 1100 Meds/Results Medications: Active Medications Generic Name Dose Route Start Last Admin Trade Name Freq PRN Reason Stop Dose Admin Acetaminophen 1,000 mg 05/29/25 14:23 Acetaminophen 500 Mg Tablet PO Q6H PRN Mild Pain (1-3) or Fever Hydrocodone Bitart/Acetaminophen 1 tab 06/02/25 08:50 06/03/25 06:02 Hydrocodone/Acetaminophen (*Crx) 5-325 Mg Tablet PO 1 tab Q4H PRN Administration Pain Rated 4-6 Albuterol 2 puff 05/29/25 19:48 Albuterol Sulfate (*Sp) Aerosol 1 Puff INHALATION QID PRN shortness of breath or wheezing Amoxicillin/Clavulanate Potassium 1 tablet 06/03/25 09:00 06/03/25 08:37 Amoxicillin/Clavulanate K 875-125 Mg Tab PO 06/07/25 21:01 1 tablet Q12HR [facility] Administration Baclofen 20 mg 05/29/25 20:00 06/03/25 08:11 Baclofen 10 Mg Tablet PO 20 mg TID [facility] Administration Buspirone HCl 30 mg 05/29/25 21:00 06/02/25 21:32 Buspirone Hcl 10 Mg Tablet PO 30 mg HS [facility] Administration Dextrose 12.5 gm 05/29/25 14:23 06/02/25 05:51 Dextrose 50% 25 Gm/50 Ml Syringe IV PUSH 12.5 gm PRN PRN Administration Hypoglycemia Protocol Enoxaparin Sodium 40 mg 05/30/25 09:00 06/03/25 08:12 Enoxaparin 40 Mg/0.4 Ml Syringe SUB-Q Not Given DAILY [facility] Fentanyl Citrate 25 mcg 06/02/25 07:08 Fentanyl Citrate Inj (*Crx) 100 Mcg/2 Ml Vial IV PUSH Q2M PRN Pain Fluoxetine HCl 60 mg 05/29/25 23:00 06/02/25 21:33 Fluoxetine Hcl 20 Mg Capsule PO 60 mg Q24H [facility] Administration Furosemide 80 mg 05/30/25 09:00 06/03/25 08:11 Furosemide 40 Mg Tablet PO 80 mg BID [facility] Administration Glucagon 1 mg 05/29/25 14:23 Glucagon For Inj 1 Mg Vial IM PRN PRN Hypoglycemia Protocol Glucose 15 gm 05/29/25 14:23 Glucose Oral Gel 15 Gm Of Glucse In 37.5 Gm Tube PO PRN PRN Hypoglycemia Protocol Hydromorphone HCl 0.5 mg 05/29/25 19:50 06/03/25 08:37 Hydromorphone Hcl Inj (*Crx) 2 Mg/Ml Vial IV PUSH 0.5 mg Q3H PRN Administration Pain Rated 7-10 Dextrose 1,000 mls @ 100 mls/hr 05/29/25 14:23 Dextrose 5% 1,000 Ml IVPB PRN PRN Hypoglycemia Protocol Insulin Aspart 4 - 8 units 05/29/25 17:00 06/03/25 07:45 Insulin Aspart (*Bkc) 100 Units/Ml SUB-Q Not Given TIDWM [facility] Protocol Ketorolac Tromethamine 30 mg 05/29/25 13:25 06/01/25 15:15 Ketorolac 30 Mg/Ml Vial (*Bkc) IV PUSH 06/03/25 13:24 30 mg Q6H PRN Administration Pain Rated 4-6 Miscellaneous Information 1 each 05/30/25 00:01 06/03/25 08:03 Please Send Pt's Home Med Steglatro To Pharmacy For Verification When Available XX 06/29/25 00:00 Not Given CL[facility]IFY [facility] Miscellaneous Information 1 each 06/01/25 00:01 06/03/25 08:02 Pharmacy Verified Pt's Home Med Humulin R U-500 Insulin That She Uses In Her Insulin Pump, XX 07/01/25 00:00 Not Given [facility]IFY [facility] Miscellaneous Information 1 each 06/03/25 00:01 Toradol Needs To Be Renewed Or It Will Automatically Discontinue. XX 07/03/25 00:00 [facility] [place] Non-Formulary Medication 15 mg 05/30/25 09:00 Ertugliflozin [Steglatro] PO 06/29/25 08:59 DAILY [facility] Ondansetron HCl 4 mg 05/29/25 14:23 06/02/25 21:41 Ondansetron Hcl Odt 4 Mg Tablet PO 4 mg Q6H PRN Administration Nausea And Vomiting Potassium Chloride 20 meq 06/01/25 09:03 06/03/25 08:11 Potassium Chloride 20 Meq Er Tablet PO 20 meq Q12HR [facility] Administration Sodium Chloride 10 ml 06/02/25 22:00 06/03/25 06:02 Central Line Flush IV PUSH 10 ml Q8HR [facility] Administration Sodium Chloride 10 ml 06/02/25 16:08 Central Line Flush IV PUSH PRN PRN with TPN bag changes Sodium Chloride 20 ml 06/02/25 16:08 Central Line Flush IV PUSH PRN PRN after blood draws Spironolactone 50 mg 05/30/25 09:00 06/03/25 08:12 Spironolactone 50 Mg Tablet PO 50 mg DAILY [place] Administration Trazodone HCl 150 mg 05/29/25 21:00 06/02/25 21:32 Trazodone Hcl 50 Mg Tablet PO 150 mg HS [facility] Administration Radiology Results: ITS Impressions Foot X-Ray 05/29/25 12:10 Impression: 1: No acute fracture. 2: Severe polyarticular osteoarthritis. Foot CT 05/31/25 15:06 IMPRESSION: 8 mm long, radiopaque, likely metallic foreign body in the soft tissues of the ball of the right foot, superficial to the interspace between the proximal aspect of the first and second proximal phalanges. May represent a small piece of metallic wire or needle fragment. Likely surrounding cellulitis. No definite soft tissue fluid collection. Fluoroscopy 06/02/25 08:59 IMPRESSION: Fluoroscopy used during Foreign body removal from right foot. Chest X-Ray 06/02/25 16:15 IMPRESSION: No focal infiltrate or effusion. Right upper extremity PICC line in good position and ready for immediate use. Labs Labs: Laboratory Results - last 24 hr 06/02/25 06/02/25 06/02/25 11:31 16:30 17:08 WBC RBC Hgb Hct MCV MCH MCHC RDW Plt Count MPV Sodium Potassium Chloride Carbon Dioxide Anion Gap BUN Creatinine Estim Creat Clear Calc Estimated GFR Glucose POC Capillary Glucose 198 H 63 L 120 H Calcium Magnesium Total Bilirubin AST ALT Alkaline Phosphatase Total Protein Albumin 06/02/25 06/03/25 06/03/25 20:11 06:08 07:39 WBC 7.4 RBC 4.03 L Hgb 12.3 Hct 37.0 MCV 91.8 MCH 30.5 MCHC 33.2 RDW 13.6 Plt Count 160 MPV 9.1 Sodium 138 Potassium 3.8 Chloride 105 Carbon Dioxide 29 Anion Gap 4 BUN 12 Creatinine 0.85 Estim Creat Clear Calc 94 Estimated GFR > 60 Glucose 83 POC Capillary Glucose 113 H 76 Calcium 8.7 Magnesium 2.2 Total Bilirubin 0.2 AST 35 ALT 35 Alkaline Phosphatase 72 Total Protein 6.5 Albumin 3.4 L
[2025-06-03] MEDS: HYDROcodone/acetaminophen (*CRX) 7.5-325 MG TABLET 1 TAB PO ×3 (11:44→20:58)
[2025-06-03 14:00] VITALS: BP 113/63; PULSE 60; RESP 18; TEMP 36.1; O2SAT 99
[2025-06-03] MEDS: SENNA/DOCUSATE SODIUM TABLET 1 TAB PO (22:00)
[2025-06-04] MEDS: HYDROmorphone HCL INJ (*CRX) 2 MG/ML VIAL 0.5 MG IV PUSH (05:51)
[2025-06-04 05:55] LABS: Hematocrit 32.8 % (37.0-47.0); Hemoglobin 10.9 g/dL (12.0-15.0); Mean Corpuscular HGB Conc 33.2 g/dl (32-36); Mean Corpuscular Hemoglobin 31.1 pg (26-34); Mean Corpuscular Volume 93.4 fl (80-100); Platelet Count Result 142 k/mm3 (150-375); Red Blood Count 3.51 M/mm3 (4.2-5.4); White Blood Count 6.4 K/mm3 (4.5-10.0)
[2025-06-04] MEDS: CENTRAL LINE FLUSH 10 ML IV PUSH (06:00)
[2025-06-04 06:02] LABS: Alanine Aminotransferase 30 U/L (6-35); Albumin Level 3.5 g/dL (3.5-5.1); Alkaline Phosphatase 74 U/L (38-126); Anion Gap 2 mmol/L (4-12); Aspartate Amino Transferase 26 U/L (14-36); Bilirubin,Total 0.4 mg/dL (0.2-1.3); Blood Urea Nitrogen 13 mg/dL (7-17); Calcium 8.9 mg/dL (8.4-10.2); Carbon Dioxide 32 mmol/L (22-30); Chloride 106 mmol/L (98-107); Estimated CRCL calculation 99 ml/min; Estimated Glomerular Filt Rate > 60; Glucose 99 mg/dL (65-110); Magnesium 2.1 mg/dL (1.6-2.3); Potassium 3.9 mmol/L (3.4-5.0); Sodium 140 mmol/L (137-145); Total Protein 6.7 g/dL (6.3-8.2)
[2025-06-04 06:05] VITALS: BP 106/61; PULSE 66; RESP 18; TEMP 36.9; O2SAT 100
[2025-06-04] MEDS: HYDROcodone/acetaminophen (*CRX) 7.5-325 MG TABLET 1 TAB PO ×2 (08:49→13:35)
[2025-06-04] MEDS: POTASSIUM CHLORIDE 20 MEQ ER TABLET PO (08:49)
[2025-06-04] MEDS: BACLOFEN 10 MG TABLET 20 MG PO ×2 (08:49→13:34)
[2025-06-04] MEDS: SPIRONOLACTONE 50 MG TABLET PO (08:49)
[2025-06-04] MEDS: FUROSEMIDE 40 MG TABLET 80 MG PO (08:49)
--- NOTE | 2025-06-04 09:47 | P.PNGS_ITS ---
Progress Note: A&P Assessment and Plan (1) Foreign body in right foot with infection: Code(s): S90.851A - Superficial foreign body, right foot, initial encounter; L08.9 - Local infection of the skin and subcutaneous tissue, unspecified Status: Acute Assessment and Plan: * Pod 2 status post removal of right foot foreign body under fluoroscopic guidance. Foreign body was noted to be a metallic wire measuring approximately 1 cm in length. It was sent to pathology for further review. Pathology is still pending. Will continue current antibiotic regimen and make changes as needed when pathology returns. Preliminary blood cultures from 05/29 showing no growth. Wound specimens from 05/29 final culture negative for any growth. Okay for discharge today, as long as she is cleared by hospitalist team. Of note patient did take a dose of Dilaudid this morning after hitting her foot on the side of her bed. She does however feel that she will be okay to go home on oral pain medication. (2) Insulin dependent diabetes mellitus: Status: Chronic (3) Morbid obesity with BMI of 40.0-44.9, adult: Code(s): E66.01 - Morbid (severe) obesity due to excess calories; Z68.41 - Body mass index [BMI] 40.0-44.9, adult Status: Chronic (4) Obstructive sleep apnea: Onset Date: ~10/2020 Code(s): G47.33 - Obstructive sleep apnea (adult) (pediatric) Status: Acute Plan I have discussed the patient's case and plan of care with Dr. Tatum. Subjective Subjective Date/Time Seen: 06/04/25 09:47 Patient reports: no new complaints and tolerating a regular diet Interval history: Patient is doing well today. WBC has remained normal. Afebrile. Tolerating diet without nausea or vomiting. Ambulating without assistance. Exam Extrem: Right upper extremity: normal to inspection Left upper extremity: normal to inspection Right lower extremity: foot Details: vascular exam (weak but palpable DP and PT pulses) Details: not cool and no cyanosis Left lower extremity: normal to inspection Other: Right dorsal foot appears normal with mild erythema. Incision site is clean, with minimal serosanguineous drainage, less than yesterday. Edema appears improved from yesterday. The area is still pretty tender to the touch. Objective Data Vital Signs Vital Signs: Vital Signs - 24 hr 06/03/25 14:00 06/03/25 20:00 06/04/25 06:05 Temperature 97.0 F L 98.4 F Pulse Rate 60 66 Respiratory Rate 18 18 Blood Pressure 113/63 106/61 Pulse Oximetry 99 100 Oxygen Delivery Room Air Intake/Output Intake/Output: Intake & Output 06/01/25 06/02/25 06/03/25 06/04/25 23:59 23:59 23:59 23:59 Intake Total 3496 2359.7 2412 240 Balance 3496 2359.7 2412 240 Meds/Results Medications: Active Medications Generic Name Dose Route Start Last Admin Trade Name Freq PRN Reason Stop Dose Admin Acetaminophen 1,000 mg 05/29/25 14:23 Acetaminophen 500 Mg Tablet PO Q6H PRN Mild Pain (1-3) or Fever Hydrocodone Bitart/Acetaminophen 1 tab 06/02/25 08:50 06/03/25 06:02 Hydrocodone/Acetaminophen (*Crx) 5-325 Mg Tablet PO 1 tab Q4H PRN Administration Pain Rated 4-6 Hydrocodone Bitart/Acetaminophen 1 tab 06/03/25 11:17 06/04/25 08:49 Hydrocodone/Acetaminophen (*Crx) 7.5-325 Mg Tablet PO 1 tab Q4H PRN Administration Pain Rated 7-10 Albuterol 2 puff 05/29/25 19:48 Albuterol Sulfate (*Sp) Aerosol 1 Puff INHALATION QID PRN shortness of breath or wheezing Amoxicillin/Clavulanate Potassium 1 tablet 06/03/25 09:00 06/04/25 08:49 Amoxicillin/Clavulanate K 875-125 Mg Tab PO 06/07/25 21:01 1 tablet Q12HR SYDNEY Administration Baclofen 20 mg 05/29/25 20:00 06/04/25 08:49 Baclofen 10 Mg Tablet PO 20 mg TID SYDNEY Administration Buspirone HCl 30 mg 05/29/25 21:00 06/03/25 22:00 Buspirone Hcl 10 Mg Tablet PO 30 mg HS SYDNEY Administration Dextrose 12.5 gm 05/29/25 14:23 06/02/25 05:51 Dextrose 50% 25 Gm/50 Ml Syringe IV PUSH 12.5 gm PRN PRN Administration Hypoglycemia Protocol Enoxaparin Sodium 40 mg 05/30/25 09:00 06/04/25 08:50 Enoxaparin 40 Mg/0.4 Ml Syringe SUB-Q 40 mg DAILY SYDNEY Administration Fentanyl Citrate 25 mcg 06/02/25 07:08 Fentanyl Citrate Inj (*Crx) 100 Mcg/2 Ml Vial IV PUSH Q2M PRN Pain Fluoxetine HCl 60 mg 05/29/25 23:00 06/03/25 22:00 Fluoxetine Hcl 20 Mg Capsule PO 60 mg Q24H SYDNEY Administration Furosemide 80 mg 05/30/25 09:00 06/04/25 08:49 Furosemide 40 Mg Tablet PO 80 mg BID SYDNEY Administration Glucagon 1 mg 05/29/25 14:23 Glucagon For Inj 1 Mg Vial IM PRN PRN Hypoglycemia Protocol Glucose 15 gm 05/29/25 14:23 Glucose Oral Gel 15 Gm Of Glucse In 37.5 Gm Tube PO PRN PRN Hypoglycemia Protocol Dextrose 1,000 mls @ 100 mls/hr 05/29/25 14:23 Dextrose 5% 1,000 Ml IVPB PRN PRN Hypoglycemia Protocol Insulin Aspart 4 - 8 units 05/29/25 17:00 06/04/25 08:48 Insulin Aspart (*Bkc) 100 Units/Ml SUB-Q Not Given TIDWM SYDNEY Protocol Miscellaneous Information 1 each 05/30/25 00:01 06/03/25 08:03 Please Send Pt's Home Med Steglatro To Pharmacy For Verification When Available XX 06/29/25 00:00 Not Given CLARIFY SYDNEY Miscellaneous Information 1 each 06/01/25 00:01 06/03/25 08:02 Pharmacy Verified Pt's Home Med Humulin R U-500 Insulin That She Uses In Her Insulin Pump, XX 07/01/25 00:00 Not Given CLARIFY SYDNEY Non-Formulary Medication 15 mg 05/30/25 09:00 Ertugliflozin [Steglatro] PO 06/29/25 08:59 DAILY SYDNEY Ondansetron HCl 4 mg 05/29/25 14:23 06/02/25 21:41 Ondansetron Hcl Odt 4 Mg Tablet PO 4 mg Q6H PRN Administration Nausea And Vomiting Polyethylene Glycol 17 gm 06/04/25 09:00 06/04/25 08:50 Polyethylene Glycol 3350 17 Gm Powd.Pack PO 17 gm QAM SYDNEY Administration Potassium Chloride 20 meq 06/01/25 09:03 06/04/25 08:49 Potassium Chloride 20 Meq Er Tablet PO 20 meq Q12HR SYDNEY Administration Senna/Docusate Sodium 1 tab 06/03/25 21:00 06/03/25 22:00 Senna/Docusate Sodium Tablet PO 1 tab HS SYDNEY Administration Sodium Chloride 10 ml 06/02/25 22:00 06/04/25 06:00 Central Line Flush IV PUSH 10 ml Q8HR SYDNEY Administration Sodium Chloride 10 ml 06/02/25 16:08 Central Line Flush IV PUSH PRN PRN with TPN bag changes Sodium Chloride 20 ml 06/02/25 16:08 Central Line Flush IV PUSH PRN PRN after blood draws Spironolactone 50 mg 05/30/25 09:00 06/04/25 08:49 Spironolactone 50 Mg Tablet PO 50 mg DAILY SYDNEY Administration Trazodone HCl 150 mg 05/29/25 21:00 06/03/25 22:00 Trazodone Hcl 50 Mg Tablet PO 150 mg HS SYDNEY Administration Radiology Results: ITS Impressions Foot X-Ray 05/29/25 12:10 Impression: 1: No acute fracture. 2: Severe polyarticular osteoarthritis. Foot CT 05/31/25 15:06 IMPRESSION: 8 mm long, radiopaque, likely metallic foreign body in the soft tissues of the ball of the right foot, superficial to the interspace between the proximal aspect of the first and second proximal phalanges. May represent a small piece of metallic wire or needle fragment. Likely surrounding cellulitis. No definite soft tissue fluid collection. Fluoroscopy 06/02/25 08:59 IMPRESSION: Fluoroscopy used during Foreign body removal from right foot. Chest X-Ray 06/02/25 16:15 IMPRESSION: No focal infiltrate or effusion. Right upper extremity PICC line in good position and ready for immediate use. Labs Labs: Laboratory Results - last 24 hr 06/03/25 06/03/25 06/03/25 11:23 16:58 20:45 WBC RBC Hgb Hct MCV MCH MCHC RDW Plt Count MPV Sodium Potassium Chloride Carbon Dioxide Anion Gap BUN Creatinine Estim Creat Clear Calc Estimated GFR Glucose POC Capillary Glucose 106 H 174 H 188 H Calcium Magnesium Total Bilirubin AST ALT Alkaline Phosphatase Total Protein Albumin 06/04/25 06/04/25 05:48 08:06 WBC 6.4 RBC 3.51 L Hgb 10.9 L Hct 32.8 L MCV 93.4 MCH 31.1 MCHC 33.2 RDW 13.7 Plt Count 142 L MPV 9.1 Sodium 140 Potassium 3.9 Chloride 106 Carbon Dioxide 32 H Anion Gap 2 L BUN 13 Creatinine 0.80 Estim Creat Clear Calc 99 Estimated GFR > 60 Glucose 99 POC Capillary Glucose 88 Calcium 8.9 Magnesium 2.1 Total Bilirubin 0.4 AST 26 ALT 30 Alkaline Phosphatase 74 Total Protein 6.7 Albumin 3.5
[2025-06-04] MEDS: NEOMYCIN/POLYMYXIN/BACITRACIN OINTMENT PACKET 1 PACKET (12:39)
--- NOTE | 2025-06-04 13:05 | P.DS_ITS ---
DS: Admitting Diagnosis Discharge Date 06/04/2025 Admitting Diagnosis foreign body in right foot with infection cellulitis DM HTN DS: Discharge Diagnosis Discharge Diagnosis (1) Foreign body in right foot with infection: Code(s): S90.851A - Superficial foreign body, right foot, initial encounter; L08.9 - Local infection of the skin and subcutaneous tissue, unspecified Status: Acute (2) Cellulitis: Qualifiers: Site of cellulitis: other site Qualified Code(s): L03.818 - Cellulitis of other sites Code(s): L03.90 - Cellulitis, unspecified Status: Acute (3) Diabetes mellitus: Qualifiers: Diabetes mellitus complication status: with other specified complication Diabetes mellitus terminal superintendent insulin use: unspecified terminal superintendent insulin use status Diabetes mellitus type: type 2 Qualified Code(s): E11.69 - Type 2 diabetes mellitus with other specified complication Code(s): E11.9 - Type 2 diabetes mellitus without complications Status: Acute (4) Essential hypertension: Code(s): I10 - Essential (primary) hypertension Status: Acute DS: Summary Hospital Course Reason for hospitalization: foreign body in right foot with infection cellulitis DM HTN Hospital Course: 45 year old female with past medical history of morbid obesity, hypertension, hyperlipidemia, diabetes mellitus, peripheral neuropathy, GERD, anxiety, depression, recent buttock cellulitis/abscess (culture grew staph aureus on 03/26), PTSD, among other comorbidities presents to the hospital with right foot pain. Slight leukocytosis on admission. Not meeting sepsis criteria. Right foot XR showed no acute fracture and Severe polyarticular osteoarthritis. Right foot CT showed an 8 mm long, radiopaque, likely metallic foreign body in the soft tissues of the ball of the right foot, superficial to the interspace between the proximal aspect of the first and second proximal phalanges. May represent a sma ll piece of metallic wire or needle fragment. Likely surrounding cellulitis. No definite soft tissue fluid collection. Patient started on IV antibiotics and surgery consulted. Patient underwent removal of foreign body from right foot 06/[address] Tatum. Discussed antibiotics with ID pharmacy, transitioned to Augmentin, course to be completed 06/07. Patient had no complaints at time of discharge denying chest pain, palpitations, shortness of breath, nausea/vomiting, and abdominal pain. She endorses slight pain to the right foot along the surgical site but states that this is well controlled on the current oral regimen. Patient states she feels okay to discharge home at this point. She denies any tingling/numbness or shooting pain. She is ambulating without assistance in the surgical shoe. Patient discharged home in a stable condition. She is to follow up with her primary care provider in 1 week and surgery as scheduled. Status at Discharge Functional status at discharge: independent ambulation Time Spent with Patient Time attestation: Total time spent providing and/or coordinating discharge services: Time spent: Greater than 30 minutes Exam Narrative: AF HR 66 RR 18 Spo2 100 BP 106/61 General: female in no acute respiratory distress who is nontoxic appearing, sitting up in chair HEENT: Normocephalic. Atraumatic. Extraocular movement intact. Sclera clear and anicteric. No facial asymmetry. Chest: Lungs are clear to auscultation bilaterally. CV: Heart was regular rate and rhythm. Abd: Abdomen was soft. Nontender. Nondistended. Positive bowel sounds. Ext: No clubbing, cyanosis, or edema. DP pulses bilaterally. Surgical dressing is clean dry and intact. Wiggling toes. Neuro: Patient is alert and oriented x3. Speech is clear. DS: Data Data Completed and Pending Completed studies during hospitalization: chest XR fluoroscopy foot ct foot xr Pending studies at discharge: Pending at discharge 06/02/25 07:48 Surgical [PTH] Routine Labs on day of discharge: Labs from last 24 hours 06/04/25 06/04/25 06/04/25 11:45 08:06 05:48 WBC 6.4 RBC 3.51 L Hgb 10.9 L Hct 32.8 L MCV 93.4 MCH 31.1 MCHC 33.2 RDW 13.7 Plt Count 142 L MPV 9.1 Sodium 140 Potassium 3.9 Chloride 106 Carbon Dioxide 32 H Anion Gap 2 L BUN 13 Creatinine 0.80 Estim Creat Clear Calc 99 Estimated GFR > 60 Glucose 99 POC Capillary Glucose 97 88 Calcium 8.9 Magnesium 2.1 Total Bilirubin 0.4 AST 26 ALT 30 Alkaline Phosphatase 74 Total Protein 6.7 Albumin 3.5 06/03/25 06/03/25 20:45 16:58 WBC RBC Hgb Hct MCV MCH MCHC RDW Plt Count MPV Sodium Potassium Chloride Carbon Dioxide Anion Gap BUN Creatinine Estim Creat Clear Calc Estimated GFR Glucose POC Capillary Glucose 188 H 174 H Calcium Magnesium Total Bilirubin AST ALT Alkaline Phosphatase Total Protein Albumin Preliminary micro results at discharge 05/29/25 12:29 Blood Culture - Preliminary Blood 05/29/25 12:39 Blood Culture - Preliminary Blood Discharge Plan Discharge Attending physician on discharge: Osman Almaguer Consulting providers: Haydee San; aKthi Vang; Julia Tatum Discharging Clinician: Kathi Vang Anticipated Discharge Date/Time: 06/04/25 12:54 Patient Disposition: Home Activity: as tolerated Diet: as tolerated Discharge Instructions: Discharge disposition: Patient admitted to the hospital for cellulitis Evaluated by surgery and underwent a foreign body removal of the right foot on 06/[address] Tatum Take medications as prescribed Augmentin twice a day, course to be completed on 06/07. Attached is information on this medication [place] as needed for break through pain, attached is infrormation on this medication do not drive or operate heavy machinery on this medication Monitor site for signs of infection including redness, swelling, increased pain, and purulent drainage Follow up with surgery in 2 weeks Monitor blood pressures Take caution while standing, rising, or moving Change positions slowly taking a break between each position change If you standing feel dizzy sit back down and take a break Encouraged to continue with yearly vaccinations Return to the emergency department if he developed sudden shortness of breath, chest pain, nausea, vomiting, upset stomach or intractable diarrhea Return to the emergency department if you develop fever greater than 100.5 Follow-up with the primary care physician within 1-2 weeks Thank you for choosing [facility] for your healthcare needs Patient Instructions: Antibiotic Form, Hydrocodone/Acetaminophen (By mouth), Amoxicillin/Clavulanate Potassium (By mouth), Cellulitis (ED) Patient Language: Uzbek Stand Alone Forms: General Discharge Information, Work/School Release IP Follow-up/Referrals: Julia Tatum MD [Physician] - 2 Weeks (Call to schedule) Aj,Preet Schwartz MD [Primary Care Provider] - 1 Week Discharge Medications: New hydrocodone-acetaminophen 7.5-325 mg Tablet 1 tablet PO Q4H PRN (Reason: Pain Rated 7-10) Qty: 10 0RF amoxicillin-pot clavulanate 875-125 mg tablet 1 tablet PO Q12H Qty: 7 0RF Continued furosemide 40 mg Tablet 80 mg PO BID baclofen 20 mg Tablet 20 mg PO TID albuterol sulfate 90 mcg/actuation HFA aerosol inhaler 2 puff INHALATION QID PRN (Reason: shortness of breath or wheezing) Qty: 8.5 0RF Omnipod 6 See Rx Instructions .ROUTE .COMPLEX Rx Instructions: 16.05 units per day of Humulin R U-500, additional boluses depending on what insulin pump calculates. Trulicity 0.75 mg/0.5 mL pen injector 0.75 mg subcut WEEKLY Patient Comments: Usually takes on Saturdays Steglatro 15 mg tablet 15 mg PO DAILY trazodone 150 mg Tablet 150 mg PO HS pregabalin 75 mg Capsule 150 mg PO HS Rx Instructions: takes at 11pm fluoxetine 60 mg Tablet 60 mg PO HS Rx Instructions: takes at 11pm buspirone 30 mg tablet 30 mg PO HS potassium chloride 10 mEq tablet extended release 10 meq PO .Q12HR naproxen 500 mg tablet 1,000 mg PO DAILY spironolactone 50 mg tablet 50 mg PO DAILY Date of admission: 05/30/25 14:29 Primary Care Provider: AjPreet Admitting Provider: Guille Rajput Attending physician on admission: Guille Rajput Condition: Stable Hospitalist MIPS Heart Failure (Exclusion) Patient has history of Heart Transplant or Left Ventricular Assistive Device?: No IF YES, STOP HERE Heart Failure (Qualifier) Patient has current or prior documentation of LVEF less than or equal to 40%, or mod/servere depressed LVSF?: No IF NO, STOP HERE
--- NOTE | 2025-06-04 13:23 | PCNWS ---
Weekly nutritional screen. Patient is tolerating current diet with adequate intake, 100%. No weight loss reported. No nutritional needs at this time.
== END 2025-06-04 14:10 | disposition home or self-care (01) | DRG 384 ==
LOC: ANHED 13:31 → ANH2MED 14:56
PROVIDERS: Nurse Practitioner Family; Student in an Organized Health Care Education/Training Program; Surgery; Admitting Provider Internal Medicine; Emergency Provider Emergency Medicine; PCP Family Medicine; Visit Provider Student in an Organized Health Care Education/Training Program
PROC: 0HCMXZZ Extirpation of Matter from Right Foot Skin, External Approach (ICD-10-PCS; principal; 2025-06-02 07:30)
DX: S90.851A Superficial foreign body, right foot, initial encounter (principal); L03.115 Cellulitis of right lower limb; E66.01 Morbid (severe) obesity due to excess calories; I10 Essential (primary) hypertension; E78.5 Hyperlipidemia, unspecified; E11.42 Type 2 diabetes mellitus with diabetic polyneuropathy; K21.9 Gastro-esophageal reflux disease without esophagitis; F41.9 Anxiety disorder, unspecified; F32.A Depression, unspecified; F43.10 Post-traumatic stress disorder, unspecified; M15.9 Polyosteoarthritis, unspecified; Z87.891 Personal history of nicotine dependence; F12.90 Cannabis use, unspecified, uncomplicated; Z79.85 Long-term (current) use of injectable non-insulin antidiabetic drugs; W45.8XXA Other foreign body or object entering through skin, initial encounter; Z68.41 Body mass index [BMI] 40.0-44.9, adult; G47.33 Obstructive sleep apnea (adult) (pediatric); K59.09 Other constipation
CPT/HCPCS: 36410; 36415; 36569; 73630; 73700; 76000; 80048; 80053; 80202; 82948; 83605; 83735; 85025; 85027; 85610; 85730; 86140; 87040; 87070; 87075; 88300; 90471; 90715; 96365; 96366; 96367; 96375; 99285; A9270; C1751; G0378; G0379; J0692; J0696; J1171; J1650; J1836; J1885; J2003; J2004; J2250; J2405; J2704; J3010; J3373; J7120